=== PATIENT | male | born 1940 | race Caucasian/White ===

== ENCOUNTER 2022-03-12 11:17 | Emergency (ER) | payer MEDICARE, SELFPAY ==
[2022-03-12] VITALS (9 sets, daily range): BP systolic 139–166; BP diastolic 60–86; PULSE 46–60; RESP 15–24; TEMP 36.6; O2SAT 98–100
--- NOTE | 2022-03-12 13:04 | ECG_ITS ---
Measurements Intervals [place] Rate: 45 P: 39 MA: 149 QRS: 23 QRSD: 154 T: 12 QT: 537 QTc: 467 Interpretive Statements SINUS BRADYCARDIA RIGHT BUNDLE BRANCH BLOCK [120+ ms QRS DURATION, UPRIGHT V1, 40+ ms S IN I/aVL/V4/V5/V6] ABNORMAL ECG COMPARED TO ECG 10/03/2018 18:51:27 NO SIGNIFICANT CHANGE Electronically Signed On 03-12-2022 15:04:39 RN ACCESS by Pete Galvez M.D.
--- NOTE | 2022-03-12 13:10 | PC.NURSE ---
Pt presents with dizziness that started throughout the night. Pt reports difficulty ambulating due to dizziness and feeling off balance. Pt reports dizziness has improved some but is still present. Symptoms are worse with position changes. Pt denies unilateral numbness, weakness, or tingling. He denies headache or vision changes. Family noted patient's urine to be dark in color. He denies urinary symptoms, abdominal or flank pain, or vomiting. Pt is A&O x4.
[2022-03-12 13:27] LABS: Basophils Absolute Auto 0.1 K/mm3 (0.0-0.1); Basophils Percent Auto 0.4 % (0.2-1.2); Eosinophils Absolute Auto 0.1 K/mm3 (0-0.3); Eosinophils Percent Auto 0.8 % (0-4.4); Hemoglobin 14.7 g/dL (14.0-18.0); Immature Granulocyte Absolute 0.09 K/mm3 (0.00-0.031); Immature Granulocyte Percent A 0.8 % (0-0.5); Lymphocytes Absolute Auto 1.48 K/mm3 (0.9-3.2); Lymphocytes Percent Auto 12.6 % (18.3-44.2); Mean Corpuscular HGB Conc 33.4 g/dl (32-36); Mean Corpuscular Hemoglobin 32.5 pg (26-34); Mean Corpuscular Volume 97.1 fl (80-100); Mean Platelet Volume 10.7 fl (7.4-10.4); Monocytes Absolute Auto 0.6 K/mm3 (0.1-0.6); Monocytes Percent Auto 5.2 % (2.6-8.5); Neutrophils Absolute Auto 9.4 K/mm3 (1.3-6.7); Neutrophils Percent Auto 80.2 % (45.5-73.1); Platelet Count Result 221 k/mm3 (150-375); Red Blood Count 4.53 M/mm3 (4.6-6.20); Red Cell Distribution Width 12.6 % (11.5-14.5); White Blood Count 11.7 K/mm3 (4.5-10.0)
[2022-03-12 13:39] LABS: Alanine Aminotransferase 32 U/L (6-50); Albumin Level 4.7 g/dL (3.5-5.1); Alkaline Phosphatase 115 U/L (38-126); Anion Gap 8 mmol/L (8-16); Aspartate Amino Transferase 32 U/L (17-59); Bilirubin,Total 0.9 mg/dL (0.2-1.3); Blood Urea Nitrogen 24 mg/dL (9-20); Carbon Dioxide 30 mmol/L (22-30); Chloride 102 mmol/L (98-107); Estimated CRCL calculation 57 ml/min; Estimated Glomerular Filt Rate > 60; Glucose 128 mg/dL (65-110); Potassium 4.3 mmol/L (3.4-5.0); Sodium 140 mmol/L (137-145)
[2022-03-12] MEDS: MECLIZINE HCL 25 MG TABLET PO (14:20)
--- NOTE | 2022-03-12 15:24 | ED.DIZZY ---
HPI - Dizziness General Chief Complaint: Dizziness Stated Complaint: dizzy, nausea, confusion Time Seen by Provider: 03/12/22 13:07 History of Present Illness HPI Narrative: Patient is a 81-year-old male who presents ER with dizziness. Began early this morning upon waking up. He reports occasional when he gets up to walk around he is feeling unsteady/wobbly. No nausea/vomiting/spinning. No weakness or numbness in arm or leg. No slurred speech. Reports has been having sinus congestion over the last couple days and is developed pressure in his ears with muffled hearing. No alleviating factors for today other than sitting still. Patient bradycardic but family reports this is normal for him. He is on no antihypertensives as they are discontinued by his PCP. Related Data Allergies Allergy/AdvReac Type Severity Reaction Status Date / Time No Known Allergies Allergy Unverified 03/12/22 13:14 Review of Systems Review of Systems: All systems reviewed & are unremarkable except as noted in HPI and below Constitutional: Constitutional: Denies chills, Denies fatigue and Denies fever(s) Eyes: Eyes: Denies change in vision and Denies photophobia ENT: Reports dizziness, Reports nasal congestion and Denies sore throat Comments: Piriformis Cardiovascular: Cardiovascular: Denies chest pain, Denies rapid heart rate and Denies radiating jaw, neck or arm pain Respiratory: Respiratory: Denies cough and Denies dyspnea Gastrointestinal: Gastrointestinal: Denies abdominal pain, Denies nausea and Denies vomiting Neurologic: Denies syncope, Denies headache(s), Denies focal weakness and Denies numbness PMFSH Past Medical History Medical History (Updated 03/12/22 @ 15:32 by Maycol Durant MD) Anxiety Depression Hemorrhoids Hypertension Hypothyroidism Lewy body dementia Parkinsons Surgical History Surgical History (Updated 03/12/22 @ 15:28 by Maycol Durant MD) History of cochlear implant Exam Narrative: GENERAL: Well-appearing, well-nourished, and in no acute distress. HEAD: Normocephalic, atraumatic. EYES: PERRL and EOMI. ENT: Mucous membranes moist. TMs with air/fluid behind them. No erythema. CHEST: Clear to auscultation. No respiratory distress. HEART: Bradycardic, regular. Normal peripheral pulses. ABDOMEN: Soft, nontender, nondistended. EXTREMITIES: Normal range of motion. No edema. SKIN: Warm, dry, no rash. NEURO: No focal deficits. No upper or lower extremity drift. No slurred speech or facial asymmetry. Alert and oriented x3. PSYCH: Normal mood and affect. Course Course Emergency Course: Patient resting comfortably. Feels improved with meclizine. Up and ambulatory without a steady gait. Discharged home with supportive medication. Recommend follow-up with PCP. Family comfortable with plan. Blood pressures intermittently elevated, recommend monitoring at home and no interventions at this time. Vital Signs Vital signs: Vital Signs Temperature 97.9 F 03/12/22 11:32 Pulse Rate 49 L 03/12/22 11:32 Respiratory Rate 18 03/12/22 11:32 Blood Pressure 139/72 03/12/22 11:32 Pulse Oximetry 99 03/12/22 11:32 Oxygen Delivery Room Air 03/12/22 11:32 Temperature 97.9 F 03/12/22 11:32 Pulse Rate 48 L 03/12/22 13:14 Respiratory Rate 15 03/12/22 13:14 Blood Pressure 139/72 03/12/22 11:32 Pulse Oximetry 100 03/12/22 13:14 Oxygen Delivery Room Air 03/12/22 11:32 MDM - Dizziness Lab Data 03/12/22 13:15 03/12/22 13:15 Labs: Lab Results 03/12/22 03/12/22 Range/Units 13:15 13:15 WBC 11.7 H (4.5-10.0) K/mm3 RBC 4.53 L (4.6-6.20) M/mm3 Hgb 14.7 (14.0-18.0) g/dL Hct 44.0 (42.0-52.0) % MCV 97.1 (80-100) fl MCH 32.5 (26-34) pg MCHC 33.4 (32-36) g/dl RDW 12.6 (11.5-14.5) % Plt Count 221 (150-375) k/mm3 MPV 10.7 H (7.4-10.4) fl Immature Gran % (Auto) 0.8 H (0-0.5) % Neut % (Auto) 8
== END 2022-03-12 15:40 | disposition home or self-care (01) ==
PROVIDERS: Emergency Provider Emergency Medicine; PCP Internal Medicine
DX: R42 Dizziness and giddiness (principal); I10 Essential (primary) hypertension; E03.9 Hypothyroidism, unspecified; G31.83 Neurocognitive disorder with Lewy bodies; F02.80 Dementia in other diseases classified elsewhere, unspecified severity, without behavioral disturbance, psychotic disturbance, mood disturbance, and anxiety; G20 Parkinson's disease; R00.1 Bradycardia, unspecified; I45.10 Unspecified right bundle-branch block
CPT/HCPCS: 36415; 80053; 85025; 93005; 99284; A9270

== ENCOUNTER 2022-10-15 17:03 | Inpatient (IN) | payer MEDICARE, SELFPAY ==
[2022-10-15] VITALS (12 sets, daily range): BP systolic 139–166; BP diastolic 57–73; PULSE 42–57; RESP 16–28; TEMP 36.4–36.6; O2SAT 92–100; BMI 29.3
--- NOTE | ~2022-10-15 | XR_ITS ---
EXAMINATION: XR surgery orthopedic DATE: 10/16/2022 09:28 INDICATION: Left hip fracture TECHNIQUE: 4 fluoroscopic images of the left hip and proximal femur were obtained during procedure pe rformed by Dr. Amato. Radiologist was not present for the imaging or procedure. The amount of fluor oscopy time used during this procedure was 2.2 minutes. COMPARISON: Radiographs dated 10/15/2022 FINDINGS: Interval reduction of the intertrochanteric fracture the proximal left femur with antegrade intramedu llary yaz and femoral neck dynamic compression screw and distal interlocking screw fixation. Alignmen t appears near-anatomic. No new fractures identified. 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 IMPRESSION: 1. Near-anatomic alignment post reduction and internal fixation of an intratrochanteric fracture of t he proximal left femur. Reviewed, dictated and finalized at location A. IMPRESSION: 1. Near-anatomic alignment post reduction and internal fixation of an intratroc hanteric fracture of the proximal left femur.
--- NOTE | ~2022-10-15 | XR_ITS ---
EXAMINATION: XR chest 1V INDICATION: Pain after fall TECHNIQUE: AP view of the chest is obtained. COMPARISON: 10/03/2018 FINDINGS: The lungs are free of acute opacities. No pleural effusion or pneumothorax. The cardiomedia stinal silhouette is stable. IMPRESSION: 1. No acute cardiopulmonary abnormality. Reviewed, dictated and finalized at location F.
--- NOTE | ~2022-10-15 | XR_ITS ---
EXAMINATION: XR hip LT 2V w AP pelvis INDICATION: Left hip pain after fall, initial encounter TECHNIQUE: AP view the pelvis and two views of the left hip are obtained. COMPARISON: None available FINDINGS: There is an acute, traumatic, closed, intertrochanteric fracture of the left femur. The fem oral head is well-seated in the acetabulum. No additional fracture is identified. There is mild osteo arthritis of the hips. Moderate lower lumbar spondylosis is noted. IMPRESSION: 1. Acute intertrochanteric left hip fracture. Reviewed, dictated and finalized at location F.
--- NOTE | ~2022-10-15 | CT_ITS ---
EXAMINATION: CT brain wo con INDICATION: Head injury COMPARISON: None TECHNIQUE: Standard unenhanced head CT. The dose-length product (DLP) was 681.00 mGy-cm. The mA was a djusted according to patient size. Iterative reconstruction technique was employed. FINDINGS: Streak implant from a left cochlear implant slightly limits the examination. There is no ac [place] intraparenchymal hemorrhage. No evidence of mass lesion. No evidence of acute infarction. There i s moderate periventricular and subcortical hypodensity probably related to small vessel ischemic dise ase. There is moderate prominence of the sulci and ventricles related to cerebral atrophy. Intracrani al calcified cerebral atherosclerosis is noted. There are no extra-axial collections. There is no mas s effect or midline shift. Changes in the globes are likely from ocular lens surgery. The visualized sinuses and mastoid air cells are well aerated. IMPRESSION: 1. No acute intracranial abnormality. 2. Age related findings. Reviewed, dictated and finalized at location F.
--- NOTE | 2022-10-15 18:00 | ED.FALL ---
HPI - Fall General Chief Complaint: Fall <Dipti Peck APRN - Last Filed: 10/15/22 19:25> Stated Complaint: Lt hip injury <Dipti Peck APRN - Last Filed: 10/15/22 19:25> Time Seen by Provider: 10/15/22 17:28 <Dipti Peck APRN - Last Filed: 10/15/22 19:25> Source: patient, family (son/spouse), EMS and RN notes reviewed <Dipti Peck APRN - Last Filed: 10/15/22 19:25> Mode of arrival: EMS <Dipti Peck APRN - Last Filed: 10/15/22 19:25> History of Present Illness HPI Narrative: Patient is a pleasant 81-year-old male with a past medical history of Anxiety, depression, hypertension, hypothyroidism, Lewy body dementia, Parkinson's disease who presents to the emergency department today via EMS with son and spouse present 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 Per the spouse and patient he was on the lawnmower and typically the spouse helps him by sitting on the seat when he has to move. She states that usually only gets down his time he fell forward. per the spouse patient could not get up. Was complaining of left hip pain. Was not able to ambulate due to the pain. Spouse witnessed the entire fall. She states that he may have hit the left front /side of his head. The patient states his pain is all to the left hip/ upper leg. He denies any back pain. when asked if he hit his head he stated he may have on the left upper side. he denies taking any blood thinners. He denies having any symptoms prior to the fall he just slipped and went down. He denies any current headache, dizziness, nausea, vomiting, numbness or tingling of the lower extremities, low back pain, neck pain, loss of control of bowels or bladder, numbness in his groin, abdominal pain, chest pain, shortness a breath, any other symptoms. 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 EYES: Denies visual changes, redness, or discharge. ENT: Denies rhinorrhea, congestion, sore throat, or otalgia. CARDIOVASCULAR: Denies chest pain, palpitations, or edema. RESPIRATORY: Denies cough or dyspnea. GASTROINTESTINAL: Denies abdominal pain, nausea, vomiting, or diarrhea. GENITOURINARY: Denies dysuria or hematuria. SKIN: Denies rash or itching. abrasion left elbow. MUSCULOSKELETAL: Denies back pain. reports Left hip pain/left upper leg pain. denies elbow pain to the left NEUROLOGIC: Denies headache, numbness, or weakness. PSYCHIATRIC: Denies anxiety or depression. <Dipti Peck PRESSURE WELDER - Last Filed: 10/15/22 19:25> All systems reviewed & are unremarkable except as noted in HPI and below <Dipti Peck PRESSURE WELDER - Last Filed: 10/15/22 19:25> [facility] Past Medical History Medical History: Medical History Anxiety Depression Hemorrhoids Hypertension Hypothyroidism Lewy body dementia Parkinsons <Dipti Peck PRESSURE WELDER - Last Filed: 10/15/22 19:25> Surgical History Surgical History: Surgical History (Updated 10/15/22 @ 19:58 by Maritza Ny NP) History of cochlear implant S/P hernia repair <Dipti Peck APRN - Last Filed: 10/15/22 19:25> Family History Family History: Family History (Updated 10/15/22 @ 20:00 by Maritza Ny NP) Sibling Rheumatic arteritis Neuropathy Abdominal aneurysm Hypertension Mother Parkinson disease Alzheimer disease Father Lung cancer <Dipti Peck, KATY - Last Filed: 10/15/22 19:25> Social History Social Hist
--- NOTE | 2022-10-15 18:26 | ECG_ITS ---
Measurements Intervals [place] Rate: 51 P: 55 AL: 158 QRS: 32 QRSD: 155 T: 3 QT: 514 QTc: 478 Interpretive Statements SINUS BRADYCARDIA RIGHT BUNDLE-BRANCH BLOCK COMPARED TO ECG 03/12/2022 13:10:11 NO SIGNIFICANT CHANGES Electronically Signed On 10-16-2022 8:51:43 CDT by Dori Ceja M.D.
[2022-10-15] MEDS: MORPHINE SULFATE (*CRX) 2 MG/ML INJ IV PUSH ×2 (18:27→23:11)
[2022-10-15] MEDS: ONDANSETRON INJ 4 MG/2 ML VIAL IV PUSH ×2 (18:28→23:11)
[2022-10-15 18:59] LABS: Basophils Absolute Auto 0.1 K/mm3 (0.0-0.1); Basophils Percent Auto 0.5 % (0.2-1.2); Eosinophils Absolute Auto 0.2 K/mm3 (0-0.3); Eosinophils Percent Auto 1.6 % (0-4.4); Hematocrit 37.8 % (42.0-52.0); Hemoglobin 12.9 g/dL (14.0-18.0); Immature Granulocyte Absolute 0.06 K/mm3 (0.00-0.031); Immature Granulocyte Percent A 0.5 % (0-0.5); Lymphocytes Absolute Auto 1.18 K/mm3 (0.9-3.2); Lymphocytes Percent Auto 10.8 % (18.3-44.2); Mean Corpuscular HGB Conc 34.1 g/dl (32-36); Mean Corpuscular Hemoglobin 32.7 pg (26-34); Mean Corpuscular Volume 95.9 fl (80-100); Monocytes Absolute Auto 0.7 K/mm3 (0.1-0.6); Monocytes Percent Auto 6.7 % (2.6-8.5); Neutrophils Absolute Auto 8.7 K/mm3 (1.3-6.7); Neutrophils Percent Auto 79.9 % (45.5-73.1); Platelet Count Result 160 k/mm3 (150-375); Red Blood Count 3.94 M/mm3 (4.6-6.20); Red Cell Distribution Width 12.4 % (11.5-14.5); White Blood Count 10.9 K/mm3 (4.5-10.0)
[2022-10-15 19:09] LABS: Alanine Aminotransferase 21 U/L (6-50); Albumin Level 4.3 g/dL (3.5-5.1); Alkaline Phosphatase 93 U/L (38-126); Anion Gap 5 mmol/L (8-16); Aspartate Amino Transferase 32 U/L (17-59); Bilirubin,Total 0.8 mg/dL (0.2-1.3); Blood Urea Nitrogen 18 mg/dL (9-20); Calcium 9.7 mg/dL (8.4-10.2); Carbon Dioxide 28 mmol/L (22-30); Chloride 101 mmol/L (98-107); Estimated CRCL calculation 45 ml/min; Estimated Glomerular Filt Rate 58; Glucose 109 mg/dL (65-110); Potassium 4.8 mmol/L (3.4-5.0); Sodium 134 mmol/L (137-145)
[2022-10-15 19:15] LABS: Prothrombin Time 13.9 Seconds (11.1-14.7)
--- NOTE | 2022-10-15 19:54 | PM.IMHP ---
H&P: HPI History of Present Illness Date/Time: 10/15/22 19:54 Chief Complaint: Fall Narrative: This is a 81-year-old male patient who has a history of mild dementia, Parkinson's, hypothyroidism, hypertension, anxiety, and anxiety.. The patient was out cutting the grass on his riding mower. The patient was trying to get off of his lumbar to lower his past again on to finish cutting the grass. The patient was sitting on the seat and was trying to get off the more when he fell forward the patient landed on his left side and could not get up and move. The patient was not able to ambulated all. The patient was complaining of left hip pain. The patient stated he was not sure if he hit his head but he did not lose any consciousness. He denies any fever chills or any nausea vomiting or diarrhea. The patient was given Zofran and morphine in the emergency room. White count 10.9. H&H is 12.9 and 37.8. Sodium is 134. Head CT was read as no acute intracranial abnormality. Age-related findings. Chest x-ray was read as no acute cardiopulmonary abnormality. Hip and pelvis x-ray was read as acute intertrochanteric left hip fracture. No deformity is noted at this time. Patient has a cochlear implant and still very hard of hearing. The is answering basic questions for me. His sister is also at the bedside answering questions for him. Ortho has been consulted. The patient is being admitted to inpatient status on the date of service of 10/15/2022. Review of Systems Review of Systems: All systems reviewed & are unremarkable except as noted in HPI and below Constitutional: Constitutional: Reports as per HPI and Reports no additional constitutional complaints Eyes: Eyes: Reports as per HPI and Reports no additional eye complaints ENT: Reports system reviewed and no additional complaints, except as documented and Reports Normal hearing present Cardiovascular: Cardiovascular: Reports no additional cardiovascular complaints Respiratory: Respiratory: Reports no additional respiratory complaints and Reports no additional respiratory complaints Gastrointestinal: Gastrointestinal: Reports as per HPI and Reports no additional gastrointestinal complaints Musculoskeletal: Musculoskeletal: Reports no additional musculoskeletal complaints Integumentary/Breasts: Skin/Breast: Reports system reviewed and no additional complaints, except as docu and Reports as per HPI Neurologic: Reports system reviewed and no additional complaints, except as documented, Reports as per HPI and Reports Normal hearing present Psychiatric: Psychiatric: Reports no additional psychiatric complaints and Reports as per HPI Endocrine: Endocrine: Reports no additional endocrine complaints Hematologic/Lymphatic: Hematologic/Lymphatic: Reports no additional hematologic/lymphatic complaints Allergic/Immunologic: Allergic/Immunologic: Reports no additional allergic/immunologic complaints [facility] Past Medical History Medical History (Updated 10/15/22 @ 22:43 by Maritza Ny NP) Anxiety Depression Glaucoma H/O valvular heart disease Hemorrhoids Hyperlipidemia Hypertension Hypothyroidism Lewy body dementia Pacemaker Parkinsons Surgical History Surgical History History of cochlear implant S/P hernia repair Family History Family History Sibling Rheumatic arteritis Neuropathy Abdominal aneurysm Hypertension Mother Parkinson disease Alzheimer disease Father Lung cancer Social History Social History (Updated 10/15/22 @ 22:45 by Maritza Ny NP) Social History: He lives with his and he has 2 children. 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 He is a lifelong nonsmoker. His is the durable power finance attorney for healthcare. Code status full code Smoking status: Never smoker Alcohol intake: never Substance use: never Lack o
--- NOTE | 2022-10-15 21:42 | ADMGEN ---
This patient, Abdi Abrams , was admitted to Medical Room 252-01. Patient/family oriented to hospital policies and general routines including ID bracelet, bed and alarms, visiting hours, pain management, procedures, bathroom and other care routines, personal items, smoking policy, room service/diet, and visiting hours. Information on how to activate the Rapid Response Team has been discussed. Patient/Family are encouraged to report perceived risks to care and to ask questions if they do not understand what they are told or what they should do.
[2022-10-15] MEDS: QUEtiapine FUMARATE 25 MG TABLET 50 MG PO (23:11)
[2022-10-15] MEDS: MELATONIN 5 MG TABLET PO (23:11)
[2022-10-15] MEDS: DONEPEZIL HCL 10 MG TABLET PO (23:11)
[2022-10-15] MEDS: ROSUVASTATIN 10 MG TABLET 20 MG PO (23:11)
[2022-10-15] MEDS: SODIUM CHLORIDE 0.9% IV 1,000 ML 100 ML IV CONT (23:12)
[2022-10-16] VITALS (17 sets, daily range): BP systolic 116–159; BP diastolic 58–82; PULSE 45–100; RESP 16–19; TEMP 36–37.5; O2SAT 93–100
--- NOTE | 2022-10-16 | ECHO_ITS ---
Patient Info Name: Abdi Abrams Age: 81 years : 1940 Gender: Male Ht: 69 in Wt: 198 lbs BSA: 2.11 m2 HR: 100 bpm BP: 116 / 58 mmHg Heart Rhythm: Sinus Rhythm Technical Quality: Good Exam Date: 10/16/2022 2:29 PM Exam Location: [facility] Patient Status: Inpatient Admit Date: 10/15/2022 Staff Ordering Physician: Maritza Ny NP Longwall Foreman: Rocio Bethea RDCS Attending Provider: Lizeth Ryan MD Referring Physician: Anant URIAS; Exam Type: CA echo doppler color flow Study Info Indications - murmur Complete two-dimensional, color flow and Doppler transthoracic echocardiogram is performed. Summary 1. Complete two-dimensional, color flow and Doppler transthoracic echocardiogram is performed. 2. Normal left ventricular size and thickness with good contractility of all segments. Ejection fraction 60-65%. Normal diastolic function. 3. Mild right ventricular enlargement and hypokinesis. 4. Left atrial chamber dimension is moderately enlarged. 5. There is mild to moderate aortic valve regurgitation. 6. There is mild tricuspid valve regurgitation. 7. Moderate pulmonary hypertension, estimated pulmonary arterial systolic pressure is 61 mmHg. 8. Normal sinus rhythm. Left Ventricle Left ventricular chamber dimension is normal. Left ventricular systolic function is normal, estimated at 60-65%. There is no increased left ventricular wall thickness. Left ventricular septal wall motion is normal. The left ventricular diastolic function is normal. Right Ventricle Right ventricular chamber dimension is mildly enlarged. Right ventricular systolic function is reduced. Left Atria Left atrial chamber dimension is moderately enlarged. Right Atria Right atrial chamber dimension is normal. Aortic Valve The aortic valve is trileaflet. There is mild aortic valve sclerosis. There is no aortic valve stenosis. There is mild to moderate aortic valve regurgitation. Pulmonic Valve The pulmonic valve is normal. There is no pulmonic valve stenosis. There is mild pulmonic regurgitation. Mitral Valve The mitral valve has normal leaflets. There is no mitral valve stenosis. There is no mitral valve regurgitation. Tricuspid Valve The tricuspid valve leaflets are normal. There is no significant tricuspid valve stenosis. There is mild tricuspid valve regurgitation. Moderate pulmonary hypertension, estimated pulmonary arterial systolic pressure is 61 mmHg. Pericardium/Pleural The pericardium appears normal. There is no pericardial effusion. Inferior Vena Cava Not well visualized inferior vena cava with >50% collapse upon inspiration consistent with Empty right atrial pressure, 10 mmHg. Aorta The aortic root size at the sinus of Valsalva is normal. The prox ascending aorta size is normal. Left Ventricular Outflow Tract Name Value Normal LVOT 2D LVOT Diameter 2.1 cm LVOT Doppler LVOT Peak Gradient 4 mmHg LVOT Mean Gradient 2 mmHg LVOT VTI 32 cm LVOT VTI/AV VTI Ratio 0.7 LVOT Stroke Volume 108 ml LVOT CO
[2022-10-16] MEDS: MORPHINE SULFATE (*CRX) 2 MG/ML INJ IV PUSH (03:22)
[2022-10-16] MEDS: LEVOTHYROXINE SODIUM 100 MCG TABLET PO (05:16)
[2022-10-16 06:34] LABS: Basophils Absolute Auto 0.1 K/mm3 (0.0-0.1); Basophils Percent Auto 0.5 % (0.2-1.2); Eosinophils Absolute Auto 0.1 K/mm3 (0-0.3); Hemoglobin 12.3 g/dL (14.0-18.0); Immature Granulocyte Absolute 0.05 K/mm3 (0.00-0.031); Immature Granulocyte Percent A 0.4 % (0-0.5); Lymphocytes Absolute Auto 1.68 K/mm3 (0.9-3.2); Lymphocytes Percent Auto 14.3 % (18.3-44.2); Mean Corpuscular HGB Conc 32.4 g/dl (32-36); Mean Corpuscular Hemoglobin 32.8 pg (26-34); Mean Corpuscular Volume 101.3 fl (80-100); Mean Platelet Volume 11.2 fl (7.4-10.4); Monocytes Absolute Auto 1.2 K/mm3 (0.1-0.6); Monocytes Percent Auto 10.6 % (2.6-8.5); Neutrophils Absolute Auto 8.6 K/mm3 (1.3-6.7); Neutrophils Percent Auto 73.2 % (45.5-73.1); Platelet Count Result 146 k/mm3 (150-375); Red Blood Count 3.75 M/mm3 (4.6-6.20); Red Cell Distribution Width 12.5 % (11.5-14.5); White Blood Count 11.7 K/mm3 (4.5-10.0)
[2022-10-16 06:46] LABS: Lactic Acid Reflex 1.7 mmol/L (0.7-2.0)
[2022-10-16 06:51] LABS: Alanine Aminotransferase 19 U/L (6-50); Albumin Level 3.8 g/dL (3.5-5.1); Alkaline Phosphatase 78 U/L (38-126); Anion Gap 6 mmol/L (8-16); Aspartate Amino Transferase 26 U/L (17-59); Blood Urea Nitrogen 20 mg/dL (9-20); Calcium 8.6 mg/dL (8.4-10.2); Carbon Dioxide 23 mmol/L (22-30); Chloride 103 mmol/L (98-107); Estimated CRCL calculation 48 ml/min; Estimated Glomerular Filt Rate > 60; Glucose 101 mg/dL (65-110); Magnesium 2.1 mg/dL (1.6-2.3); Potassium 4.3 mmol/L (3.4-5.0); Sodium 132 mmol/L (137-145)
--- NOTE | 2022-10-16 07:58 | PM.CNOR ---
Assessment and Plan Assessment and plan (1) Intertrochanteric fracture of left hip: Qualifiers: Encounter type: initial encounter Fracture alignment: nondisplaced Fracture type: closed Qualified Code(s): S72.145A - Nondisplaced intertrochanteric fracture of left femur, initial encounter for closed fracture Code(s): S72.142A - Displaced intertrochanteric fracture of left femur, initial encounter for closed fracture Status: Acute Plan S/P LEFT HIP INJURY AND NOW WITH LEFT INTERTROCHATERIC HIP FRACTURE. HE WWILL REQUIRE INSERRTION OF PROXIMAL FEMORAL KENDRA RIGHT HIP. DISCUSSED NONOPERATIVE AND OPERATIVE TREATMENT OPTIONS WITH THE PATIENT. THE PATIENT'S QUESTIONS WERE ANSWERED. THE PATIENT DESIRES OPERATIVE TREATMENT. RISKS OF SURGERY INCLUDING BUT NOT LIMITED TO NEUROVASCULAR DAMAGE, WOUND COMPLICATIONS, BLOOD CLOT, PULMONARY EMBOLUS, STROKE, TX, ANESTHETIC RISKS UP TO AND INCLUDING WERE REVIEWED. CONTINUED PAIN AND POSSIBLE DYSFUNCTION WERE EXPLAINED. NO GUARANTEES WERE OFFERED. THE PATIENT UNDERSTANDS AND WISHES TO PROCEED. 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 HE WAS SEEN IN THE ED AND DIAGNOSED WITH A LEFT INTERTROCHANTERIC FEMUR FRACTURE. HE DENIES ANY OTHER EXTREMITY OR BACK OR NECK PAIN. HISTORY, EXAM AND RADIOGRAPHS REVIEWED WITH THE PATIENT. REFERRING PHYSICIAN RECORDS AND IMAGES REVIEWED. CONDITION, NATURE, ETIOLOGY AND COURSE OF NATURAL HISTORY REVIEWED. CONSERVATIVE AND OPERATIVE TREATMENT OPTIONS REVIEWED WELL THE RISKS AND BENEFITS OF EACH. [facility] Past Medical History Medical History Anxiety Depression Glaucoma H/O valvular heart disease Hemorrhoids Hyperlipidemia Hypertension Hypothyroidism Lewy body dementia Pacemaker Parkinsons Surgical History Surgical History History of cochlear implant S/P hernia repair Family History Family History Sibling Rheumatic arteritis Neuropathy Abdominal aneurysm Hypertension Mother Parkinson disease Alzheimer disease Father Lung cancer Social History Social History Social History: He lives with his and he has 2 children. He is retired g [employer] still. He is a lifelong nonsmoker. His is the durable power trademark attorney for healthcare. Code status full code Smoking status: Never smoker Alcohol intake: never Substance use: never Lack of Transportation: No Lack of Food: Never True Current Housing: I Have Housing Concerned About Future Housing: No Difficulty Paying Gas/Electric Bills: No Difficulty Paying for Meds: No Currently Unemployed: No Education: High School Diploma/GED Difficulty w/ Childcare or Family Care: No Spiritual care concerns: No Meds Home Medications and Allergies Home Medications Medication Instructions Recorded Confirmed Type calcium carb-vit D3-minerals 600 1 tablet PO BID 10/15/22 10/15/22 History mg calcium-400 unit tablet cholecalciferol (vitamin D3) 25 25 mcg PO BID 10/15/22 10/15/22 History mcg (1,000 unit) tablet (Vitamin D3) donepezil 10 mg tablet 10 mg PO QHS 10/15/22 10/15/22 History duloxetine 60 mg capsule,delayed 60 mg PO QAM 10/15/22 10/15/22 History release ergocalciferol (vitamin D2) 1,250 50,000 unit PO WEEKLY 10/15/22 10/15/22 History mcg (50,000 unit) capsule ferrous sulfate 325 mg (65 mg 325 mg PO DAILY 10/15/22 10/15/22 History iron) tablet levothyroxine 100 mcg tablet 100 mcg PO QAM 10/15/22 10/15/22 History (Synthroid) lorazepam 0.5 mg tablet 0.5 mg PO QAM 10/15/22 10/15/22 History melatonin 5 mg tablet 5 mg PO HS 10/15/22 10/15/22 History quetiapine 100 mg tablet
[2022-10-16 08:01] LABS: Thyroid Stimulating Hormone Reflex 0.268 uIU/mL (0.465-4.68)
--- NOTE | 2022-10-16 08:12 | PC.NURSE ---
Patient to surgery @ 0800. Report called to Pre-op RN.
[2022-10-16] MEDS: ceFAZolin 2 GM/D5W 50 ML 2 GM/50 ML BAG IVPB ×3 (08:40→23:16)
[2022-10-16] MEDS: TRANEXAMIC ACID 1,000 MG/10 ML AMPUL 1000 MG IV PUSH (09:09)
--- NOTE | 2022-10-16 09:36 | W.PM.PROC2 ---
Procedure Note - Detailed Date of Procedure 10/16/22 Pre-op Diagnosis Left Hip Fracture Post-op Diagnosis Same Procedure Performed INSERTION GAMMA KENDRA LEFT HIP Surgeon Byron Amato MD Anesthesia General Description of Procedure THE PATIENT WAS TAKEN TO THE OPERATING ROOM AND PLACED ON A FRACTURE TABLE AFTER GIVEN GENERAL ANESTHESIA. THE LEFT LOWER EXTREMITY WAS PLACED IN A TRACTION BOOT AND USING SOME TRACTION AND INTERNAL ROTATION THE INNER TROCHANTERIC FRACTURE WAS REDUCED TO ANATOMIC POSITION. NEXT THE LEFT LOWER EXTREMITY WAS PREPPED AND DRAPED IN THE STERILE FASHION. AN INCISION WAS MADE PROXIMAL TO THE TIP OF THE GREATER TROCHANTER AND DISSECTION CONTINUED TILL THE TIP OF THE GREATER TROCHANTER WAS PALPATED. A GUIDE PIN WAS PLACED DOWN THE FEMORAL CANAL AND PAST THE FRACTURE SITE. THIS WAS CHECKED ON FLUOROSCOPY AND FOUND TO BE IN GOOD POSITION. AN INITIAL REAMER WAS USED TO REAM THE FEMORAL CANAL. A 11 BY 200 MM ARTHREX KENDRA WAS INSERTED TILL THE CORRECT POSITION WAS IDENTIFIED ON XRAY. A GUIDE PIN WAS INSERTED THROUGH THE FEMORAL NECK AT 125 [address] TILL IT REACHED THE TIP OF THE SUB CHONDRAL BONE SEEN ON XRAY. AFTER REAMING, LAG SCREW WAS INSERTED MEASURING 105 MM. XRAYS SHOWED IT TO BE IN GOOD POSITION. THE LAG SCREW WAS LOCKED PROXIMALLY WITH A LOCKING SCREW. NEXT A DISTAL LOCKING SCREW WAS PLACED ACROSS THE KENDRA AND WAS IN GOOD POSITION ON XRAY. THE TRACTION WAS RELEASED. THE WOUNDS WERE WASHED. THE DEEP FASCIA WAS REPAIRED WITH 0 VICRYL SUTURE, THE SUB CUTANEOUS LAYER WITH 2-0 VICRYL, AND THE SKIN WITH VIJAY. THE WOUNDS WERE WASHED AND THEN STERILE DRESSING WAS APPLIED. PATIENT WAS EXTUBATED AND SENT TO RECOVERY ROOM. Estimated Blood Loss 100 Urine Output 150 Complications No immediate complications Condition Stable Disposition PACU
[2022-10-16] MEDS: LACTATED RINGERS 1,000 ML 30 ML IV CONT (09:44)
[2022-10-16] MEDS: fentaNYL CITRATE INJ (*CRX) 100 MCG/2 ML VIAL 25 MCG IV PUSH ×4 (10:06→10:25)
[2022-10-16 10:36] LABS: Free T4 Free Thyroxine Reflex 1.45 ng/dL (0.78-2.19)
--- NOTE | 2022-10-16 11:03 | SUR.PHASEI ---
report given to floor RN @[id number] waiting for transportation from floor to transfer patient to inpt room
--- NOTE | 2022-10-16 11:22 | PC.NURSE ---
Returned from surgery @ 1397
[2022-10-16] MEDS: SODIUM CHLORIDE 0.9% IV 1,000 ML 125 ML IV CONT (11:39)
[2022-10-16] MEDS: ERGOCALCIFEROL 50,000 UNITS CAPSULE 50000 UNITS PO (12:32)
[2022-10-16] MEDS: DULoxetine HCL 60 MG CAPSULE.DR PO (12:32)
[2022-10-16] MEDS: FERROUS SULFATE 325 MG TABLET DR PO (12:33)
[2022-10-16] MEDS: VITAMIN B COMPLEX CAPSULE 1 CAP PO (12:33)
[2022-10-16] MEDS: TIMOLOL MALEATE XE 0.5% OPHTH GEL SOLN 5 ML BTL 1 DROP EACH EYE (12:34)
[2022-10-16 12:46] LABS: Total Triiodothyronine (T3) 0.86 NG/ML (0.97-1.69)
[2022-10-16] MEDS: HYDROcodone/acetaminophen (*CRX) 7.5-325 MG TABLET 1 TAB PO (14:17)
--- NOTE | 2022-10-16 14:38 | PM.IMPN ---
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 x-ray of the hip and pelvis revealed as acute intertrochanteric left hip fracture. Ortho has been consulted. Analgesics, DVT prophylaxis and PT and OT per Orthopedics. Patient will likely need placement at discharge. (2) Hypertension: Code(s): I10 - Essential (primary) hypertension Status: Acute Assessment and Plan: P.r.n. hydralazine (3) Parkinsons: Code(s): G20 - Parkinson's disease Status: Acute Assessment and Plan: Continue with home medications. (4) H/O valvular heart disease: Code(s): Z86.79 - Personal history of other diseases of the circulatory system Status: Acute Assessment and Plan: An echo has been ordered. (5) Hypothyroidism: Code(s): E03.9 - Hypothyroidism, unspecified Status: Acute Assessment and Plan: Continue with levothyroxine TSH and T3 are low. Consistent with subclinical hypothyroidism. Plan Continue all other home medications after surgery is completed and patient can start diet. Subjective Date/time seen: 10/16/22 14:38 Interval history: Patient doing well today and I examine him postoperatively. He is having some mild discomfort in the left hip but otherwise feeling pretty good. He states that he had a fall due to losing his balance. He denies any dizziness or lightheadedness associated with this. He is not having any current chest pain, shortness a breath, nausea or vomiting. He is on 1 L of oxygen but does not wear oxygen chronically at home. Exam Narrative: GENERAL: Comfortable, no acute distress HENMT: moist mucous membranes EYES: EOM intact b/l NECK: no lymphadenopathy RESPIRATORY: clear to auscultation CARDIO: RRR , murmur present GI: soft, nontender, bowel sounds present SKIN: no rashes EXTREMITIES: Left hip Tegaderm dry and intact minimal bruising and swelling at the site of incision. Objective Data Vital Signs Vital Signs: Vital Signs - 24 hr 10/15/22 17:07 10/15/22 17:43 10/15/22 17:44 Temperature 97.9 F Pulse Rate 44 L 44 L 46 L Respiratory Rate 18 18 21 H Blood Pressure 139/57 L 166/72 H Pulse Oximetry 100 99 99 Oxygen Delivery Room Air Oxygen Flow Rate 10/15/22 17:45 10/15/22 17:47 10/15/22 18:00 Temperature Pulse Rate 42 L 53 L 44 L Respiratory Rate 24 H 19 25 H Blood Pressure 157/65 H Pulse Oximetry 98 98 99 Oxygen Delivery Oxygen Flow Rate 10/15/22 18:01 10/15/22 18:24 10/15/22 18:30 Temperature Pulse Rate 43 L 53 L 52 L Respiratory Rate 24 H 16 28 H Blood Pressure 152/70 H Pulse Oximetry 98 95 99 Oxygen Delivery Oxygen Flow Rate 10/15/22 18:45 10/15/22 20:57 10/15/22 21:38 Temperature 97.6 F Pulse Rate 52 L 56 L 57 L Respiratory Rate 26 H 16 16 Blood Pressure 158/68 H 144/73 H Pulse Oximetry 92 98 95 Oxygen Delivery Oxygen Flow Rate 10/16/22 06:56 10/16/22 09:44 10/16/22 09:55 Temperature 98.0 F 99.5 F Pulse Rate 100 63 64 Respiratory Rate 16 18 18 Blood Pressure 116/58 L 148/78 H 159/72 H Pulse Oximetry 97 100 100 Oxygen Delivery Simple Face Mask Simple Face Mask Oxygen Flow Rate 8 8 10/16/22 10:10 10/16/22 10:25 10/16/22 10:40 Temperature Pulse Rate 60 57 L 58 L Respiratory Rate 18 18 18 Blood Pressure 152/82 H 146/67 H 149/67 H Pulse Oximetry 100 95 95 Oxygen Delivery Simple Face Mask Nasal Cannula Nasal Cannula Oxygen Flow Rate 8 4 1 10/16/22
[2022-10-16] MEDS: SENNA/DOCUSATE SODIUM TABLET 2 TAB PO (17:21)
[2022-10-16] MEDS: CHOLECALCIFEROL 1,000 UNITS TABLET 1000 UNITS PO (17:21)
[2022-10-16] MEDS: MELATONIN 5 MG TABLET PO (21:12)
[2022-10-16] MEDS: QUEtiapine FUMARATE 25 MG TABLET 50 MG PO (21:12)
[2022-10-16] MEDS: FAMOTIDINE 20 MG TABLET PO (21:12)
[2022-10-16] MEDS: DONEPEZIL HCL 10 MG TABLET PO (21:12)
[2022-10-16] MEDS: ROSUVASTATIN 10 MG TABLET 20 MG PO (21:12)
[2022-10-16] MEDS: ASPIRIN 325 MG ENTERIC TABLET PO (21:12)
[2022-10-17 04:03] VITALS: BP 136/59; PULSE 58; RESP 18; TEMP 36.9; O2SAT 93
[2022-10-17] MEDS: LEVOTHYROXINE SODIUM 100 MCG TABLET PO (05:35)
[2022-10-17 05:53] LABS: Basophils Percent Auto 0.2 % (0.2-1.2); Eosinophils Percent Auto 0.1 % (0-4.4); Hematocrit 32.1 % (42.0-52.0); Hemoglobin 10.7 g/dL (14.0-18.0); Immature Granulocyte Absolute 0.06 K/mm3 (0.00-0.031); Immature Granulocyte Percent A 0.5 % (0-0.5); Immature Platelet Fraction Pct 11.6 % (0.9-11.2); Lymphocytes Absolute Auto 1.38 K/mm3 (0.9-3.2); Lymphocytes Percent Auto 10.4 % (18.3-44.2); Mean Corpuscular HGB Conc 33.3 g/dl (32-36); Mean Corpuscular Hemoglobin 32.4 pg (26-34); Mean Corpuscular Volume 97.3 fl (80-100); Mean Platelet Volume 11.4 fl (7.4-10.4); Monocytes Absolute Auto 1.4 K/mm3 (0.1-0.6); Monocytes Percent Auto 10.4 % (2.6-8.5); Neutrophils Absolute Auto 10.4 K/mm3 (1.3-6.7); Neutrophils Percent Auto 78.4 % (45.5-73.1); Platelet Count Result 128 k/mm3 (150-375); Red Cell Distribution Width 12.4 % (11.5-14.5); White Blood Count 13.3 K/mm3 (4.5-10.0)
[2022-10-17 06:05] LABS: Anion Gap 3 mmol/L (8-16); Blood Urea Nitrogen 23 mg/dL (9-20); Calcium 8.2 mg/dL (8.4-10.2); Carbon Dioxide 28 mmol/L (22-30); Chloride 101 mmol/L (98-107); Estimated CRCL calculation 45 ml/min; Estimated Glomerular Filt Rate 58; Glucose 122 mg/dL (65-110); Sodium 132 mmol/L (137-145)
--- NOTE | 2022-10-17 08:43 | WPDANESPN ---
Anes - Prog Note Post-Op Date/Time: 10/17/22 08:43 Cardiovascular status: normal Respiratory status: normal Airway patency: baseline Mental status: baseline Post-Op hydration status: normal Vital Signs: Last Vital Signs Temp 36.9 C 10/17/22 04:03 Pulse 58 L 10/17/22 04:03 Resp 18 10/17/22 04:03 BP 136/59 L 10/17/22 04:03 Pulse Ox 93 10/17/22 04:03 O2 Del Method Nasal Cannula 10/16/22 20:00 O2 Flow Rate 0.5 10/16/22 20:00 Pain Score (VAS): Patient asleep, no nonverbal signs of pain present at this time. I/O: Intake & Output 10/16/22 10/17/22 10/17/22 23:59 07:59 15:59 Intake Total 1340 300 Output Total 400 500 Balance 940 -200 Laboratory Tests 10/17/22 05:31 10/17/22 05:31 10/16/22 10/17/22 06:13 05:31 WBC 13.3 H RBC 3.30 L Hgb 10.7 L Hct 32.1 L MCV 97.3 MCH 32.4 MCHC 33.3 RDW 12.4 Plt Count 128 L MPV 11.4 H Immature Gran % (Auto) 0.5 Neut % (Auto) 78.4 H Lymph % (Auto) 10.4 L Carver % (Auto) 10.4 H Eos % (Auto) 0.1 Baso % (Auto) 0.2 Lymph # (Auto) 1.38 Carver # (Auto) 1.4 H Eos # (Auto) 0.0 Baso # (Auto) 0.0 Abs Immat Gran (auto) 0.06 H Absolute Neuts (auto) 10.4 H Absolute Nucleated RBC 0.0 Nucleated RBC % 0.0 % Immature Plt Fraction 11.6 H Sodium 132 L Potassium 4.0 Chloride 101 Carbon Dioxide 28 Anion Gap 3 L BUN 23 H Creatinine 1.20 Estim Creat Clear Calc 45 Estimated GFR 58 L Glucose 122 H Calcium 8.2 L Free T4 1.45 Total T3 0.86 L Post-procedural complaints: none Patient Feedback: Patient satisfied with anesthetic care.
--- NOTE | 2022-10-17 09:31 | PCOTNOTE ---
The patient's OT eval is not able to completed on 10/16/2022.
--- NOTE | 2022-10-17 09:31 | PCOTNOTE ---
The patient's OT eval is not able to completed on 10/17/2022.
[2022-10-17] MEDS: SENNA/DOCUSATE SODIUM TABLET 2 TAB PO ×2 (09:56→17:03)
[2022-10-17] MEDS: CELECOXIB 200 MG CAPSULE PO (09:56)
[2022-10-17] MEDS: CHOLECALCIFEROL 1,000 UNITS TABLET 1000 UNITS PO ×2 (09:56→17:03)
[2022-10-17] MEDS: ASPIRIN 325 MG ENTERIC TABLET PO ×2 (09:56→20:21)
[2022-10-17] MEDS: QUEtiapine FUMARATE 25 MG TABLET 50 MG PO ×2 (09:57→20:21)
[2022-10-17] MEDS: FAMOTIDINE 20 MG TABLET PO ×2 (09:57→20:22)
[2022-10-17] MEDS: DULoxetine HCL 60 MG CAPSULE.DR PO (09:57)
[2022-10-17] MEDS: VITAMIN B COMPLEX CAPSULE 1 CAP PO (09:58)
[2022-10-17] MEDS: TIMOLOL MALEATE XE 0.5% OPHTH GEL SOLN 5 ML BTL 1 DROP EACH EYE (09:58)
[2022-10-17] MEDS: ceFAZolin 2 GM/D5W 50 ML 2 GM/50 ML BAG IVPB (09:59)
--- NOTE | 2022-10-17 11:51 | PM.IMPN ---
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 x-ray of the hip and pelvis revealed as acute intertrochanteric left hip fracture. Ortho has been consulted. Analgesics, DVT prophylaxis and PT and OT per Orthopedics. Patient will likely need placement at discharge. Postop day 1 (2) Hypertension: Code(s): I10 - Essential (primary) hypertension Status: Acute Assessment and Plan: P.r.n. hydralazine (3) Parkinsons: Code(s): G20 - Parkinson's disease Status: Acute Assessment and Plan: Continue with home medications. (4) H/O valvular heart disease: Code(s): Z86.79 - Personal history of other diseases of the circulatory system Status: Acute Assessment and Plan: An echo has been ordered. (5) Hypothyroidism: Code(s): E03.9 - Hypothyroidism, unspecified Status: Acute Assessment and Plan: Continue with levothyroxine TSH and T3 are low. Consistent with subclinical hypothyroidism. Plan Continue all other home medications after surgery is completed and patient can start diet. Subjective Date/time seen: 10/17/22 11:51 Interval history: Patient doing well today and does not have any complaints other than some left hip soreness. I anticipate the patient will likely need therapy at discharge. Plan to continue working with therapy, pain management and possible placement for the patient. Exam Narrative: GENERAL: Comfortable, no acute distress HENMT: moist mucous membranes EYES: EOM intact b/l NECK: no lymphadenopathy RESPIRATORY: clear to auscultation CARDIO: RRR , murmur present GI: soft, nontender, bowel sounds present SKIN: no rashes EXTREMITIES: Left hip Tegaderm dry and intact minimal bruising and swelling at the site of incision. Objective Data Vital Signs Vital Signs: Vital Signs - 24 hr 10/16/22 12:50 10/16/22 14:05 10/16/22 15:07 Temperature 98.6 F 98.2 F Pulse Rate 45 L 77 Respiratory Rate 16 16 Blood Pressure 152/65 H 148/75 H Pulse Oximetry 94 96 Oxygen Delivery Nasal Cannula Oxygen Flow Rate 1 10/16/22 17:30 10/16/22 19:46 10/16/22 20:00 Temperature 97.6 F 97.1 F L Pulse Rate 77 55 L 55 L Respiratory Rate 16 18 18 Blood Pressure 145/68 H 137/68 Pulse Oximetry 94 93 93 Oxygen Delivery Nasal Cannula Oxygen Flow Rate 0.5 10/16/22 23:00 10/17/22 04:03 10/17/22 09:52 Temperature 99.1 F 98.5 F Pulse Rate 57 L 58 L Respiratory Rate 19 18 Blood Pressure 133/71 136/59 L Pulse Oximetry 99 93 Oxygen Delivery Room Air Oxygen Flow Rate Intake/Output Intake/Output: Intake & Output 10/14/22 10/15/22 10/16/22 10/17/22 23:59 23:59 23:59 23:59 Intake Total 1840 300 Output Total 1000 925 Balance 840 -625 Meds/Results Medications: Active Medications Generic Name Dose Route Start Last Admin Trade Name Freq PRN Reason Stop Dose Admin Acetaminophen 650 mg 10/16/22 11:12 Acetaminophen 325 Mg Tablet PO Q6H PRN Mild Pain (1-3) or Fever Hydrocodone Bitart/Acetaminophen 1 tab 10/16/22 11:12 10/16/22 14:17 Hydrocodone/Acetaminophen (*Crx) 7.5-325 Mg Tablet PO 1 tab Q3H PRN Administration Pain Rated 4-6 Hydrocodone Bitart/Acetaminophen 2 tab 10/16/22 11:12 Hydrocodone/Acetaminophen (*Crx) 7.5-325 Mg Tablet PO Q6H PRN Pain Rated 7-10 Aspirin 325 mg 10/16/22 21:00 10/17/22 09:56 Aspirin 325 Mg Enteric Tablet PO 325 mg Q12HR [facility]
[2022-10-17] MEDS: FERROUS SULFATE 325 MG TABLET DR PO (12:26)
--- NOTE | 2022-10-17 13:48 | PM.PNORT ---
Progress Note: A&P Assessment and Plan (1) Intertrochanteric fracture of left hip: Qualifiers: Encounter type: initial encounter Fracture alignment: nondisplaced Fracture type: closed Qualified Code(s): S72.145A - Nondisplaced intertrochanteric fracture of left femur, initial encounter for closed fracture Code(s): S72.142A - Displaced intertrochanteric fracture of left femur, initial encounter for closed fracture Status: Acute Assessment and Plan: POD 1 DOING WELL. CONTINUE PT , SNF WHEN STABLE Subjective Subjective Date/Time Seen: 10/17/22 13:48 Interval history: POD 1 DOING WELL. NO CALF PAIN Exam Extrem: Other: VSS AFEBRILE DRESSING DRY NV INTACT NEG HOMANS SIGN, CALF SOFT THIGH SOFT Objective Data Vital Signs Vital Signs: Vital Signs - 24 hr 10/16/22 14:05 10/16/22 15:07 10/16/22 17:30 Temperature 36.8 C 36.4 C Pulse Rate 77 77 Respiratory Rate 16 16 Blood Pressure 148/75 H 145/68 H Pulse Oximetry 96 94 Oxygen Delivery Nasal Cannula Oxygen Flow Rate 1 10/16/22 19:46 10/16/22 20:00 10/16/22 23:00 Temperature 36.2 C L 37.3 C Pulse Rate 55 L 55 L 57 L Respiratory Rate 18 18 19 Blood Pressure 137/68 133/71 Pulse Oximetry 93 93 99 Oxygen Delivery Nasal Cannula Oxygen Flow Rate 0.5 10/17/22 04:03 10/17/22 09:52 Temperature 36.9 C Pulse Rate 58 L Respiratory Rate 18 Blood Pressure 136/59 L Pulse Oximetry 93 Oxygen Delivery Room Air Oxygen Flow Rate Intake/Output Intake/Output: Intake & Output 10/14/22 10/15/22 10/16/22 10/17/22 23:59 23:59 23:59 23:59 Intake Total 1840 710 Output Total 1000 925 Balance 840 -215 Meds/Results Medications: Active Medications Generic Name Dose Route Start Last Admin Trade Name Freq PRN Reason Stop Dose Admin Acetaminophen 650 mg 10/16/22 11:12 Acetaminophen 325 Mg Tablet PO Q6H PRN Mild Pain (1-3) or Fever Hydrocodone Bitart/Acetaminophen 1 tab 10/16/22 11:12 10/16/22 14:17 Hydrocodone/Acetaminophen (*Crx) 7.5-325 Mg Tablet PO 1 tab Q3H PRN Administration Pain Rated 4-6 Hydrocodone Bitart/Acetaminophen 2 tab 10/16/22 11:12 Hydrocodone/Acetaminophen (*Crx) 7.5-325 Mg Tablet PO Q6H PRN Pain Rated 7-10 Aspirin 325 mg 10/16/22 21:00 10/17/22 09:56 Aspirin 325 Mg Enteric Tablet PO 325 mg Q12HR REDD Administration Calcium Carbonate 500 mg 10/16/22 17:00 10/17/22 09:55 Calcium/Vitamin D 500 Mg Tablet PO 500 mg BIDWM REDD Administration Celecoxib 200 mg 10/17/22 08:00 10/17/22 09:56 Celecoxib 200 Mg Capsule PO 200 mg DAILY@0800 REDD Administration Diazepam 5 mg 10/16/22 11:12 Diazepam (*Crx) 5 Mg Tablet PO Q8H PRN Muscle Spasm Donepezil HCl 10 mg 10/15/22 22:45 10/16/22 21:12 Donepezil Hcl 10 Mg Tablet PO 10 mg QHS REDD Administration Duloxetine HCl 60 mg 10/16/22 09:00 10/17/22 09:57 Duloxetine Hcl 60 Mg Capsule. PO 60 mg QAM REDD Administration Ergocalciferol 50,000 units 10/16/22 09:00 10/16/22 12:32 Ergocalciferol 50,000 Units Capsule PO 50,000 units WEEKLY REDD Administration Famotidine 20 mg 10/16/22 21:00 10/17/22 09:57 Famotidine 20 Mg Tablet PO 20 mg Q12HR REDD Administration Ferrous Sulfate 325 mg 10/16/22 12:00 10/17/22 12:26 Ferrous Sulfate [address] PO 325 mg DAILY@1200 REDD Administration Hydralazine HCl 10 mg 10/15/22 23:03 Hydralazine Hcl 20 Mg/Ml Vial IV PUSH Q8H PRN Blood Pressure - High Hydroxyzine Pamoate 50 mg 10/16/22 11:12 Hydroxyzine Pamoate 25 Mg Capsule PO Q4H PRN Itching Levothyroxine Sodium 100 mcg 10/16/22 06:30 10/17/22 05:35 Levothyroxine Sodium 100 Mcg Tablet PO 100 mcg DAILY@0630 [facility] Administration Lorazepam 1 mg 10/15/22 22:04 Lorazepam Inj (*Crx) 2 Mg/Ml Vial IV PUSH Q6H PRN Anxiety Lorazepam 0.5 mg 10/16/22 11:20 08
[2022-10-17 14:17] VITALS: BP 114/67; PULSE 56; RESP 18; TEMP 36.4; O2SAT 93
[2022-10-17 20:00] VITALS: PULSE 64; RESP 18; O2SAT 95
[2022-10-17 20:08] LABS: Glucose Point of Care 166 mg/dl (65-105)
[2022-10-17] MEDS: ROSUVASTATIN 10 MG TABLET 20 MG PO (20:21)
[2022-10-17] MEDS: MELATONIN 5 MG TABLET PO (20:22)
[2022-10-17] MEDS: polyethylene glycoL 3350 17 GM POWD.PACK PO (20:22)
[2022-10-17] MEDS: DONEPEZIL HCL 10 MG TABLET PO (20:22)
[2022-10-17 20:48] VITALS: BP 117/65; PULSE 64; RESP 18; TEMP 36.9; O2SAT 95
[2022-10-18] MEDS: LEVOTHYROXINE SODIUM 100 MCG TABLET PO (05:33)
[2022-10-18 05:42] VITALS: BP 134/71; PULSE 61; RESP 18; TEMP 36.8; O2SAT 93
[2022-10-18 05:45] LABS: Hematocrit 31.5 % (42.0-52.0); Hemoglobin 10.6 g/dL (14.0-18.0); Immature Platelet Fraction Pct 10.7 % (0.9-11.2); Mean Corpuscular HGB Conc 33.7 g/dl (32-36); Mean Corpuscular Hemoglobin 32.6 pg (26-34); Mean Corpuscular Volume 96.9 fl (80-100); Mean Platelet Volume 11.5 fl (7.4-10.4); Platelet Count Result 122 k/mm3 (150-375); Red Blood Count 3.25 M/mm3 (4.6-6.20); Red Cell Distribution Width 12.6 % (11.5-14.5); White Blood Count 10.6 K/mm3 (4.5-10.0)
[2022-10-18 05:53] LABS: Anion Gap 5 mmol/L (8-16); Blood Urea Nitrogen 22 mg/dL (9-20); Calcium 8.1 mg/dL (8.4-10.2); Carbon Dioxide 29 mmol/L (22-30); Chloride 101 mmol/L (98-107); Estimated CRCL calculation 53 ml/min; Estimated Glomerular Filt Rate > 60; Glucose 96 mg/dL (65-110); Potassium 3.9 mmol/L (3.4-5.0); Sodium 135 mmol/L (137-145)
[2022-10-18] MEDS: HYDROcodone/acetaminophen (*CRX) 7.5-325 MG TABLET 2 TAB PO (10:30)
[2022-10-18] MEDS: DULoxetine HCL 60 MG CAPSULE.DR PO (10:31)
[2022-10-18] MEDS: QUEtiapine FUMARATE 25 MG TABLET 50 MG PO ×2 (10:31→20:21)
[2022-10-18] MEDS: ASPIRIN 325 MG ENTERIC TABLET PO ×2 (10:32→20:21)
[2022-10-18] MEDS: FAMOTIDINE 20 MG TABLET PO ×2 (10:32→20:21)
[2022-10-18] MEDS: LORazepam (*CRX) 0.5 MG TABLET PO (10:33)
[2022-10-18] MEDS: CELECOXIB 200 MG CAPSULE PO (10:33)
[2022-10-18] MEDS: VITAMIN B COMPLEX CAPSULE 1 CAP PO (10:33)
[2022-10-18] MEDS: SENNA/DOCUSATE SODIUM TABLET 2 TAB PO ×2 (10:34→16:38)
[2022-10-18] MEDS: CHOLECALCIFEROL 1,000 UNITS TABLET 1000 UNITS PO ×2 (10:34→16:38)
[2022-10-18] MEDS: polyethylene glycoL 3350 17 GM POWD.PACK PO (10:34)
[2022-10-18] MEDS: TIMOLOL MALEATE XE 0.5% OPHTH GEL SOLN 5 ML BTL 1 DROP EACH EYE (10:35)
--- NOTE | 2022-10-18 12:44 | PM.IMPN ---
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 x-ray of the hip and pelvis revealed as acute intertrochanteric left hip fracture. Ortho has been consulted. Analgesics, DVT prophylaxis and PT and OT per Orthopedics. Patient will likely need placement at discharge. Postop day 1 (2) Hypertension: Code(s): I10 - Essential (primary) hypertension Status: Acute Assessment and Plan: P.r.n. hydralazine (3) Parkinsons: Code(s): G20 - Parkinson's disease Status: Acute Assessment and Plan: Continue with home medications. (4) H/O valvular heart disease: Code(s): Z86.79 - Personal history of other diseases of the circulatory system Status: Acute Assessment and Plan: An echo has been ordered. (5) Hypothyroidism: Code(s): E03.9 - Hypothyroidism, unspecified Status: Acute Assessment and Plan: Continue with levothyroxine TSH and T3 are low. Consistent with subclinical hypothyroidism. Plan Continue all other home medications after surgery is completed and patient can start diet. Subjective Date/time seen: 10/18/22 12:44 Interval history: Patient doing well with no new complaints. He continues to work with PT and OT. Waiting on placement. Exam Narrative: GENERAL: Comfortable, no acute distress HENMT: moist mucous membranes EYES: EOM intact b/l NECK: no lymphadenopathy RESPIRATORY: clear to auscultation CARDIO: RRR , murmur present GI: soft, nontender, bowel sounds present SKIN: no rashes EXTREMITIES: Left hip Tegaderm dry and intact minimal bruising and swelling at the site of incision. Objective Data Vital Signs Vital Signs: Vital Signs - 24 hr 10/17/22 14:17 10/17/22 20:48 10/17/22 20:00 Temperature 97.6 F 98.4 F Pulse Rate 56 L 64 64 Respiratory Rate 18 18 18 Blood Pressure 114/67 117/65 Pulse Oximetry 93 95 95 Oxygen Delivery Room Air 10/18/22 05:42 10/18/22 10:00 Temperature 98.2 F Pulse Rate 61 Respiratory Rate 18 Blood Pressure 134/71 Pulse Oximetry 93 Oxygen Delivery Room Air Intake/Output Intake/Output: Intake & Output 10/15/22 10/16/22 10/17/22 10/18/22 23:59 23:59 23:59 23:59 Intake Total 1840 1060 490 Output Total 1000 1300 400 Balance 840 -240 90 Meds/Results Medications: Active Medications Generic Name Dose Route Start Last Admin Trade Name Freq PRN Reason Stop Dose Admin Acetaminophen 650 mg 10/16/22 11:12 Acetaminophen 325 Mg Tablet PO Q6H PRN Mild Pain (1-3) or Fever Hydrocodone Bitart/Acetaminophen 1 tab 10/16/22 11:12 10/16/22 14:17 Hydrocodone/Acetaminophen (*Crx) 7.5-325 Mg Tablet PO 1 tab Q3H PRN Administration Pain Rated 4-6 Hydrocodone Bitart/Acetaminophen 2 tab 10/16/22 11:12 10/18/22 10:30 Hydrocodone/Acetaminophen (*Crx) 7.5-325 Mg Tablet PO 2 tab Q6H PRN Administration Pain Rated 7-10 Aspirin 325 mg 10/16/22 21:00 10/18/22 10:32 Aspirin 325 Mg Enteric Tablet PO 325 mg Q12HR REDD Administration Calcium Carbonate 500 mg 10/16/22 17:00 10/18/22 10:32 Calcium/Vitamin D 500 Mg Tablet PO 500 mg BIDWM REDD Administration Celecoxib 200 mg 10/17/22 08:00 10/18/22 10:33 Celecoxib 200 Mg Capsule PO 200 mg DAILY@0800 REDD Administration Diazepam 5 mg 10/16/22 11:12 Diazepam (*Crx) 5 Mg Tablet PO Q8H PRN Muscle Spasm Donepezil HCl 10 mg 10/15/22 22:45 10/17/22 20:22 Donepezil Hcl
[2022-10-18] MEDS: FERROUS SULFATE 325 MG TABLET DR PO (12:45)
[2022-10-18 14:00] VITALS: BP 109/59; PULSE 53; RESP 13; TEMP 36.5; O2SAT 92
[2022-10-18] MEDS: HYDROcodone/acetaminophen (*CRX) 7.5-325 MG TABLET 1 TAB PO (18:45)
[2022-10-18 20:00] VITALS: PULSE 53; RESP 13; O2SAT 92
[2022-10-18] MEDS: DONEPEZIL HCL 10 MG TABLET PO (20:21)
[2022-10-18] MEDS: MELATONIN 5 MG TABLET PO (20:21)
[2022-10-18] MEDS: ROSUVASTATIN 10 MG TABLET 20 MG PO (20:22)
[2022-10-18 21:18] VITALS: BP 122/67; PULSE 55; RESP 18; TEMP 36.5; O2SAT 95
[2022-10-19] MEDS: LEVOTHYROXINE SODIUM 100 MCG TABLET PO (05:29)
[2022-10-19 05:47] LABS: Basophils Percent Auto 0.5 % (0.2-1.2); Eosinophils Absolute Auto 0.5 K/mm3 (0-0.3); Hematocrit 30.3 % (42.0-52.0); Hemoglobin 10.1 g/dL (14.0-18.0); Immature Granulocyte Absolute 0.04 K/mm3 (0.00-0.031); Immature Granulocyte Percent A 0.5 % (0-0.5); Immature Platelet Fraction Pct 10.2 % (0.9-11.2); Lymphocytes Absolute Auto 1.21 K/mm3 (0.9-3.2); Lymphocytes Percent Auto 16.2 % (18.3-44.2); Mean Corpuscular HGB Conc 33.3 g/dl (32-36); Mean Corpuscular Hemoglobin 32.5 pg (26-34); Mean Corpuscular Volume 97.4 fl (80-100); Mean Platelet Volume 11.3 fl (7.4-10.4); Monocytes Absolute Auto 0.7 K/mm3 (0.1-0.6); Monocytes Percent Auto 9.5 % (2.6-8.5); Neutrophils Absolute Auto 4.9 K/mm3 (1.3-6.7); Neutrophils Percent Auto 66.3 % (45.5-73.1); Platelet Count Result 134 k/mm3 (150-375); Red Blood Count 3.11 M/mm3 (4.6-6.20); Red Cell Distribution Width 12.5 % (11.5-14.5); White Blood Count 7.5 K/mm3 (4.5-10.0)
[2022-10-19 05:56] LABS: Alanine Aminotransferase 31 U/L (6-50); Albumin Level 3.2 g/dL (3.5-5.1); Alkaline Phosphatase 70 U/L (38-126); Anion Gap 5 mmol/L (8-16); Aspartate Amino Transferase 84 U/L (17-59); Bilirubin,Total 0.8 mg/dL (0.2-1.3); Blood Urea Nitrogen 28 mg/dL (9-20); Calcium 8.1 mg/dL (8.4-10.2); Carbon Dioxide 29 mmol/L (22-30); Chloride 101 mmol/L (98-107); Estimated CRCL calculation 53 ml/min; Estimated Glomerular Filt Rate > 60; Glucose 92 mg/dL (65-110); Potassium 3.9 mmol/L (3.4-5.0); Sodium 135 mmol/L (137-145)
[2022-10-19 06:00] VITALS: BP 137/65; PULSE 54; RESP 16; TEMP 36.7; O2SAT 93
[2022-10-19] MEDS: FAMOTIDINE 20 MG TABLET PO ×2 (08:31→20:05)
[2022-10-19] MEDS: ASPIRIN 325 MG ENTERIC TABLET PO ×2 (08:31→20:05)
[2022-10-19] MEDS: QUEtiapine FUMARATE 25 MG TABLET 50 MG PO ×2 (08:31→20:05)
[2022-10-19] MEDS: LORazepam (*CRX) 0.5 MG TABLET PO (08:32)
[2022-10-19] MEDS: VITAMIN B COMPLEX CAPSULE 1 CAP PO (08:32)
[2022-10-19] MEDS: DULoxetine HCL 60 MG CAPSULE.DR PO (08:32)
[2022-10-19] MEDS: SENNA/DOCUSATE SODIUM TABLET 2 TAB PO ×2 (08:32→17:10)
[2022-10-19] MEDS: polyethylene glycoL 3350 17 GM POWD.PACK PO (08:33)
[2022-10-19] MEDS: CHOLECALCIFEROL 1,000 UNITS TABLET 1000 UNITS PO ×2 (08:33→17:10)
[2022-10-19] MEDS: CELECOXIB 200 MG CAPSULE PO (08:33)
[2022-10-19] MEDS: TIMOLOL MALEATE XE 0.5% OPHTH GEL SOLN 5 ML BTL 1 DROP EACH EYE (08:34)
[2022-10-19] MEDS: FERROUS SULFATE 325 MG TABLET DR PO (12:52)
[2022-10-19 14:00] VITALS: BP 114/60; PULSE 56; RESP 16; TEMP 36.9; O2SAT 98
--- NOTE | 2022-10-19 15:08 | PM.IMPN ---
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 x-ray of the hip and pelvis revealed as acute intertrochanteric left hip fracture. Ortho has been consulted. Analgesics, DVT prophylaxis and PT and OT per Orthopedics. Plan for SNF at discharge. Postop day 3. (2) Hypertension: Code(s): I10 - Essential (primary) hypertension Status: Acute Assessment and Plan: P.r.n. hydralazine (3) Parkinsons: Code(s): G20 - Parkinson's disease Status: Acute Assessment and Plan: Continue with home medications. (4) H/O valvular heart disease: Code(s): Z86.79 - Personal history of other diseases of the circulatory system Status: Acute Assessment and Plan: An echo has been ordered. (5) Hypothyroidism: Code(s): E03.9 - Hypothyroidism, unspecified Status: Acute Assessment and Plan: Continue with levothyroxine TSH and T3 are low. Consistent with subclinical hypothyroidism. Plan Continue all other home medications after surgery is completed and patient can start diet. Subjective Date/time seen: 10/19/22 15:08 Interval history: Patient doing well today with no new complaints. Did a peer to peer with patient's insurance company regarding [facility] and this was denied but he was approved for SNF. According to care were in a salgado they are hopeful that patient will be able to discharge to SNF tomorrow. Exam Narrative: GENERAL: Comfortable, no acute distress HENMT: moist mucous membranes EYES: EOM intact b/l NECK: no lymphadenopathy RESPIRATORY: clear to auscultation CARDIO: RRR , murmur present GI: soft, nontender, bowel sounds present SKIN: no rashes EXTREMITIES: Left hip Tegaderm dry and intact minimal bruising and swelling at the site of incision. Objective Data Vital Signs Vital Signs: Vital Signs - 24 hr 10/18/22 20:00 10/18/22 21:18 10/19/22 06:00 Temperature 97.7 F 98.0 F Pulse Rate 53 L 55 L 54 L Respiratory Rate 13 18 16 Blood Pressure 122/67 137/65 Pulse Oximetry 92 95 93 Oxygen Delivery Room Air 10/19/22 08:30 Temperature Pulse Rate Respiratory Rate Blood Pressure Pulse Oximetry Oxygen Delivery Room Air Intake/Output Intake/Output: Intake & Output 10/16/22 10/17/22 10/18/22 10/19/22 23:59 23:59 23:59 23:59 Intake Total 1840 1060 1320 570 Output Total 1000 1300 400 800 Balance 840 -240 920 -230 Meds/Results Medications: Active Medications Generic Name Dose Route Start Last Admin Trade Name Freq PRN Reason Stop Dose Admin Acetaminophen 650 mg 10/16/22 11:12 Acetaminophen 325 Mg Tablet PO Q6H PRN Mild Pain (1-3) or Fever Hydrocodone Bitart/Acetaminophen 1 tab 10/16/22 11:12 10/18/22 18:45 Hydrocodone/Acetaminophen (*Crx) 7.5-325 Mg Tablet PO 1 tab Q3H PRN Administration Pain Rated 4-6 Hydrocodone Bitart/Acetaminophen 2 tab 10/16/22 11:12 10/18/22 10:30 Hydrocodone/Acetaminophen (*Crx) 7.5-325 Mg Tablet PO 2 tab Q6H PRN Administration Pain Rated 7-10 Aspirin 325 mg 10/16/22 21:00 10/19/22 08:31 Aspirin 325 Mg Enteric Tablet PO 325 mg Q12HR REDD Administration Calcium Carbonate 500 mg 10/16/22 17:00 10/19/22 08:32 Calcium/Vitamin D 500 Mg Tablet PO 500 mg BIDWM REDD Administration Celecoxib 200 mg 10/17/22 08:00 10/19/22 08:33 Celecoxib 200 Mg Capsule PO 200 mg DAILY@0800 REDD Administration Diazepam 5 mg 10/16/22 11:
[2022-10-19 20:02] VITALS: BP 131/72; PULSE 55; RESP 18; TEMP 36.7; O2SAT 96
[2022-10-19] MEDS: ROSUVASTATIN 10 MG TABLET 20 MG PO (20:05)
[2022-10-19] MEDS: DONEPEZIL HCL 10 MG TABLET PO (20:05)
[2022-10-19] MEDS: MELATONIN 5 MG TABLET PO (20:05)
[2022-10-20] MEDS: LEVOTHYROXINE SODIUM 100 MCG TABLET PO (05:34)
[2022-10-20 05:46] LABS: Hematocrit 31.5 % (42.0-52.0); Hemoglobin 10.6 g/dL (14.0-18.0); Mean Corpuscular HGB Conc 33.7 g/dl (32-36); Mean Corpuscular Hemoglobin 32.4 pg (26-34); Mean Corpuscular Volume 96.3 fl (80-100); Platelet Count Result 166 k/mm3 (150-375); Red Blood Count 3.27 M/mm3 (4.6-6.20); Red Cell Distribution Width 12.6 % (11.5-14.5); White Blood Count 8.1 K/mm3 (4.5-10.0)
[2022-10-20 06:00] VITALS: BP 160/75; PULSE 65; RESP 18; TEMP 36.3; O2SAT 96
[2022-10-20 06:03] LABS: Anion Gap 2 mmol/L (8-16); Blood Urea Nitrogen 20 mg/dL (9-20); Calcium 8.3 mg/dL (8.4-10.2); Carbon Dioxide 31 mmol/L (22-30); Chloride 100 mmol/L (98-107); Estimated CRCL calculation 58 ml/min; Estimated Glomerular Filt Rate > 60; Glucose 93 mg/dL (65-110); Sodium 133 mmol/L (137-145)
--- NOTE | 2022-10-20 07:31 | PM.IMPN ---
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 x-ray of the hip and pelvis revealed as acute intertrochanteric left hip fracture. POD 4 gamma yaz left hip with orthopedics Analgesics, DVT prophylaxis and PT and OT per Orthopedics. Plan for SNF at discharge. (2) Hypertension: Code(s): I10 - Essential (primary) hypertension Status: Acute Assessment and Plan: Does not appear to be on anti-hypertensives at home. Suspect initial HTN was pain related. Blood pressures reviewed 114-130/60-70 PRN hydralazine (3) Parkinsons: Code(s): G20 - Parkinson's disease Status: Acute Assessment and Plan: Continue with home medications donepezil (4) H/O valvular heart disease: Code(s): Z86.79 - Personal history of other diseases of the circulatory system Status: Acute Assessment and Plan: Summary 10/16 ? 1. Complete two-dimensional, color flow and Doppler transthoracic echocardiogram is performed. ? 2. Normal left ventricular size and thickness with good contractility of all segments.? Ejection fraction 60-65%.? Normal diastolic function. ? 3. Mild right ventricular enlargement and hypokinesis. ? 4. Left atrial chamber dimension is moderately enlarged. ? 5. There is mild to moderate aortic valve regurgitation. ? 6. There is mild tricuspid valve regurgitation. ? 7. Moderate pulmonary hypertension, estimated pulmonary arterial systolic pressure is 61 mmHg. ? 8. Normal sinus rhythm. (5) Hypothyroidism: Code(s): E03.9 - Hypothyroidism, unspecified Status: Acute Assessment and Plan: Continue with levothyroxine TSH and T3 are low. Consistent with subclinical hypothyroidism. Plan Medically ready for d/c. Await insurance authorization Subjective Date/time seen: 10/20/22 07:31 Interval history: Narrative: This is a 81-year-old male patient who has a history of mild dementia, Parkinson's, hypothyroidism, hypertension, anxiety, and anxiety..? The patient was out cutting the grass on his riding mower.? The patient was trying to get off of his lumbar to lower his past again on to finish cutting the grass.? The patient was sitting on the seat and was trying to get off the more when he fell forward the patient landed on his left side and could not get up and move.? The patient was not able to ambulated all.? The patient was complaining of left hip pain.? The patient stated he was not sure if he hit his head but he did not lose any consciousness.? He denies any fever chills or any nausea vomiting or diarrhea.? The patient was given Zofran and morphine in the emergency room.? White count 10.9.? H&H is 12.9 and 37.8.? Sodium is 134.? Head CT was read as no acute intracranial abnormality.? Age-related findings.? Chest x-ray was read as no acute cardiopulmonary abnormality.? Hip and pelvis x-ray was read as acute intertrochanteric left hip fracture.? No deformity is noted at this time.? 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 The is answering basic questions for me.? His sister is also at the bedside answering questions for him.? Ortho has been consulted.? The patient is being admitted to inpatient status on the date of service of 10/15/2022. 10/16: Patient doing well today and I examine him postoperatively.? He is having some mild discomfort in the left hip but otherwise feeling pretty good.? He states that he had a fall due to losing his balance.? He denies any dizziness or lighth
[2022-10-20] MEDS: VITAMIN B COMPLEX CAPSULE 1 CAP PO (08:50)
[2022-10-20] MEDS: FAMOTIDINE 20 MG TABLET PO ×2 (08:50→20:33)
[2022-10-20] MEDS: ASPIRIN 325 MG ENTERIC TABLET PO ×2 (08:50→20:33)
[2022-10-20] MEDS: CHOLECALCIFEROL 1,000 UNITS TABLET 1000 UNITS PO ×2 (08:50→17:17)
[2022-10-20] MEDS: LORazepam (*CRX) 0.5 MG TABLET PO (08:50)
[2022-10-20] MEDS: DULoxetine HCL 60 MG CAPSULE.DR PO (08:50)
[2022-10-20] MEDS: SENNA/DOCUSATE SODIUM TABLET 2 TAB PO ×2 (08:50→17:17)
[2022-10-20] MEDS: CELECOXIB 200 MG CAPSULE PO (08:50)
[2022-10-20] MEDS: QUEtiapine FUMARATE 25 MG TABLET 50 MG PO ×2 (08:51→20:33)
[2022-10-20] MEDS: TIMOLOL MALEATE XE 0.5% OPHTH GEL SOLN 5 ML BTL 1 DROP EACH EYE (08:51)
[2022-10-20] MEDS: polyethylene glycoL 3350 17 GM POWD.PACK PO (08:51)
[2022-10-20] MEDS: FERROUS SULFATE 325 MG TABLET DR PO (11:55)
[2022-10-20 14:06] VITALS: BP 112/63; PULSE 54; RESP 16; TEMP 36.4; O2SAT 98
[2022-10-20 20:00] VITALS: PULSE 54; RESP 16; O2SAT 98
[2022-10-20] MEDS: MELATONIN 5 MG TABLET PO (20:33)
[2022-10-20] MEDS: DONEPEZIL HCL 10 MG TABLET PO (20:33)
[2022-10-20] MEDS: ROSUVASTATIN 10 MG TABLET 20 MG PO (20:33)
[2022-10-20 21:28] VITALS: BP 130/67; PULSE 55; RESP 18; TEMP 36.8; O2SAT 97
[2022-10-21] MEDS: LEVOTHYROXINE SODIUM 100 MCG TABLET PO (05:15)
[2022-10-21 05:29] LABS: Basophils Percent Auto 0.5 % (0.2-1.2); Eosinophils Absolute Auto 0.6 K/mm3 (0-0.3); Eosinophils Percent Auto 7.7 % (0-4.4); Hematocrit 31.8 % (42.0-52.0); Hemoglobin 10.7 g/dL (14.0-18.0); Immature Granulocyte Absolute 0.06 K/mm3 (0.00-0.031); Immature Granulocyte Percent A 0.8 % (0-0.5); Lymphocytes Absolute Auto 1.55 K/mm3 (0.9-3.2); Lymphocytes Percent Auto 20.3 % (18.3-44.2); Mean Corpuscular HGB Conc 33.6 g/dl (32-36); Mean Corpuscular Hemoglobin 32.5 pg (26-34); Mean Corpuscular Volume 96.7 fl (80-100); Mean Platelet Volume 10.3 fl (7.4-10.4); Monocytes Absolute Auto 0.9 K/mm3 (0.1-0.6); Monocytes Percent Auto 12.2 % (2.6-8.5); Neutrophils Absolute Auto 4.5 K/mm3 (1.3-6.7); Neutrophils Percent Auto 58.5 % (45.5-73.1); Platelet Count Result 180 k/mm3 (150-375); Red Blood Count 3.29 M/mm3 (4.6-6.20); Red Cell Distribution Width 12.7 % (11.5-14.5); White Blood Count 7.6 K/mm3 (4.5-10.0)
[2022-10-21 05:31] VITALS: BP 136/75; PULSE 54; RESP 17; TEMP 36.7; O2SAT 94
[2022-10-21 05:37] LABS: Alanine Aminotransferase 37 U/L (6-50); Albumin Level 3.2 g/dL (3.5-5.1); Alkaline Phosphatase 73 U/L (38-126); Anion Gap 3 mmol/L (8-16); Aspartate Amino Transferase 61 U/L (17-59); Bilirubin,Total 0.9 mg/dL (0.2-1.3); Blood Urea Nitrogen 21 mg/dL (9-20); Calcium 8.7 mg/dL (8.4-10.2); Carbon Dioxide 30 mmol/L (22-30); Chloride 102 mmol/L (98-107); Estimated CRCL calculation 48 ml/min; Estimated Glomerular Filt Rate > 60; Glucose 98 mg/dL (65-110); Potassium 4.4 mmol/L (3.4-5.0); Sodium 135 mmol/L (137-145)
--- NOTE | 2022-10-21 07:03 | PM.IMPN ---
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 x-ray of the hip and pelvis revealed as acute intertrochanteric left hip fracture. POD 5 gamma yaz left hip with orthopedics Analgesics, DVT prophylaxis and PT and OT per Orthopedics. Plan for SNF at discharge. Accepted to [facility], pending insurance authorization. (2) Hypertension: Code(s): I10 - Essential (primary) hypertension Status: Acute Assessment and Plan: Does not appear to be on anti-hypertensives at home. Suspect initial HTN was pain related. Blood pressures reviewed 114-130/60-70 PRN hydralazine (3) Parkinsons: Code(s): G20 - Parkinson's disease Status: Acute Assessment and Plan: Continue with home medications donepezil (4) H/O valvular heart disease: Code(s): Z86.79 - Personal history of other diseases of the circulatory system Status: Acute Assessment and Plan: Summary 10/16 ? 1. Complete two-dimensional, color flow and Doppler transthoracic echocardiogram is performed. ? 2. Normal left ventricular size and thickness with good contractility of all segments.? Ejection fraction 60-65%.? Normal diastolic function. ? 3. Mild right ventricular enlargement and hypokinesis. ? 4. Left atrial chamber dimension is moderately enlarged. ? 5. There is mild to moderate aortic valve regurgitation. ? 6. There is mild tricuspid valve regurgitation. ? 7. Moderate pulmonary hypertension, estimated pulmonary arterial systolic pressure is 61 mmHg. ? 8. Normal sinus rhythm. (5) Hypothyroidism: Code(s): E03.9 - Hypothyroidism, unspecified Status: Acute Assessment and Plan: Continue with levothyroxine TSH and T3 are low. Consistent with subclinical hypothyroidism. Plan Medically ready for d/c. Await insurance authorization for [facility] Subjective Date/time seen: 10/21/22 07:03 Interval history: Narrative: This is a 81-year-old male patient who has a history of mild dementia, Parkinson's, hypothyroidism, hypertension, anxiety, and anxiety..? The patient was out cutting the grass on his riding mower.? The patient was trying to get off of his lumbar to lower his past again on to finish cutting the grass.? The patient was sitting on the seat and was trying to get off the more when he fell forward the patient landed on his left side and could not get up and move.? The patient was not able to ambulated all.? The patient was complaining of left hip pain.? The patient stated he was not sure if he hit his head but he did not lose any consciousness.? He denies any fever chills or any nausea vomiting or diarrhea.? The patient was given Zofran and morphine in the emergency room.? White count 10.9.? H&H is 12.9 and 37.8.? Sodium is 134.? Head CT was read as no acute intracranial abnormality.? Age-related findings.? Chest x-ray was read as no acute cardiopulmonary abnormality.? Hip and pelvis x-ray was read as acute intertrochanteric left hip fracture.? No deformity is noted at this time.? 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 The is answering basic questions for me.? His sister is also at the bedside answering questions for him.? Ortho has been consulted.? The patient is being admitted to inpatient status on the date of service of 10/15/2022. 10/16: Patient doing well today and I examine him postoperatively.? He is having some mild discomfort in the left hip but otherwise feeling pretty good.? He states
--- NOTE | 2022-10-21 08:53 | PCPTNOTE ---
Attempted to see patient for PT, however patient was eating breakfast.
[2022-10-21] MEDS: FAMOTIDINE 20 MG TABLET PO (08:59)
[2022-10-21] MEDS: LORazepam (*CRX) 0.5 MG TABLET PO (08:59)
[2022-10-21] MEDS: DULoxetine HCL 60 MG CAPSULE.DR PO (08:59)
[2022-10-21] MEDS: CHOLECALCIFEROL 1,000 UNITS TABLET 1000 UNITS PO (08:59)
[2022-10-21] MEDS: QUEtiapine FUMARATE 25 MG TABLET 50 MG PO (08:59)
[2022-10-21] MEDS: ASPIRIN 325 MG ENTERIC TABLET PO (08:59)
[2022-10-21] MEDS: CELECOXIB 200 MG CAPSULE PO (08:59)
[2022-10-21] MEDS: VITAMIN B COMPLEX CAPSULE 1 CAP PO (08:59)
[2022-10-21] MEDS: TIMOLOL MALEATE XE 0.5% OPHTH GEL SOLN 5 ML BTL 1 DROP EACH EYE (09:00)
[2022-10-21] MEDS: FERROUS SULFATE 325 MG TABLET DR PO (12:10)
--- NOTE | 2022-10-21 12:13 | PM.DS ---
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 x-ray of the hip and pelvis revealed as acute intertrochanteric left hip fracture. POD 5 gamma yaz left hip with orthopedics Analgesics, DVT prophylaxis and PT and OT per Orthopedics. Plan for SNF at discharge. Accepted to [facility], pending insurance authorization. (2) Hypertension: Code(s): I10 - Essential (primary) hypertension Status: Acute Assessment and Plan: Does not appear to be on anti-hypertensives at home. Suspect initial HTN was pain related. Blood pressures reviewed 114-130/60-70 PRN hydralazine (3) Parkinsons: Code(s): G20 - Parkinson's disease Status: Acute Assessment and Plan: Continue with home medications donepezil (4) H/O valvular heart disease: Code(s): Z86.79 - Personal history of other diseases of the circulatory system Status: Acute Assessment and Plan: Summary 10/16 ? 1. Complete two-dimensional, color flow and Doppler transthoracic echocardiogram is performed. ? 2. Normal left ventricular size and thickness with good contractility of all segments.? Ejection fraction 60-65%.? Normal diastolic function. ? 3. Mild right ventricular enlargement and hypokinesis. ? 4. Left atrial chamber dimension is moderately enlarged. ? 5. There is mild to moderate aortic valve regurgitation. ? 6. There is mild tricuspid valve regurgitation. ? 7. Moderate pulmonary hypertension, estimated pulmonary arterial systolic pressure is 61 mmHg. ? 8. Normal sinus rhythm. (5) Hypothyroidism: Code(s): E03.9 - Hypothyroidism, unspecified Status: Acute Assessment and Plan: Continue with levothyroxine TSH and T3 are low. Consistent with subclinical hypothyroidism. Plan Medically ready for d/c. Await insurance authorization for [facility] DS: Summary Hospital Course Hospital Course: Interval history: Narrative: This is a 81-year-old male patient who has a history of mild dementia, Parkinson's, hypothyroidism, hypertension, anxiety, and anxiety..? The patient was out cutting the grass on his riding mower.? The patient was trying to get off of his lumbar to lower his past again on to finish cutting the grass.? The patient was sitting on the seat and was trying to get off the more when he fell forward the patient landed on his left side and could not get up and move.? The patient was not able to ambulated all.? The patient was complaining of left hip pain.? The patient stated he was not sure if he hit his head but he did not lose any consciousness.? He denies any fever chills or any nausea vomiting or diarrhea.? The patient was given Zofran and morphine in the emergency room.? White count 10.9.? H&H is 12.9 and 37.8.? Sodium is 134.? Head CT was read as no acute intracranial abnormality.? Age-related findings.? Chest x-ray was read as no acute cardiopulmonary abnormality.? Hip and pelvis x-ray was read as acute intertrochanteric left hip fracture.? No deformity is noted at this time.? 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 The is answering basic questions for me.? His sister is also at the bedside answering questions for him.? Ortho has been consulted.? The patient is being admitted to inpatient status on the date of service of 10/15/2022. 10/16: Patient doing well today and I examine him post
== END 2022-10-21 14:15 | DRG 482 ==
LOC: ANHED 19:22 → ANH2MED 20:48
PROVIDERS: Internal Medicine Critical Care Medicine; Nurse Practitioner; Orthopaedic Surgery; Admitting Provider Student in an Organized Health Care Education/Training Program; Emergency Provider Nurse Practitioner; PCP Internal Medicine; Visit Provider Nurse Practitioner Acute Care
PROC: 0QS734Z Reposition Left Upper Femur with Internal Fixation Device, Percutaneous Approach (ICD-10-PCS; CPT 27245; principal; 2022-10-16 08:30)
DX: S72.142A Displaced intertrochanteric fracture of left femur, initial encounter for closed fracture (principal); W28.XXXA Contact with powered lawn mower, initial encounter; E03.9 Hypothyroidism, unspecified; E78.5 Hyperlipidemia, unspecified; F41.9 Anxiety disorder, unspecified; F01.50 Vascular dementia, unspecified severity, without behavioral disturbance, psychotic disturbance, mood disturbance, and anxiety; F32.A Depression, unspecified; G20 Parkinson's disease; H91.90 Unspecified hearing loss, unspecified ear; H40.9 Unspecified glaucoma; I10 Essential (primary) hypertension; Z95.0 Presence of cardiac pacemaker
CPT/HCPCS: 36415; 70450; 71045; 73502; 80048; 80053; 82948; 83605; 83735; 84439; 84443; 84480; 85025; 85027; 85055; 85610; 86850; 86900; 86901; 93005; 93306; 96374; 96375; 97110; 97161; 97165; 97530; 97535; 99199; 99285; A9270; C1713; J0461; J0690; J1100; J1170; J2270; J2405; J2704; J3010; J7030; J7120

== ENCOUNTER 2023-02-22 12:30 | Outpatient (RCR) | payer MEDICARE, SELFPAY ==
--- NOTE | 2022-11-29 14:51 | OPREHPOC ---
Outpatient Therapy Plan of Care This is a Multidisciplinary Plan of Care that may contain components documented by all disciplines (PT, OT, and ST.) PT Problem 1 PT Problem #1 Knowledge Deficit PT Goal 1 Goal Pt to be IND with issued HEP. Target Visit 16 PT Problem 2 PT Problem #2 Pain PT Goal 1 Goal Pt to report hip pain no greater than 3/10 in the last week Target Visit 16 PT Goal 2 Goal Pt to report 75% improvement in overall symptoms. Target Visit 16 PT Problem 3 PT Problem #3 Impaired Gait PT Goal 1 Goal Pt to improve 2 min walk distance from 40ft to 200ft Target Visit 16 PT Goal 2 Goal Pt to ambulate 150ft without AD. Target Visit 16 PT Problem 4 PT Problem #4 Impaired Strength PT Goal 1 Goal Pt to demonstrate L hip strength grossly 4/5. Target Visit 16 PT Goal 2 Goal Pt to demonstrate 5xSTS in less than 30s without UE support Target Visit 16 PT Problem 5 PT Problem #5 Impaired Functional Mobil PT Goal 1 Goal Pt to improve TUG time from 51s to 15s without AD. Target Visit 16 PT Goal 2 Goal Pt to be able to lift and carry 20lb from ground level. Target Visit 16
--- NOTE | 2022-11-29 14:51 | PTOPEVAL1 ---
Assessment and note entered by Andriy Sutton, PT, DPT Evaluation Information Assessment Status Evaluation Diagnosis L femur fracture with IM nailing Onset 10/16/22 Subjective Information Pt states he fell and broke his hip on 10/15/22. He had surgery on 10/16/22, he was in the hospital for a week, did inpatient rehab for 4 weeks, and 1-2 visits of home health prior to now. He did not use a device prior to his fall. He has 4 steps to get into his home. Pt states he does not do to much activity at his baseline other than errands and socializing. Reported Pain Level Pain Score 3: Self Report Assessment PT Clinical Summary Abdi presents to therapy today for his initial evaluation following a L hip fracture with IM nailing. Today he demonstrates significant decreased mobility compared to his baseline. He demonstrates decreased L hip strength and ROM compared to his uninvolved side. His time during the 2min walk test, TUG, and 5xSTS all place him at an increased risk for falls. Skilled therapy services are indicated to address the deficits noted above, to manage pain, to improve mobility, and to return to PLOF. Plan of Care Interventions Electrical Stimulation,Gait Training,Hot Pack/Cold Pack,Manual Therapy,Neuro Re-education,Patient/ Caregiver Educati,Therapeutic Activities, Therapeutic Exercise PT Services Indicated Yes Treatment Frequency and 2x/wk for 16 visits Duration These treatments will address the objective and functional deficits as defined above. The patient will be advanced safely and appropriately in order for the patient to progress towards his/her prior level of function. Additional exercises will be introduced and as well as a comprehensive home exercise program upon discharge, if needed, ?to ensure carryover of functional gains achieved in the clinic. This treatment plan has been reviewed and agreement upon by the patient.
--- NOTE | 2022-12-28 16:51 | PTOPPROGNS ---
Assessment and note entered by Andriy Sutton, PT, DPT Evaluation Information Assessment Status Progress Diagnosis L femur fracture with IM nailing Onset 10/16/22 Subjective Information Pt states overall he thinks he is doing pretty well. He states he still gets some hip and leg pain when he is up walking. He states he is still using the walker 100% of the time. Assessment PT Clinical Summary Abdi presents to therapy today for his progress report following 8 visits of therapy to treat her L hip fracture with IM nailing. Today he demonstrates improved scores on the TUG, 2min walk test, and 5xSTS but still is at an increased risk of falls per these test. His hip ROM and strength is progress but still decreased from expected. He is still unable to ambulate with an AD. Continuation of skilled therapy services are indicated to address the deficits noted above, to manage pain, to improve mobility, and to return to PLOF. Plan of Care Interventions Electrical Stimulation,Gait Training,Hot Pack/Cold Pack,Manual Therapy,Neuro Re-education,Patient/ Caregiver Educati,Therapeutic Activities, Therapeutic Exercise PT Services Indicated Yes Treatment Frequency and 2x/wk for 8visits Duration These treatments will address the objective and functional deficits as defined above. The patient will be advanced safely and appropriately in order for the patient to progress towards his/her prior level of function. Additional exercises will be introduced and as well as a comprehensive home exercise program upon discharge, if needed, ?to ensure carryover of functional gains achieved in the clinic. This treatment plan has been reviewed and agreement upon by the patient.
--- NOTE | 2023-01-26 10:31 | PTOPPROG ---
Assessment and note entered by Andriy Sutton, PT, DPT Evaluation Information Assessment Status Progress Diagnosis L femur fracture with IM nailing Onset 10/16/22 Subjective Information Pt states he still wants to be able to walk without his walker, he states it is too painful to put too much weight through it. He states he is up to walking 10 mins at a time at home. Pts states he is doing more walking but still sitting a majority of his day. Assessment PT Clinical Summary Abdi presents to therapy today for his progress report following 16 visits of therapy to treat her L hip fracture with IM nailing. Today he demonstrates improved scores on the TUG, 2min walk test, and 5xSTS but still is at an increased risk of falls per these test. His hip strength continues to improve but is still decreased compared to his R side. He will be able to progress to walking with a cne soon but is still unable to ambulate without an AD. Continuation of skilled therapy services are indicated to address the deficits noted above, to manage pain, to improve mobility, and to return to PLOF. Plan of Care Interventions Electrical Stimulation,Gait Training,Hot Pack/Cold Pack,Manual Therapy,Neuro Re-education,Patient/ Caregiver Educati,Therapeutic Activities, Therapeutic Exercise PT Services Indicated Yes Treatment Frequency and 2x/wk for 8 visits Duration These treatments will address the objective and functional deficits as defined above. The patient will be advanced safely and appropriately in order for the patient to progress towards his/her prior level of function. Additional exercises will be introduced and as well as a comprehensive home exercise program upon discharge, if needed, ?to ensure carryover of functional gains achieved in the clinic. This treatment plan has been reviewed and agreement upon by the patient.
--- NOTE | 2023-02-10 12:56 | PCPTNOTE ---
Patient called & cancelled scheduled appointment this date due to being ill.
--- NOTE | 2023-02-22 14:34 | PTOPPROG ---
Assessment and note entered by Andriy Sutton, PT, DPT Evaluation Information Assessment Status Progress Diagnosis L femur fracture with IM nailing Onset 10/16/22 Subjective Information Pt enters the clinic today ambulating with a straight cane. He states he has been using the cane throughout the day for the last couple of days. Assessment PT Clinical Summary Abdi presents to therapy today for his progress report following 22 visits of therapy to treat her L hip fracture with IM nailing. Today he demonstrates improved scores on the TUG, 2min walk test, and 5xSTS but still is at an increased risk of falls per the TUG and 2 min walk. He has recently progressed to walking with a cane but reports some unsteadiness at times with this. Continuation of skilled therapy services are indicated to address the deficits noted above, to improve gait with cane, and to return to PLOF. Plan of Care Interventions Electrical Stimulation,Gait Training,Hot Pack/Cold Pack,Manual Therapy,Neuro Re-education,Patient/ Caregiver Educati,Therapeutic Activities, Therapeutic Exercise PT Services Indicated Yes Treatment Frequency and 1x/wk for 4 visits Duration These treatments will address the objective and functional deficits as defined above. The patient will be advanced safely and appropriately in order for the patient to progress towards his/her prior level of function. Additional exercises will be introduced and as well as a comprehensive home exercise program upon discharge, if needed, ?to ensure carryover of functional gains achieved in the clinic. This treatment plan has been reviewed and agreement upon by the patient.
== END 2023-02-25 11:31 | disposition still patient (30) ==
LOC: ANHGOSHPT 12:30
PROVIDERS: PCP Internal Medicine; Visit Provider Orthopaedic Surgery
DX: S72.142A Displaced intertrochanteric fracture of left femur, initial encounter for closed fracture (principal)
CPT/HCPCS: 97110; 97116; 97140; 97161; 97530; 97750; 99199

== ENCOUNTER 2023-04-06 13:30 | Outpatient (RCR) | payer MEDICARE, SELFPAY ==
--- NOTE | 2023-03-09 13:36 | PCPTNOTE ---
Patient canceld secondary to bed weather.
--- NOTE | 2023-03-22 10:00 | PCPTNOTE ---
Patient called & cancelled scheduled appointment this date due to potential poor weather. He states he will call back when he wants to reschedule.
--- NOTE | 2023-03-29 15:36 | PCPTNOTE ---
Patient called & cancelled scheduled appointment this date due to inclement weather.
--- NOTE | 2023-04-06 14:43 | PTOPDC ---
Assessment and note entered by Andriy Sutton, PT, DPT Evaluation Information Assessment Status Discharge Diagnosis L hip fracture with pinning Onset 10/16/22 Subjective Information Pt states he is doing well. He states he has progressed from using the cane around his house, he does use it when walking in the community. He states he was able to go up and down stairs yesterday without too much difficultly. He demonstrates full knee extension but continues to load weight with slight flexion in his L knee. Reported Pain Level Pain Score 2: Self Report Assessment PT Clinical Summary Abdi presents to therapy today for his progress report following 26 visits of skilled therapy to treat the deficits related to a hip fx. Today he demonstrates good LE strength that is functional and equal arnaldo, good LE ROM, and progressing functional balance. He continues to ambulate with slight knee flexion but this progresses with cueing. Pt has met or progressed well towards all his therapy goals and will be discharged at this time with instructions to continue his HEP and to start a community fitness program. Plan of Care PT Services Indicated No
== END 2023-04-06 15:51 | disposition home or self-care (01) ==
LOC: ANHGOSHPT 13:30
PROVIDERS: PCP Internal Medicine; Visit Provider Orthopaedic Surgery
DX: S72.142D Displaced intertrochanteric fracture of left femur, subsequent encounter for closed fracture with routine healing (principal)
CPT/HCPCS: 97110; 97112; 97530; 97750; 99199

== ENCOUNTER 2024-03-08 18:28 | Inpatient (IN) | payer MEDICARE, SELFPAY ==
--- NOTE | ~2024-03-08 | XR_ITS ---
EXAMINATION: XR chest 2V Exam Date/Time: 03/08/2024 19:55 [employer] [employer]IST HISTORY: weakness WITH COUGH Comparison: 10/15/2022, 10/03/2018. RESULT: Lines, tubes, and devices: Surgical clips in the lower neck. Lungs and pleura: Senescent changes, otherwise clear. Cardiomediastinal silhouette: Stable. Other: No acute osseous or upper abdominal finding. IMPRESSION: No acute cardiopulmonary process. Reviewed, dictated and finalized at location K. GENERATION SPECIALIST
[2024-03-08 18:47] VITALS: BP 128/65; PULSE 76; RESP 18; TEMP 36.9; O2SAT 100
--- NOTE | 2024-03-08 18:47 | ECG_ITS ---
Test Date: 2024-03-08 21:14:41 Measurements Intervals [place] Rate: 68 P: 50 HI: 168 QRS: 14 QRSD: 141 T: 11 QT: 413 QTc: 440 Interpretive Statements SINUS RHYTHM RIGHT BUNDLE BRANCH BLOCK [120+ ms QRS DURATION, UPRIGHT V1, 40+ ms S IN I/aVL/V4/V5/V6] ABNORMAL ECG No previous ECG available for comparison Electronically Signed On 03-09-2024 17:11:57 MID LEVEL PROVIDER by Michele Blancas M.D.
--- NOTE | 2024-03-08 18:48 | ED_ITS ---
HPI - Weakness General Chief complaint: Weakness <Jess Moreau PA-C - Last Filed: 03/12/24 18:23> Stated complaint: weakness <Jess Moreau PA-C - Last Filed: 03/12/24 18:23> Time Seen by Provider: 03/09/24 02:08 <Jess Moreau PA-C - Last Filed: 03/12/24 18:23> Focused HPI: This is a 83 year old male that presents to the ER for generalized weakness. He is normally able to ambulate. Today he has been so weak he has not been able to. No focal complaints GENERAL: Elderly, well-nourished, and in no acute distress. HEAD: Normocephalic, atraumatic. CHEST: Clear to auscultation. ?No respiratory distress. HEART: Regular rate and rhythm.? NEURO: ?Alert and oriented x3. Patient screened in triage and initial orders placed.? ?Additional care and disposition to be based upon?diagnostic testing and treatment. <Jess Moreau PA-C - Last Filed: 03/12/24 18:23> History of Present Illness HPI Narrative: Patient 83-year-old gentleman presents emergency department chief complaint of generalized weakness. The patient was brought in after he had been feeling weak and run down and was unable to get up off the couch even go to the bathroom. A the patient had family members that have had upper respiratory infection and wants tested positive for influenza A <Nakul Vidales MD - Last Filed: 03/09/24 05:10> Related Data Home medications: Home Medications ?Medication ?Instructions ?Recorded ?Confirmed ?Last Taken ?Type calcium 600 mg (as carbonate)-vit 1 tablet PO BID 10/15/22 03/09/24 1 Day Ago History D3 10 mcg (400 unit)-minerals ~10/14/22 tablet cholecalciferol (vitamin D3) 25 25 mcg PO BID 10/15/22 03/09/24 1 Day Ago History mcg (1,000 unit) tablet (Vitamin ~10/14/22 D3) donepezil 10 mg tablet 10 mg PO QHS 10/15/22 03/09/24 1 Day Ago History ~10/14/22 duloxetine 60 mg capsule,delayed 60 mg PO QAM 10/15/22 03/09/24 1 Day Ago History release ~10/14/22 levothyroxine 100 mcg tablet 100 mcg PO QAM 10/15/22 03/09/24 1 Day Ago History (Synthroid) ~10/14/22 lorazepam 0.5 mg tablet 0.5 mg PO QAM 10/15/22 03/09/24 1 Day Ago History ~10/14/22 melatonin 5 mg tablet 5 mg PO HS 10/15/22 03/09/24 1 Day Ago History ~10/14/22 quetiapine 100 mg tablet 50 mg PO BID 10/15/22 03/09/24 1 Day Ago History ~10/14/22 timolol maleate 0.5 % eye gel 1 drp EACH EYE DAILY 10/15/22 03/09/24 1 Day Ago History forming solution ~10/14/22 <Jess Moreau PA-C - Last Filed: 03/12/24 18:23> Allergies/Adverse reactions: Allergies Allergy/AdvReac Type Severity Reaction Status Date / Time No Known Allergies Allergy Verified 01/03/23 10:20 <Jess Moreau PA-C - Last Filed: 03/12/24 18:23> Review of Systems 2 Review of Systems: A 10 system review of systems was completed on the patient and is negative except for what is stated in the HPI. Nursing and ancillary documentation was reviewed. <Nakul Vidales MD - Last Filed: 03/09/24 05:10> [facility] Past Medical History Medical History: Medical History H/O valvular heart disease Glaucoma Hyperlipidemia Hypothyroidism Depression Anxiety Hemorrhoids Hypertension Lewy body dementia Parkinsons <Jess Moreau PA-C - Last Filed: 03/12/24 18:23> Surgical History Surgical History: Surgical History S/P hernia repair History of cochlear implant <Jess Moreau PA-C - Last Filed: 03/12/24 18:23> Family History Family History: Family History Sibling Rheumatic arteritis Neuropathy Abdominal aneurysm Hypertension Mother Parkinson disease Alzheimer disease Father Lung cancer <Jess Moreau PA-C - Last Filed: 03/12/24 18:23> Social History Social History: Social History Social History: He lives with his and he has 2 children. He is retired. He is a lifelong nonsmoker. 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 Code status full code Smoking status: Never smoker Alcohol intake: never Substance use: never Substance use type: does not use Do You Feel Safe in your Home?: Yes Lack of Transportation: No Lack of Food: Never True Current Housing: I Have Housing Concerned About Future Housing: No Difficulty Paying Gas/Electric Bills: No Difficulty Paying for Meds: No Currently Unemployed: No Education: High School Diploma/GED Difficulty w/ Childcare or Family Care: YES Spiritual care concerns: No <Jess Moreau PA-C - Last Filed: 03/12/24 18:23> Exam 2 Narrative: GENERAL: Well-appearing, well-nourished, and in no acute distress. HEAD: Normocephalic, atraumatic. EYES: PERRLA and EOMI. ENT: Nares clear, no rhinorrhea or epistaxis. Mucous membranes moist. NECK: Supple. CHEST: Clear to auscultation. No respiratory distress. HEART: Regular rate and rhythm. No murmur heard. Normal peripheral pulses. ABDOMEN: Soft, nontender, nondistended, normal active bowel sounds. EXTREMITIES: Normal range of motion. No edema. SKIN: Warm, dry, no rash. NEURO: No focal deficits. Alert and oriented x3. PSYCH: Normal mood and affect. <Nakul Vidales MD - Last Filed: 03/09/24 05:10> Course Vital Signs Vital signs: Vital Signs Temperature 98.5 F 03/08/24 18:47 Pulse Rate 76 03/08/24 18:47 Respiratory Rate 18 03/08/24 18:47 Blood Pressure 128/65 03/08/24 18:47 Pulse Oximetry 100 03/08/24 18:47 Temperature 97.8 F 03/11/24 06:00 Pulse Rate 52 L 03/11/24 11:20 Respiratory Rate 18 03/11/24 06:00 Blood Pressure 117/67 03/11/24 06:00 Pulse Oximetry 96 03/11/24 11:20 Oxygen Delivery Room Air 03/11/24 11:20 Oxygen Flow Rate 1 03/10/24 07:32 <Jess Moreau PA-C - Last Filed: 03/12/24 18:23> Vital Signs Temperature 98.5 F 03/08/24 18:47 Pulse Rate 76 03/08/24 18:47 Respiratory Rate 18 03/08/24 18:47 Blood Pressure 128/65 03/08/24 18:47 Pulse Oximetry 100 03/08/24 18:47 Temperature 97.8 F 03/11/24 06:00 Pulse Rate 52 L 03/11/24 11:20 Respiratory Rate 18 03/11/24 06:00 Blood Pressure 117/67 03/11/24 06:00 Pulse Oximetry 96 03/11/24 11:20 Oxygen Delivery Room Air 03/11/24 11:20 Oxygen Flow Rate 1 03/10/24 07:32 <Nakul Vidales MD - Last Filed: 03/09/24 05:10> MDM - Weakness MDM Narrative Medical decision making narrative: Differential diagnosis includes pneumonia, COVID-19, RSV, influenza, hypoxic respiratory failure When at rest the patient was saturating in the 90s without supplemental oxygen when ambulating the patient's oxygen levels dropped to 84% <Nakul Vidales MD - Last Filed: 03/09/24 05:10> Lab Data Result diagrams: 03/11/24 05:08 03/11/24 05:08 <Jess Moreau PA-C - Last Filed: 03/12/24 18:23> Labs: Lab Results 03/08/24 Range/Units 21:22 WBC 7.9 (4.5-10.0) K/mm3 RBC 3.89 L (4.6-6.20) M/mm3 Hgb 12.9 L (14.0-18.0) g/dL Hct 37.7 L (42.0-52.0) % MCV 96.9 (80-100) fl MCH 33.2 (26-34) pg MCHC 34.2 (32-36) g/dl RDW 13.0 (11.5-14.5) % Plt Count 160 (150-375) k/mm3 MPV 11.1 H (7.4-10.4) fl Immature Gran % (Auto) 0.4 (0-0.5) % Neut % (Auto) 79.1 H (45.5-73.1) % Lymph % (Auto) 8.3 L (18.3-44.2) % [place] % (Auto) 11.7 H (2.6-8.5) % Eos % (Auto) 0.0 (0-4.4) % Baso % (Auto) 0.5 (0.2-1.2) % Lymph # (Auto) 0.65 L (0.9-3.2) K/mm3 [place] # (Auto) 0.9 H (0.1-0.6) K/mm3 Eos # (Auto) 0.0 (0-0.3) K/mm3 Baso # (Auto) 0.0 (0.0-0.1) K/mm3 Abs Immat Gran (auto) 0.03 (0.00-0.031) K/mm3 Absolute Neuts (auto) 6.2 (1.3-6.7) K/mm3 Absolute Nucleated RBC 0.000 (0.0-0.012) K/mm3 Nucleated RBC % 0.0 (0.0-0.2) % Sodium 135 L (137-145) mmol/L Potassium 4.3 (3.4-5.0) mmol/L Chloride 102 (98-107) mmol/L Carbon Dioxide 28 (22-30) mmol/L Anion Gap 5 (4-12) mmol/L BUN 24 H (9-20) mg/dL Creatinine 1.10 (0.7-1.3) mg/dL Estim Creat Clear Calc 48 ml/min Estimated GFR > 60 (59 - ) Glucose 124 H (65-110) mg/dL Calcium 9.6 (8.4-10.2) mg/dL Total Bilirubin 0.9 (0.2-1.3) mg/dL AST 40 (17-59) U/L ALT 21 (6-50) U/L Alkaline Phosphatase 99 (38-126) U/L Total Protein 8.0 (6.3-8.2) g/dL Albumin 4.5 (3.5-5.1) g/dL Influenza A (RT-PCR) Negative (Negative) Influenza B (RT-PCR) Negative (Negative) RSV (RT-PCR) Negative (Negative) SARS-CoV-2 RNA (RT-PCR) Positive A (Negative) <Jess Moreau PA-C - Last Filed: 03/12/24 18:23> Lab Results 03/08/24 Range/Units 21:22 WBC 7.9 (4.5-10.0) K/mm3 RBC 3.89 L (4.6-6.20) M/mm3 Hgb 12.9 L (14.0-18.0) g/dL Hct 37.7 L (42.0-52.0) % MCV 96.9 (80-100) fl MCH 33.2 (26-34) pg MCHC 34.2 (32-36) g/dl RDW 13.0 (11.5-14.5) % Plt Count 160 (150-375) k/mm3 MPV 11.1 H (7.4-10.4) fl Immature Gran % (Auto) 0.4 (0-0.5) % Neut % (Auto) 79.1 H (45.5-73.1) % Lymph % (Auto) 8.3 L (18.3-44.2) % [place] % (Auto) 11.7 H (2.6-8.5) % Eos % (Auto) 0.0 (0-4.4) % Baso % (Auto) 0.5 (0.2-1.2) % Lymph # (Auto) 0.65 L (0.9-3.2) K/mm3 [place] # (Auto) 0.9 H (0.1-0.6) K/mm3 Eos # (Auto) 0.0 (0-0.3) K/mm3 Baso # (Auto) 0.0 (0.0-0.1) K/mm3 Abs Immat Gran (auto) 0.03 (0.00-0.031) K/mm3 Absolute Neuts (auto) 6.2 (1.3-6.7) K/mm3 Absolute Nucleated RBC 0.000 (0.0-0.012) K/mm3 Nucleated RBC % 0.0 (0.0-0.2) % Sodium 135 L (137-145) mmol/L Potassium 4.3 (3.4-5.0) mmol/L Chloride 102 (98-107) mmol/L Carbon Dioxide 28 (22-30) mmol/L Anion Gap 5 (4-12) mmol/L BUN 24 H (9-20) mg/dL Creatinine 1.10 (0.7-1.3) mg/dL Estim Creat Clear Calc 48 ml/min Estimated GFR > 60 (59 - ) Glucose 124 H (65-110) mg/dL Calcium 9.6 (8.4-10.2) mg/dL Total Bilirubin 0.9 (0.2-1.3) mg/dL AST 40 (17-59) U/L ALT 21 (6-50) U/L Alkaline Phosphatase 99 (38-126) U/L Total Protein 8.0 (6.3-8.2) g/dL Albumin 4.5 (3.5-5.1) g/dL Influenza A (RT-PCR) Negative (Negative) Influenza B (RT-PCR) Negative (Negative) RSV (RT-PCR) Negative (Negative) SARS-CoV-2 RNA (RT-PCR) Positive A (Negative) <Nakul Vidales MD - Last Filed: 03/09/24 05:10> Imaging Data Radiologist's impression: ITS Impressions Chest X-Ray 03/08/24 20:10 IMPRESSION: No acute cardiopulmonary process. <Jess Moreau PA-C - Last Filed: 03/12/24 18:23> Critical Care Time Critical Care Time Critical Care Time: Yes <Jess Moreau PA-C - Last Filed: 03/12/24 18:23> Total Critical Care Time: 35 <PARAM Guevara Last Filed: 03/12/24 18:23> Discharge Plan Discharge Clinical Impression: Acute hypoxemic respiratory failure, COVID-19 <Jess Moreau PA-C - Last Filed: 03/12/24 18:23> Patient Disposition: Still a Patient <PARAM Guevara Last Filed: 03/12/24 18:23> Condition: Improved <Jess Moreau PA-C - Last Filed: 03/12/24 18:23> Time of Disposition: 03:11 <Jess Moreau PA-C - Last Filed: 03/12/24 18:23> 03:11 <Nakul Vidales MD - Last Filed: 03/09/24 05:10>
[2024-03-08 21:16] VITALS: BP 144/62; PULSE 65; RESP 18; TEMP 36.9; O2SAT 97
[2024-03-08 21:29] LABS: Basophils Percent Auto 0.5 % (0.2-1.2); Hematocrit 37.7 % (42.0-52.0); Hemoglobin 12.9 g/dL (14.0-18.0); Immature Granulocyte Absolute 0.03 K/mm3 (0.00-0.031); Immature Granulocyte Percent A 0.4 % (0-0.5); Lymphocytes Absolute Auto 0.65 K/mm3 (0.9-3.2); Lymphocytes Percent Auto 8.3 % (18.3-44.2); Mean Corpuscular HGB Conc 34.2 g/dl (32-36); Mean Corpuscular Hemoglobin 33.2 pg (26-34); Mean Corpuscular Volume 96.9 fl (80-100); Mean Platelet Volume 11.1 fl (7.4-10.4); Monocytes Absolute Auto 0.9 K/mm3 (0.1-0.6); Monocytes Percent Auto 11.7 % (2.6-8.5); Neutrophils Absolute Auto 6.2 K/mm3 (1.3-6.7); Neutrophils Percent Auto 79.1 % (45.5-73.1); Platelet Count Result 160 k/mm3 (150-375); Red Blood Count 3.89 M/mm3 (4.6-6.20); White Blood Count 7.9 K/mm3 (4.5-10.0)
[2024-03-08 21:40] LABS: Potassium 4.3 mmol/L (3.4-5.0)
[2024-03-08 21:41] LABS: Alanine Aminotransferase 21 U/L (6-50); Albumin Level 4.5 g/dL (3.5-5.1); Alkaline Phosphatase 99 U/L (38-126); Anion Gap 5 mmol/L (4-12); Aspartate Amino Transferase 40 U/L (17-59); Bilirubin,Total 0.9 mg/dL (0.2-1.3); Blood Urea Nitrogen 24 mg/dL (9-20); Calcium 9.6 mg/dL (8.4-10.2); Carbon Dioxide 28 mmol/L (22-30); Chloride 102 mmol/L (98-107); Estimated CRCL calculation 48 ml/min; Estimated Glomerular Filt Rate > 60; Glucose 124 mg/dL (65-110); Sodium 135 mmol/L (137-145)
[2024-03-08 22:04] LABS: Influenza A QL RT-PCR Negative (Negative); Influenza B QL RT-PCR Negative (Negative); RSV RNA, RT-PCR Negative (Negative); SARS-CoV-2 RNA PCR Positive (Negative)
[2024-03-09] VITALS (11 sets, daily range): BP systolic 125–138; BP diastolic 61–73; PULSE 64–77; RESP 16–25; TEMP 36.6–36.9; O2SAT 95–100; BMI 27.8
--- NOTE | 2024-03-09 03:10 | PC.NURSE ---
Patient ambulatory in department without assistance. Walking oxyen saturation dropped to 85% on room air.
--- NOTE | 2024-03-09 04:42 | ADMGEN ---
This patient, Abdi Abrams , was admitted to Medical Room 250-01. Patient/family oriented to hospital policies and general routines including ID bracelet, bed and alarms, visiting hours, pain management, procedures, bathroom and other care routines, personal items, smoking policy, room service/diet, and visiting hours. Information on how to activate the Rapid Response Team has been discussed. Patient/Family are encouraged to report perceived risks to care and to ask questions if they do not understand what they are told or what they should do.
[2024-03-09] MEDS: dexAMETHasone SOD PHOS INJ 10 MG/ML 1 ML VIAL 6 MG IV PUSH (08:25)
--- NOTE | 2024-03-09 09:09 | P.HP_ITS ---
H&P: HPI History of Present Illness Date/Time: 03/09/24 09:09 Chief Complaint: weakness Narrative: This is an 83-year-old male with a significant past medical history of hyperlipidemia, hypertension, glaucoma, depression, anxiety, hypothyroidism, Parkinson's, Lewy body dementia who presented to the hospital with complaints of generalized weakness. Patient states that he started feeling bad yesterday and reported shortness of breath with productive cough. He denies any fever, chills, nausea, vomiting, diarrhea, abdominal pain, chest pain. He does report weakness. He states that he was on the couch and was unable to get up which actually prompted him to come in for further evaluation. Patient was placed on 2 L in the ER because whenever he was moving around he dropped into the low 80s, his O2 saturation is actually okay at rest and is anywhere between 92-99% on the 2 L. Workup in the hospital included a chest x-ray which was negative. Initial labs showed a normal white blood cell count of 7.9, RBC 3.89, hemoglobin 12.9, sodium 135. Respiratory panel was positive for COVID. EKG showed sinus rhythm with right bundle branch block with a rate of 68, QTC 440. Patient was given a dose of Decadron and Tylenol while in the ED. Review of Systems Review of Systems: All systems reviewed & are unremarkable except as noted in HPI and below Constitutional: Constitutional: Reports as per HPI and Reports no additional constitutional complaints Eyes: Eyes: Reports as per HPI and Reports no additional eye complaints ENT: Reports system reviewed and no additional complaints, except as documented and Reports as per HPI Cardiovascular: Cardiovascular: Reports as per HPI and Reports no additional cardiovascular complaints Respiratory: Respiratory: Reports as per HPI and Reports no additional respiratory complaints Gastrointestinal: Gastrointestinal: Reports as per HPI and Reports no additional gastrointestinal complaints Genitourinary: Genitourinary: Reports no additional male genitourinary complaints and Reports as per HPI Musculoskeletal: Musculoskeletal: Reports no additional musculoskeletal complaints and Reports as per HPI Integumentary/Breasts: Skin/Breast: Reports system reviewed and no additional complaints, except as docu and Reports as per HPI Neurologic: Reports system reviewed and no additional complaints, except as documented and Reports as per HPI Psychiatric: Psychiatric: Reports no additional psychiatric complaints and Reports as per HPI [facility] Past Medical History Medical History H/O valvular heart disease Glaucoma Hyperlipidemia Hypothyroidism Depression Anxiety Hemorrhoids Hypertension Lewy body dementia Parkinsons Surgical History Surgical History S/P hernia repair History of cochlear implant Family History Family History Sibling Rheumatic arteritis Neuropathy Abdominal aneurysm Hypertension Mother Parkinson disease Alzheimer disease Father Lung cancer Social History Social History Social History: He lives with his and he has 2 children. He is retired. He is a lifelong nonsmoker. 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 Code status full code Smoking status: Never smoker Alcohol intake: never Substance use: never Substance use type: does not use Do You Feel Safe in your Home?: Yes Lack of Transportation: No Lack of Food: Never True Current Housing: I Have Housing Concerned About Future Housing: No Difficulty Paying Gas/Electric Bills: No Difficulty Paying for Meds: No Currently Unemployed: No Education: High School Diploma/GED Difficulty w/ Childcare or Family Care: YES Spiritual care concerns: No Meds Home Medications and Allergies Home Medications ?Medication ?Instructions ?Recorded ?Confirmed ?Type calcium 600 mg (as carbonate)-vit 1 tablet PO BID 10/15/22 03/09/24 History D3 10 mcg (400 unit)-minerals tablet cholecalciferol (vitamin D3) 25 25 mcg PO BID 10/15/22 03/09/24 History mcg (1,000 unit) tablet (Vitamin D3) donepezil 10 mg tablet 10 mg PO QHS 10/15/22 03/09/24 History duloxetine 60 mg capsule,delayed 60 mg PO QAM 10/15/22 03/09/24 History release levothyroxine 100 mcg tablet 100 mcg PO QAM 10/15/22 03/09/24 History (Synthroid) lorazepam 0.5 mg tablet 0.5 mg PO QAM 10/15/22 03/09/24 History melatonin 5 mg tablet 5 mg PO HS 10/15/22 03/09/24 History quetiapine 100 mg tablet 50 mg PO BID 10/15/22 03/09/24 History timolol maleate 0.5 % eye gel 1 drp EACH EYE DAILY 10/15/22 03/09/24 History forming solution polyethylene glycol 3350 17 gram 17 g PO DAILY #30 ea 10/21/22 03/09/24 Rx oral powder packet (Miralax) Allergies Allergy/AdvReac Type Severity Reaction Status Date / Time No Known Allergies Allergy Verified 01/03/23 10:20 Vital Signs Vital Signs - 24 hr 03/08/24 18:47 03/08/24 21:16 03/09/24 01:17 Temperature 98.5 F 98.5 F Pulse Rate 76 65 72 Respiratory Rate 18 18 20 Blood Pressure 128/65 144/62 H 138/73 Pulse Oximetry 100 97 99 Oxygen Delivery Oxygen Flow Rate 03/09/24 02:01 03/09/24 03:10 03/09/24 04:01 Temperature Pulse Rate 77 64 Respiratory Rate 25 H 24 H Blood Pressure 131/69 128/61 Pulse Oximetry 96 100 100 Oxygen Delivery Nasal Cannula Oxygen Flow Rate 2 03/09/24 05:01 03/09/24 08:00 Temperature 98.5 F Pulse Rate 64 64 Respiratory Rate 16 16 Blood Pressure 134/67 Pulse Oximetry 100 100 Oxygen Delivery Nasal Cannula Oxygen Flow Rate 2 Exam Narrative: General: In no acute distress, well nourished Head: atraumatic, no encephalopathy Eyes: PERRLA, sclera clear ENT: moist mucous membranes, nasal passages clear Neck: supple, no JVD, no adenopathy, trachea midline Cardiac: Normal S1 and S2. No murmur, gallops or friction rubs, peripheral pulses intact. Respiratory: Lungs clear to auscultation, no adventitious lung sounds, productive cough, currently on 2 L nasal cannula Gastrointestinal: soft, non-distended, non-tender, normoactive bowel sounds. : voiding without difficulty. Extremities: moves all extremities well, no edema Skin: clean, dry, intact. No wounds or lesions. Neuro: Alert and oriented x4, cranial nerves intact, no neuro deficits. Psych: normal mood, normal affect, interactive H&P: Results Labs Labs: Short CBC 03/08/24 Range/Units 21:22 WBC 7.9 (4.5-10.0) K/mm3 Hgb 12.9 L (14.0-18.0) g/dL Hct 37.7 L (42.0-52.0) % Plt Count 160 (150-375) k/mm3 BMP 03/08/24 21:22 Sodium 135 L Potassium 4.3 Chloride 102 Carbon Dioxide 28 BUN 24 H Creatinine 1.10 Glucose 124 H Calcium 9.6 Liver Function 03/08/24 Range/Units 21:22 Total Bilirubin 0.9 (0.2-1.3) mg/dL AST 40 (17-59) U/L ALT 21 (6-50) U/L Alkaline Phosphatase 99 (38-126) U/L Albumin 4.5 (3.5-5.1) g/dL Imaging Chest x-ray: Radiologist's impression: EXAMINATION: XR chest 2V Exam Date/Time: 03/08/2024 19:55 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 RESULT: Lines, tubes, and devices: Surgical clips in the lower neck. Lungs and pleura: Senescent changes, otherwise clear. Cardiomediastinal silhouette: Stable. Other: No acute osseous or upper abdominal finding. IMPRESSION: No acute cardiopulmonary process. Reviewed, dictated and finalized at location [facility]. ING JO[facility] Assessment and Plan Assessment and plan (1) Acute hypoxemic respiratory failure: Code(s): J96.01 - Acute respiratory failure with hypoxia Status: Acute Assessment and Plan: * Chest x-ray was negative * Respiratory panel positive for COVID * Started on remdesivir and Decadron * Will start Mucinex * Currently on 2 L nasal cannula * Continue to wean O2 for sat greater than 92% * Albuterol inhaler ordered (2) COVID-19: Code(s): U07.1 - COVID-19 Status: Acute Assessment and Plan: * See above (3) Weakness: Code(s): R53.1 - Weakness Status: Acute Assessment and Plan: * PT and OT ordered (4) Hypothyroidism: Code(s): E03.9 - Hypothyroidism, unspecified Status: Acute Assessment and Plan: * Continue Synthroid * Will check TSH (5) Depression: Code(s): F32.A - Depression, unspecified Status: Acute Assessment and Plan: * Continue Cymbalta (6) Lewy body dementia: Code(s): G31.83 - Neurocognitive disorder with Lewy bodies; F02.80 - Dementia in other diseases classified elsewhere, unspecified severity, without behavioral disturbance, psychotic disturbance, mood disturbance, and anxiety Status: Acute Assessment and Plan: * Continue Aricept and Seroquel (7) Anxiety: Code(s): F41.9 - Anxiety disorder, unspecified Status: Acute Assessment and Plan: * Continue lorazepam Quality VTE Prophylaxis VTE prophylaxis: pharmacologic ordered Hospitalist MIPS Advance Care Plan I have confirmed that the patient's Advanced Care Plan is present, code status is documented, or surrogate decision maker is listed in patient medical record.: Yes Medication Reconciliation I have utilized all available resources to obtain, update and review the patients current medications (includes all prescriptions, OTC, herbals, cannabis, and nutritional supplements).: Yes
[2024-03-09 09:55] LABS: Basophils Percent Auto 0.7 % (0.2-1.2); Hematocrit 34.8 % (42.0-52.0); Hemoglobin 11.8 g/dL (14.0-18.0); Immature Granulocyte Absolute 0.02 K/mm3 (0.00-0.031); Immature Granulocyte Percent A 0.3 % (0-0.5); Lymphocytes Absolute Auto 0.57 K/mm3 (0.9-3.2); Lymphocytes Percent Auto 9.6 % (18.3-44.2); Mean Corpuscular HGB Conc 33.9 g/dl (32-36); Mean Corpuscular Hemoglobin 33.1 pg (26-34); Mean Corpuscular Volume 97.5 fl (80-100); Monocytes Absolute Auto 0.6 K/mm3 (0.1-0.6); Monocytes Percent Auto 10.4 % (2.6-8.5); Neutrophils Absolute Auto 4.7 K/mm3 (1.3-6.7); Platelet Count Result 145 k/mm3 (150-375); Red Blood Count 3.57 M/mm3 (4.6-6.20); Red Cell Distribution Width 12.8 % (11.5-14.5)
[2024-03-09 10:03] LABS: Alanine Aminotransferase 20 U/L (6-50); Albumin Level 3.9 g/dL (3.5-5.1); Alkaline Phosphatase 84 U/L (38-126); Anion Gap 1 mmol/L (4-12); Aspartate Amino Transferase 46 U/L (17-59); Bilirubin,Total 0.8 mg/dL (0.2-1.3); Blood Urea Nitrogen 25 mg/dL (9-20); Calcium 8.8 mg/dL (8.4-10.2); Carbon Dioxide 28 mmol/L (22-30); Chloride 104 mmol/L (98-107); Estimated CRCL calculation 58 ml/min; Estimated Glomerular Filt Rate > 60; Glucose 156 mg/dL (65-110); Potassium 4.2 mmol/L (3.4-5.0); Sodium 133 mmol/L (137-145)
[2024-03-09 10:04] LABS: INR 1.1; Prothrombin Time 14.8 Seconds (11.1-14.7)
[2024-03-09] MEDS: DULoxetine HCL 60 MG CAPSULE.DR PO (10:04)
[2024-03-09] MEDS: REMDESIVIR 200 MG/NS 250 ML 200 MG/250 ML BAG 250 MG IVPB (10:04)
[2024-03-09] MEDS: TIMOLOL MALEATE XE 0.5% OPHTH GEL SOLN 5 ML BTL 1 DROP EACH EYE (10:04)
[2024-03-09] MEDS: LORazepam (*CRX) 0.5 MG TABLET PO (10:04)
[2024-03-09 10:33] LABS: Thyroid Stimulating Hormone 0.917 uIU/mL (0.465-4.680)
--- NOTE | 2024-03-09 13:27 | PCRTNOTE ---
Window of time for administration has passed. See next scheduled administration.
[2024-03-09] MEDS: ALBUTEROL SULFATE (*SP) AEROSOL 1 PUFF 2 PUFF INHALATION ×2 (13:28→20:49)
[2024-03-09] MEDS: QUEtiapine FUMARATE 25 MG TABLET 50 MG PO (17:03)
[2024-03-09] MEDS: CHOLECALCIFEROL 1,000 UNITS TABLET 1000 UNITS PO (17:03)
[2024-03-09] MEDS: DONEPEZIL HCL 10 MG TABLET PO (21:35)
[2024-03-09] MEDS: MELATONIN 5 MG TABLET PO (21:36)
[2024-03-09] MEDS: guaiFENesin 12 HR 600 MG TABCR PO (21:36)
[2024-03-10] MEDS: ALBUTEROL SULFATE (*SP) AEROSOL 1 PUFF 2 PUFF INHALATION ×4 (02:05→20:13)
[2024-03-10] MEDS: LEVOTHYROXINE SODIUM 100 MCG TABLET PO (05:09)
[2024-03-10 05:18] LABS: Basophils Percent Auto 0.1 % (0.2-1.2); Hematocrit 32.6 % (42.0-52.0); Immature Granulocyte Absolute 0.04 K/mm3 (0.00-0.031); Immature Granulocyte Percent A 0.5 % (0-0.5); Immature Platelet Fraction Pct 9.8 % (0.9-11.2); Lymphocytes Absolute Auto 1.19 K/mm3 (0.9-3.2); Lymphocytes Percent Auto 14.6 % (18.3-44.2); Mean Corpuscular HGB Conc 33.7 g/dl (32-36); Mean Corpuscular Hemoglobin 33.1 pg (26-34); Mean Corpuscular Volume 98.2 fl (80-100); Mean Platelet Volume 11.3 fl (7.4-10.4); Monocytes Absolute Auto 1.2 K/mm3 (0.1-0.6); Monocytes Percent Auto 14.6 % (2.6-8.5); Neutrophils Absolute Auto 5.7 K/mm3 (1.3-6.7); Neutrophils Percent Auto 70.2 % (45.5-73.1); Platelet Count Result 135 k/mm3 (150-375); Red Blood Count 3.32 M/mm3 (4.6-6.20); Red Cell Distribution Width 12.8 % (11.5-14.5); White Blood Count 8.2 K/mm3 (4.5-10.0)
[2024-03-10 05:32] LABS: Alanine Aminotransferase 23 U/L (6-50); Albumin Level 3.5 g/dL (3.5-5.1); Alkaline Phosphatase 79 U/L (38-126); Anion Gap 2 mmol/L (4-12); Aspartate Amino Transferase 64 U/L (17-59); Bilirubin,Total 0.4 mg/dL (0.2-1.3); Blood Urea Nitrogen 26 mg/dL (9-20); Calcium 8.2 mg/dL (8.4-10.2); Carbon Dioxide 29 mmol/L (22-30); Chloride 105 mmol/L (98-107); Estimated CRCL calculation 53 ml/min; Estimated Glomerular Filt Rate > 60; Glucose 106 mg/dL (65-110); Potassium 4.2 mmol/L (3.4-5.0); Sodium 136 mmol/L (137-145)
[2024-03-10 06:21] VITALS: BP 129/67; PULSE 55; RESP 18; TEMP 36.4; O2SAT 100
[2024-03-10 07:32] VITALS: O2SAT 96
--- NOTE | 2024-03-10 08:00 | P.PNIM_ITS ---
Progress Note: A&P Assessment and Plan (1) Acute hypoxemic respiratory failure: Code(s): J96.01 - Acute respiratory failure with hypoxia Status: Acute Assessment and Plan: * Chest x-ray was negative * Respiratory panel positive for COVID * Started on remdesivir and Decadron * Will start Mucinex * Currently on 2 L nasal cannula * Continue to wean O2 for sat greater than 92% * Albuterol inhaler ordered 03/10 * Currently on room air * Continue Mucinex * Continue remdesivir Decadron * If he remains off oxygen, he can likely go home tomorrow after his 3rd dose of remdesivir (2) COVID-19: Code(s): U07.1 - COVID-19 Status: Acute Assessment and Plan: * See above (3) Weakness: Code(s): R53.1 - Weakness Status: Acute Assessment and Plan: * Continue PT and OT (4) Hypothyroidism: Code(s): E03.9 - Hypothyroidism, unspecified Status: Acute Assessment and Plan: * Continue Synthroid * Will check TSH (5) Depression: Code(s): F32.A - Depression, unspecified Status: Acute Assessment and Plan: * Continue Cymbalta (6) Lewy body dementia: Code(s): G31.83 - Neurocognitive disorder with Lewy bodies; F02.80 - Dementia in other diseases classified elsewhere, unspecified severity, without behavioral disturbance, psychotic disturbance, mood disturbance, and anxiety Status: Acute Assessment and Plan: * Continue Aricept and Seroquel (7) Anxiety: Code(s): F41.9 - Anxiety disorder, unspecified Status: Acute Assessment and Plan: * Continue lorazepam Time Spent With Patient Time with patient: 15 - 25 minutes Subjective Date/time seen: 03/10/24 08:00 Interval history: Interval history: This is an 83-year-old male with a significant past medical history of hyperlipidemia, hypertension, glaucoma, depression, anxiety, hypothyroidism, Pa rkinson's, Lewy body dementia who presented to the hospital with complaints of generalized weakness. Patient states that he started feeling bad yesterday and reported shortness of breath with productive cough. He denies any fever, chills, nausea, vomiting, diarrhea, abdominal pain, chest pain. He does report weakness. He states that he was on the couch and was unable to get up which actually prompted him to come in for further evaluation. Patient was placed on 2 L in the ER because whenever he was moving around he dropped into the low 80s, his O2 saturation is actually okay at rest and is anywhere between 92-99% on the 2 L. Workup in the hospital included a chest x-ray which was negative. Initial labs showed a normal white blood cell count of 7.9, RBC 3.89, hemoglobin 12.9, sodium 135. Respiratory panel was positive for COVID. EKG showed sinus rhythm with right bundle branch block with a rate of 68, QTC 440. Patient was given a dose of Decadron and Tylenol while in the ED. Subjective: Patient denies any new complaints today. He is currently on room air. Labs reviewed. Review of Systems Review of Systems: All systems reviewed & are unremarkable except as noted in HPI and below Constitutional: Constitutional: Reports as per HPI and Reports no additional constitutional complaints Eyes: Eyes: Reports as per HPI and Reports no additional eye complaints ENT: Reports system reviewed and no additional complaints, except as documented and Reports as per HPI Cardiovascular: Cardiovascular: Reports as per HPI and Reports no additional cardiovascular complaints Respiratory: Respiratory: Reports as per HPI and Reports no additional respiratory complaints Gastrointestinal: Gastrointestinal: Reports as per HPI and Reports no additional gastrointestinal complaints Genitourinary: Genitourinary: Reports no additional male genitourinary complaints and Reports as per HPI Musculoskeletal: Musculoskeletal: Reports no additional musculoskeletal complaints and Reports as per HPI Integumentary/Breasts: Skin/Breast: Reports system reviewed and no additional complaints, except as docu and Reports as per HPI Neurologic: Reports system reviewed and no additional complaints, except as documented and Reports as per HPI Psychiatric: Psychiatric: Reports no additional psychiatric complaints and Reports as per HPI Exam Narrative: General: In no acute distress, well nourished Cardiac: Normal S1 and S2. No murmur, gallops or friction rubs, peripheral pulses intact. Respiratory: Lungs clear to auscultation, no adventitious lung sounds, productive cough, currently on room air Gastrointestinal: soft, non-distended, non-tender, normoactive bowel sounds. : voiding without difficulty. Neuro: Alert and oriented x4 Objective Data Vital Signs Vital Signs: Vital Signs - 24 hr 03/09/24 10:15 03/09/24 13:28 12/27/24 14:22 Temperature 97.9 F Pulse Rate 69 Respiratory Rate 19 Blood Pressure 126/71 Pulse Oximetry 95 95 Oxygen Delivery Room Air Nasal Cannula Oxygen Flow Rate 2 03/09/24 20:56 03/09/24 21:16 03/09/24 21:30 Temperature 98.4 F Pulse Rate 67 Respiratory Rate 18 Blood Pressure 125/62 Pulse Oximetry 97 96 96 Oxygen Delivery Nasal Cannula Nasal Cannula Oxygen Flow Rate 2 1 03/10/24 06:21 03/10/24 07:32 Temperature 97.6 F Pulse Rate 55 L Respiratory Rate 18 Blood Pressure 129/67 Pulse Oximetry 100 96 Oxygen Delivery Nasal Cannula Oxygen Flow Rate 1 Intake/Output Intake/Output: Intake & Output 03/07/24 03/08/24 03/09/24 03/10/24 23:59 23:59 23:59 23:59 Intake Total 1514 450 Output Total 100 Balance 1414 450 Meds/Results Medications: Active Medications Generic Name Dose Route Start Last Admin Trade Name Freq PRN Reason Stop Dose Admin Acetaminophen 650 mg 03/09/24 03:17 Acetaminophen 325 Mg Tablet PO Q4H PRN Mild Pain (1-3) or Fever Albuterol 2 puff 03/09/24 08:00 03/10/24 07:29 Albuterol Sulfate (*Sp) Aerosol 1 Puff INHALATION 2 puff Q6HRT REDD Administration Dexamethasone Sodium Phosphate 6 mg 03/09/24 09:00 03/09/24 08:25 Dexamethasone Sod Phos Inj 10 Mg/Ml 1 Ml Vial IV PUSH 03/18/24 09:01 6 mg DAILY REDD Administration Donepezil HCl 10 mg 03/09/24 21:00 03/09/24 21:35 Donepezil Hcl 10 Mg Tablet PO 10 mg QHS REDD Administration Duloxetine HCl 60 mg 03/09/24 10:00 03/09/24 10:04 Duloxetine Hcl 60 Mg Capsule.Dr PO 60 mg QAM REDD Administration Enoxaparin Sodium 40 mg 03/10/24 09:00 Enoxaparin 40 Mg/0.4 Ml Syringe SUB-Q DAILY REDD Guaifenesin 600 mg 03/09/24 21:00 03/09/24 21:36 Guaifenesin 12 Hr 600 Mg Tabcr PO 600 mg Q12HR REDD Administration Remdesivir 100 mg in 250 mls @ 250 mls/hr 03/10/24 10:00 IVPB 03/13/24 10:59 Q24H REDD Levothyroxine Sodium 100 mcg 03/10/24 06:30 03/10/24 05:09 Levothyroxine Sodium 100 Mcg Tablet PO 100 mcg DAILY@0630 REDD Administration Lorazepam 0.5 mg 03/09/24 10:00 03/09/24 10:04 Lorazepam (*Crx) 0.5 Mg Tablet PO 0.5 mg QAM REDD Administration Melatonin 5 mg 03/09/24 21:00 03/09/24 21:36 Melatonin 5 Mg Tablet PO 5 mg HS REDD Administration Polyethylene Glycol 17 gm 03/10/24 09:00 Polyethylene Glycol 3350 17 Gm Powd.Pack PO DAILY REDD Quetiapine Fumarate 50 mg 03/09/24 17:00 03/09/24 17:03 Quetiapine Fumarate 25 Mg Tablet PO 50 mg BID REDD Administration Timolol Maleate 1 drop 03/09/24 11:00 03/09/24 10:04 Timolol Maleate Xe 0.5% Ophth Gel Soln 5 Ml Btl EACH EYE 1 drop DAILY REDD Administration Vitamin D 1,000 units 03/09/24 17:00 03/09/24 17:03 Cholecalciferol 1,000 Units Tablet PO 1,000 units BID REDD Administration Radiology Results: ITS Impressions Chest X-Ray 03/08/24 20:10 IMPRESSION: No acute cardiopulmonary process. Labs Labs: Laboratory Results - last 24 hr 03/09/24 03/10/24 09:33 04:55 WBC 6.0 8.2 RBC 3.57 L 3.32 L Hgb 11.8 L 11.0 L Hct 34.8 L 32.6 L MCV 97.5 98.2 MCH 33.1 33.1 MCHC 33.9 33.7 RDW 12.8 12.8 Plt Count 145 L 135 L MPV 11.0 H 11.3 H Immature Gran % (Auto) 0.3 0.5 Neut % (Auto) 79.0 H 70.2 Lymph % (Auto) 9.6 L 14.6 L [place] % (Auto) 10.4 H 14.6 H Eos % (Auto) 0.0 0.0 Baso % (Auto) 0.7 0.1 L Lymph # (Auto) 0.57 L 1.19 [place] # (Auto) 0.6 1.2 H Eos # (Auto) 0.0 0.0 Baso # (Auto) 0.0 0.0 Abs Immat Gran (auto) 0.02 0.04 H Absolute Neuts (auto) 4.7 5.7 Absolute Nucleated RBC 0.000 0.000 Nucleated RBC % 0.0 0.0 % Immature Plt Fraction 9.0 9.8 PT 14.8 H INR 1.1 Sodium 133 L 136 L Potassium 4.2 4.2 Chloride 104 105 Carbon Dioxide 28 29 Anion Gap 1 L 2 L BUN 25 H 26 H Creatinine 0.90 1.00 Estim Creat Clear Calc 58 53 Estimated GFR > 60 > 60 Glucose 156 H 106 Calcium 8.8 8.2 L Magnesium 2.0 Total Bilirubin 0.8 0.4 Direct Bilirubin 0.0 AST 46 64 H ALT 20 23 Alkaline Phosphatase 84 79 Total Protein 7.0 7.0 Albumin 3.9 3.5 TSH 0.917 Quality VTE Prophylaxis VTE prophylaxis: pharmacologic ordered
[2024-03-10 08:16] VITALS: O2SAT 94
[2024-03-10] MEDS: dexAMETHasone SOD PHOS INJ 10 MG/ML 1 ML VIAL 6 MG IV PUSH (09:07)
[2024-03-10] MEDS: DULoxetine HCL 60 MG CAPSULE.DR PO (09:07)
[2024-03-10] MEDS: QUEtiapine FUMARATE 25 MG TABLET 50 MG PO ×2 (09:07→16:56)
[2024-03-10] MEDS: LORazepam (*CRX) 0.5 MG TABLET PO (09:07)
[2024-03-10] MEDS: ENOXAPARIN 40 MG/0.4 ML SYRINGE SUB-Q (09:07)
[2024-03-10] MEDS: guaiFENesin 12 HR 600 MG TABCR PO ×2 (09:08→20:54)
[2024-03-10] MEDS: polyethylene glycoL 3350 17 GM POWD.PACK PO (09:08)
[2024-03-10] MEDS: CHOLECALCIFEROL 1,000 UNITS TABLET 1000 UNITS PO ×2 (09:08→16:56)
[2024-03-10] MEDS: REMDESIVIR 100 MG/NS 250 ML 100 MG/250 ML BAG 250 MG IVPB (09:09)
[2024-03-10] MEDS: TIMOLOL MALEATE XE 0.5% OPHTH GEL SOLN 5 ML BTL 1 DROP EACH EYE (09:10)
--- NOTE | 2024-03-10 13:01 | PCPTNOTE ---
Go into room and patient and report he is independent getting around his room and does not need skilled physical therapy at this time. Patient and aware to ask for a new PT order if he does start feeling weak. Independent in OT and nursing notes. Discharged from skilled physical therapy at this time.
[2024-03-10 14:00] VITALS: BP 98/50; PULSE 48; RESP 16; TEMP 36.4; O2SAT 97
[2024-03-10] MEDS: DONEPEZIL HCL 10 MG TABLET PO (20:54)
[2024-03-10] MEDS: MELATONIN 5 MG TABLET PO (20:54)
[2024-03-10 22:00] VITALS: BP 135/69; PULSE 60; RESP 18; TEMP 36.3; O2SAT 98
[2024-03-11] MEDS: ALBUTEROL SULFATE (*SP) AEROSOL 1 PUFF 2 PUFF INHALATION ×2 (01:59→08:01)
[2024-03-11 05:23] LABS: Basophils Percent Auto 0.1 % (0.2-1.2); Hematocrit 33.4 % (42.0-52.0); Hemoglobin 11.3 g/dL (14.0-18.0); Immature Granulocyte Absolute 0.04 K/mm3 (0.00-0.031); Immature Granulocyte Percent A 0.4 % (0-0.5); Lymphocytes Absolute Auto 1.36 K/mm3 (0.9-3.2); Lymphocytes Percent Auto 14.4 % (18.3-44.2); Mean Corpuscular HGB Conc 33.8 g/dl (32-36); Mean Corpuscular Volume 97.7 fl (80-100); Mean Platelet Volume 11.3 fl (7.4-10.4); Monocytes Absolute Auto 0.9 K/mm3 (0.1-0.6); Monocytes Percent Auto 9.5 % (2.6-8.5); Neutrophils Absolute Auto 7.1 K/mm3 (1.3-6.7); Neutrophils Percent Auto 75.6 % (45.5-73.1); Platelet Count Result 153 k/mm3 (150-375); Red Blood Count 3.42 M/mm3 (4.6-6.20); Red Cell Distribution Width 12.9 % (11.5-14.5); White Blood Count 9.4 K/mm3 (4.5-10.0)
[2024-03-11 05:34] LABS: Alanine Aminotransferase 26 U/L (6-50); Albumin Level 3.5 g/dL (3.5-5.1); Alkaline Phosphatase 76 U/L (38-126); Anion Gap 0 mmol/L (4-12); Aspartate Amino Transferase 63 U/L (17-59); Bilirubin Indirect 0.3 mg/dL (0-1.1); Bilirubin,Total 0.5 mg/dL (0.2-1.3); Blood Urea Nitrogen 31 mg/dL (9-20); Calcium 8.4 mg/dL (8.4-10.2); Carbon Dioxide 30 mmol/L (22-30); Chloride 106 mmol/L (98-107); Estimated CRCL calculation 48 ml/min; Estimated Glomerular Filt Rate > 60; Glucose 102 mg/dL (65-110); INR 1.1; Potassium 4.9 mmol/L (3.4-5.0); Prothrombin Time 14.5 Seconds (11.1-14.7); Sodium 136 mmol/L (137-145)
[2024-03-11 06:00] VITALS: BP 117/67; PULSE 60; RESP 18; TEMP 36.6; O2SAT 98
[2024-03-11] MEDS: LEVOTHYROXINE SODIUM 100 MCG TABLET PO (06:35)
[2024-03-11] MEDS: guaiFENesin 12 HR 600 MG TABCR PO (08:14)
[2024-03-11] MEDS: DULoxetine HCL 60 MG CAPSULE.DR PO (08:14)
[2024-03-11] MEDS: QUEtiapine FUMARATE 25 MG TABLET 50 MG PO (08:14)
[2024-03-11] MEDS: LORazepam (*CRX) 0.5 MG TABLET PO (08:14)
[2024-03-11] MEDS: polyethylene glycoL 3350 17 GM POWD.PACK PO (08:14)
[2024-03-11] MEDS: CHOLECALCIFEROL 1,000 UNITS TABLET 1000 UNITS PO (08:15)
[2024-03-11] MEDS: dexAMETHasone SOD PHOS INJ 10 MG/ML 1 ML VIAL 6 MG IV PUSH (08:15)
[2024-03-11] MEDS: ENOXAPARIN 40 MG/0.4 ML SYRINGE SUB-Q (08:15)
[2024-03-11] MEDS: TIMOLOL MALEATE XE 0.5% OPHTH GEL SOLN 5 ML BTL 1 DROP EACH EYE (08:19)
--- NOTE | 2024-03-11 09:54 | PM.DS ---
DS: Admitting Diagnosis Discharge Date 03/11/24 Admitting Diagnosis Acute hypoxemic respiratory failure COVID Weakness Hypothyroidism Depression Lewy body dementia Anxiety DS: Discharge Diagnosis Discharge Diagnosis (1) Acute hypoxemic respiratory failure: Code(s): J96.01 - Acute respiratory failure with hypoxia Status: Acute (2) COVID-19: Code(s): U07.1 - COVID-19 Status: Acute (3) Weakness: Code(s): R53.1 - Weakness Status: Acute (4) Hypothyroidism: Code(s): E03.9 - Hypothyroidism, unspecified Status: Acute (5) Depression: Code(s): F32.A - Depression, unspecified Status: Acute (6) Lewy body dementia: Code(s): G31.83 - Neurocognitive disorder with Lewy bodies; F02.80 - Dementia in other diseases classified elsewhere, unspecified severity, without behavioral disturbance, psychotic disturbance, mood disturbance, and anxiety Status: Acute (7) Anxiety: Code(s): F41.9 - Anxiety disorder, unspecified Status: Acute DS: Summary Hospital Course Reason for hospitalization: Acute hypoxemic respiratory failure COVID Weakness Hypothyroidism Depression Lewy body dementia Anxiety Hospital Course: This is an 83-year-old male with a significant past medical history of hyperlipidemia, hypertension, glaucoma, depression, anxiety, hypothyroidism, Parkinson's, Lewy body dementia who presented to the hospital with complaints of generalized weakness. Patient states that he started feeling bad yesterday and reported shortness of breath with productive cough. He denies any fever, chills, nausea, vomiting, diarrhea, abdominal pain, chest pain. He does report weakness. He states that he was on the couch and was unable to get up which actually prompted him to come in for further evaluation. Patient was placed on 2 L in the ER because whenever he was moving around he dropped into the low 80s, his O2 saturation is actually okay at rest and is anywhere between 92-99% on the 2 L. Workup in the hospital included a chest x-ray which was negative. Initial labs showed a normal white blood cell count of 7.9, RBC 3.89, hemoglobin 12.9, sodium 135. Respiratory panel was positive for COVID. EKG showed sinus rhythm with right bundle branch block with a rate of 68, QTC 440. Patient was given a dose of Decadron and Tylenol while in the ED. Over the course of his stay his oxygen was weaned to off while at rest. He is currently on room air and home O2 evaluation did not show any need for oxygen at home. He completed 3 rounds of remdesivir and Decadron. He is stable for discharge at this time. He will need to follow up with his primary care doctor in 1 week. Final diagnosis: Acute hypoxemic respiratory failure due to COVID-19 Status at Discharge Cognitive/behavioral status at discharge: Alert oriented x4 Functional status at discharge: uses cane/walker Overall status at discharge: patient is progressing back to baseline Time Spent with Patient Time attestation: Total time spent providing and/or coordinating discharge services: Time spent: Greater than 30 minutes Exam Narrative: General: In no acute distress, well nourished Cardiac: Normal S1 and S2. No murmur, gallops or friction rubs, peripheral pulses intact. Respiratory: Lungs clear to auscultation, no adventitious lung sounds, productive cough, currently on room air Gastrointestinal: soft, non-distended, non-tender, normoactive bowel sounds. : voiding without difficulty. Neuro: Alert and oriented x4 DS: Data Data Completed and Pending Completed studies during hospitalization: Chest x-ray Pending studies at discharge: None Labs on day of discharge: Labs from last 24 hours 03/11/24 05:08 WBC 9.4 RBC 3.42 L Hgb 11.3 L Hct 33.4 L MCV 97.7 MCH 33.0 MCHC 33.8 RDW 12.9 Plt Count 153 MPV 11.3 H Immature Gran % (Auto) 0.4 Neut % (Auto) 75.6 H Lymph % (Auto) 14.4 L [place] % (Auto) 9.5 H Eos % (Auto) 0.0 Baso % (Auto) 0.1 L Lymph # (Auto) 1.36 [place] # (Auto) 0.9 H Eos # (Auto) 0.0 Baso # (Auto) 0.0 Abs Immat Gran (auto) 0.04 H Absolute Neuts (auto) 7.1 H Absolute Nucleated RBC 0.000 Nucleated RBC % 0.0 PT 14.5 INR 1.1 Sodium 136 L Potassium 4.9 Chloride 106 Carbon Dioxide 30 Anion Gap 0 L BUN 31 H Creatinine 1.10 Estim Creat Clear Calc 48 Estimated GFR > 60 Glucose 102 Calcium 8.4 Total Bilirubin 0.5 Direct Bilirubin 0.0 Indirect Bilirubin 0.3 AST 63 H ALT 26 Alkaline Phosphatase 76 Total Protein 7.0 Albumin 3.5 Procedures/Treatments: None Discharge Plan Discharge Attending physician on discharge: Farhan Eastman Discharging Clinician: Ladan Vila Anticipated Discharge Date/Time: 03/11/24 07:29 Patient Disposition: Home, Self-Care Activity: as tolerated Diet: as tolerated and heart healthy Discharge Instructions: Continue taking Mucinex for the next 7-10 days until your symptoms resolve You received 3 doses of remdesivir and Decadron while inpatient Follow-up with your primary care physician in 1 week Patient Instructions: COVID-19 (Coronavirus Disease 2019) (DC) Patient Language: Wallisian Stand Alone Forms: General Discharge Information Follow-up/Referrals: Arturo,MD Carlos [Primary Care Provider] - 1 Week Discharge Medications: New guaifenesin [Mucus Relief ER] 600 mg Tablet Extended Release 12hr 600 mg PO Q12HR Qty: 20 0RF Continued donepezil 10 mg tablet 10 mg PO QHS quetiapine 100 mg tablet 50 mg PO BID levothyroxine [Synthroid] 100 mcg tablet 100 mcg PO QAM lorazepam 0.5 mg tablet 0.5 mg PO QAM timolol maleate 0.5 % gel forming solution 1 drp EACH EYE DAILY duloxetine 60 mg capsule,delayed release(DR/EC) 60 mg PO QAM cholecalciferol (vitamin D3) [Vitamin D3] 25 mcg (1,000 unit) Tablet 25 mcg PO BID calcium carbonate-vit D3-min 600 mg calcium- 400 unit Tablet 1 tablet PO BID melatonin 5 mg Tablet 5 mg PO HS polyethylene glycol 3350 [Miralax] 17 gram Powder In Packet 17 g PO DAILY Qty: 30 0RF Date of admission: 03/09/24 08:30 Primary Care Provider: ArturoCarlos Admitting Provider: Tish Cool V. Attending physician on admission: Ladan Vila Condition: Improved Quality VTE Prophylaxis VTE prophylaxis: pharmacologic ordered
[2024-03-11] MEDS: REMDESIVIR 100 MG/NS 250 ML 100 MG/250 ML BAG 250 MG IVPB (09:57)
[2024-03-11 11:15] VITALS: PULSE 50; O2SAT 95
[2024-03-11 11:20] VITALS: PULSE 52; O2SAT 96
--- NOTE | 2024-03-11 11:33 | PCRCNOTE ---
Home oxygen evaluation done. Pt does not require home oxygen at this time.
--- NOTE | 2024-03-11 13:03 | PC.NURSE ---
Patient resting in bed for morning assessment. Patient calm and compliant with medications. No complaints of pain and no signs of respiratory distress.
--- OUTSIDE RECORDS SUMMARY | 2024-03-16 05:11 | XMS_ITS | Encounter Summary ---
Author Organization [facility] Address [address] [place] [address] Care Team Providers Care Overedger Name Role Phone Russ Rojas MD Primary Care Provider [phone]- [phone] Encounter Details Date Type Department Care Team (Late st Contact Info) Description 11/03/2023 Lab Requisition [facility] - DermPath Lab [address] [place] [address] Tova Stanton MD [address] [facility] [address] [place] [address] Social History Tobacco Use Types Packs/Day Years Used Date Smoking Tobacco: Former Smokeless Tobacco: Never Alcohol Use Standard Drinks/Week Comments No 0 (1 standard drink = 0.6 oz pur e alcohol) Sex and Gender Information Value Date Recorded Sex Assigned at Not on file Gender Identity Not on file Sexual Orientation Not on file documented as of this encounter Plan of Treatment Not on file documented as of this encounter Procedures Procedure Name Priority Date/Time Associated Diagnosis Comments DERMATOPATHOLOGY Routine 11/03/2023 1:35 PM CDT documented in this encounter Results * DERMATOPATHOLOGY (11/03/2023 1:35 PM CDT) Case Report Dermatopathology Report ? Case: [id number] ? Authorizing Provider: ??Tova Stanton, ?Collected: ? 11/03/2023 01:35 PM ? Ordering Location: ? [facility] - ??Received: ?11/04/2023 01:05 PM ? DermPath Lab ? Pathologist: ? Kristel Lopez MD ? Specimens: ?? A) - Skin, left chest ? B) - Skin, left upper back ? C) - Skin, left back ? 4 2:10 PM CDT DERMATOPATHOLOGY LABORATORY Final Diagnosis Specimen A. 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 SKIN, left back: BASAL CELL CARCINOMA, SUPERFICIAL MULTIFOCAL (C44.519) 2:10 PM [facility] DERMATOPATH[facility] Clinical History A-C: R/O NMSC 2:10 PM [facility] DERMATOPATHOLOGY [facility]ORAT[facility] Gross Description Specimen A: Received is one formalin filled container labeled with the patient's name and designated left chest. The specimen consists of a shave biopsy measuring 10x8x3 mm. Jar 0. Specimen B: Received is one formalin filled container labeled with the patient's name and designated left upper back. The specimen consists of a shave biopsy measuring 10x6x2 mm. Jar 0. Specimen C: Received is one formalin filled container labeled with the patient's name and designated left back. The specimen consists of a shave biopsy measuring 8x7x1 mm. Jar 0. 2:10 PM [facility] DERMATOPATH[facility]Y [facility] Microscopic Description Specimen A. SKIN, left chest: Arising in the epidermis and extending into the dermis there are irregularly shaped aggregates of keratinocytes showing evidence of premature cornification. Specimen B. SKIN, left upper back: Attached to the undersurface of the epidermis, there are small aggregates of basaloid cells with a high nuclear to cytoplasmic ratio and peripheral palisading. Specimen C. SKIN, left back: Attached to the undersurface of the epidermis, there are small aggregates of basaloid cells with a high nuclear to cytoplasmic ratio and peripheral palisading. 2:10 PM [facility] DERMATOPATHOLOGY [facility]ORAT[facility] Disclaimer An external and internal positive and negative controls are appropriate for the histochemical, immunohistochemical and immunofluorescence stain(s) in this case (if any), except where stated explicitly. The performance characteristics of the stain(s) cited in this report were developed and its performance characteristic determined by the Dermatopathology Laboratory at [facility], directed by Dr. Madelin Graves. These tests need not be, and therefore are not, approved by the [place] Food and Drug Administration. The tests are used for clinical purposes. Billing Codes Specimen Charges Stain Charges 05842 [id number] 1 1 1 4 2:10 PM CDT DERMATOPATHOLOGY LABORATORY Embedded Images 4 2:10 PM CDT DERMATOPATHOLOGY LABORATORY Pathology/Cytology TISSUE SPECIMEN FROM SKIN / Unknown 11/03/2023 1:35 PM CDT 11/04/2023 1:05 PM CDT Miscellaneous samples (specimen) TISSUE SPECIMEN FROM SKIN / Unknown 11/03/2023 1:35 PM CDT 11/04/2023 1:05 PM CDT Miscellaneous samples (specimen) TISSUE SPECIMEN FROM SKIN / Unknown 11/03/2023 1:35 PM CDT 11/04/2023 1:05 PM CDT Tova Stanton MD LAB - PATHOLOGY/CYTO LOGY ORDERABLES DERMATOPATHOLOGY LABORATORY [facility] - Department of Dermatology [facility] Medicine [address] [place] [address], [address] [phone] documented in this encounter Visit Diagnoses Not on filedocumented in this encounter Care Teams Overedger Relationship Specialty Start Date End Date Russ Rojas MD [address] [facility] [address] [place] [address] PCP - General 10/16/12 documented as of this encounter
--- OUTSIDE RECORDS SUMMARY | 2024-03-16 05:11 | XMS_ITS | Encounter Summary ---
Author Organization [facility] Address [address] [place] [address] Care Team Providers Care High Density Press Operator Name Role Phone Russ Rojas MD Primary Care Provider [phone]- [phone] Encounter Details Date Type Department Care Team (Late st Contact Info) Description 07/23/2014 Hospital Outpatient Visit Historic [facility] [address] [place] [phone] Marito Corbett MD [address] [facility] [address]L [place] [address] Discharge Disposition: Home or Self Care Social History Tobacco Use Types Packs/Day Years Used Date Smoking Tobacco: Never Assessed Sex and Gender Information Value Date Recorded Sex Assigned at Not on file Gender Identity Not on file Sexual Orientation Not on file documented as of this encounter Plan of Treatment Not on file documented as of this encounter Procedures Procedure Name Priority Date/Time Associated Diagnosis Comments PSA SERIAL Routine 07/23/2014 12:20 PM CDT documented in this encounter Results * PSA SERIAL (07/23/2014 12:20 PM CDT) PSA Total <0.1 0.0 - 4.0 ng/mL [facility] Blood specimen (specimen) BLOOD SPECIMEN / Unknown 07/23/2014 12:20 PM CDT 07/23/2014 1:17 PM CDT Angela [facility] [address] [phone] documented in this encounter Visit Diagnoses Diagnosis Malignant neoplasm of prostate (HCC) Malignant neoplasm of prostate documented in this encounter Care Teams High Density Press Operator Relationship Specialty [place] [address] [place] [address] [address] [place] [address] PCP - General 10/16/12 documented as of this encounter
--- OUTSIDE RECORDS SUMMARY | 2024-03-16 05:11 | XMS_ITS | Encounter Summary ---
Author Organization [facility] Address [address] [facility] [place] [address] Care Team Providers Care Lead Process Engineer Name Role Phone Russ Rojas MD Primary Care Provider [phone]- [phone] Encounter Details Date Type Department Care Team (Late st Contact Info) Description 11/07/2012 Hospital Outpatient Visit Historic [facility] [address] [place] [phone] Marito Corbett MD [address] [facility] 2L DIV [place] [phone] Social History Tobacco Use Types Packs/Day Years Used Date Smoking Tobacco: Never Assessed Sex and Gender Information Value Date Recorded Sex Assigned at Not on file Gender Identity Not on file Sexual Orientation Not on file documented as of this encounter Plan of Treatment Not on file documented as of this encounter Visit Diagnoses Not on filedocumented in this encounter Care Teams Lead Process Engineer Relationship Specialty Start Date End Date Russ Rojas MD [address] [facility] [address] [place] [id number] PCP - General 10/16/12 documented as of this encounter
--- OUTSIDE RECORDS SUMMARY | 2024-03-16 05:11 | XMS_ITS | Encounter Summary ---
Author Organization [facility] Address [address] [place] [address] Care Team Providers Care Spectral Scientist Name Role Phone Russ Rojas MD Primary Care Provider +1- [phone] Encounter Details Date Type Department Care Team (Late st Contact Info) Description 01/21/2016 Hospital Outpatient Visit Historic [facility] [address] [place] [phone] Marito Corbett MD [address] [place] [address] Discharge Disposition: Home or Self [...] Date/Time Associated Diagnosis Comments PSA SERIAL Routine 01/21/2016 10:54 AM BENCH ASSEMBLY INSPECTOR documented in this encounter Results * PSA SERIAL (01/21/2016 10:54 AM BENCH ASSEMBLY INSPECTOR) PSA Total <0.1 0.0 - 4.0 ng/mL [facility] Blood specimen (specimen) BLOOD SPECIMEN / Unknown 01/21/2016 10:54 AM BENCH ASSEMBLY INSPECTOR 01/21/2016 12:13 PM BENCH ASSEMBLY INSPECTOR Marito Corbett MD LAB - CHEMISTRY ORD ERABLES [facility] [address] [phone] documented in this encounter Visit Diagnoses Diagnosis Malignant neoplasm of prostate (HCC) Malignant neoplasm of prostate documented in this encounter Care Teams Spectral Scientist Relationship Specialty Start Date End Date Russ Rojas MD [address] [facility] [address] [place] [address] PCP - General 10/16/12 documented as of this encounter
--- OUTSIDE RECORDS SUMMARY | 2024-03-16 05:11 | XMS_ITS | Encounter Summary ---
Author Organization [facility] Address [address] [facility] [address] Care Team Providers Care Push Bench Operator Helper Name Role Phone Russ Rojas MD Primary Care Provider +1- [phone] Encounter Details Date Type Department Care Team (Late st Contact Info) Description 04/17/2020 Lab Requisition [facility] [address] [facility], [place] [address] Tova Stanton MD [address] [facility] [address] [place] [address] Social History Tobacco Use Types Packs/Day Years [...] Priority Date/Time Associated Diagnosis Comments DERMATOPATHOLOGY Routine 04/16/2020 3:33 AM LICENSED INVESTMENT SALES ASSISTANT documented in this encounter Results * DERMATOPATHOLOGY (04/16/2020 3:33 AM LICENSED INVESTMENT SALES ASSISTANT) Case Report Dermatopathology Report ? Case: [id number] ? Authorizing Provider: ??Tova Stanton MD ?Collected: ? 04/16/2020 03:33 AM ? Ordering Location: ? [facility] ?Received: ?04/17/2020 12:33 PM ? Pathologist: ? Drea Graves MD ? Specimen: ?Skin, chest ? 12:30 PM [facility] DERMATOPATHOLOGY [facility]ORATORY Final Diagnosis Specimen A. SKIN, chest: SEBORRHEIC KERATOSIS, IRRITATED AND INFLAMED (L82.0) 12:30 PM [facility] DERMATOPATHOLOGY LABORATORY Clinical History Verrucous plaque; R/O VV, ISK, SCC. 12:30 PM [facility] DERMATOPATHOLOGY LABORATORY Gross Description Specimen A: Received is one formalin filled container labeled with the patient's name and designated chest. The specimen consists of a shave measuring [id number], bisected. Jar 0. 12:30 PM [facility] DERMATOPATHOLOGY LABORATORY Microscopic Description Specimen A. SKIN, chest: Sections show acanthosis, papillomatosis, hyperkeratosis, and squamous eddies. There is a lymphohistiocytic infiltrate within the papillary dermis. 12:30 PM [facility] DERMATOPATHOLOGY LABORATORY Disclaimer An external and internal positive and negative controls are appropriate for the histochemical, immunohistochemical and immunofluorescence stain(s) in this case (if any), except where stated explicitly. The performance characteristics of the stain(s) cited in this report were developed and its performance characteristic determined by the Dermatopathology Laboratory at [facility], directed by Dr. Madelin Graves. These tests need not be, and therefore are not, approved by the [place] Food and Drug Administration. The tests are used for clinical purposes. Billing Codes Specimen Charges Stain Charges 63112 1 1 12:30 PM LICENSED INVESTMENT SALES ASSISTANT DERMATOPATHOLOGY LABORATORY Embedded Images 1 12:30 PM LICENSED INVESTMENT SALES ASSISTANT DERMATOPATHOLOGY LABORATORY Pathology/Cytolo gy TISSUE SPECIMEN FROM SKIN / Unknown 04/16/2020 3:33 AM LICENSED INVESTMENT SALES ASSISTANT 04/17/2020 12:33 PM LICENSED INVESTMENT SALES ASSISTANT Tova Stanton MD LAB - PATHOLOGY/CYTO LOGY ORDERABLES DERMATOPATHOLOGY LABORATORY [facility] - Department of Dermatology [facility] [address] [place] [address], [address] [phone] documented in this encounter Visit Diagnoses Not on filedocumented in this encounter Care Teams Push Bench Operator Helper Relationship Specialty Start Date End Date Russ Rojas MD [address] [place] [address] [address] [place] [address] PCP - General 10/16/12 documented as of this encounter
--- OUTSIDE RECORDS SUMMARY | 2024-03-16 05:11 | XMS_ITS | Encounter Summary ---
Author Organization [facility] Address [address] [facility] [place] [address] Care Team Providers Care Edgerman Name Role Phone Russ Rojas MD Primary Care Provider +1- [phone] Encounter Details Date Type Department Care Team (Late st Contact Info) Description 01/20/2015 Hospital Outpatient Visit Historic [facility] [address] [place] [phone] Marito Corbett MD [address] [facility] [address] [facility] [place] [address] Discharge Disposition: Home or Self [...] Date/Time Associated Diagnosis Comments PSA SERIAL Routine 01/20/2015 1:06 PM FIRE LIEUTENANT documented in this encounter Results * PSA SERIAL (01/20/2015 1:06 PM FIRE LIEUTENANT) PSA Total <0.1 0.0 - 4.0 ng/mL [facility] Blood specimen (specimen) BLOOD SPECIMEN / Unknown 01/20/2015 1:06 PM FIRE LIEUTENANT 01/20/2015 1:12 PM FIRE LIEUTENANT Marito Corbett MD LAB - CHEMISTRY ORD ERABLES [facility] [address] [phone] documented in this encounter Visit Diagnoses Diagnosis Malignant neoplasm of prostate (HCC) Malignant neoplasm of prostate documented in this encounter Care Teams Edgerman Relationship Specialty Start Date End Date Russ Rojas MD [address] [facility] [address] [place] [address] PCP - General 10/16/12 documented as of this encounter
--- OUTSIDE RECORDS SUMMARY | 2024-03-16 05:11 | XMS_ITS | Encounter Summary ---
Author Organization [facility] Address [address] [facility] [place] [address] Care Team Providers Care Ceramic Design Engineer Name Role Phone Russ Rojas MD Primary Care Provider +1- [phone] Encounter Details Date Type Department Care Team (Late st Contact Info) Description 02/22/2018 Lab Requisition [facility] [address] [facility], [place] [address] Tova Stanton MD [address] [facility] [place] 3 [place] [address] Social History Tobacco Use Types Packs/Day Years [...] Procedure Name Priority Date/Time Associated Diagnosis Comments DERMATOPATH TECHNICAL REPORT Routine 02/20/2018 12:00 AM MERCHANDISE DELIVERER documented in this encounter Results * DERMATOPATH TECHNICAL REPORT (02/20/2018 12:00 AM MERCHANDISE DELIVERER) Case Report Dermatopathology Report ? Case: [id number] ? Authorizing Provider: ??Tova Stanton MD ?Collected: ? 02/20/2018 12:00 AM ? Pathologist: ? Sravani Ramirez MD ?Received: ?02/22/2018 07:35 AM ? Specimens: ?? A) - Skin, left eyebrow ? B) - Skin, left hand ? 11:50 AM [facility] DERMATOPATHOLOGY LABORATORY Clinical History A: R/O HAK/SCC. [place] scaly papule. B: DF/GA/NMSC. [place] firm papule. 11:50 AM [facility] DERMATOPATHOLOGY LABORAT[facility] Gross Description Specimen A: Received is one formalin filled container labeled with the patient's name and designated left eyebrow. The specimen consists of a shave measuring [id number]. Jar 0. Specimen B: Received is one formalin filled container labeled with the patient's name and designated left hand. The specimen consists of a shave measuring [id number]. Jar 0. [facility] Dermatopathology Laboratory performed the technical component only. 11:50 AM [facility] DERMATOPATHOLOGY LABORATORY Embedded Images 11:50 AM [facility] DERMATOPATHOLOGY LABORATORY DISCLAIMER An external and internal positive and negative controls are appropriate for the histochemical, immunohistochemical and immunofluorescence stain(s) in this case (if any), except where stated explicitly. The performance characteristics of the stain(s) cited in this report were developed and its performance characteristic determined by the Dermatopathology Laboratory at [facility]. These tests need not be, and therefore are not, approved by the [place] Food and Drug Administration. The tests are used for clinical purposes. 8 11:50 AM MERCHANDISE DELIVERER DERMATOPATHOLOGY LABORATORY Pathology/Cytology TISSUE SPECIMEN FROM SKIN / Unknown 02/20/2018 02/22/2018 7:35 AM MERCHANDISE DELIVERER Miscellaneous samples (specimen) TISSUE SPECIMEN FROM SKIN / Unknown 02/20/2018 02/22/2018 7:35 AM MERCHANDISE DELIVERER Tova Stanton MD LAB - PATHOLOGY/CYTO LOGY ORDERABLES DERMATOPATHOLOGY LABORATORY [facility] - Department of Dermatology [address] [place] [address], 5th Floor Lab [address] [phone] documented in this encounter Visit Diagnoses Not on filedocumented in this encounter Care Teams Ceramic Design Engineer Relationship Specialty Start Date End Date Russ Rojas MD [address] [facility] [address] [place] [phone] PCP - General 10/16/12 documented as of this encounter
--- OUTSIDE RECORDS SUMMARY | 2024-03-16 05:11 | XMS_ITS | Patient Health Summary ---
Author Organization [facility] Address [address] [place] [address] Care Team Providers Care Blunger Loader Name Role Phone Russ Rojas MD Primary Care Provider [phone] Note from [facility],non-owned Affiliates and Associated Physician Practices is amultiple site organization consisting of ambulatory clinics and hospital sitesin [place], [place], [place] and [place]. This disclosure is being madepursuant to the Care Everywhere program and may not contain all information available regarding this patient. 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 Malignant neoplasm of prostate 12/22/2012 Social History Tobacco Use Types Packs/Day Years Used Date Smoking Tobacco: Former Smokeless Tobacco: Never Alcohol Use Standard Drinks/Week Comments No 0 (1 standard drink = 0.6 oz pur e alcohol) Sex and Gender Information Value Date Recorded Sex Assigned at Not on file Gender Identity Not on file Sexual Orientation Not on file Last Filed Vital Signs Vital Sign Reading Time Taken Comments Blood Pressure 121/72 02/04/2016 12:41 PM IT APPLICATION SUPPORT ANALYST Pulse 53 02/04/2016 12:41 PM IT APPLICATION SUPPORT ANALYST Temperature 36 ??C (96.8 ??F) 01/29/2015 12:28 PM IT APPLICATION SUPPORT ANALYST Respiratory Rate 20 07/09/2014 11:56 AM CDT Oxygen Saturation 95% 01/29/2015 12:28 PM IT APPLICATION SUPPORT ANALYST Inhaled Oxygen Concentration - - Weight 88.5 kg (195 lb) 01/29/2015 12:28 PM IT APPLICATION SUPPORT ANALYST Height 177.8 cm (5' 10) 01/29/2015 12:28 PM IT APPLICATION SUPPORT ANALYST Body Mass Index 27.98 01/29/2015 12:28 PM IT APPLICATION SUPPORT ANALYST Procedures * DERMATOPATHOLOGY(Performed 12/12/2023) * DERMATOPATHOLOGY(Performed 11/03/2023) * DERMATOPATHOLOGY(Performed 04/27/2021) * DERMATOPATHOLOGY(Performed 11/13/2020) * DERMATOPATHOLOGY(Performed 10/20/2020) * DERMATOPATHOLOGY(Performed 04/16/2020) * DERMATOPATHOLOGY(Performed 12/18/2018) * DERMATOPATH TECHNICAL REPORT(Performed 02/20/2018) * DERMATOPATHOLOGY(Performed 07/21/2016) * URINALYSIS AUTO - POINT OF CARE (AMB) [facility](Performed 02/04/2016) * DERMATOPATHOLOGY(Performed 01/29/2016) * PSA SERIAL(Performed 01/21/2016) * DERMATOPATHOLOGY(Performed 09/16/2015) * DERMATOPATHOLOGY(Performed 09/16/2015) * DERMATOPATHOLOGY(Performed 07/31/2015) * URINALYSIS - POINT OF CARE (AMB) [facility](Performed 01/29/2015) * PSA SERIAL(Performed 01/20/2015) * DERMATOPATHOLOGY(Performed 11/13/2014) * DERMATOPATHOLOGY(Performed 09/25/2014) * PSA SERIAL(Performed 07/23/2014) * DERMATOPATHOLOGY(Performed 07/17/2014) * DERMATOPATHOLOGY(Performed 06/17/2014) * DERMATOPATHOLOGY(Performed 02/04/2014) * URINALYSIS AUTO - POINT OF CARE (AMB) [facility](Performed 01/30/2014) * PSA SERIAL(Performed 01/22/2014) * URINALYSIS AUTO - POINT OF CARE (AMB) [facility](Performed 08/08/2013) * PSA SERIAL(Performed 07/30/2013) * URINALYSIS AUTO - POINT OF CARE (AMB) [facility](Performed 05/07/2013) * PSA SERIAL(Performed 05/01/2013) * URINALYSIS AUTO - POINT OF CARE (AMB) [facility](Performed 02/07/2013) * EKG 12-LEAD(Performed 02/05/2013) * PSA SERIAL(Performed 01/31/2013) * CBC W AUTO DIFFERENTIAL(Performed 12/22/2012) * BASIC METABOLIC PANEL (CALCIUM TOTAL)(Performed 12/22/2012) * CBC W AUTO DIFFERENTIAL(Performed 12/21/2012) * BASIC METABOLIC PANEL (CALCIUM TOTAL)(Performed 12/21/2012) * PATHOLOGY TISSUE(Performed 12/20/2012) * ANTIBODY SCREEN(Performed 12/20/2012) * BLOOD TYPE ABO+ RH PANEL(Performed 12/20/2012) * BASIC METABOLIC PANEL (CALCIUM TOTAL)(Performed 12/15/2012) * URINALYSIS W/MICROSCOPIC NO CULTURE(Performed 12/15/2012) * CBC W/O DIFFERENTIAL(Performed 12/15/2012) * CULTURE URINE(Performed 12/15/2012) * URINALYSIS - POINT OF CARE (AMB) [facility](Performed 11/06/2012) * URINALYSIS AUTO - POINT OF CARE (AMB) [facility](Performed 03/14/1998) Results * DERMATOPATHOLOGY (12/12/2023 1:51 PM CDT) Only the most recent of17 resultswithin the time period is included. Case Report Dermatopathology Report ? Case: [id number] ? Authorizing Provider: ??Tova Stanton MD ?Collected: ? 12/12/2023 01:51 PM ? Ordering Location: ? [facility] - ??Received: ?12/13/2023 12:00 PM ? DermPath Lab ? Pathologist: ? Sravani Ramirez MD ? Specimen: ?Skin, left chest ? 2:48 PM CDT DERMATOPATHOLOGY LABORATORY Final Diagnosis Specimen A. SKIN, left chest: DERMAL SCAR RESIDUAL SQUAMOUS CELL CARCINOMA NOT IDENTIFIED (L90.5) INTRADERMAL MELANOCYTIC NEVUS, INCIDENTAL (D22.5) NOT PRESENT AT MARGIN 2:48 PM T DERMATOPATHOLOGY LABORATORY Clinical History R/O SCC, biopsy proven 2:48 PM CDT DERMATOPATHOLOGY LABORATORY Gross Description Specimen A: Received is one formalin filled container labeled with the patient's name and designated left chest.The specimen consists of an ellipse measuring [id number] mm and is oriented with the suture/notch at the 12 o'clock position labeled on the requisition as notch. The 12 to 6 o'clock margin is inked green. The 6 o'clock to 12 o'clock margin is inked red. The 12 o'clock tip is submitted in cassette 1. The 6 o'clock tip is submitted in cassette 2. The remainder of the ellipse is serially sectioned and submitted in cassettes 3-4. Jar 0. 2:48 PM CDT DERMATOPATHOLOGY LABORATORY Microscopic Description Specimen A. SKIN, left chest: There are fibroblasts and collagen bundles oriented parallel to the skin surface. There are elongated blood vessels, some of which are oriented perpendicular to the skin surface. No residual squamous cell carcinoma is identified. In block 3 there are nests of cytologically bland melanocytes within the dermis that mature with depth. This nevus is not present at the margin of the specimen. 2:48 PM CDT DERMATOPATHOLOGY LABORATORY Disclaimer An external and internal positive and negative controls are appropriate for the histochemical, immunohistochemical and immunofluorescence stain(s) in this case (if any), except where stated explicitly. The performance characteristics of the stain(s) cited in this report were developed and its performance characteristic determined by the Dermatopathology Laboratory at [facility], directed by Dr. Madelin Graves. These tests need not be, and therefore are not, approved by the [place] Food and Drug Administration. The tests are used for clinical purposes. Billing Codes Specimen Charges Stain Charges 51614 1 4 2:48 PM CDT DERMATOPATHOLOGY LABORATORY Embedded Images 4 2:48 PM CDT DERMATOPATHOLOGY LABORATORY Pathology/Cytolo gy TISSUE SPECIMEN FROM SKIN / Unknown 12/12/2023 1:51 PM CDT 12/13/2023 12:00 PM CDT Tova Stanton MD LAB - PATHOLOGY/CYTO LOGY ORDERABLES Performing Organization Address City/State/[facility] Co de Phone Number DERMATOPATHOLOGY LABORATORY [facility] - Department of Dermatology [address] [phone] * DERMATOPATH TECHNICAL REPORT (02/20/2018 12:00 AM IT APPLICATION SUPPORT ANALYST) Case Report Dermatopathology Report ? Case: [id number] ? Authorizing Provider: ??Tova Stanton MD ?Collected: ? 02/20/2018 12:00 AM ? Pathologist: ? Sravani Ramirez MD ?Received: ?02/22/2018 07:35 AM ? Specimens: ?? A) - Skin, left eyebrow ? B) - Skin, left hand ? 11:50 AM [facility] DERMATOPATHOLOGY LABORATORY Clinical History A: R/O HAK/SCC. [place] scaly papule. B: DF/GA/NMSC. [place] firm papule. 11:50 AM [facility] DERMATOPATHOLOGY LABORATORY Gross Description Specimen A: Received is one formalin filled container labeled with the patient's name and designated left eyebrow. The specimen consists of a shave measuring [id number]. Jar 0. Specimen B: Received is one formalin filled container labeled with the patient's name and designated left hand. The specimen consists of a shave measuring [id number]. Jar 0. [facility] Dermatopathology Laboratory performed the technical component only. 11:50 AM [facility] DERMATOPATHOLOGY LABORATORY Embedded Images 11:50 AM [facility] DERMATOPATHOLOGY LABORATORY DISCLAIMER An external and internal positive and negative controls are appropriate for the histochemical, immunohistochemical and immunofluorescence stain(s) in this case (if any), except where stated explicitly. The performance characteristics of the stain(s) cited in this report were developed and its performance characteristic determined by the Dermatopathology Laboratory at [facility]. These tests need not be, and therefore are not, approved by the [place] Food and Drug Administration. The tests are used for clinical purposes. 11:50 AM [facility] DERMATOPATHOLOGY LABORATORY Pathology/Cytology TISSUE SPECIMEN FROM SKIN / Unknown 02/20/2018 02/22/2018 7:35 AM IT APPLICATION SUPPORT ANALYST Miscellaneous samples (specimen) TISSUE SPECIMEN FROM SKIN / Unknown 02/20/2018 02/22/2018 7:35 AM IT APPLICATION SUPPORT ANALYST Tova Stanton MD LAB - PATHOLOGY/CYTO LOGY ORDERABLES DERMATOPATHOLOGY LABORATORY [facility] - Department of Dermatology [address] [place] [facility] [place] [address], [facility] [phone] * URINALYSIS AUTO - POINT OF CARE (AMB) [facility] (02/04/2016 12:42 PM IT APPLICATION SUPPORT ANALYST) Only the most recent of6 resultswithin the time period is included. Glucose UA neg [facility] Bilirubin UA POCT neg [facility] Ketones UA POCT neg [facility] Specific [place] UA 1.030 [facility] Blood Urine POCT neg [facility] pH UA 6.0 [facility] Protein UA neg [facility] Urobilinogen UA 3.5 [facility] Nitrite UA neg [facility] WBC UA neg [facility] Urine specimen (specimen) 02/04/2016 12:42 PM IT APPLICATION SUPPORT ANALYST Maritoquyen Corbett MD LAB - POINT OF CARE ORDERABLES [facility] * PSA SERIAL (01/21/2016 10:54 AM IT APPLICATION SUPPORT ANALYST) Only the most recent of7 resultswithin the time period is included. PSA Total <0.1 0.0 - 4.0 ng/mL [facility] Blood specimen (specimen) BLOOD SPECIMEN / Unknown 01/21/2016 10:54 AM IT APPLICATION SUPPORT ANALYST 01/21/2016 12:13 PM IT APPLICATION SUPPORT ANALYST Marito Corbett MD LAB - CHEMISTRY ORD ERABLES [facility] [address] [place] [address], [facility] [phone] * URINALYSIS - POINT OF CARE (AMB) [facility] (01/29/2015) Only the most recent of2 resultswithin the time period is included. Glucose UA neg [facility] Bilirubin UA POCT neg [facility] Ketones UA POCT neg [facility] Specific [place] UA 1.030 [facility] Blood Urine POCT neg [facility] pH UA 6.0 [facility] Protein UA neg [facility] Urobilinogen UA 3.5 [facility] Nitrite UA neg [facility] WBC UA neg [facility] Urine specimen (specimen) 01/29/2015 Marito Corbett MD LAB - POINT OF CARE ORDERABLES [facility] * EKG 12-LEAD (02/05/2013 1:06 PM IT APPLICATION SUPPORT ANALYST) Jesús Gustafson MD ECG ORDERABLES [facility] RADIOLOGY * (ABNORMAL) CBC W AUTO DIFFERENTIAL (12/22/2012 5:40 AM CDT) Only the most recent of2 resultswithin the time period is included. WBC 9.3 3.5 - 10.5 10^3/uL [facility] RBC 3.76(L) 4.30 - 5.70 10^6/uL [facility] Hemoglobin 12.0(L) 13.5 - 17.5 g/dL [facility] Hematocrit 34.4(L) 39.0 - 50.0 % [facility] MCV 91.5 81.0 - 97.0 FL [facility] MCH 31.9 28.0 - 34.0 PG [facility] MCHC 34.9 32.0 - 36.0 G/DL [facility] Platelet 153 150 - 400 10^3/uL [facility] RDW 12.6 11.2 - 14.8 % [facility] RDW-SD 42.3 36 - 50 FL [facility] MPV 11.6 9.3 - 12.8 FL [facility] Neutrophils % 72.1(H) 35.0 - 70.0 % [facility] Lymphocytes % 16.1(L) 19.7 - 55.1 % [facility] Monocytes % 11.3 3 - 15 % [facility] Eosinophils % 0.4 0.0 - 6.0 % [facility] Basophils % 0.1 0.0 - 1.5 % [facility] Neutrophils Absolute 6.7 1.7 - 7.0 10^3/uL [facility] Lymphocyte Absolute 1.5 0.8 - 2.9 10^3/uL [facility] Monocytes Absolute 1.1(H) 0.14 - 0.66 10^3/uL [facility] Eosinophils Absolute 0.04 0.00 - 0.22 10^3/uL [facility] Basophils Absolute 0.01(L) 0.02 - 0.06 10^3/uL [facility] Differential Type AUTO DIFFERENTIAL [facility] Venous blood specimen (specimen) 12/22/2012 5:40 AM CDT 12/22/2012 6:30 AM CDT Marito Kelly Corbett MD LAB - HEMATOLOGY OR DERABLES Performing Organization Address [facility] Co de Phone Number [address] [phone] * BASIC METABOLIC PANEL (CALCIUM TOTAL) (12/22/2012 5:40 AM CDT) Only the most recent of3 resultswithin the time period is included. BUN 18 7 - 26 mg/dL [facility] Creatinine 0.9 0.6 - 1.2 mg/dL [facility] eGFR by MDRD > 60 ML/MIN [facility] Comment: Chronic kidney disease: ??<60 ml/min Kidney failure: ?<15 ml/min Based on BSA of 1.73m2. Sodium 139 136 - 145 mmol/L [facility] Potassium 3.9 3.5 - 4.5 mmol/L [facility] Chloride 107 98 - 107 mmol/L [facility] CO2 25 22 - 29 mmol/L [facility] Glucose 105 70 - 115 mg/dL [facility] Calcium 9.7 8.4 - 10.2 mg/dL [facility] Anion Gap 11 8 - 18 [facility] BUN/Creatinine Ratio 20 7 - 23 [facility] Osmolality Calculation 275 270 - 300 mOsm/kg [facility] Venous blood specimen (specimen) 12/22/2012 5:40 AM CDT 12/22/2012 6:30 AM CDT Marito Corbett MD LAB - CHEMISTRY ORD ERABLES [facility] [address] [phone] * PATHOLOGY TISSUE (12/20/2012 11:00 AM CDT) AP Surg () [facility] Comment: CLINICAL HISTORY: The patient is a 72 year old man with prostate cancer who underwent a radical prostatectomy. 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 SEMINAL VESICLES, BILATERAL, RADICAL PROSTATECTOMY: - NO EVIDENCE OF MALIGNANCY CAP SURGICAL PATHOLOGY CANCER CASE SUMMARY PROSTATE GLAND: ??Radical Prostatectomy Procedure ??Radical Prostatectomy Prostate Size: ??54 grams, 5.7 x 4.2 x 3.5 cm Lymph Node Sampling ??No lymph nodes present Histologic Type ??Adenocarcinoma (acinar, not otherwise specified) HISTOLOGIC GRADE [place] Pattern Primary Pattern ??Grade 3 Secondary Pattern ??Grade 4 Tertiary Pattern ??Grade 5 Total Margarito Score: ??7 Tumor Quantitation ??Proportion (percentage) of prostate involved by tumor: 10% Extraprostatic Extension ??Not identified Seminal Vesicle Invasion (invasion of muscular wall required) ??Not identified Margins ??Margins uninvolved by invasive carcinoma Treatment Effect on Carcinoma ??Not identified Lymph-Vascular Invasion ??Not identified Perineural Invasion ??Present PATHOLOGIC STAGING (pTNM) Primary Tumor (pT) ??pT2c: ??Bilateral disease Regional Lymph Nodes (pN) ??pNX: ??Cannot be assessed Distant Metastasis (pM) ??Not applicable Additional Pathologic Findings ??Inflammation, chronic (lymphoplasmacytic) ??Nodular prostatic hyperplasia GROSS DESCRIPTION: Submitted fixed in formalin in one container for gross and microscopic examination labeled with the patient name, Abdi Abrams and prostate is one prostate with attached seminal vesicles and vas deferens measuring 5.7 x 4.2 x 3.5 cm and weighing 54 grams. ??The surface is firm, nodular, glistening, pink-foster. ??The prostatic urethra is patent. ??The seminal vesicles are attached on the posterior aspect and measure 3.1 x 1.2 x 0.3 cm and 3.7 x 1.5 x 0.3 cm. ??The prostate is inked in the following manner: ??blue ? right anterior, green ? left anterior, black ? right posterior, yellow ? left posterior. ??The seminal vesicles are displaced to the right of the specimen. ??Cut surface reveals lobular, pink-foster parenchyma in the inferior prostate with concentric white-foster muscle around the prostatic urethra and the superior prostate. ??Several foci of dark, maroon colored granular concretion are present bilaterally and posteriorly. The right posterior margin contains an infiltrating, firm, white-foster nodule measuring 1.6 x 1.2 x 0.6 cm. ??The specimen is submitted from apex to base as follows: A1: ??[place] on edge A2: ??Base on edge A3: ??Right anterior and posterior A4: ??Left anterior and posterior A5: ??Right posterior and some anterior A6: ??Left posterior and some anterior A7: ??Right posterior and some anterior A8: ??Left posterior and some anterior A9: ??Right posterior and some anterior A10: Left posterior and some anterior A11: Right anterior A12: Right posterior with seminal vesicles A13: Left anterior A14: Left posterior with seminal vesicles A15: ??Right anterior and posterior A16: ??Left anterior and posterior SG/ls MICROSCOPIC DESCRIPTION: Microscopic examination supports the diagnosis. XD/BC/SOLUTIONS ARCHITECT CONSULTANT The performance characteristics of all immunohistochemical and indirect immunofluorescence stains (if any) cited in this report were determined by the Histopathology Laboratory of [facility] in compliance with CLIA '88 regulations. ??Some of these tests rely on the use of analyte-specific reagents and are subject to specific labeling requirements by the FDA. ??Such tests were developed by the [facility]opathology Laboratory of [facility] and have not been cleared or approved by the FDA. ??The FDA has determined that such clearance or approval is not necessary. These tests are used for clinical purposes and should not be regarded as investigational or for research. This case has been personally reviewed and interpreted by the attending (teaching) pathologist. Final Diagnosis performed by Miguel Rodgers. ??Electronically signed 12/26/2012 12/20/2012 11:0 0 AM CDT 12/20/2012 12:58 PM CDT Marito A Chelle [facility] - PATHOLOGY/CYT OLOGY ORDERABLES Performing Organization Address City/[facility]/ZIP Co de Phone Number [address] [phone] * BLOOD TYPE ABO+ RH PANEL (12/20/2012 7:30 AM CDT) Interpretation ABO/Rh Patient A POS [facility] 12/20/2012 7:30 AM CDT 12/20/2012 7:35 AM CDT Marito A Chelle [facility] - BLOOD BANK OR DERABLES Performing Organization Address City/[facility] Co de Phone Number [address] [phone] * ANTIBODY SCREEN (12/20/2012 7:30 AM CDT) Antibody Screen NEGATIVE [facility] 12/20/2012 7:30 AM CDT 12/20/2012 7:35 AM CDT Marito A Chelle [facility] - BLOOD BANK OR DERABLES Performing Organization Address [facility] Co de Phone Number [address] [phone] * URINALYSIS W/MICROSCOPIC NO CULTURE (12/15/2012 12:07 PM CDT) Color UA YELLOW STRW,YELLOW [facility] Clarity UA CLEAR CLEAR [facility] Specific [place] Urine 1.009 1.001 - 1.030 [facility] pH UA 6.5 5.0 - 8.0 [facility] Protein UA NEGATIVE <20 mg/dL [facility] Glucose UA NEGATIVE NEGATIVE mg/dL [facility] Ketones NEGATIVE NEGATIVE mg/dL [facility] Bilirubin UA NEGATIVE NEGATIVE mg/dL [facility] Blood UA NEGATIVE NEGATIVE [facility] Nitrite UA NEGATIVE NEGATIVE [facility] Leukocyte Esterase NEGATIVE NEGATIVE [facility] Urobilinogen UA < 2.0 <2.0 mg/dL [facility] RBC Urine 1 0 - 8 /HPF [facility] WBC Urine < 1 0 - 2 /HPF [facility] Squamous Epithelial Cells UA < 1 0 - 1 /HPF [facility] 12/15/2012 12:0 7 PM CDT 12/15/2012 12:40 PM CDT Marito Kelly Corbett MD LAB - URINALYSIS OR DERABLES Performing Organization Address City/[facility]/ZIP Co de Phone Number [address] [phone] * CULTURE URINE (12/15/2012 12:07 PM CDT) Culture Urine NO GROWTH OF >100 CFU/ML AFTER 48 HOURS. [facility] Urine specimen (specimen) 12/15/2012 12:07 PM CDT 12/15/2012 12:40 PM CDT Marito Kelly Corbett MD LAB - MICROBIOLOGY ORDERABLES Performing Organization Address [facility]/ZIP Co de Phone Number [address] [phone] * (ABNORMAL) CBC W/O DIFFERENTIAL (12/15/2012 12:07 PM CDT) WBC 5.8 3.5 - 10.5 10^3/uL [facility] RBC 4.14(L) 4.30 - 5.70 10^6/uL [facility] Hemoglobin 13.2(L) 13.5 - 17.5 g/dL [facility] Hematocrit 37.9(L) 39.0 - 50.0 % [facility] MCV 91.5 81.0 - 97.0 FL [facility] MCH 31.9 28.0 - 34.0 PG [facility] MCHC 34.8 32.0 - 36.0 G/DL [facility] Platelet 183 150 - 400 10^3/uL [facility] RDW 12.6 11.2 - 14.8 % [facility] RDW-SD 42.3 36 - 50 FL [facility] MPV 11.5 9.3 - 12.8 FL [facility] 12/15/2012 12:0 7 PM CDT 12/15/2012 12:40 PM CDT Marito Kelly Corbett MD LAB - HEMATOLOGY OR DERABLES [facility] [address] [phone] Care Teams Blunger Loader Relationship Specialty Start Date End Date Russ Rojas MD [address] [facility] [address] [place] [address] PCP - General 10/16/12
--- OUTSIDE RECORDS SUMMARY | 2024-03-16 05:11 | XMS_ITS | Referral Summary ---
Author Organization [facility] Address [address] [facility] [place] [address] Care Team Providers Care Quality Auditor Name Role Phone Russ Rojas MD Primary Care Provider [phone] Source Comments [facility],non-owned Affiliates and Associated Physician Practices is amultiple site organization consisting of ambulatory clinics and hospital sitesin [place], [place], [place] and [place]. This disclosure is being madepursuant to the Care Everywhere program and may not contain all information available regarding this patient. Last updated 17.[facility] Better Weekdays Active Problems Problem Noted Date Diagnosed Date [...] Comments Blood Pressure 121/72 02/04/2016 12:41 PM WELL SERVICE PUMP EQUIPMENT OPERATOR Pulse 53 02/04/2016 12:41 PM WELL SERVICE PUMP EQUIPMENT OPERATOR Temperature 36 ??C (96.8 ??F) 01/29/2015 12:28 PM WELL SERVICE PUMP EQUIPMENT OPERATOR Respiratory Rate 20 07/09/2014 11:56 AM CDT Oxygen Saturation 95% 01/29/2015 12:28 PM WELL SERVICE PUMP EQUIPMENT OPERATOR Inhaled Oxygen Concentration - - Weight 88.5 kg (195 lb) 01/29/2015 12:28 PM WELL SERVICE PUMP EQUIPMENT OPERATOR Height 177.8 cm (5' 10) 01/29/2015 12:28 PM WELL SERVICE PUMP EQUIPMENT OPERATOR Body Mass Index 27.98 01/29/2015 12:28 PM WELL SERVICE PUMP EQUIPMENT OPERATOR Plan of Treatment Not on file Care Teams Quality Auditor Relationship Specialty Start Date End Date Russ Rojas MD [address] [facility] [address] [place] [address] PCP - General 10/16/12
--- OUTSIDE RECORDS SUMMARY | 2024-03-16 05:11 | XMS_ITS | Encounter Summary ---
Author Organization [facility] Address [address] [place] [address] Care Team Providers Care Inventory Control Supervisor Name Role Phone Russ Rojas MD Primary Care Provider [phone] Encounter Details Date Type Department Care Team (Late st Contact Info) Description 12/20/2012 Anesthesia Historic Visit [facility] [address] [place] [id number] Social History Tobacco Use Types Packs/Day Years Used Date Smoking Tobacco: Never Assessed Sex and Gender Information Value Date Recorded Sex Assigned at Not on file Gender Identity Not on file Sexual Orientation Not on file documented as of this encounter Plan of Treatment Not on file documented as of this encounter Visit Diagnoses Not on filedocumented in this encounter Care Teams Inventory Control Supervisor Relationship Specialty Start Date End Date Russ Rojas MD [address] [facility] [address] [place] [id number] PCP - General 10/16/12 documented as of this encounter
--- OUTSIDE RECORDS SUMMARY | 2024-03-16 05:11 | XMS_ITS | Encounter Summary ---
Author Organization [facility] Address [address] [place] [address] Care Team Providers Care Digital Production Operator Name Role Phone Russ Rojas MD Primary Care Provider [phone] Encounter Details Date Type Department Care Team (Late st Contact Info) Description 05/07/2020 Orders Only [facility] - COVID Vaccine [address] [place] [address] Michele Kunz MD [address] [place] [address] Need for vaccination Social History Tobacco Use Types Packs/Day Years [...] documented as of this encounter Visit Diagnoses Diagnosis Need for vaccination Need for prophylactic vaccination and inoculation against unspecified single disease documented in this encounter Care Teams Digital Production Operator Relationship Specialty Start Date End Date Russ Rojas MD [address] [facility] [address] [place] [address] PCP - General 10/16/12 documented as of this encounter
--- OUTSIDE RECORDS SUMMARY | 2024-03-16 05:11 | XMS_ITS | CONTINUITY OF CARE DOCUMENT ---
Author Name palsoledadpalsoledad Address Unknown Organization [facility] Address [address] [address] [place] [address] Phone [phone] Care Team Providers Care Surgical Asst Name Role Phone Rocio Elena MD Unavailable [phone] CHANTEL SERRANO MD Unavailable CHANTEL SERRANO MD Unavailable PROBLEMS Condition Status Date Provider Notes HTN essential active Rocio Elena MD Glaucoma active Rocio Elena MD Tricuspid regurgitation, moderate active Rocio Elena MD Shortness of breath active Rocio Rojo Unsteadiness active Rocio Elena MD Sinus Bradycardia active Myriam Nieto Fatigue active Myriam Nieto Anemia active Myriam Nieto Confusion completed - Rocio Elena MD Parathyroid tumor s/p resection active Tima Elena MD Hypotension completed - Rocio Elena MD Aortic regurgitation, moderate active Jose Elena MD Cardiology examination active Poli Vasquez Vitamin D deficiency active Rocio Elena MD Coronavirus infection (+ antibodies) active Tim Travis Hypothyroidism active Rocio Elena MD Parkinson's disease completed - Rocio Elena MD Migraine active Rocio Elena MD ENCOUNTERS Date Type Provider Location Encounter Diag nosis - In-person encounter Office Visit Rocio Elena MD [facility] Cardiology examination - In-person encounter Office Visit Rocio Elena MD [facility] - In-person encounter Office Visit Rocio Elena MD [facility] - In-person encounter Office Visit Rocio Elena MD [facility] - In-person encounter Office Visit Rocio Elena MD [facility] - In-person encounter Office Visit Rocio Elena MD [facility] - In-person encounter Office Visit Rocio Elena MD [facility] Aortic regurgitation, moderate - In-person encounter Office Visit Rocio Elena MD [facility] HypotensionVitamin D deficiency - In-person encounter Office Visit Rocio Elena MD [facility] Coronavirus infection (+ antibodies) - In-person encounter Office Visit Rocio Elena MD [facility] ConfusionHypothyroidism - In-person encounter Office Visit Rocio Elena MD [facility] Parkinson's disease - In-person encounter Office Visit Rocio Elena MD [facility] Parathyroid tumor s/p resection - In-person encounter Office Visit Rocio Elena MD [facility] - In-person encounter Office Visit Rocio Elena MD [facility] - In-person encounter Office Visit Rocio Elena MD [facility] Office - In-person encounter Office Visit Rocio Elena MD [facility] - In-person encounter Office Visit Rocio Elena MD [facility] Sinus BradycardiaFatigueAnemia - In-person encounter Office Visit Rocio Elena MD [facility] GlaucomaTricuspid regurgitation, moderateMigraineUnsteadiness - In-person encounter Office Visit Rocio Elena MD [facility] - In-person encounter Office Visit Rocio Elena MD [facility] Shortness of breath - In-person encounter Office Visit Rocio Elena MD [facility] HTN essentialGlaucomaTricuspid regurgitation, moderateMigraine VITAL SIGNS Date Observation Value Provider Body Mass Index (Ratio) 27.19 kg/m2 Poli Vasquez blood pressure, diastolic 68 mm[Hg] [facility] blood pressure, systolic 96 mm[Hg] [facility] blood pressure, diastolic 68 mm[Hg] Tanisha nilay [facility] blood pressure, systolic 96 mm[Hg] Maryann long [facility] oxygen saturation, oximetry 98 % [facility] pulse rate 58 /min [facility] weight E&M 195 [lb_av] [facility] height E&M 71 [in_i] [facility] Body Mass Index (Ratio) 26.08 kg/m2 Tima Elena MD blood pressure, diastolic -1 mm[Hg] Li nkLog blood pressure, systolic 107 mm[Hg] Yulisa og blood pressure, diastolic 73 mm[Hg] Ja rret er blood pressure, systolic 107 mm[Hg] Imani anthony pulse rate 57 /min George blood pressure, cuff size regular Ja coty respiratory rate E&M 14 /min George oxygen saturation, oximetry 97 % George weight E&M 187 [lb_av] George height E&M 71 [in_i] George y Body Mass Index (Ratio) 26.64 kg/m2 Tima Elena MD blood pressure, cuff size regular [facility] blood pressure, diastolic 70 mm[Hg] [facility] blood pressure, systolic 102 mm[Hg] [facility] oxygen saturation, oximetry 95 % [facility] respiratory rate E&M 16 /min Roxi Drea [facility] ohiocandice pulse rate 61 /min [facility] weight E&M 191 [lb_av] [facility] height E&M 71 [in_i] Tasha Guevara [facility] Body Mass Index (Ratio) 27.89 kg/m2 Tima Elena MD blood pressure, diastolic 61 mm[Hg] Li nkLogglen blood pressure, systolic 124 mm[Hg] Yulisa Parraogglen blood pressure, diastolic 61 mm[Hg] St chet Heller blood pressure, systolic 124 mm[Hg] Jeanne Heller oxygen saturation, oximetry 99 % Linnette Heller respiratory rate E&M 18 /min Linnette Rojo pollo pulse rate 63 /min Linnette Heller weight E&M 200 [lb_av] Linnette Heller height E&M 71 [in_i] Linnette Heller Body Mass Index (Ratio) 27.75 kg/m2 Tima Elena MD blood pressure, diastolic 78 mm[Hg] Li nkLogic blood pressure, systolic 124 mm[Hg] Yulisa kLogic blood pressure, diastolic 78 mm[Hg] Darya demetrio [place] blood pressure, systolic 124 mm[Hg] Morales helle [place] oxygen saturation, oximetry 100 % Sherry Jerome pulse rate 60 /min Sherry rojo weight E&M 199 [lb_av] Sherry rojo respiratory rate E&M 16 /min Vanessa paola [place] blood pressure, cuff size large Nv demetrio [place] height E&M 71 [in_i] Sherry rojo Body Mass Index (Ratio) 27.61 kg/m2 Tima Elena MD blood pressure, cuff size large Darya demetrio [place] blood pressure, diastolic 84 mm[Hg] Mi demetrio [place] blood pressure, systolic 126 mm[Hg] [facility] helle [place] oxygen saturation, oximetry 94 % Sherry Jerome respiratory rate E&M 16 /min Vanessa paola [place] pulse rate 60 /min Sherry rojo weight E&M 198 [lb_av] Sherry rojo height E&M 71 [in_i] Sherry rojo Body Mass Index (Ratio) 27.61 kg/m2 Tima Elena MD weight E&M 198 [lb_av] Rocio Elena MD blood pressure, cuff size large Darya demetrio [place] blood pressure, diastolic 60 mm[Hg] Mi demetrio [place] blood pressure, systolic 118 mm[Hg] Morales helle [place] oxygen saturation, oximetry 97 % Sherry Jerome respiratory rate E&M 16 /min Vanessa Jerome pulse rate 51 /min Rocio Elena MD height E&M 71 [in_i] Sherry rojo Body Mass Index (Ratio) 28.53 kg/m2 Murrayc paola Renee blood pressure, diastolic 60 mm[Hg] Jyoti nkLogic blood pressure, systolic 116 mm[Hg] Yulisa kLogic blood pressure, diastolic 60 mm[Hg] Naresh Fisher blood pressure, systolic 116 mm[Hg] Ethel Jones Fisher oxygen saturation, oximetry 97 % Tony Fisher respiratory rate E&M 16 /min Robles Fisher pulse rate 60 /min Tony austin weight E&M 204.6 [lb_av] Tony hugheson height E&M 71 [in_i] Tony austin Body Mass Index (Ratio) 28.31 kg/m2 Lewis Travis temperature E&M 98.4 [degF] Rocio kuhn MD weight E&M 203 [lb_av] Rocio Elena MD pulse rate 65 /min Rocio Elena MD blood pressure, diastolic 71 mm[Hg] Emerson Elena MD blood pressure, systolic 102 mm[Hg] Paulo Elena MD height E&M 71 [in_i] Rocio Elena MD blood pressure, diastolic 72 mm[Hg] Emerson Elena MD blood pressure, systolic 115 mm[Hg] Paulo Elena MD pulse rate 54 /min Rocio Elena MD height E&M 71 [in_i] Rocio Elena MD Body Mass Index (Ratio) 24.13 kg/m2 Tima Elena MD pulse rate 52 /min Jesika Thurman elder oxygen saturation, oximetry 97 % Jesika Staley respiratory rate E&M 16 /min Jesika Staley blood pressure, cuff size regular Cy stefania Satley blood pressure, diastolic 64 mm[Hg] Cy stefania Staley blood pressure, systolic 90 mm[Hg] Ama nanette Staley weight E&M 173 [lb_av] Jesika Thurman l height E&M 71 [in_i] Jesika Thurman l Body Mass Index (Ratio) 24.54 kg/m2 Tima Elena MD blood pressure, diastolic 60 mm[Hg] Ki llshane Ervin blood pressure, systolic 110 mm[Hg] Kil davy Ervin oxygen saturation, oximetry 98 % Misha Ervin respiratory rate E&M 16 /min Misha Ervin pulse rate 53 /min Haugen Ervin weight E&M 176 [lb_av] Haugen Ervin height E&M 71 [in_i] Misha Ervin Body Mass Index (Ratio) 24.13 kg/m2 Tima Elena MD blood pressure, diastolic 74 mm[Hg] Da alyson Christina blood pressure, systolic 122 mm[Hg] Dac ia Christina oxygen saturation, oximetry 98 % Cathy Christina respiratory rate E&M 16 /min Cathy V oss pulse rate 57 /min Cathy Christina weight E&M 173 [lb_av] Cathy Christina height E&M 71 [in_i] Cathy Christina Body Mass Index (Ratio) 23.29 kg/m2 Tima Elena MD blood pressure, cuff size regular Cy ntobinna Staley blood pressure, diastolic 94 mm[Hg] Jacob Staley blood pressure, systolic 170 mm[Hg] Ama Staley oxygen saturation, oximetry 98 % Jesika Staley respiratory rate E&M 18 /min Jesika Staley pulse rate 62 /min Jesika friedman weight E&M 167 [lb_av] Jesika Thurman l height E&M 71 [in_i] Jesika Lanierbel l Body Mass Index (Ratio) 24.82 kg/m2 Pawel faulkner Nieto blood pressure, diastolic 80 mm[Hg] Da alyson Christina blood pressure, systolic 136 mm[Hg] Dac ia Christina oxygen saturation, oximetry 98 % Cathy Christina respiratory rate E&M 16 /min Cathy V oss pulse rate 77 /min Cathy Christina weight E&M 178 [lb_av] Cathy Christina height E&M 71 [in_i] Cathy Christina Body Mass Index (Ratio) 25.38 kg/m2 Tima Elena MD blood pressure, diastolic 70 mm[Hg] Ki llshane Corning blood pressure, systolic 130 mm[Hg] Isha davy [place] oxygen saturation, oximetry 98 % [facility] 16 /min Misha Ervin pulse rate 54 /min Rhonda Delia HUERTAS weight E&M 182 [lb_av] Misha Ervin blood pressure, resting Yes Kill een Corning height E&M 71 [in_i] Haugen Ervin Body Mass Index (Ratio) 25.52 kg/m2 Tima Elena MD blood pressure, cuff size large Ke rri Gianni blood pressure, diastolic 80 mm[Hg] Ke rri Jadonuenenfelder blood pressure, systolic 160 mm[Hg] Ker ri Gruenenfelder oxygen saturation, oximetry 97 % Tasha Gruenenfelder respiratory rate E&M 18 /min Tasha G ruenenfelder pulse rate 53 /min Tasha Gruenenfe lder weight E&M 183 [lb_av] Tasha Gruenenfe lder height E&M 71 [in_i] Tasha Gruenenfe lder Body Mass Index (Ratio) 25.66 kg/m2 Tima Elena MD blood pressure, cuff size regular Ke rri Gruenenfelder blood pressure, diastolic 78 mm[Hg] Ke rri Gruenenfelder blood pressure, systolic 154 mm[Hg] Ker ri Gruenenfelder oxygen saturation, oximetry 98 % Tasha Gruenenfelder respiratory rate E&M 18 /min Tasha G kevinenenfelder pulse rate 48 /min Tasha Gruenenfe lder weight E&M 184 [lb_av] Tasha Gruenenfe lder height E&M 71 [in_i] Tasha Gruenenfe lder blood pressure, diastolic 60 mm[Hg] Ke rri Gruenenfelder blood pressure, systolic 100 mm[Hg] Ker ri Gruenenfelder pulse rate 49 /min Tasha Gruenenfe lder oxygen saturation, oximetry 98 % Tasha Gruenenfelder respiratory rate E&M 16 /min Tasha G kevinenenfelder Body Mass Index (Ratio) 27.05 kg/m2 Hayes i Gruenenfelder weight E&M 194 [lb_av] Tasha Gruenenfe lder blood pressure, diastolic 58 mm[Hg] Driss rri Pepequyen blood pressure, systolic 107 mm[Hg] Nataly ri Alexeydilia pulse rate 55 /min Tasha Guevara er oxygen saturation, oximetry 97 % Tasha Gianni respiratory rate E&M 16 /min Tasha G kevinenesorindilia Body Mass Index (Ratio) 27.61 kg/m2 Hayes i Alexeydilia weight E&M 198 [lb_av] Tasha Ismael er Body Mass Index (Ratio) 27.33 kg/m2 Anea mary ann [facility] blood pressure, diastolic 68 mm[Hg] An eatris [facility] blood pressure, systolic 103 mm[Hg] Ane atris [facility] pulse rate 51 /min Aneatris [facility] oxygen saturation, oximetry 17 % Aneatris [facility] weight E&M 196 [lb_av] Aneatris [facility] height E&M 71 [in_i] Aneatris Brown ALLERGIES No Known Drug Allergies RESULTS Date Observation Value Provider Reference Range Interpretation Location 3 pro brain natriuretic peptide 380 pg/mL LinkLog[facility] 0-376 High 3 ferritin, serum 282 ng/mL [facility] 30-400 3 magnesium, serum 2.2 mg/dL [facility] 1.6-2.3 3 iron saturation percent, serum 37 (?) [facility] 15-55 3 iron, serum 116 ug/dL [facility] 38-169 3 iron binding capacity, unsaturated 194 ug/dL [facility] 178-616 6970/02/2 3 iron binding capacity, total 310 (?) [facility] 340-681 9148/02/2 3 lipoprotein, beta, serum, point, quantitative, calculated 51 (?) [facility] 0-99 3 very low density lipoproteins 29 (?) [facility] 5-40 3 HDL cholesterol, serum 48 mg/dL [facility] >39 3 triglyceride, serum, random 145 mg/dL [facility] 0-149 3 cholesterol, serum 128 mg/dL [facility] 518-885 2353/02/2 3 alanine aminotransferase (SGPT), serum 19 1/L [facility] 0-44 3 aspartate aminotransferase (SGOT), serum 22 1/L [facility] 0-40 3 alkaline phosphatase, serum 95 1/L [facility] 39-117 3 bilirubin, serum, total 0.5 mg/dL [facility] 0.0-1.2 3 albumin/globulin ratio, serum 1.5 [facility] 1.2-2.2 3 globulin, serum 2.8 [facility] 1.5-4.5 3 albumin, serum 4.3 g/dL [facility] 3.5-4.8 3 protein, total, serum 7.1 g/dL [facility] 6.0-8.5 3 calcium, serum 10.5 mg/dL [facility] 8.6-10.2 High 3 carbon dioxide, venous blood 28 mmol/L [facility] 18-29 3 chloride, serum 99 mmol/L [facility] 96-106 3 potassium, serum 4.8 mmol/L [facility] 3.5-5.2 3 sodium, serum 141 mmol/L [facility] 168-003 3535/02/2 3 urea nitrogen/creatinine ratio, serum 16 [facility] 10-24 3 eGFR if not 81 (?) [facility] >59 3 creatinine, serum 0.93 mg/dL [facility] 0.76-1.27 3 urea nitrogen, blood 15 mg/dL [facility] 8-27 3 blood glucose, random 109 mg/dL [facility] 65-99 High 3 hemoglobin A1C, blood, as % of total hemoglobin 5.1 % [facility] 4.8-5.6 3 basophil count, absolute 0.0 x10E3/uL [facility] 0.0-0.2 3 Eosinophil Absolute Count 0.1 X10E3/UL [facility] 0.0-0.4 3 monocyte count, blood, automated 0.8 X10E3/UL [facility] 0.1-0.9 3 lymphocyte count, blood, automated 1.8 X10E3/UL [facility] 0.7-3.1 3 Absolute Neutrophils 5.8 X10E3/UL [facility] 1.4-7.0 3 basophils as percent of blood leukocytes 1 % [facility] Not Estab. 3 eosinophils as percent of blood leukocytes 1 % [facility] Not Estab. 3 monocytes as percent of blood leukocytes 10 % [facility] Not Estab. 3 lymphocytes as percent of blood leukocytes 21 % [facility] Not Estab. 3 neutrophils as percent of blood leukocytes 67 % [facility] Not Estab. 3 platelet count 230 X10E3/UL [facility] 103-991 8535/02/2 3 red blood cell distribution width 13.2 % [facility] 12.3-15.4 3 mean corpuscular hemoglobin concentration, RBC 33.0 G/DL [facility] 31.5-35.7 3 mean corpuscular hemoglobin, RBC 32.4 pg [facility] 26.6-33.0 3 mean corpuscular volume, RBC 98 fL [facility] 79-97 High 3 hematocrit, blood 40.6 % [facility] 37.5-51.0 3 hemoglobin, blood 13.4 g/dL [facility] 13.0-17.7 3 erythrocyte (RBC) count 4.14 X10E6/UL [facility] 4.14-5.80 3 leukocyte count, blood 8.5 X10E3/UL [facility] 3.4-10.8 HISTORY OF MEDICATION USE Medication Status Instructions Dates Provider Indications Com ments Crestor 20 mg tablet active 1 tablet once a day Tony Fisher FE TABS 325 (65 Fe) MG TBEC active 1 tablet once a day Tony Fisher Synthroid 100 mcg tablet active 1 tablet once a day Rocio Elena MD Prolia 60 mg/mL syringe completed Inject - George Miralax 17 gram/dose powder active Take as needed Jesika Staley donepezil 10 mg tablet active 1 tablet by mouth once a day [facility] melatonin 5 mg tablet active Take 1 tablet every night Jesika Staley MIRTAZAPINE 15 MG ORAL TABLET completed take daily at bedtime - Tony Fisher Seroquel 100 mg tablet active Take 1 tablet twice a day Rocio Elena MD Vitamin D3 10 mcg (400 unit) tablet active Take 1 tablet once a day Jesika Staley duloxetine 60 mg capsule,delayed release(DR/EC) active Take 1 tablet once a day Jesika Staley SYNTHROID 25 MCG ORAL TABLET completed one tab in the morning - Jesika Staley AMOXICILLIN 500 MG ORAL CAPSULE completed Take 2 capsules ( 1 Gm ) by mouth 1 hour prior to your dental procedure - Rocio Elena MD OYSTER CALCIUM TABLET active Take 1 three times a day Cathy Vasquez lorazepam 0.5 mg tablet active 1 tablet every morning Rocio Elena MD CARBIDOPA-LEVODO PA 25-100 MG ORAL TABLET completed take one three times daily - Jesika Staley ATENOLOL 25 MG ORAL TABLET completed take one tablet daily - Rocio Elena MD AMLOD/BENAZPaola CAP 5-10MG completed TAKE 1 CAPSULE DAILY AT NIGHT - Rocio Elena MD FERROUS SULFATE 325 (65 FE) MG ORAL TABLET completed ONE PER DAY - Jesika Staley VITAMIN D TABLET completed take one pill a day - Cathy Christina Vitamin B-12 1,000 mcg tablet active 1 tablet once a day Tasha Archer FLONASE 50 MCG/ACT NASAL SUSPENSION completed as directed - Rocio Elena MD TRAZODONE HCL 100 MG ORAL TABLET completed Take twice daily - Jesika Staley IPRATROPIUM BROMIDE SOLUTION completed 2 sprays each nostril twice daily - Tasha Archer ASPIRIN 81 MG ORAL TABLET completed 1 tablet once a day - George Louieerday MULTIVITAMINS ORAL CAPSULE completed ONE TAB. DAILY - Cathy Christina SUMATRIPTAN SUCCINATE 100 MG ORAL TABLET completed as needed for migraines - Cathy Christina timolol maleate 0.5% drops active 1 drop into both eyes once a day Sherry Jerome ATENOLOL 50 MG ORAL TABLET completed One half tablet daily - Rocio Elena MD PAROXETINE HCL 20 MG ORAL TABLET completed 1 tab daily - Jesika Staley SOCIAL HISTORY Date Observation Value Provider alcohol use no Rosalind Nalluri [employer] year patient quit cigar use 1992 Rosalind Nalluri [employer] cigar use, date started 1967 John corderoa Nalluri [employer] cigars, number smoke d per week 14 Rosalind Nalluri [employer] cigar use yes Rosalind Nalluri [employer] smoking status Former smoker Rosalind Jackie uri [employer] alcohol use no Rocio Elena MD year patient quit cigar use 1992 Rocio Elena MD cigar use, date started 1967 Tima Elena MD cigars, number smoke d per week 14 Rocio Elena MD cigar use yes Rocio Elena MD smoking status Former smoker Rocio kuhn MD alcohol use no Roxi Baum year patient quit cigar use 1992 [facility] cigar use, date started 1967 Jakegregoria Baum cigars, number smoke d per week 14 [facility] cigar use yes [facility] smoking status Former smoker [facility] social history reviewed E&M revi ewed - no changes required Rocio Elena MD social history E&M Ethnicity: Ca ucasian Smoking History: P isael is a former smoker. Rocio Elena MD year patient quit cigar use 1992 Linnette Heller cigar use, date started 1967 Abran Heller cigars, number smoke d per week 14 Linnette Heller cigar use yes Linnette Heller smoking status Former smoker Linnette Heller social history E&M Ethnicity: Ca ucasian Smoking History: P isael is a former smoker. Rocio Elena MD social history reviewed E&M revi ewed - no changes required Rocio Elena MD year patient quit cigar use 1992 Sherry Jerome cigar use, date started 1967 Reese Jerome cigars, number smoke d per week 14 Sherry Jerome cigar use yes Sherry rojo smoking status Former smoker Sherry [place] smoking status Former smoker Rocio kuhn MD social history reviewed E&M revi ewed - no changes required Rocio Elena MD social history E&M Ethnicity: Ca ucasian Smoking History: P isael is a former smoker. Rocio Elena MD year patient quit cigar use 1992 Sherry Jerome cigar use, date started 1967 Reese Jerome cigars, number smoke d per week 14 Sherry Jerome cigar use yes Sherry rojo social history E&M Ethnicity: Ca ucasian Smoking History: P atient is a former smoker. Rocio Elena MD social history reviewed E&M revi ewed - no changes required Rocio Elena MD year patient quit cigar use 1992 Sherry Jerome cigar use, date started 1967 Reese Jerome cigars, number smoke d per week 14 Sherry Jerome cigar use yes Sherry [place] darrel smoking status Former smoker Sherry [place] smoking status Former smoker Rocio kuhn MD social history reviewed E&M revi ewed - no changes required Rocio Elena MD year patient quit cigar use 1992 Tony Fisher cigar use, date started 1967 Samara Fisher cigars, number smoke d per week 14 Tony Fisher cigar use yes Toyn chatmanon social history E&M Ethnicity: Ca ucasian Smoking History: P atient is a former smoker. Tim Travis social history reviewed E&M revi ewed - no changes required Tim Travis smoking status Former smoker Tim Laloyves year patient quit cigar use 1992 Rocio Elena MD cigar use, date started 1967 Tima Elena MD cigars, number smoke d per week 14 Rocio Elena MD cigar use yes Rocio Elena MD smoking status Former smoker Rocio kuhn MD social history E&M Ethnicity: Ca ucasian Smoking History: P atient is a former smoker. Rocio Elena MD social history reviewed E&M revi ewed - no changes required Rocio Elena MD social history E&M Ethnicity: Ca ucasian Smoking History: P atient is a former smoker. Rocio Elena MD social history reviewed E&M revi ewed - no changes required Rocio Elena MD year patient quit cigar use 1992 Jesika Staley cigar use, date started 1967 Yessi yeboah Luís cigars, number smoke d per week 14 Jesika Staley cigar use yes Jesika friedman smoking status Former smoker Jesika king social history E&M Ethnicity: Ca ucasian Smoking History: P atmunira is a former smoker. Rocio Elena MD social history reviewed E&M revi ewed - no changes required Rocio Elena MD alcohol use no Misha Ervin year patient quit cigar use 1992 Haugen Ervin cigar use, date started 1967 Kill shane Ervin cigars, number smoke d per week 14 Haugen Ervin cigar use yes Haugen Ervin smoking status Former smoker Misha Ingr social history E&M Ethnicity: Ca ucasian Smoking History: P atient is a former smoker. Rocio Elena MD social history reviewed E&M revi ewed - no changes required Rocio Elena MD alcohol use no Cathy Christina year patient quit cigar use 1992 Cathy Christina cigar use, date started 1967 Daci a Christina cigars, number smoke d per week 14 Cathy Christina cigar use yes Cathy Christina smoking status Former smoker Cathy Christina social history E&M Ethnicity: Ca ucasian Smoking History: P atient is a former smoker. Rocio Elena MD social history reviewed E&M revi ewed - no changes required Rocio Elena MD alcohol use no Jesika Thurman elder year patient quit cigar use 1992 Jesika Staley cigar use, date started 1967 Yessi Staley cigars, number smoke d per week 14 Jesika Staley cigar use yes Jesika Thurman elder smoking status Former smoker Jesika king social history reviewed E&M revi ewed - no changes required Rocio Elena MD alcohol use no Cathy Christina year patient quit cigar use 1992 Cathy Christina cigar use, date started 1967 Daci a Christina cigars, number smoke d per week 14 Cathy Christina cigar use yes Cathy Christina smoking status Former smoker Cathy Christina social history reviewed E&M revi ewed - no changes required Rhonda Lin NP alcohol use no Haugen Ervin year patient quit cigar use 1992 Misha Ervin cigar use, date started 1967 Rut lynn Ervin cigars, number smoke d per week 14 Misha Ervin cigar use yes Misha Ervin smoking status Former smoker Misha Ingr am social history reviewed E&M revi ewed - no changes required Rocio Elena MD alcohol use no Tasha Grchestere lder year patient quit cigar use 1992 Tasha Gianni cigar use, date started 1967 Hayes i Gianni cigars, number smoke d per week 14 Tasha Grhelennenforlandoer cigar use yes Tasha Gruenenfe lder smoking status Former smoker Tasha Harinder pena number of grandchildren Rocio Elena MD social history reviewed E&M revi ewed - no changes required Rocio Elena MD alcohol use no Tasha Gruenerolan lder year patient quit cigar use 1992 Tasha Gianni cigar use, date started 1967 Freddy Archer cigars, number smoke d per week 14 Tasha Archer cigar use yes Tasha Guevara er smoking status [facility] Former smoker Rocio kuhn MD social history E&M Ethnicity: Ca ucasian Smoking History: Swapnil kirkland is a former smoker. Swapnil atmunira has been counseled to quit. Rocio Elena MD social history reviewed E&M revi ewed - no changes required Rocio Elena MD alcohol use no Tasha [facility] year patient quit cigar use 1992 Tasha Archer cigar use, date started 1967 Freddy Cantuer cigars, number smoke d per week 14 Tasha Archer cigar use yes Tasha [facility] social history E&M Ethnicity: [place] ucasian Smoking History: Swapnil kirkland is a former smoker. Rocio Elena MD social history reviewed E&M revi ewed - no changes required Rocio Elena MD alcohol use no Tasha [facility] smoking status Former smoker Tasha [facility] social history E&M Ethnicity: [place] ucasian Smoking History: Swapnil kirkland is a former smoker. P isael has been counseled to quit. Rocio Elena MD smoking/tobacco cess ation, patient education and counseling yes Rocio Elena MD social history reviewed E&M revi ewed - no changes required Rocio Elena MD year patient quit cigar use 1992 oJ Dooley cigar use, date started 1968 Jason Dooley cigars, number smoke d per week 14 Jo Dooley cigar use yes Jo Dooley smoking status Former smoker Aneatrna mary FAMILY HISTORY Family Member Condition Mother Negative FH of Coron sandro Artery Disease Father Family History of Stephanie ng Cancer: INSURANCE PROVIDERS Payer name Policy type / Coverage type Harmeet red democrat ID [employer] MEDICARE [place] PPO Medicare [id number] ADVANCE DIRECTIVES Name Date DISCUSSED - NO DECISION MADE TREATMENT PLAN Date Name Performer [id number],C,Resolved Tima Elena MD [id number],C,Stable Nohemy Elena MD [id number],C,BP control sa tisfactory Rocio Elena MD [id number],S,Unchanged [facility] dylan Elena MD [id number],C,Clinically re ellen unchanged. Rocio Elena MD [id number],C, O n echo 12/2019. EF 55%. Will obtain Echo next visit. Rocio Elena MD [id number],C, B P control is satisfactory. Rocio Elena MD [id number],C, C linically stable. Rocio Elena MD [id number],S, W il continue routine monitoring. SOB, effort tolerance are stable. Rocio Elena MD [id number],C,S table. Effort tolerance is good. Rocio Elena MD [id number],C,O n echo 12/2019. EF 55%. Will continue routine monitoring. Rocio Elena MD [id number],C,C linically stable. His HR today was 50 on EKG. No changes from previous EKG. Rocio Elena MD [id number],C,F clarissa radio recorder Dr. Tuttle. He continues on Synthroid. Rocio Elena MD [id number],S,B P control is satisfactory. Rocio Elena MD [id number],S, W il continue routine monitoring. SOB, effort tolerance are stable. Rocio Elena MD [id number],S, F clarissa radio recorder Dr. Tuttle. He continues on Synthroid. Rocio Elena MD [id number],S, B P control is satisfactory. Rocio Elena MD [id number],S, S table. Effort tolerance is good. Rocio Elena MD [id number],S, C linically stable. No changes in the EKG from the previous EKG. Rocio Elena MD [id number],B, I mproved since parathyroid resection. Rocio Elena MD [id number],S, O n echo 12/2019. EF 55%. Will continue routine monitoring. Rocio Elena MD [id number],C,C linically stable. No changes in the EKG from the previous EKG. Enid Renee [id number],C,I mproved. Able to ambulate unassisted at a steady pace and complete all routine daily activities. Enid Renee [id number],C,F clarissa radio recorder Dr. Tuttle. He continues on Synthroid. Enid Renee [id number],C,On echo 12/31 20. EF 55%. Enid Renee [id number],C,BP control is satisfactory. Enid Renee Cardiology: B P today: 96/68 P rior BP: 107/-1 (08/31/2023) Labs Reviewed: C reat: 0.93 (05/06/2017) C hol: 128 (05/06/2017) HDL: 48 (05/06/2017) LDL: 51 (?) (05/06/2017) T (05/06/2017) Rosalind Nalluri [employer] Cardiology:Denies SOB Rosalind Na lluri [employer] Cardiology:stable a symptomatic Rosalind Nalluri [employer] Cardiology:On synthroid Rosalind Nalluri [employer] Cardiology:On rx Rosalind Nalluri [employer] Cardiology: S table a symptomatic Rosalind Nalluri [employer] Cardiology: S table Rocio Elena MD Cardiology: S table Rocio Elena MD Cardiology: C linically stable. EKG 08-31-23 showed aortic bradychardia Rocio Elena MD Cardiology:Denies any SOB Nohemy Elena MD Cardiology: F clarissa radio recorder Dr. Tuttle. He continues on Synthroid. Rocio Elena MD Cardiology: O n replacement therapy. Follows endocrinology. Rocio Elena MD Cardiology:BP well c ontrolled B P today: 107/73 P rior BP: 102/70 (03/02/2023) Rocio Elena MD Cardiology:BP today: 102/70 P rior BP: 124/61 (09/01/2022) Rocio Elena MD Cardiology:Stable Rocio Elena MD Cardiology:Stable Rocio Elena MD Cardiology:Resolved Rocio kuhn MD Cardiology:Stable Rocio Elena MD Cardiology:BP control satisfacto ry Rocio Elena MD Cardiology:Unchanged Rocio guillermo MD Cardiology:Clinically remains un changed. Rocio Elena MD Cardiology: O n echo 12/2019. EF 55%. Will obtain Echo next visit. Rocio Elena MD Cardiology: B P control is satisfactory. Rocio Elena MD Cardiology: C linically stable. Rocio Elena MD Cardiology: W il continue routine monitoring. SOB, effort tolerance are stable. Rocio Elena MD Cardiology:Stable. E ffort tolerance is good. Rocio Elena MD Cardiology:On echo 1 . EF 55%. Will continue routine monitoring. Rocio Elena MD Cardiology:Clinicall y stable. His HR today was 50 on EKG. No changes from previous EKG. Rocio Elena MD Cardiology:Follows paola ndocrinologist Dr. Tuttle. He continues on Synthroid. Rocio Elena MD Cardiology:BP contro l is satisfactory. Rocio Elena MD Cardiology: W il continue routine monitoring. SOB, effort tolerance are stable. Rocio Elena MD Cardiology: F clarissa radio recorder Dr. Tuttle. He continues on Synthroid. Rocio Elena MD Cardiology: B P control is satisfactory. Rocio Elena MD Cardiology: S table. Effort tolerance is good. Rocio Elena MD Cardiology: C linically stable. No changes in the EKG from the previous EKG. Rocio Elena MD Cardiology: I mproved since parathyroid resection. Roico Elena MD Cardiology: O n echo 12/2019. EF 55%. Will continue routine monitoring. Rocio Elena MD Cardiology:Clinicall y stable. No changes in the EKG from the previous EKG. Enid Renee Cardiology:Improved. Able to ambulate unassisted at a steady pace and complete all routine daily activities. Enid Renee Cardiology:Follows paola sousaocrinologrohini Tuttle. He continues on Synthroid. Enid Renee Cardiology:On echo 12/2019. EF 5 5%. Enid Renee Cardiology:BP control is satisfa ctory. Enid Renee TeleHealth:Improved. Able to ambulate unassisted at a steady pace and complete all routine daily activities. Tim Travis TeleHealth:He would benefit from repeat labs. Tim TeleHealth:Patient h ad a cough but tested negative at that time. He later had antibodies which were positive. TeleHealth:On replac ement therapy. Follows endocrinology. Tim TeleHealth:Follows endocrinology . Tim TeleHealth:Resolved. Blood press ure stable. Tim TeleHealth:Blood pre ssure control is satisfactory. [facility] TeleHealth:Will cont inue to monitor with echocardiograms. [facility] TeleHealth:He would benefit from repeat labs. [facility] TeleHealth:On replac ement therapy. Follows endocrinology. [facility] TeleHealth:Follows endocrinology . [facility] TeleHealth:Blood pre ssure control is satisfactory. Patient reports blood pressures as low as 100 systolic. As he is asymptomatic, no changes have been made. Advised to discuss taking Seroquel at night with his psychiatrist as this may lower the blood pressure. Tim Travis Cardiology follow up :Reports a recent episode of hypotension the etiology of which is unclear from which he recovered. His blood pressure today in the office is 90/64. Advised pt to stop his amlod/ benaze and to monitor his blood pressures. Rocio Elena MD Cardiology follow up :Clinically stable. No changes in the EKG from the previous EKG. Rocio Elena MD Cardiology follow up :Continues to complain of constant fatigue. Pt and do report improvement after starting Donepezil and Duloxetine. Rocio Elena MD Cardiology follow up :Unchanged Rocio Elena MD Cardiology:On medications. Jagdeep del valle neurology. Rocio Elena MD Cardiology:Follows endocrinology . Rocio Elena MD Cardiology:Increased fatiguability. diagnosed with hypothyroidism and is now on replacement therapy which will hopefully improve his symptoms. Rocio Elena MD Cardiology:Remains unchanged. Emerson Elena MD Cardiology:Blood pressure contro l is satisfactory. Rocio Elena MD Cardiology follow up Rocio guillermo MD Cardiology follow up:Stable. Paulo Elena MD Cardiology follow up :He had a parathyroid adenoma and hypercalcemia. The parathyroid tumors have been removed. Symptoms have improved. He continues to be monitored and is now on Calcium replacement. He also has severe osteoporosis diagnosed on recent bone density scan and is planned to receive Prolia injections. Rocio Elena MD Cardiology follow up :Blood pressure control is satisfactory. Rocio Elena MD Cardiology follow up :Stable. Emerson Elena MD Cardiology follow up Rocio giullermo MD Cardiology follow up :Etiology of anxiety and confusion is unclear. He is scheduled for head MRI and neurology evaluation. Rocio Elena MD Cardiology follow up :Blood pressure remains persistently elevated. For present, he will take Amlodipine- Benazepril 5mg/10mg BID. The blood pressure will be monitored at home and will adjust antihypertensive medication as needed. He has been off beta blockers due to slow heart rate. Rocio Elena MD Cardiology follow up Rocio guillermo MD Cardiology follow up :Blood pressure control is satisfactory. Continues current regimen. Rocio Elena MD Cardiology follow up:Resolved. Drea Elena MD Cardiology Rhonda Kraft Cardiology:Blood pre ssure control is satisfactory. Continues current regimen. Rhonda Lin NP Cardiology:CBC/Iron studies norm al. Rhonda Lin NP Cardiology:Much impr jayna. Remains bradycardic, but no pauses noted. He is asymptomatic at this time. Rhonda Lin NP Cardiology Follow u p:Likely related to beta blockers and anemia. Rocio Elena MD Cardiology Follow u p Rocio jesus MD Cardiology Follow u p:On timolol eyedrops. Rocio Elena MD Cardiology Follow u p:He has been on oral iron supplements and remains fatigued. Will check iron studies to determine if he would benefit from iron infusion. Rocio Elena MD Cardiology Follow u p:Likely iatrogenic, related to the use of atenolol. The reduction in dosage did not make a significant difference to the heart rate. He also continues to be fatigued, though this is improved since reduction in atenolol dosage. I have given him a Zio monitor to wear. The atenolol and Lasix will be discontinued. He has been started on amlodipine/benazepril 5/10mg once daily. They will continue to monitor blood pressure. Rocio Elena MD Cardiology Follow up :Will check carotid doppler. Rocio Elena MD Cardiology Follow up :Clinically the murmur remains unchanged. Will get repeat echo soon. Rocio Elena MD Cardiology Follow up :Blood pressure control is satisfactory. Rocio Elena MD Cardiology Follow up Rocio guillermo MD Cardiology Follow u p:Continues to use Timolol drops. Rocio Elena MD Cardiology Follow u p:On Sumatri ptan. Rocio Elena MD Cardiology Follow u p Rocio jesus MD Cardiology Follow u p:Blood pressure control is satisfactory. Rocio Elena MD Cardiology Follow u p:Clinically the murmur remains unchanged. Rocio Elena MD Cardiology Follow up :Blood pressure control is satisfactory. Rocio Elena MD Cardiology Follow up :Clinically the murmur remains unchanged. The last echo had showed moderately severe TR. Rocio Elena MD Cardiology Follow up Rocio guillermo MD Cardiology Follow up Rocio guillermo MD Cardiology Follow up :He relates this to the inactivity but considering his family history of heart disease, we will arrange for him to have a stress test. Rocio Elena MD new patient visit: H is updated medication list for this problem includes: Aspirin 81 Mg Tabs (Aspirin) ..... One tab. daily Sumatriptan Succinate 100 Mg Tabs (Sumatriptan succinate) ..... As needed for migraines Atenolol 50 Mg Tabs (Atenolol) ..... 1 tab daily Rocio Elena MD new patient visit Rocio Elena MD new patient visit: O rders: E KG (CPT-54886) S TR - Routine (CPT-49608) Rocio Elena MD new patient visit: H is updated medication list for this problem includes: Aspirin 81 Mg Tabs (Aspirin) ..... One tab. daily Atenolol 50 Mg Tabs (Atenolol) ..... 1 tab daily Orders: E KG (CPT-80332) S TR - Routine (CPT-52064) Rocio Elena MD Date Name Complete Echo Complete Echo Complete Echo MAGNESIUM HEMOGLOBIN A1c COMPREHENSIVE METABO LIC PANEL, W/EGFR LIPID PANEL PROBNP, N TERMINAL IRON AND TOTAL IRON BINDING CAPACITY FERRITIN CBC (INCLUDES DIFF/P LT) ZIO Holter Carotid Duplex Bilat eral Complete Echo STR - Nuclear HISTORY OF PROCEDURES Procedure Date Procedure Name Provider Procedure Notes S tatus Complex e/m visit add on Rocio Elena MD completed EKG Rocio Elena MD complet ed EKG Rocio Elena MD complet ed EKG Rocio Elena MD complet ed EKG Rocio Elena MD complet ed EKG Rocio Elena MD complet ed EKG Roico Elena MD complet ed EKG Rocio Elena MD complet ed EKG Rocio Elena MD complet ed EKG Rocio Elena MD complet ed EKG Rocio Elena MD complet ed EKG Rocio Elena MD complet ed EKG Rocio Elena MD complet ed EKG Rocio Elena MD complet ed JAZIEL Elena MD completed ePrescribe - Check t his box if eRx is used Rocio Elena MD completed EKG Rocio Elena MD complet ed EKG Rocio Elena MD complet ed SNOMED-CT: 275440617 697293 Current Medications Documented Rocio Elena MD completed SNOMED-CT: 02630100 Physical Exam, Performed: Pulse Exam of Foot Rocio Elena MD completed EKG Rocio Elena MD complet ed SNOMED-CT: 811931855 630702 Current Medications Documented Rocio Elena MD completed Stress EKG Jane Cortez MD completed Cardiolite, 2 units Rocio Elena MD completed SPECT Images Jane Cortez MD complet ed SNOMED-CT: 296797377 Smoking Cessation Counseling Rocio Elena MD completed SNOMED-CT: 82493830 Physical Exam, Performed: Pulse Exam of Foot Rocio Elena MD completed SNOMED-CT: 449673315 220200 Current Medications Documented Rocio Elena MD completed KIMMY Elena MD complet ed KIMMY Elena MD complet ed
--- OUTSIDE RECORDS SUMMARY | 2024-03-16 05:11 | XMS_ITS | Encounter Summary ---
Author Organization [facility] Address [address] [facility] [place] [address] Care Team Providers Care Exhaust Tender Name Role Phone Russ Rojas MD Primary Care Provider +1- [phone] Encounter Details Date Type Department Care Team (Late st Contact Info) Description 04/04/2013 Hospital Outpatient Visit Historic [facility] [address] [place] [address] Marito Corbett MD [address] [place] [address] [place] [phone] Discharge Disposition: Home or Self Care Social [...] on filedocumented in this encounter Care Teams Exhaust Tender Relationship Specialty Start Date End Date Russ Rojas MD [address] [facility] [address] [place] [phone] PCP - General 10/16/12 documented as of this encounter
--- OUTSIDE RECORDS SUMMARY | 2024-03-16 05:11 | XMS_ITS | Encounter Summary ---
Author Organization [facility] Address [address] [facility] [place] [address] Care Team Providers Care Preparing Box Tender Name Role Phone Russ Rojas MD Primary Care Provider +1- [phone] Encounter Details Date Type Department Care Team (Late st Contact Info) Description 07/30/2013 Hospital Outpatient Visit Historic [facility] [address] [place] [phone] Marito Corbett MD [address] [place] [address] Discharge Disposition: Home or Self [...] Date/Time Associated Diagnosis Comments PSA SERIAL Routine 07/30/2013 11:52 AM CDT documented in this encounter Results * PSA SERIAL (07/30/2013 11:52 AM CDT) PSA Total <0.1 0.0 - 4.0 ng/mL [facility] Blood specimen (specimen) BLOOD SPECIMEN / Unknown 07/30/2013 11:52 AM CDT 07/30/2013 12:57 PM CDT Marito Corbett MD LAB - CHEMISTRY ORD ERABLES [facility] [address] [phone] documented in this encounter Visit Diagnoses Not on filedocumented in this encounter Care Teams Preparing Box Tender Relationship Specialty Start Date End Date Russ Rojas MD [address] [place] [address] [address] [place] [address] PCP - General 10/16/12 documented as of this encounter
--- OUTSIDE RECORDS SUMMARY | 2024-03-16 05:11 | XMS_ITS | Clinical Summary ---
Author Organization [facility] Address [address] [place] [address] Care Team Providers Care Social Media Strategist Name Role Phone Russ Rojas MD Primary Care Provider +1- [phone] Source Comments [facility],non-owned Affiliates and Associated Physician Practices is amultiple site organization consisting of ambulatory clinics and hospital sitesin [place], [place], [place]. This disclosure is being madepursuant to the Care Everywhere program and may not contain all information available regarding this patient. 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 Malignant neoplasm of prostate 12/22/2012 Family History Medical History Relation Name Comments Cancer - Skin, Non Melanoma Sister Cancer - Skin, Melanoma Neg Hx Relation Name Status Comments Sister Social History Tobacco Use Types Packs/Day Years [...] Comments Blood Pressure 121/72 02/04/2016 12:41 PM CASING FINISHER AND STUFFER Pulse 53 02/04/2016 12:41 PM [employer]ING [employer] STUFFER Temperature 36 ??C (96.8 ??F) 01/29/2015 12:28 PM [employer] STUFFER Respiratory Rate 20 07/09/2014 11:56 AM CDT Oxygen Saturation 95% 01/29/2015 12:28 PM [employer]ING FIN[employer] STUFFER Inhaled Oxygen Concentration - - Weight 88.5 kg (195 lb) 01/29/2015 12:28 PM [employer]ING FINISH[employer] STUFFER Height 177.8 cm (5' 10) 01/29/2015 12:28 PM [employer]ING FINISHER [employer] STUFFER Body Mass Index 27.98 01/29/2015 12:28 PM [employer]ING FINISHER [employer] STUFFER Plan of Treatment Health Maintenance Due Date Last Done Comments DTAP/TDAP/TD VACCINES (1 - Tdap) 1961 ZOSTER VACCINE (1 of 2) 1992 PNEUMOCOCCAL VACCINE 65+ (1 of 1 - PCV) 11/03/2007 Respiratory Syncytial Virus (RSV) Vaccine Pt: or over 60 yrs (1 - 1-dose 75+ series) 2017 DEPRESSION SCREENING 03/14/2023 MEDICARE AWV ? CALENDAR YEAR 2023 COVID-19 VACCINE ( - 2023- season) 2023 INFLUENZA VACCINE (#1) 2023 9, 12/26/2017, 12/23/2016, Additional history exists HEPATITIS B VACCINE Aged Out No longe r eligible based on patient's age to complete this topic HIB VACCINE Aged Out No longer eligi ble based on patient's age to complete this topic HPV VACCINE Aged Out No longer eligi ble based on patient's age to complete this topic MENINGOCOCCAL VACCINE Aged Out No jay aneudy eligible based on patient's age to complete this topic Care Teams Social Media Strategist Relationship Specialty Start Date End Date Rojas, MD Russ [address] [facility] [place] [address] PCP - General 10/16/12
--- OUTSIDE RECORDS SUMMARY | 2024-03-16 05:11 | XMS_ITS | Encounter Summary ---
Author Organization [facility] Address [address] [facility] [place] [address] Care Team Providers Care Faro Dealer Name Role Phone Russ Rojas MD Primary Care Provider +1- [phone] Encounter Details Date Type Department Care Team (Late st Contact Info) Description 12/19/2018 Lab Requisition [facility] Care [facility] [address] [facility] [place] [phone] Val Espinosa DO [address] [facility] [address] [place] [address] Social History Tobacco Use Types Packs/Day Years [...] Priority Date/Time Associated Diagnosis Comments DERMATOPATHOLOGY Routine 12/18/2018 12:0 0 AM CDT documented in this encounter Results * DERMATOPATHOLOGY (12/18/2018 12:00 AM CDT) Case Report Dermatopathology Report ? Case: [id number] ? Authorizing Provider: ??Val Espinosa, DO ?? Collected: ? 12/18/2018 12:00 AM ? Ordering Location: ? [facility] ?Received: ?12/19/2018 07:56 AM ? Pathologist: ? Sravani Ramirez MD ? Specimen: ?Skin, right upper back ? 12:23 PM T DERMATOPATHOLOGY LABORATORY Final Diagnosis Specimen A. SKIN, right upper back: BASAL CELL CARCINOMA, SUPERFICIAL MULTIFOCAL (C44.519) 12:23 PM [facility] DERMATOPATHOLOGY LABORATORY Clinical History R/O BCC. 12:23 PM [facility] DERMATOPATHOLOGY LABORATORY Gross Description Specimen A: Received is one formalin filled container labeled with the patient's name and designated right upper back. The specimen consists of a shave measuring [id number]. Jar 0. 12:23 PM [facility] DERMATOPATHOLOGY LABORATORY Microscopic Description Specimen A. SKIN, right upper back: Attached to the undersurface of the epidermis, there are small aggregates of basaloid cells with a high nuclear to cytoplasmic ratio and peripheral palisading. 12:23 PM [facility] DERMATOPATHOLOGY LABORATORY Disclaimer An external and internal positive and negative controls are appropriate for the histochemical, immunohistochemical and immunofluorescence stain(s) in this case (if any), except where stated explicitly. The performance characteristics of the stain(s) cited in this report were developed and its performance characteristic determined by the Dermatopathology Laboratory at [facility], directed by Dr. Madelin Graves. These tests need not be, and therefore are not, approved by the [place] Food and Drug Administration. The tests are used for clinical purposes. Billing Codes Specimen Charges Stain Charges 00390 1 9 12:23 PM CDT DERMATOPATHOLOGY LABORATORY Embedded Images 9 12:23 PM CDT DERMATOPATHOLOGY LABORATORY Pathology/Cytolog y TISSUE SPECIMEN FROM SKIN / Unknown 12/18/2018 12/19/2018 7:56 AM CDT Val Espinosa DO LAB - PATHOLOGY/C YTOLOGY ORDERABLES DERMATOPATHOLOGY LABORATORY [facility] - Department of Dermatology [address] [place] [address], 5th Floor Lab [address] [phone] documented in this encounter Visit Diagnoses Not on filedocumented in this encounter Care Teams Faro Dealer Relationship Specialty Start Date End Date Russ Rojas MD [address] [facility] [address] [place] [phone] PCP - General 10/16/12 documented as of this encounter
--- OUTSIDE RECORDS SUMMARY | 2024-03-16 05:11 | XMS_ITS | Encounter Summary ---
Author Organization [facility] Address [address] [facility] [place] [address] Care Team Providers Care Victorian Literature Professor Name Role Phone Russ Rojas MD Primary Care Provider +1- [phone] Encounter Details Date Type Department Care Team (Late st Contact Info) Description 01/31/2013 Hospital Outpatient Visit Historic [facility] [address] [place] [phone] Marito Corbett MD [address] [facility] [address]L DIV [place] [address] Discharge Disposition: Home or Self Care Social [...] on filedocumented in this encounter Care Teams Victorian Literature Professor Relationship Specialty Start Date End Date Russ Rojas MD [address] [facility] [address] [place] [address] PCP - General 10/16/12 documented as of this encounter
--- OUTSIDE RECORDS SUMMARY | 2024-03-16 05:11 | XMS_ITS | Encounter Summary ---
Author Organization [facility] Address [address] [place] [address] Care Team Providers Care Medical Writer Name Role Phone Russ Rojas MD Primary Care Provider +1- [phone] Encounter Details Date Type Department Care Team (Late st Contact Info) Description 01/22/2014 Hospital Outpatient Visit Historic [facility] [address] [place] [id number] Angela To Update Information Discharge Disposition: Home or Self Care Social [...] Date/Time Associated Diagnosis Comments PSA SERIAL Routine 01/22/2014 11:32 AM ROOFER documented in this encounter Results * PSA SERIAL (01/22/2014 11:32 AM ROOFER) PSA Total <0.1 0.0 - 4.0 ng/mL [facility] Blood specimen (specimen) BLOOD SPECIMEN / Unknown 01/22/2014 11:32 AM ROOFER 01/22/2014 11:55 AM ROOFER Angela To LAB - CHEMISTRY ESTEPHANIA Ma Organization Address City/State/ZIP Co de Phone Number [facility] [address] [place], [place] [address] [phone] documented in this encounter Visit Diagnoses Diagnosis Malignant neoplasm of prostate (HCC) Malignant neoplasm of prostate documented in this encounter Care Teams Medical Writer Relationship Specialty Start Date End Date Bob, MD Russ [address] [place] [address] [address] [place] [id number] PCP - General 10/16/12 documented as of this encounter
--- OUTSIDE RECORDS SUMMARY | 2024-03-16 05:11 | XMS_ITS | Encounter Summary ---
Author Organization [facility] Address [address] [place] [address] Care Team Providers Care Math Interventionist Name Role Phone Russ Rojas MD Primary Care Provider +1- [phone] Encounter Details Date Type Department Care Team (Late st Contact Info) Description 12/12/2023 Lab Requisition [facility] - DermPath Lab [address] [facility] [place] [address] Tova Stanton MD [address] [facility] [address] [place] [address] Social History Tobacco Use Types Packs/Day Years [...] Priority Date/Time Associated Diagnosis Comments DERMATOPATHOLOGY Routine 12/12/2023 1:51 PM CDT documented in this encounter Results * DERMATOPATHOLOGY (12/12/2023 1:51 PM CDT) Case Report Dermatopathology Report ? Case: [id number] ? Authorizing Provider: ??Tova Stanton MD ?Collected: ? 12/12/2023 01:51 PM ? [facility] ? [facility] ??Received: ?12/13/2023 12:00 PM ? DermPath Lab ? Pathologist: ? Sravani Ramirez MD ? Specimen: ?Skin, left chest ? 4 2:48 PM CDT DERMATOPATHOLOGY LABORATORY Final Diagnosis Specimen A. SKIN, left chest: DERMAL SCAR RESIDUAL SQUAMOUS CELL CARCINOMA NOT IDENTIFIED (L90.5) INTRADERMAL MELANOCYTIC NEVUS, INCIDENTAL (D22.5) NOT PRESENT AT MARGIN 4 2:48 PM CDT DERMATOPATHOLOGY LABORATORY Clinical History R/O SCC, biopsy proven 4 2:48 PM CDT DERMATOPATHOLOGY LABORATORY Gross Description Specimen A: Received is one formalin filled container labeled with the patient's name and designated left chest.The specimen consists of an ellipse measuring [id number] mm and is oriented with the suture/notch [...] characteristic determined by the Dermatopathology Laboratory at [facility], directed by Dr. Madelin Graves. These tests need not be, and therefore are not, approved by the [place] Food and Drug Administration. The tests are used for clinical purposes. Billing Codes Specimen Charges Stain Charges 40894 1 2:48 PM CDT DERMATOPATHOLOGY LABORATORY Embedded Images 2:48 PM CDT DERMATOPATHOLOGY LABORATORY Pathology/Cytolo gy TISSUE SPECIMEN FROM SKIN / Unknown 12/12/2023 1:51 PM CDT 12/13/2023 12:00 PM CDT Tova Stanton MD LAB - PATHOLOGY/CYTO LOGY ORDERABLES DERMATOPATHOLOGY LABORATORY [facility] - Department of Dermatology [facility] Medicine [address] [place] [address], [address] [phone] documented in this encounter Visit Diagnoses Not on filedocumented in this encounter Care Teams Math Interventionist Relationship Specialty Start Date End Date Russ Rojas MD [address] [place] [address] PCP - General 10/16/12 documented as of this encounter
--- OUTSIDE RECORDS SUMMARY | 2024-03-16 05:14 | XMS_ITS ---
Author Organization [facility] [employer] Address [address] [place] [address] Care Team Providers Care International Recruiter Name Role Phone Maciel Leonardo Unavailable [phone] Allergies No Known Allergies REASON FOR VISIT depression Medications Medication SIG (Take, Route, Frequency, Duration) Notes Start Date End Date Status Prolia 60 MG/ML Subcutaneous *Pick strength-form from [employer] for eRX* 04/15/2023 Active Vitamin B-12 1000 MCG Oral 04/15/2023 Active Timolol Maleate 0.5 % Ophthalmic 04/15/2023 Active QUEtiapine Fumarate 100 MG Oral 04/15/2023 Active Vitamin D3 Adult Gummies 25 MCG (1000 UT) Oral 04/15/2023 Active Nyamyc 687710 UNIT/GM External 04/15/2023 Active DULoxetine HCl 60 MG Oral 04/15/2023 Active Ergocalciferol 1.25 MG (72422 UT) Oral 04/15/2023 Active Loratadine 10 MG Oral 04/15/2023 Ac tive Aspirin Adult Low Strength 81 MG Oral 04/15/2023 Active Meloxicam 7.5 MG Oral 04/15/2023 Ac tive LORazepam 0.5 MG Oral 04/15/2023 Ac tive CALCIUM 600 + D(3) 600 MG-10 MCG (400 UNIT) TABLET *Reorder from [employer] for eRx and Interaction Alerts* 04/15/2023 Active Triamcinolone Acetonide 0.1% External 04/15/2023 Active Rosuvastatin Calcium 20 MG Oral 04/15/2023 Active Donepezil HCl 10 MG Oral 04/15/2023 Active Levothyroxine Sodium 100 MCG Oral 04/15/2023 Active Social History Sex Assigned At : Social History Observation Description Sex Assigned At Male Problems Problem Type SNOMED Code ICD Code Onset Dates Problem Status W/U Status Risk Notes Problem Generalized anxiety disorder (61086761) Generalized anxiety disorder (F41.1) Active confirmed Problem Mild recurrent major depression (92194354) Major depressive disorder, recurrent, mild (F33.0) Active confirmed Problem Insomnia disorder related to another mental disorder (90245068) Insomnia due to other mental disorder (F51.05) Active confirmed Problem Alzheimer's disease with late onset (257727790) Alzheimer's disease with late onset (G30.1) Active confirmed Vital Signs Blood pressure systolic 101 mm Hg 08/15/19 24 Blood pressure diastolic 68 mm Hg 024 Heart Rate 59 /min 08/15/2023 Height 70.00 in 08/15/2023 Weight 189 lbs 08/15/2023 BMI 27.12 kg/m2 08/15/2023 Height-cm 177.80 cm 08/15/2023 Weight-kg 85.73 kg 08/15/2023 Encounters Encounter Location Date Provider Diagnosis [facility] [employer] [address] [address] 08/15/2023 Maciel Leonardo Generalized anxiety disorder F41.1 ; Major depressive disorder, recurrent, mild F33.0 ; Insomnia due to other mental disorder F51.05 and Alzheimer's disease with late onset G30.1 Assessments Encounter Date Diagnosis (ICD Code) Assessment Notes Treatment Notes Treatment Clinical Notes Section Notes 08/15/2023 Generalized anxiety disorder (ICD-10 - F41.1) CONT LORAZEPAM 0.5MG q a.m. 08/15/2023 Major depressive disorder, recurrent, mild (ICD-10 - F33.0) CONT DULOXETINE 60MG DAILY CONT QUETIAPINE 100MG - 0.5 tablet twice daily HX PSYCHOSIS 08/15/2023 Insomnia due to other mental disorder (ICD-10 - F51.05) 08/15/2023 Alzheimer's disease with late onset (ICD-10 - G30.1) CONT DONEPEZIL 10MG HS Plan Of Treatment Treatment Notes Assessment Notes Generalized anxiety disorder CONT LORAZE SERGIO 0.5MG q a.m. Major depressive disorder, recurrent, mi ld CONT DULOXETINE 60MG DAILY CONT QUETIAPINE 100MG - 0.5 tablet twice daily HX PSYCHOSIS Next Appt Details Follow Up: 3 Months, Reason: Provider Name:Maciel pemberton, 05/14/2024 01:30:00 PM, [address], [facility] [address], [place], [address], Progress Notes * CEE SARAVIADOB:1940 ([age] yo M)Acc No.[id number]:08/15/2023 Progress Notes Patient:?CEE SARAVIA Provider:?CRISS COSTAHNP :1940???Age:82 Y???Sex:Male Anand e:08/15/2023 Address:[address] [place], [place] [id number] Subjective: * Chief Complaints: * ???1. Depression. * HPI: ???Depression:?The history was obtained from the?patient, spouse.?he states he is doing good. No depression symptoms. States everything has really been good. States he has been watching tv, going to restoration. Has been getting out of the house. Appetite is good. Got irritated with phone company, got loud. no hallucinations. ???Generalized anxiety disorder:? he states anxiety is the same. not causing any problems. ???Dementia:?Dementia was first noted?years ago, short term memory impairment, difficulty learning new information.?Risk factors include?history of prolonged medical illness.?stable, he lives with his , has good family support. * ROS:?Psychiatric:?Anxiety?denies.?Auditory / visual hallucinations?denies.? * Medical History:?Problems: A norexia symptom, Dementia with behavioral disturbance, Depressive disorder, Generalized anxiety disorder, Mild recurrent major depression, Moderate recurrent major depression, Persistent insomnia, Primary degenerative dementia of the Alzheimer type, senile onset, Recurrent major depression in full remission, ,. * Surgical History:?Cataract s urgery (36042) . * Social History:?Migrated Social History:?Migrated Social History: Alcohol Intake: None 06/11/2020,Tobacco Years: Never smoker 12/12/2017,Smoking Status: 0 04/15/2023. * Medications:?Taking Rosuvast atin Calcium 20 MG Tablet Oral , Taking Levothyroxine Sodium 100 MCG Tablet Oral , Taking Donepezil HCl 10 MG Tablet Oral , Taking LORazepam 0.5 MG Tablet Oral , Taking Meloxicam 7.5 MG Tablet Oral , Taking Triamcinolone Acetonide 0.1% Cream External , Taking CALCIUM 600 + D(3) 600 MG- 10 MCG (400 UNIT) TABLET , Notes to Pharmacist: *Reorder from [employer] for eRx and Interaction Alerts*, Taking Aspirin Adult Low Strength 81 MG Tablet Delayed Release Oral , Taking Loratadine 10 MG Tablet Oral , Taking DULoxetine HCl 60 MG Capsule Delayed Release Particles Oral , Taking Nyamyc 656080 UNIT/GM Powder External , Taking Ergocalciferol 1.25 MG (27181 UT) Capsule Oral , Taking QUEtiapine Fumarate 100 MG Tablet Oral , Taking Vitamin B-12 1000 MCG Tablet Oral , Taking Prolia 60 MG/ML Solution Subcutaneous , Notes to Pharmacist: *Pick strength-form from [employer] for eRX*, Taking Timolol Maleate 0.5 % Gel Forming Solution Ophthalmic , Taking Vitamin D3 Adult Gummies 25 MCG (1000 UT) Tablet Chewable Oral , Discontinued Melatonin 5 MG Tablet Oral , Medication List reviewed and reconciled with the patient * Allergies:?N.K.D.A. Objective: * Vitals:?BP: 101/68 mm Hg, HR : 59 /min, Wt: 189 lbs, Wt-k.73 kg, Ht: 70.00 in, Ht-cm: 177.80 cm, BMI: 27.12 Index, Body Surface Area: 2.06. * Examination: ???Psychiatry: ?Separation from caregiver during interview process:?with .?Appearance:?well-groomed, well-nourished, appears stated age.?Abnormal body movements:?tics or twitches.?Affect / mood:?appropriate.?Attention:?good.?Attitude:?cooperative.?Suicidal ideation:?none.?Memory status:?able to recall recent events in detail.? Assessment: * Assessment: 1.?Generalized anxiety disor juan - F41.1 (Primary)?2.?Major depressive disorder, recurrent, mild - F33.0?3.?Insomnia due to other mental disorder - F51.05?4.?Alzheimer's disease with late onset - G30.1? Plan: * Treatment: 2.?Major depressive disorder , recurrent, mild? Notes: CONT DULOXETINE 60MG DAILY CONT QUETIAPINE 100MG - 0.5 tablet twice daily HX PSYCHOSIS?? 3.?Alzheimer's disease with late onset? Clinical Notes: CONT DONEPEZIL 10MG HS?? * Follow Up:?3 Months * Billing Information: * Visit Code:? * Procedure Codes:? * Sign off status: Completed true * Provider:?ARLINE COSTA Date:?05/2023 Generated for Lv pascal/Brown/eTransmitting on:?03/16/2024 05:13 AM INDUSTRIAL STAFF NURSE History and Physical Notes * HPI (History of Present Illness) Category Sub-Category Detail Notes Category Not es Generalized anxiety disorder he states anxiety is the same. not causing any problems. Dementia Risk factors include history of prolonged medical illness stable, he lives with his , has good family support Dementia was first noted years ago, shor t term memory impairment, difficulty learning new information Depression The history was obta ined from the patient, spouse he states he is doing good. No depression symptoms. States everything has really been good. States he has been watching tv, going to restoration. Has been getting out of the house. Appetite is good. Got irritated with phone company, got loud. no hallucinations. Examination Category Sub-Category Detail Notes Category Not es Psychiatry Appearance: well-groomed, we ll-nourished, appears stated age Attitude: cooperative Abnormal body movements: tics or twitche s Attention: good Affect / mood: appropriate Suicidal ideation: none Separation from caregiver du lon interview process: with Memory status: able to recall recen t events in detail
--- OUTSIDE RECORDS SUMMARY | 2024-03-16 05:14 | XMS_ITS | Patient Health Record ---
Author Organization [facility] Address [address] [place] [address] Support Name Relationship Address Phone CEE SARAVIA Guarantor Unknown [phone] REASON FOR REFERRAL No Information MEDICATIONS Medication SIG (Take, Route, Frequency, Duration) Notes Start Date End Date Status Vitamin D (Ergocalciferol) 1.25 MG (92948 UT) Take 1 capsule by mouth once a week for 91 Active SOCIAL HISTORY Sex Assigned At : Social History Observation Description Sex Assigned At Male PROBLEMS Problem Type ICD Code Onset Dates Problem Status W/U Status Risk SNOMED Code Notes Problem Anemia, unspecified (D64.9) Active confirmed Anemia (026049919) Problem Hypothyroidism, unspecified (E03.9) Active confirmed Hypothyroidism (71771941) Problem Secondary hyperparathyroid ism, not elsewhere classified (E21.1) Active confirmed Secondary hyperparathyroidism (94683440) Problem Essential (primary) hypertension (I10) Active confirmed Essential hypertension (65528592) Problem Renal osteodystrophy (N25.0) Active confirmed Renal osteodyst rophy (07838579) Problem Chronic kidney disease, stage 3a (N18.31) Active confirmed Chronic kidney disease stage 3A (disorder) (710161483) PLAN OF TREATMENT No Information
--- OUTSIDE RECORDS SUMMARY | 2024-03-16 05:14 | XMS_ITS | Continuity of Care Document ---
Author Organization [facility] Address [address] [place] [address] Dr [address] [place] [address] Phone Care Team Providers Care Hearing Impaired Teacher Name Role Phone Messi Thorpe Unavailable Unavailable Procedures Procedure Date Office/outpatient Visit, Est Optic Nerve Head Eval IPO Reduced 15% Office/outpatient Visit, Est Optic Nerve Head Eval IPO Reduced 15% Visual Field Examination(s) Office/outpatient Visit, Est Optic Nerve Head Eval IPO Reduced 15% Script Printed/Phoned Pt Requ Or Pharm N ot Availab Office/outpatient Visit, Est Optic Nerve Head Eval IPO Reduced 15% Script Printed/Phoned Pt Requ Or Pharm N ot Availab Fundus Photography W/ Report Visual Field Examination(s) Office/outpatient Visit, Est Optic Nerve Head Eval IPO Reduced 15% Eye Exam & Treatment Refraction Office/outpatient Visit, Est Office/outpatient Visit, Est Visual Field Examination(s) Office/outpatient Visit, Est Office/outpatient Visit, Est Office/outpatient Visit, Est Fundus Photography W/ Report Advance Directives Directive Yes / No Effective Date File Name No Information Encounters Encounter Description Practice Location Reason(s) For Visit Diagnoses Date Provider Providers Copied on Encounter Office/outpat ient Visit, [facility], [address] [place] [address] [address], [place], [place], [id number], tel:[phone] [facility] No Information 1-201 0 Doisy Edward. [address] [place] [address] Dr, [address], [place], [place], [facility], . tel:[phone] Office/outpat ient Visit, [facility], [address] [place] [address] [address], [place], [place], [id number], [place] tel:[phone] [facility] No Information -201 0 Krishnasamy Ramos. [address] [place] [address] [address], [place], [place], [facility], . tel:[phone] [facility], [address] [place] [address] [address], [place], [place], [id number], [place] tel:[phone] [facility] No Information 201 0 Krishnasamy Ramos. [address] [place] [address] [address], [place], [place], [facility], [place]. tel:[phone] Referring Provider: Ramos laguna, [address] [place] [address] [address], [place], [place], [facility]. tel:[phone] Office/outpat ient Visit, [facility], [address] [place] [address] [address], [place], [place], [address], [place] tel:[phone] [facility] No Information 2-200 9 Krishnasamy Ramos. [address] [place] [address] [address], [place], [place], [facility], [place]. tel:[phone] Office/outpat ient Visit, [facility], [address] [place] [address] [address], [place], [place], [id number], [place] tel:[phone] [facility] No Information 9-200 9 Krishnasamy Ramos. [address] [place], [place] [address]ate [address], [facility], [place]. tel:[phone] Referring Provider: Ramos laguna, [address] [place], [place] [address]ate [place] [address], [place], [place], [facility]. tel:[phone] [facility], [address] [place] [address] [address], [place], [place], [id number], [place] tel:[phone] [facility] No Information 7-200 9 Krishnasamy Ramos. [address] [place], [place] [address]ate [address], [facility], [place]. tel:[phone] Referring Provider: Ramos laguna, [address] [place], [place] [address]ate [address], [facility]. tel:[phone] [facility], [address] [place] [address] [address], [place], [place], [id number], [place] tel:[phone] [facility] [place] No Information Mar-0 5-200 9 Krishnasamy Ramos. [address] [place], [place] [address]ate [address], [facility], [place]. tel:[phone] [facility], [address] [place] [address] [address], [place], [place], [address], [place] tel:[phone] [facility] [place] No Information Sep-0 9-200 8 Krishnasamy Ramos. [address] [place], [place] [address]ate [address], [facility], [place]. tel:[phone] Office[facility]outpat ient Visit, [facility], [address] [place] [address] [address], [place], [place], [address], [place] tel:[phone] [facility] [place] No Information 3-200 8 Jolene Beasley. [facility] [address], [place], [facility], [place]. tel:[phone] [facility]pat ient [facility], [facility], [address] [place] [address] [address], [place], [place], [address], [place] tel:[phone] [facility] [place] No Information 200 8 Maurilio Swenson. [address] [place], [place] [address]ate Center , [address], [place], [place], [facility], [place]. tel:[phone] [facility], [address] [place] [address] [address], [place], [place], [address], [place] tel:[phone] [facility] [place] No Information 0-200 7 Maurilio Swenson. [address] [place], [place] [address]ate Center , [address], [place], [facility], [place]. tel:[phone] Referring Provider: Messi Mendoza, [address] [place], [place] [address]ate Center [address], [place], [place], [facility]. tel:[phone] Office/outpat ient Visit, [facility], [address] [place] [address] [address], [place], [place], [address], [place] tel:[phone] [facility] [place] No Information 8-200 7 Nunes OD Glenn. [facility] , [address], [place], [facility], [place]. tel:[phone] Office/outpat ient Visit, [facility], [address] [place] [address] [address], [place], [place], [address], [place] tel:[phone] [facility] [place] No Information 4-200 7 Maurilio Swenson. [address] [place], [place] [address]ate Center , [address], [place], [facility], [place]. tel:[phone] Office/outpat ient Visit, [facility], [address] [place], [place], [place], [address], [place] tel:[phone] [facility] No Information 8200 7 Maurilio Swenson. [facility] , [address], [place], [address], [place]. tel:[phone] Referring Provider: Messi Mendoza, [address] [place] [address] [address], [place], [address]. tel:[phone] Family History Family Member Type Diagnosis Age At Onset No Information Payers Payer name Insurance type Covered alliance party ID Authoriza tion(s) Medicare [facility] [id number] Social History Type Description Quantity Date Captured Comments Sex Male Smoking Status No Information Chief Complaint And Reason For Visit No Information Reason For Referral Reason For Referral No Information History Of Present Illness Encounter Date Complaint History Of Prese nt Illness No Information Functional Status Date Functional Assessmen t No Information Instructions Date Instruction Additional Infor mation No Information Assessments Type Assessment Date No Information Patient Care Teams Name Effective Dates (start - stop) Status Members No Information
--- OUTSIDE RECORDS SUMMARY | 2024-03-16 05:14 | XMS_ITS ---
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 Role Phone Maciel Leonardo Unavailable [phone] Medications Medication SIG (Take, Route, Frequency, Duration) Notes Start Date End Date Status Timolol Maleate 0.5 % Ophthalmic 04/15/2023 Active Vitamin D3 Adult Gummies 25 MCG (1000 UT) Oral 04/15/2023 Active Donepezil HCl 10 MG 1 tablet Oral Once a day for 90 days Active QUEtiapine Fumarate 100 MG 0.5 tablet Oral twice a day for 90 days 04/15/2023 Active DULoxetine HCl 60 MG 1 capsule Oral Once a day for 90 days 04/15/2023 Active Ergocalciferol 1.25 MG (85805 UT) Oral 04/15/2023 Active Vitamin B-12 1000 MCG Oral 04/15/2023 Active Prolia 60 MG/ML Subcutaneous *Pick strength-form from [employer] for eRX* 04/15/2023 Active LORazepam 0.5 MG 1 tablet Oral Once a day for 30 days 10/14/2023 Active Nyamyc 294622 UNIT/GM External 04/15/2023 Active Meloxicam 7.5 MG Oral 04/15/2023 Ac tive Triamcinolone Acetonide 0.1% External 04/15/2023 Active CALCIUM 600 + D(3) 600 MG-10 MCG (400 UNIT) TABLET *Reorder from [employer] for eRx and Interaction Alerts* 04/15/2023 Active Aspirin Adult Low Strength 81 MG Oral 04/15/2023 Active Loratadine 10 MG Oral 04/15/2023 Ac tive Rosuvastatin Calcium 20 MG Oral 04/15/2023 Active Levothyroxine Sodium 100 MCG Oral 04/15/2023 Active Social History Sex Assigned At : Social History Observation Description Sex Assigned At Male Encounters Encounter Location Date Provider Diagnosis [facility] [address] [place] [address] 11/15/2023 Maciel Leonardo Generalized anxiety disorder F41.1 ; Major depressive disorder, recurrent, 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 1. Depression: - Patient reports no current depressive symptoms and is doing well. Plan: - Continue duloxetine 60 mg daily. 2. Anxiety: - Patient reports anxiety is manageable and not feeling overly nervous or worried. Plan: - Continue lorazepam 0.5 mg every morning. 3. Sleep: - Patient reports good sleep quality. Plan: - Continue quetiapine 100 mg, half a tablet twice a day. 4. Alzheimer's/Dem entia: - Patient is on donepezil for memory issues. Plan: - Continue donepezil 10 mg at bedtime. 5. Follow-up: - Schedule a follow-up appointment in three months to reassess patient's overall health and medication management. 11/15/2023 Major depressive disorder, recurrent, mild (ICD-10 - F33.0) CONT DULOXETINE 60MG DAILY CONT QUETIAPINE 100MG - 0.5 tablet twice daily HX PSYCHOSIS 1. Depression: - Patient reports no current depressive symptoms and is doing well. Plan: - Continue duloxetine 60 mg daily. 2. Anxiety: - Patient reports anxiety is manageable and not feeling overly nervous or worried. Plan: - Continue lorazepam 0.5 mg every morning. 3. Sleep: - Patient reports good sleep quality. Plan: - Continue quetiapine 100 mg, half a tablet twice a day. 4. Alzheimer's/Dem entia: - Patient is on donepezil for memory issues. Plan: - Continue donepezil 10 mg at bedtime. 5. Follow-up: - Schedule a follow-up appointment in three months to reassess patient's overall health and medication management. 11/15/2023 Insomnia due to other mental disorder (ICD-10 - F51.05) stable 1. Depression: - Patient reports no current depressive symptoms and is doing well. Plan: - Continue duloxetine 60 mg daily. 2. Anxiety: - Patient reports anxiety is manageable and not feeling overly nervous or worried. Plan: - Continue lorazepam 0.5 mg every morning. 3. Sleep: - Patient reports good sleep quality. Plan: - Continue quetiapine 100 mg, half a tablet twice a day. 4. Alzheimer's/Dem entia: - Patient is on donepezil for memory issues. Plan: - Continue donepezil 10 mg at bedtime. 5. Follow-up: - Schedule a follow-up appointment in three months to reassess patient's overall health and medication management. 11/15/2023 Alzheimer's disease with late onset (ICD-10 - G30.1) CONT DONEPEZIL 10MG HS 1. Depression: - Patient reports no current depressive symptoms and is doing well. Plan: - Continue duloxetine 60 mg daily. 2. Anxiety: - Patient reports anxiety is manageable and not feeling overly nervous or worried. Plan: - Continue lorazepam 0.5 mg every morning. 3. Sleep: - Patient reports good sleep quality. Plan: - Continue quetiapine 100 mg, half a tablet twice a day. 4. Alzheimer's/Dem entia: - Patient is on donepezil for memory issues. Plan: - Continue donepezil 10 mg at bedtime. 5. Follow-up: - Schedule a follow-up appointment in three months to reassess patient's overall health and medication management. Plan Of Treatment Medication Medication Name Sig Start Date Stop Date Notes Donepezil HCl 10 MG 1 tablet Oral Once a day for 90 days QUEtiapine Fumarate 100 MG 0.5 tablet Or al twice a day for 90 days 04/15/2023 DULoxetine HCl 60 MG 1 capsule Oral Once a day for 90 days 04/15/2023 LORazepam 0.5 MG 1 tablet Oral Once a day for 30 days 10/14/2023 Treatment Notes Assessment Notes Generalized anxiety disorder CONT LORAZE SERGIO 0.5MG q a.m. Major depressive disorder, recurrent, mi ld CONT DULOXETINE 60MG DAILY CONT QUETIAPINE 100MG - 0.5 tablet twice daily HX PSYCHOSIS Insomnia due to other mental disorder st able Next Appt Details Follow Up: 3 Months, Reason: f/u depression, anxiety Provider Name:Maciel pemberton, 05/14/2024 01:30:00 PM, [address], [facility] [address], [place], [address], Progress Notes * RANI, CEEDOB:1940 ([age] yo M)Acc No.[id number]:11/15/2023 Patient:?CEE SARAVIA Provider:?ARLINE COSTA :1940???Age:83 Y???Sex:Male Anand e:11/15/2023 Address:[address] [place], [place] [id number] Subjective: * Chief Complaints: * ??? * HPI: ???Dementia:? Chief complaint - Patient reports feeling good, no concerns. the note is transcribed using speech recognition software. It is a reflection of a visit with the patient. It might have some inaccuracy, including medication names and transcribing errors, though efforts have been made to correct them. The patient denies experiencing any depression and states that his anxiety is manageable without excessive nervousness or worry. He reports having good sleep and a great appetite. The patient denies any problems with his current medication regimen, which includes lorazepam 0.5 mg daily for anxiety, duloxetine 60 mg daily for depression, quetiapine 100 mg half a tablet twice a day, and donepezil 10 mg at bedtime for Alzheimer's dementia. No recent medical changes are reported, aside from having some skin cancers removed and an upcoming appointment to remove a lesion. The patient recently celebrated his birthday and enjoys spending time with his great-grandchild, who is now two years old. ?Dementia was first noted?years ago, short term memory impairment, difficulty learning new information.?Risk factors include?history of prolonged medical illness.?stable, he lives with his , has good family support. ???History of Presenting Problem:?Memory?Quality:?short term memory loss;?forgetting names or everyday words;?difficulty communicating;?disoriented time, self, or place;?inability to reason;?difficulty with coordination;?Expressive Aphasia Severity:?moderate Duration:?months Onset/Timing:?insidious Context:?difficulty planning or organizing;?sleep disturbance;?personality changes Associated Symptoms:?depression;?paranoia;?anxiety;?irritability or agitation;?weight loss;?anorexia.? * Medical History:? * Surgical History:? * Hospitalization/Major Diagno stic Procedure:? * Medications:?TakingRosuvasta tin Calcium 20 MG Tablet Oral Levothyroxine Sodium 100 MCG Tablet Oral Meloxicam 7.5 MG Tablet Oral Triamcinolone Acetonide 0.1% Cream External CALCIUM 600 + D(3) 600 MG-10 MCG (400 UNIT) TABLET , Notes to Pharmacist: *Reorder from [employer] for eRx and Interaction Alerts*Aspirin Adult Low Strength 81 MG Tablet Delayed Release Oral Loratadine 10 MG Tablet Oral DULoxetine HCl 60 MG Capsule Delayed Release Particles Oral Nyamyc [id number] UNIT/GM Powder External Ergocalciferol 1.25 MG (74779 UT) Capsule Oral QUEtiapine Fumarate 100 MG Tablet Oral Vitamin B-12 1000 MCG Tablet Oral Prolia 60 MG/ML Solution Subcutaneous , Notes to Pharmacist: *[facility] from [facility]*Timolol Maleate 0.5 % Gel Forming Solution Ophthalmic Vitamin D3 Adult Gummies 25 MCG (1000 UT) Tablet Chewable Oral Donepezil HCl 10 MG Tablet TAKE 1 TABLET BY MOUTH EVERY DAY LORazepam 0.5 MG Tablet 1 tablet Oral Once a day Taking Rosuvastatin Calcium 20 MG Tablet Oral Taking Levothyroxine Sodium 100 MCG Tablet Oral Taking Meloxicam 7.5 MG Tablet Oral Taking Triamcinolone Acetonide 0.1% Cream External Taking CALCIUM 600 + D(3) 600 MG-10 MCG (400 UNIT) TABLET , Notes to Pharmacist: *Reorder from [facility] for eRx and Interaction Alerts*Taking Aspirin Adult Low Strength 81 MG Tablet Delayed Release Oral Taking Loratadine 10 MG Tablet Oral Taking DULoxetine HCl 60 MG Capsule Delayed Release Particles Oral Taking Nyamyc [id number] UNIT/GM Powder External Taking Ergocalciferol 1.25 MG (11491 UT) Capsule Oral Taking QUEtiapine Fumarate 100 MG Tablet Oral Taking Vitamin B-12 1000 MCG Tablet Oral Taking Prolia 60 MG/ML Solution Subcutaneous , Notes to Pharmacist: *Pick strength-form from [employer] for eRX*Taking Timolol Maleate 0.5 % Gel Forming Solution Ophthalmic Taking Vitamin D3 Adult Gummies 25 MCG (1000 UT) Tablet Chewable Oral Taking Donepezil HCl 10 MG Tablet TAKE 1 TABLET BY MOUTH EVERY DAY Taking LORazepam 0.5 MG Tablet 1 tablet Oral Once a day Objective: * Vitals:? * Examination: ???Psychiatry: ?Separation from caregiver during interview process:? present.?Abnormal body movements:?slow shuffling gait.?Orientation:?awake, alert and oriented x 3.?Speech / language:?proper grammar used, normal rate, volume, and articulation (RVR).?General Examination: ???- Mental Status Examination: - Patient denies experiencing depression. - Reports no issues with anxiety; feels okay. - Sleep quality described as good, real good. - Appetite reported as great. 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 Assessment: * Assessment: 1.?Generalized anxiety disor juan - F41.1 (Primary)???2.?Major depressive disorder, recurrent, mild - F33.0???3.?Insomnia due to other mental disorder - F51.05???4.?Alzheimer's disease with late onset - G30.1??? 1. Depression:- Patient repo rts no current depressive symptoms and is doing well.Plan:- Continue duloxetine 60 mg daily.2. Anxiety:- Patient reports anxiety is manageable and not feeling overly nervous or worried.Plan:- Continue lorazepam 0.5 mg every morning.3. Sleep:- Patient reports good sleep quality.Plan:- Continue quetiapine 100 mg, half a tablet twice a day.4. Alzheimer's/Dementia:- Patient is on donepezil for memory issues.Plan:- Continue donepezil 10 mg at bedtime.5. Follow-up:- Schedule a follow-up appointment in three months to reassess patient's overall health and medication management. Plan: * Treatment: 2.?Major depressive disorder , recurrent, mild? Refill QUEtiapine Fumarate Tablet, 100 MG, 0.5 tablet, Oral, twice a day, 90 days, 90 Tablet, Refills 1;?Refill DULoxetine HCl Capsule Delayed Release Particles, 60 MG, 1 capsule, Oral, Once a day, 90 days, 90 Capsule, Refills 1.?? Notes: CONT DULOXETINE 60MG DAILY CONT QUETIAPINE 100MG - 0.5 tablet twice daily HX PSYCHOSIS?? 3.?Insomnia due to other men anu disorder? Notes: stable?? 4.?Alzheimer's disease with late onset? Refill Donepezil HCl Tablet, 10 MG, 1 tablet, Oral, Once a day, 90 days, 90 Tablet, Refills 1.?? Clinical Notes: CONT DONEPEZIL 10MG HS?? * Procedure Codes:?G2211 VISIT COMPLEXITY INHERENT TO ONGOING CARE RELATED TO A PATIENT'S SINGLE, SERIOUS CONDITION OR A COMPLEX CONDITION * Follow Up:?3 Months (Reason: f/u depression, anxiety) * Billing Information: * Visit Code:? 12096 OFFICE OUTPATIENT VISIT 25 MINUTES DETAILED HISTORY AND EXAM/MODERATE MEDICAL DECISION MAKING. * Procedure Codes:? G2211 VISIT COMPLEXITY INHERENT TO ONGOING CARE RELATED TO A PATIENT'S SINGLE, SERIOUS CONDITION OR A COMPLEX CONDITION. 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 History and Physical Notes * HPI (History of Present Illness) Category Sub-Category Detail Notes Category Not es Dementia Risk factors include history of prolonged medical illness stable, he lives with his , has good family support Dementia was first noted years ago, shor t term memory impairment, difficulty learning new information History of Presenting Problem Memory Qu ality: short term memory loss; forgetting names or everyday words; difficulty communicating; disoriented time, self, or place; inability to reason; difficulty with coordination; Expressive Aphasia Severity: moderate Duration: months Onset/Timing: insidious Context: difficulty planning or organizing; sleep disturbance; personality changes Associated Symptoms: depression; paranoia; anxiety; irritability or agitation; weight loss; anorexia Examination Category Sub-Category Detail Notes Category Not es Psychiatry Abnormal body movements: slow shuffling g ait Orientation: awake, alert and adelfo ented x 3 Speech / language: proper grammar used, normal rate, volume, and articulation (RVR) Separation from caregiver du lon interview process: present General Examination - Mental Status Examination: - Patient denies experiencing depression. - Reports no issues with anxiety; feels okay. - Sleep quality described as good, real good. - Appetite reported as great. 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
--- OUTSIDE RECORDS SUMMARY | 2024-03-16 05:14 | XMS_ITS | Clinical Summary ---
Author Organization Unknown Care Team Providers Care Floor Care Technician Name Role Phone ZACH INTERSTATE, MURTUZA Unavailable Unavailable ELIZA PT, KEESHA Unavailable Unavailable KAREN MENTAL HEALTH CONSULTANT, PHILIPPE Unavailable Unavailable SASKIA PEREZ OT Unavailable Jacquelyn crawford [facility], SHAN Unavailable Unavailable ELYSE PENNY, SHAUNNA Unavailable Unavailabl e Payers Payer Name Policy Type Policy Number Effective Date Expira [facility]ion Date [id number] Problems Condition Name Condition Details Condition Category Status Onset Date Resolution Date Last Treatment Date Treating Clinician Comments NONDISP INTERTROCH FX L FEMUR, SUBS FOR CLOS FX W ROUTN HEAL Active 11-10 00:00: 00 PARKINSON'S DISEASE Active 11-13 00:00: 00 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 11-13 00:00: 00 DEM IN OTHER DIS CLASSD ELSWHR, MILD, W/O BEH/PSYCH/MO OD/ANX Active 11-13 00:00: 00 ESSENTIAL (PRIMARY) HYPERTENSION Active 11-13 00:00: 00 DEPRESSION, UNSPECIFIED Active 11-13 00:00: 00 ANXIETY DISORDER, UNSPECIFIED Active 11-13 00:00: 00 HYPOTHYROIDI SM, UNSPECIFIED Active 11-13 00:00: 00 HYPERLIPIDEM IA, UNSPECIFIED Active 11-13 00:00: 00 UNSPECIFIED GLAUCOMA Active 11-13 00:00: 00 COCHLEAR IMPLANT STATUS Active 11-13 00:00: 00 PRESENCE OF OTHER BONE AND TENDON IMPLANTS Active 11-13 00:00: 00 HISTORY OF FALLING Active 11-13 00:00: 00 Allergies, Adverse Reactions, Alerts Allergy Name Allergy Type Status Severity Reaction(s) Onset Date Inactive Date Treating Clinician Comments NO KNOWN ALLERGIES Propensity to adverse reactions Active 11-13 11:24: 53 Medications Ordered Medication Name Filled Medication Name Start Date Stop Date Current Medication? Ordering Clinician Indication Dosage Frequency Signature (SIG) Comments Components timolol maleate 0.5 % eye gel forming solution 11-03 00:00: 00 Yes [id number] GLAUCOMA Per instruc tions DAILY Per instructio ns DAILY (route: ophthalmic (eye)) Med Classific ation: Ophthalmi c Agents atorvastati n 40 mg tablet 11-02 00:00: 00 Yes [id number] HYPERCHOLES TEREMIA 1 tablet DAILY 1 tablet DAILY (route: oral) Med Classific ation: Cardiovas cular Therapy Agents meloxicam 7.5 mg tablet 11-02 00:00: 00 Yes [id number] ANTI-INFLAM MATORY 1 tablet DAILY 1 tablet DAILY (route: oral) Med Classific ation: Analgesic , Anti-infl ammatory or Antipyret ic levothyroxi ne 100 mcg tablet 10-22 00:00: 00 Yes [id number] HYPOTHYROID ISM 1 tablet ONCE DAILY 1 tablet ONCE DAILY (route: oral) Med Classific ation: Endocrine loratadine 10 mg tablet 10-19 00:00: 00 11-13 00:00 :00 No [id number] Per instruc tions EVERY DAY NEEDED FOR 90 DAYS Per instructio ns EVERY DAY NEEDED FOR 90 DAYS (route: oral) Med Classific ation: Respirato ry Therapy Agents donepezil 10 mg tablet 10-21 00:00: 00 Yes [id number] MEMORY 1 tablet DAILY 1 tablet DAILY (route: oral) Med Classific ation: Cognitive Disorder Therapy duloxetine 60 mg capsule,del ayed release 10-21 00:00: 00 Yes [id number] DEPRESSION 1 capsule DAILY 1 capsule DAILY (route: oral) Med Classific ation: Central Nervous System Agents ergocalcife rol (vitamin D2) 1,250 mcg (50,000 unit) capsule 10-21 00:00: 00 Yes [id number] SUPPLEMENT 1 capsule WEEKLY 1 capsule WEEKLY (route: oral) Med Classific ation: Electroly te Balance-N utritiona l Products famotidine 20 mg tablet 10-21 00:00: 00 Yes [id number] ACID REFLUX 1 tablet 2 TIMES DAILY 1 tablet 2 TIMES DAILY (route: oral) Med Classific ation: Gastroint estinal Therapy Agents hydrocodone 7.5 mg-acetamin ophen 325 mg tablet 10-21 00:00: 00 Yes [id number] NEEDED FOR PAIN 1 tablet EVERY 6 HOURS 1 tablet EVERY 6 HOURS (route: oral) Med Classific ation: Analgesic , Anti-infl ammatory or Antipyret ic lorazepam 0.5 mg tablet 10-27 00:00: 00 Yes [id number] ANXIETY 1 tablet DAILY 1 tablet DAILY (route: oral) Med Classific ation: Central Nervous System Agents melatonin 5 mg capsule 10-21 00:00: 00 Yes [id number] SLEEP AID 1 capsule BEDTIME 1 capsule BEDTIME (route: oral) Med Classific ation: Central Nervous System Agents Miralax 17 gram oral powder packet 11-12 00:00: 00 Yes [id number] CONSTIPATIO N 1 packet DAILY 1 packet DAILY (route: oral) Med Classific ation: Gastroint estinal Therapy Agents nystatin 100,000 unit/gram topical powder 10-27 00:00: 00 Yes [id number] NEEDED FOR RASH ON BACK Per instruc tions 3 TIMES DAILY Per instructio ns 3 TIMES DAILY (route: topical) Med Classific ation: Dermatolo gical quetiapine 50 mg tablet 10-21 00:00: 00 Yes [id number] SLEEP AID 1 tablet 2 TIMES DAILY 1 tablet 2 TIMES DAILY (route: oral) Med Classific ation: Central Nervous System Agents Vital Signs Vital Name Observation Time Observation Value Commen ts Temperature 2022-11-25 10:36:00.000 97.7 [degF] Temperature 2022-11-24 14:47:00.000 98.6 [degF] Temperature 2022-11-23 10:54:00.000 97.7 [degF] Temperature 2022-11-19 15:04:00.000 98.4 [degF] Temperature 2022-11-18 15:37:00.000 97.7 [degF] Temperature 2022-11-13 11:34:00.000 97.8 [degF] BMI (%) 2022-11-13 11:34:00.000 28 kg/m2 Height 2022-11-13 11:34:00.000 69 [in_us] Pulse 2022-11-25 10:36:00.000 60 /min Pulse 2022-11-24 14:47:00.000 60 /min Pulse 2022-11-23 10:54:00.000 61 /min Pulse 2022-11-19 15:04:00.000 60 /min Pulse 2022-11-18 15:37:00.000 60 /min Pulse 2022-11-13 11:34:00.000 60 /min O2 Saturation (%) 2022-11-25 10:36:00.000 96 % O2 Saturation (%) 2022-11-24 14:47:00.000 97 % O2 Saturation (%) 2022-11-23 10:54:00.000 93 % O2 Saturation (%) 2022-11-19 15:04:00.000 98 % O2 Saturation (%) 2022-11-13 11:34:00.000 99 % Respirations 2022-11-25 10:36:00.000 19 /min Respirations 2022-11-24 14:47:00.000 18 /min Respirations 2022-11-23 10:54:00.000 17 /min Respirations 2022-11-19 15:04:00.000 18 /min Respirations 2022-11-18 15:37:00.000 18 /min Respirations 2022-11-13 11:34:00.000 16 /min Weight (lbs) 2022-11-13 11:34:00.000 190 [lb_av] Systolic Blood Pressure 2022-11-25 10:36:00.000 106 mm [Hg] Systolic Blood Pressure 2022-11-24 14:47:00.000 118 mm [Hg] Systolic Blood Pressure 2022-11-23 10:54:00.000 102 mm [Hg] Systolic Blood Pressure 2022-11-19 15:04:00.000 120 mm [Hg] Systolic Blood Pressure 2022-11-18 15:37:00.000 110 mm [Hg] Systolic Blood Pressure 2022-11-13 11:34:00.000 118 mm [Hg] Diastolic Blood Pressure 2022-11-25 10:36:00.000 62 mm [Hg] Diastolic Blood Pressure 2022-11-24 14:47:00.000 56 mm [Hg] Diastolic Blood Pressure 2022-11-23 10:54:00.000 64 mm [Hg] Diastolic Blood Pressure 2022-11-19 15:04:00.000 60 mm [Hg] Diastolic Blood Pressure 2022-11-18 15:37:00.000 70 mm [Hg] Diastolic Blood Pressure 2022-11-13 11:34:00.000 62 mm [Hg] Plan of Treatment Planned Activity Planned Date Details Comments Future Scheduled Test AGENCY MAY PERFORM A RESUMPTION OF CARE VISIT FOLLOWING ANY HOSPITAL ADMISSION. PHYSICAL THERAPY TO EVALUATE, ASSESS AND MONITOR, PROVIDE SKILLED THERAPEUTIC INTERVENTION, ACTIVITY, EDUCATION, AND TRAINING TO ADDRESS: [code = AGENCY MAY PERFORM A RESUMPTION OF CARE VISIT FOLLOWING ANY HOSPITAL ADMISSION. PHYSICAL THERAPY TO EVALUATE, ASSESS AND MONITOR, PROVIDE SKILLED THERAPEUTIC INTERVENTION, ACTIVITY, EDUCATION, AND TRAINING TO ADDRESS:] Future Scheduled Test BED MOBILI TY TRAINING (PT); [code = BED MOBILITY TRAINING (PT);] Future Scheduled Test TRANSFER T RAINING (PT) [code = TRANSFER TRAINING (PT)] Future Scheduled Test GAIT TRAIN ING (PT) [code = GAIT TRAINING (PT)] Future Scheduled Test STAIR BRINDA CIERRA (PT) [code = STAIR TRAINING (PT)] Future Scheduled Test NEUROMUSCU LAR RE-EDUCATION / BALANCE RETRAINING (PT) [code = NEUROMUSCULAR RE-EDUCATION / BALANCE RETRAINING (PT)] Future Scheduled Test THERAPEUTI C EXERCISES (PT) [code = THERAPEUTIC EXERCISES (PT)] Future Scheduled Test ORTHOPEDIC SURGICAL AFTERCARE (PT) MAY TEACH PATIENT APPLICATION OF CRYOTHERAPY FOR PAIN AND/OR SWELLING UP TO 20 MIN AT A TIME OVER INCISION/JOINT [code = ORTHOPEDIC SURGICAL AFTERCARE (PT) MAY TEACH PATIENT APPLICATION OF CRYOTHERAPY FOR PAIN AND/OR SWELLING UP TO 20 MIN AT A TIME OVER INCISION/JOINT] Future Scheduled Test FEMUR FRAC TURE/ORIF SELF-MANAGEMENT (PT) [code = FEMUR FRACTURE/ORIF SELF-MANAGEMENT (PT)] Future Scheduled Test HYPERTENSI ON SELF-MANAGEMENT (PT) [code = HYPERTENSION SELF-MANAGEMENT (PT)] Future Scheduled Test IDENTIFY F ALL RISK FACTORS AND ESTABLISH HOME EXERCISE PROGRAM TO MINIMIZE FALL RISK. MAY TEACH THE PATIENT FLOOR RECOVERY WHEN CLINICALLY APPROPRIATE (PT) [code = IDENTIFY FALL RISK FACTORS AND ESTABLISH HOME EXERCISE PROGRAM TO MINIMIZE FALL RISK. MAY TEACH THE PATIENT FLOOR RECOVERY WHEN CLINICALLY APPROPRIATE (PT)] Future Scheduled Test OXYGEN SAT URATION (PT). NOTIFY MD IF 02SATS BELOW 90% AFTER 10 MIN OF REST. [code = OXYGEN SATURATION (PT). NOTIFY MD IF 02SATS BELOW 90% AFTER 10 MIN OF REST.] Future Scheduled Test DEPRESSION ? MONITOR (PT) [code = DEPRESSION ? MONITOR (PT)] Future Scheduled Test PAIN MANAG EMENT (PT) [code = PAIN MANAGEMENT (PT)] Future Scheduled Test PHYSICAL T HERAPY TO OBSERVE INCISIONS ON LEFT HIP AND REPORT EARLY SIGNS AND SYMPTOMS OF WOUND DETERIORATION, COMPLICATIONS, OR INFECTION TO RN CLINICAL COAL CUTTING MACHINE OPERATOR AND/OR PHYSICIAN. [code = PHYSICAL THERAPY TO OBSERVE INCISIONS ON LEFT HIP AND REPORT EARLY SIGNS AND SYMPTOMS OF WOUND DETERIORATION, COMPLICATIONS, OR INFECTION TO RN CLINICAL COAL CUTTING MACHINE OPERATOR AND/OR PHYSICIAN.] Future Scheduled Test PHYSICAL T HERAPY TO INSTRUCT PATIENT/CAREGIVER ON RISK FOR HOSPITALIZATION/EMERGENCY ROOM VISITS, TEACH SIGNS AND SYMPTOMS THAT PUT PATIENT AT RISK, WHEN TO NOTIFY NURSE/PHYSICIAN OF COMPLICATIONS/DECLINE, AND WHEN TO CALL 911. [code = PHYSICAL THERAPY TO INSTRUCT PATIENT/CAREGIVER ON RISK FOR HOSPITALIZATION/EMERGENCY ROOM VISITS, TEACH SIGNS AND SYMPTOMS THAT PUT PATIENT AT RISK, WHEN TO NOTIFY NURSE/PHYSICIAN OF COMPLICATIONS/DECLINE, AND WHEN TO CALL 911.] Future Scheduled Test HOME HEALT H AGENCY MAY ACCEPT ORDERS FROM THE FOLLOWING PHYSICIANS: DR. DAVID WILSON [code = HOME HEALTH AGENCY MAY ACCEPT ORDERS FROM THE FOLLOWING PHYSICIANS: DR. DAVID WILSON] Goal 2022-11-25 Patient Goal - T O BE INDEP AND ABLE TO WALK AGAIN Goal Provider Goal - Goal Provider Goal - PT STG: PATIENT WILL DEMONSTRATE IMPROVED BED MOBILITY FROM SBA TO INDEP WITHIN 2 WEEKS TO DECREASE FALL RISK GETTING IN AND OUT OF BED. Goal Provider Goal - PT LTG: PATIENT WILL DEMONSTRATE IMPROVED TRANSFERS FROM CGA SIT TO/FROM STAND WITH TTWB LEFT LE AND FWW, TO INDEP WITH UE PUSH OFF WHILE MAINTAINING PROPER WEIGHT BEARING STATUS TO IMPROVE SAFETY STANDING UP FROM WHEELCHAIR, BED, AND COUCH WITHIN 9 WEEKS. Goal Provider Goal - PT LTG: PATIENT WILL DEMONSTRATE IMPROVED AMBULATION FROM 5 FT WITH TTWB LEFT LE AND FWW, TO AMB INDEP X 150 FT WITH PROPER WBING AND RECIPROCAL PATTERN ABLE WITH FWW WITHIN 9 WEEKS TO IMPROVE SAFETY WALKING BETWEEN FAMILY ROOM BEDROOM AND KITCHEN. PT LTG: PATIENT WILL DEMONSTRATE IMPROVED AMBULATION UP AND DOWN RAMP FROM UNABLE AT EVAL, TO SUPERVISION WITH FWW TO DECREASE FALL RISK LEAVING HOME FOR MEDICAL APPOINTMENTS WITHIN 9 WEEKS. Goal Provider Goal - PT LTG: PATIENT WILL DEMONSTRATE IMPROVED ABILITY TO SAFELY NEGOTIATE STAIRS FROM UNABLE AT EVAL, TO SUPERVISION WITH HANDRAILING AND STEP TO PATTERN WBING UPGRADES ALLOW WITHIN 9 WEEKS. Goal Provider Goal - PT LTG: PATIENT WILL DEMONSTRATE REDUCED FALL RISK EVIDENCED BY TINETTI SCORE IMPROVING FROM 0/28 TO 21/28 WITHIN 9 WEEKS TO DECREASE FALL RISK WHILE WALKING THROUGHOUT THE HOME. Goal Provider Goal - PT STG: PATIENT WILL DEMONSTRATE LE STRENGTHENING HEP WITH SBA USING HANDOUT PROVIDED TO PROMOTE STRENGTHENING BETWEEN SESSIONS WITHIN 2 WEEKS. PT LTG: PATIENT WILL DEMONSTRATE INCREASED STRENGTH OF LEFT HIP FROM 3+/5 TO 4+/5 WITHIN 9 WEEKS IN ORDER TO IMPROVE GAIT AND ABILITY TO NEGOTIATE STAIRS ONCE WEIGHTBEARING STATUS ALLOWS. PT LTG: PATIENT WILL DEMONSTRATE INCREASED STRENGTH OF LEFT KNEE FROM 4-/5 TO 5/5 WITHIN 9 WEEKS IN ORDER TO IMPROVE ABILITY TO WALK AND NEGOTIATE STAIRS WB STATUS ALLOWS. Goal Provider Goal - PATIENT WILL DEMONSTRATE NORMAL HEALING FOLLOWING SURGERY WITH NO COMPLICATIONS BY END OF EPISODE. Goal Provider Goal - PT GOAL: PATIENT WILL DEMONSTRATE OPTIMAL OUTCOMES INCLUDING INCREASED STRENGTH AND MOBILITY WITH NO COMPLICATIONS FOLLOWING FEMUR FRACTURE/ORIF BY END OF EPISODE. Goal Provider Goal - PT GOAL: PATIENT/CAREGIVER WILL BE ABLE TO IDENTIFY SIGNS OF EXACERBATION OF HYPERTENSION AND WILL VERBALIZE/DEMONSTRATE AN ABILITY TO ADHERE TO HYPERTENSION SELF-MANAGEMENT AND LIFE-STYLE CHANGES AT DISCHARGE. Goal Provider Goal - PATIENT/CAREGIVER WILL DEMONSTRATE ADHERENCE TO FALL REDUCTION SELF MANAGEMENT TO MINIMIZE FALL BY END OF EPISODE. Goal Provider Goal - PATIENT WILL MAINTAIN OXYGEN SATURATION WITHIN PHYSICIAN ORDERED PARAMETERS THROUGHOUT EPISODE OF CARE Goal Provider Goal - EARLY IDENTIFICATION OF WORSENING DEPRESSION WITH TIMELY SN AND/OR PHYSICIAN NOTIFICATION Goal Provider Goal - PT GOAL: PATIENT/CAREGIVER WILL VERBALIZE UNDERSTANDING OF PAIN MANAGEMENT BY END OF EPISODE. Goal Provider Goal - THE PATIENT WILL NOT DEMONSTRATE ANY WOUND COMPLICATIONS DURING THE EPISODE OF CARE. Goal Provider Goal - PATIENT/CAREGIVER WILL VERBALIZE UNDERSTANDING OF SIGNS AND SYMPTOMS THAT PUT THE PATIENT AT RISK FOR HOSPITALIZATION /EMERGENCY ROOM VISITS, WHEN TO NOTIFY NURSE/PHYSICIAN OF COMPLICATIONS/DECLINE AND WHEN TO CALL 911. Goal Provider Goal - ADDITIONAL ORDERS WILL BE RECEIVED FROM ALTERNATE PHYSICIAN IN A TIMELY MANNER. Reason for Visit INDEPENDENT WITH USE OF ASSISTIVE DEVICE Encounters Start Date/Time End Date/Time Encounter Type Admission Type Attending [facility] Care Department Encounter ID Discharge Date Discharge Status Discharge Condition Discharge Reason Percent Goals Met 2022-11-13 00:00:00 2022-11-25 00:00:00 Outpatient NEW ADMISSION KEESHA KAY [facility] [id number] 2022-11-25 00:00:00 DISCHARGE TO HOME OR SELF CARE INDEPENDEN T WITH USE OF ASSISTIVE DEVICE HH ONLY - OUT PATIENT 57.14
--- OUTSIDE RECORDS SUMMARY | 2024-03-16 05:14 | XMS_ITS ---
Author Organization [facility] [employer] Address [address] [place] [address] Care Team Providers Care Inspector Set Up And Lay Out Name Role Phone Maciel Leonardo Unavailable [phone] Allergies No Known Allergies REASON FOR VISIT follow up visit, medication evaluation Medications Medication SIG (Take, Route, Frequency, Duration) Notes Start Date End Date Status Vitamin B-12 1000 MCG Oral 04/15/2023 Active Prolia 60 MG/ML Subcutaneous *Pick strength-form from [employer] for eRX* 04/15/2023 Active Timolol Maleate 0.5 % Ophthalmic 04/15/2023 Active Vitamin D3 Adult Gummies 25 MCG (1000 UT) Oral 04/15/2023 Active LORazepam 0.5 MG TAKE 1 TABLET BY MOUTH EVERY DAY FOR 30 DAYS for 30 01/24/2024 Active Ergocalciferol 1.25 MG (75713 UT) Oral 04/15/2023 Active CALCIUM 600 + D(3) 600 MG-10 MCG (400 UNIT) TABLET *Reorder from [employer] for eRx and Interaction Alerts* 04/15/2023 Active Aspirin Adult Low Strength 81 MG Oral 04/15/2023 Active Loratadine 10 MG Oral 04/15/2023 Ac tive Nyamyc 124780 UNIT/GM External 04/15/2023 Active DULoxetine HCl 60 MG 1 capsule Oral Once a day for 90 days Active Rosuvastatin Calcium 20 MG Oral 04/15/2023 Active Levothyroxine Sodium 100 MCG Oral 04/15/2023 Active Meloxicam 7.5 MG Oral 04/15/2023 Ac tive Triamcinolone Acetonide 0.1% External 04/15/2023 Active QUEtiapine Fumarate 100 MG 0.5 tablet Oral twice a day for 90 days Active LORazepam 0.5 MG 1 tablet Oral Once a day for 30 days 02/14/2024 Active Donepezil HCl 10 MG 1 tablet Oral Once a day for 90 days Active Social History Sex Assigned At : Social History Observation Description Sex Assigned At Male Vital Signs Blood pressure systolic 93 mm Hg 02/14/20 24 Blood pressure diastolic 57 mm Hg 024 Heart Rate 56 /min 02/14/2024 Height 70.00 in 02/14/2024 Weight 190.0 lbs 02/14/2024 BMI 27.26 kg/m2 02/14/2024 Height-cm 177.80 cm 02/14/2024 Weight-kg 86.18 kg 02/14/2024 Encounters Encounter Location Date Provider Diagnosis [facility] [employer] [facility] [address] [place] [address] 02/14/2024 Maciel Leonardo Generalized anxiety disorder F41.1 ; Major depressive disorder, recurrent, 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 1. Anxiety: - Patient reports feeling well and anxiety is well managed. - Continue current medication: Lorazepam 0.5 mg once daily. Plan: - Maintain current medication regimen. 2. Depression: - Patient denies experiencing any depression at this time. - Continue current medications: a. Quetiapine 100 mg, half a tablet in the morning, half a tablet in the evening. b. Duloxetine 60 mg daily. Plan: - Maintain current medication regimen. 3. Alzheimer's/Javed ntia symptoms: - Patient reports no memory problems or concerns. - Continue current medication: Donepezil 10 mg once daily. Plan: - Maintain current medication regimen. 4. Vitamin B12 deficiency: - Patient confirms receiving treatment for vitamin B12 deficiency. Plan: - Continue monitoring and treatment as needed. 5. Medication management: - Patient reports no problems or concerns with current medications. Plan: - Continue refills at [facility] in [place]. Follow-up: - Schedule a follow-up appointment in 3 months to monitor patient's progress and medication management. - Encourage patient to contact the clinic if any concerns or changes in symptoms arise before the next scheduled appointment. 02/14/2024 Major depressive disorder, recurrent, mild (ICD-10 - F33.0) CONT DULOXETINE 60MG DAILY CONT QUETIAPINE 100MG - 0.5 tablet twice daily HX PSYCHOSIS 1. Anxiety: - Patient reports feeling well and anxiety is well managed. - Continue current medication: Lorazepam 0.5 mg once daily. Plan: - Maintain current medication regimen. 2. Depression: - Patient denies experiencing any depression at this time. - Continue current medications: a. Quetiapine 100 mg, half a tablet in the morning, half a tablet in the evening. b. Duloxetine 60 mg daily. Plan: - Maintain current medication regimen. 3. Alzheimer's/Javed ntia symptoms: - Patient reports no memory problems or concerns. - Continue current medication: Donepezil 10 mg once daily. Plan: - Maintain current medication regimen. 4. Vitamin B12 deficiency: - Patient confirms receiving treatment for vitamin B12 deficiency. Plan: - Continue monitoring and treatment as needed. 5. Medication management: - Patient reports no problems or concerns with current medications. Plan: - Continue refills at [facility] in [place]. Follow-up: - Schedule a follow-up appointment in 3 months to monitor patient's progress and medication management. - Encourage patient to contact the clinic if any concerns or changes in symptoms arise before the next scheduled appointment. 02/14/2024 Insomnia due to other mental disorder (ICD-10 - F51.05) stable 1. Anxiety: - Patient reports feeling well and anxiety is well managed. - Continue current medication: Lorazepam 0.5 mg once daily. Plan: - Maintain current medication regimen. 2. Depression: - Patient denies experiencing any depression at this time. - Continue current medications: a. Quetiapine 100 mg, half a tablet in the morning, half a tablet in the evening. b. Duloxetine 60 mg daily. Plan: - Maintain current medication regimen. 3. Alzheimer's/Javed ntia symptoms: - Patient reports no memory problems or concerns. - Continue current medication: Donepezil 10 mg once daily. Plan: - Maintain current medication regimen. 4. Vitamin B12 deficiency: - Patient confirms receiving treatment for vitamin B12 deficiency. Plan: - Continue monitoring and treatment as needed. 5. Medication management: - Patient reports no problems or concerns with current medications. Plan: - Continue refills at [facility] in [place]. Follow-up: - Schedule a follow-up appointment in 3 months to monitor patient's progress and medication management. - Encourage patient to contact the clinic if any concerns or changes in symptoms arise before the next scheduled appointment. 02/14/2024 Alzheimer's disease with late onset (ICD-10 - G30.1) CONT DONEPEZIL 10MG HS 1. Anxiety: - Patient reports feeling well and anxiety is well managed. - Continue current medication: Lorazepam 0.5 mg once daily. Plan: - Maintain current medication regimen. 2. Depression: - Patient denies experiencing any depression at this time. - Continue current medications: a. Quetiapine 100 mg, half a tablet in the morning, half a tablet in the evening. b. Duloxetine 60 mg daily. Plan: - Maintain current medication regimen. 3. Alzheimer's/Javed ntia symptoms: - Patient reports no memory problems or concerns. - Continue current medication: Donepezil 10 mg once daily. Plan: - Maintain current medication regimen. 4. Vitamin B12 deficiency: - Patient confirms receiving treatment for vitamin B12 deficiency. Plan: - Continue monitoring and treatment as needed. 5. Medication management: - Patient reports no problems or concerns with current medications. Plan: - Continue refills at [facility] in [place]. Follow-up: - Schedule a follow-up appointment in 3 months to monitor patient's progress and medication management. - Encourage patient to contact the clinic if any concerns or changes in symptoms arise before the next scheduled appointment. Plan Of Treatment Medication Medication Name Sig Start Date Stop Date Notes DULoxetine HCl 60 MG 1 capsule Oral Once a day for 90 days QUEtiapine Fumarate 100 MG 0.5 tablet Or al twice a day for 90 days LORazepam 0.5 MG 1 tablet Oral Once a day for 30 days 02/14/2024 Donepezil HCl 10 MG 1 tablet Oral Once a day for 90 days Treatment Notes Assessment Notes Generalized anxiety disorder CONT LORAZE SERGIO 0.5MG q a.m. Major depressive disorder, recurrent, mi ld CONT DULOXETINE 60MG DAILY CONT QUETIAPINE 100MG - 0.5 tablet twice daily HX PSYCHOSIS Insomnia due to other mental disorder st able Next Appt Details Follow Up: 3 Months, Reason: f/u depression, anxiety Provider Name:Maciel pemberton, 05/14/2024 01:30:00 PM, [address], [facility] [address], [place], [address], Progress Notes * CEE SARAVIADOB:1940 ([age] yo M)Acc No.[id number]:02/14/2024 Patient:?CEE SARAVIA Provider:?CRISS COSTAHNP :1940???Age:83 Y???Sex:Male Anand e:02/14/2024 Address:[address] [place], [place] [id number] Subjective: * Chief Complaints: * ???Follow up visit, medicati on evaluation * HPI: ???Depression Screening:? the note is transcribed using speech recognition software. It is a reflection of a visit with the patient. It might have some inaccuracy, including medication names and transcribing errors, though efforts have been made to correct them. Chief complaint- Follow-up, medication management. The patient reports feeling excellent and well. He states that he has been eating well, sleeping well, and staying in and out of the cold. He denies any current concerns with anxiety and feels it is well managed. The patient also denies experiencing any depression at this time. He reports being able to get around well and complete necessary tasks. The patient is currently taking quetiapine 100 mg (half a tablet in the morning and half a tablet in the evening) for depression, duloxetine 60 mg for anxiety, lorazepam 0.5 mg once a day for anxiety, and donepezil 10 mg once a day for Alzheimer's or dementia-like symptoms. He reports no problems with memory and no concerns with his medications. The patient verifies having a vitamin B12 deficiency and confirms that he has been prescribed medication for it. ?RY-7 (2018 Edition)?Feeling nervous, anxious, or on edge?Not at all,?Not being able to stop or control worrying?Not at all,?Worrying too much about different things?Not at all,?Trouble relaxing?Not at all,?Being so restless that it is hard to sit still?Not at all,?Becoming easily annoyed or irritable?Not at all,?Feeling afraid as if something awful might happen?Not at all,?Total RY-7 Score?0,?If you checked any problems, how difficult have they made it for you to do your work, take care of things at home, or get along with other people??Not difficult at all,?Interpretation of Total?(0 to 4) No Anxiety.?Depression screening:?PHQ-9?Little interest or pleasure in doing things?Not at all,?Feeling down, depressed, or hopeless?Not at all,?Trouble falling or staying asleep, or sleeping too much?Not at all,?Feeling tired or having little energy?Not at all,?Poor appetite or overeating?Not at all,?Feeling bad about yourself or that you are a failure, or have let yourself or your family down?Not at all,?Trouble concentrating on things, such as reading the newspaper or watching television?Not at all,?Moving or speaking so slowly that other people could have noticed; or the opposite, being so fidgety or restless that you have been moving around a lot more than usual?Not at all,?Thoughts that you would be better off or of hurting yourself in some way?Not at all,?Total Score?0.?Intervention?Depression Screening Findings?Negative,?Suicide Risk Assessment Performed?02/14/2024 .?Dementia:? Chief complaint - Patient reports feeling good, [...] TABLET , Notes to Pharmacist: *Reorder from [employer] for eRx and Interaction Alerts*Aspirin Adult Low Strength 81 MG Tablet Delayed Release Oral Loratadine 10 MG Tablet Oral Nyamyc 079754 UNIT/GM Powder External Ergocalciferol 1.25 MG (44595 UT) Capsule Oral Vitamin B-12 1000 MCG Tablet Oral Prolia 60 MG/ML Solution Subcutaneous , Notes to Pharmacist: *Pick strength-form from [employer] for eRX*Timolol Maleate 0.5 % Gel Forming Solution Ophthalmic Vitamin D3 Adult Gummies 25 MCG (1000 UT) Tablet Chewable Oral Donepezil HCl 10 MG Tablet 1 tablet Oral Once a day QUEtiapine Fumarate 100 MG Tablet 0.5 tablet Oral twice a day DULoxetine HCl 60 MG Capsule Delayed Release Particles 1 capsule Oral Once a day LORazepam 0.5 MG Tablet TAKE 1 TABLET BY MOUTH EVERY DAY FOR 30 DAYS Medication List reviewed and reconciled with the patientTaking Rosuvastatin Calcium 20 MG Tablet Oral Taking Levothyroxine Sodium 100 MCG Tablet Oral Taking Meloxicam 7.5 MG Tablet Oral Taking Triamcinolone Acetonide 0.1% Cream External Taking CALCIUM 600 + D(3) 600 MG-10 MCG (400 UNIT) TABLET , Notes to Pharmacist: *Reorder from [facility] for eRx and Interaction Alerts*Taking Aspirin Adult Low Strength 81 MG Tablet Delayed Release Oral Taking Loratadine 10 MG Tablet Oral Taking Nyamyc 461350 UNIT/GM Powder External Taking Ergocalciferol 1.25 MG (10073 UT) Capsule Oral Taking Vitamin B-12 1000 MCG Tablet Oral Taking Prolia 60 MG/ML Solution Subcutaneous , Notes to Pharmacist: *Pick strength-form from [facility] for eRX*Taking Timolol Maleate 0.5 % Gel Forming Solution Ophthalmic Taking Vitamin D3 Adult Gummies 25 MCG (1000 UT) Tablet Chewable Oral Taking Donepezil HCl 10 MG Tablet 1 tablet Oral Once a day Taking QUEtiapine Fumarate 100 MG Tablet 0.5 tablet Oral twice a day Taking DULoxetine HCl 60 MG Capsule Delayed Release Particles 1 capsule Oral Once a day Taking LORazepam 0.5 MG Tablet TAKE 1 TABLET BY MOUTH EVERY DAY FOR 30 DAYS Medication List reviewed and reconciled with the patient * Allergies:?N.K.D.A.no[Allerg ies Verified] Objective: * Vitals:?BP:93/57mm Hg, HR:56 /min, Wt:190.0lbs, Wt-k.18 kg, Ht: 70.00 in, Ht-cm: 177.80 cm, BMI:27.26Index, Body Surface Area: 2.06. * Examination: ???Neurology: ?Cognition Assessment Tools Used?.?General Examination: ???- Mental Status Examination: - Patient expressed feeling excellent and well-managed regarding anxiety. - Denied experiencing depression. - Reported good memory function with no concerns in cognitive areas. - Physical Examination: - General: Patient reports overall good health, eating and sleeping well. - Neurological: No reported issues with memory or cognitive function. - Psychiatric: No signs of depression or unmanaged anxiety observed during the visit. - Diagnostic Test Results and Labs: - Vitamin B12 deficiency noted, patient confirmed receiving medication for this condition. Assessment: * Assessment: 1.?Generalized anxiety disor juan - F41.1 (Primary)???2.?Major depressive disorder, recurrent, mild - F33.0???3.?Insomnia due to other mental disorder - F51.05???4.?Alzheimer's disease with late onset - G30.1??? 1. Anxiety:- Patient reports feeling well and anxiety is well managed.- Continue current medication: Lorazepam 0.5 mg once daily.Plan:- Maintain current medication regimen.2. Depression:- Patient denies experiencing any depression at this time.- Continue current medications:a. Quetiapine 100 mg, half a tablet in the morning, half a tablet in the evening.b. Duloxetine 60 mg daily.Plan:- Maintain current medication regimen.3. Alzheimer's/Dementia symptoms:- Patient reports no memory problems or concerns.- Continue current medication: Donepezil 10 mg once daily.Plan:- Maintain current medication regimen.4. Vitamin B12 deficiency:- Patient confirms receiving treatment for vitamin B12 deficiency.Plan:- Continue monitoring and treatment as needed.5. Medication management:- Patient reports no problems or concerns with current medications.Plan:- Continue refills at [facility] in [place].Follow-up:- Schedule a follow-up appointment in 3 months to monitor patient's progress and medication management.- Encourage patient to contact the clinic if any concerns or changes in symptoms arise before the next scheduled appointment. Plan: * Treatment: 2.?Major depressive disorder , [...] Notes: CONT DONEPEZIL 10MG HS?? * Procedure Codes:?28888 BEHAV ASSMT W/SCORE & DOCD/STAND INSTRUMENT * Follow Up:?3 Months (Reason: f/u depression, anxiety) * Billing Information: * Visit Code:? 55523 OFFICE OUTPATIENT VISIT 25 MINUTES DETAILED HISTORY AND EXAM/MODERATE MEDICAL DECISION MAKING. * Procedure Codes:? 44715 BEHAV ASSMT W/SCORE & DOCD/STAND INSTRUMENT. * SLAKER Sign off status: Completed true * Provider:?ARLINE COSTA Date:?05/2023 Generated for Lv pascal/Brown/Dione on:?03/16/2024 05:13 AM LIME SLAKER History and Physical Notes * HPI (History [...] anxiety; irritability or agitation; weight loss; anorexia Depression screening PHQ-9 Little inte rest or pleasure in doing things: Not at all Feeling down, depressed, or hopeless: No t at all Trouble falling or staying asleep, or sl eeping too much: Not at all Feeling tired or having little energy: N ot at all Poor appetite or overeating: Not at all Feeling bad about yourself o r that you are a failure, or have let yourself or your family down: Not at all Trouble concentrating on thi ngs, such as reading the newspaper or watching television: Not at all Moving or speaking so slowly that other people could have noticed; or the opposite, being so fidgety or restless that you have been moving around a lot more than usual: Not at all Thoughts that you would be b shefali off or of hurting yourself in some way: Not at all Total Score: 0 Intervention Depression Screening Findings: N egative Suicide Risk Assessment Performed: 02/13 Depression Screening RY-7 (2018 Edition) Feelin g nervous, anxious, or on edge: Not at all Not being able to stop or control worryi ng: Not at all Worrying too much about different things : Not at all Trouble relaxing: Not at all Being so restless that it is hard to sit still: Not at all Becoming easily annoyed or irritable: No t at all Feeling afraid as if something awful jef ht happen: Not at all Total RY-7 Score: 0 If you checked any problems, how difficult have they made it for you to do your work, take care of things at home, or get along with other people?: Not difficult at all Interpretation of Total: (0 to 4) No Anx iety Examination Category Sub-Category Detail Notes Category Not es Neurology Cognition Assessment Tools Used Total score SLUMS: 16 General Examination - Mental Status Examination: - Patient expressed feeling excellent and well-managed regarding anxiety. - Denied experiencing depression. - Reported good memory function with no concerns in cognitive areas. - Physical Examination: - General: Patient reports overall good health, eating and sleeping well. - Neurological: No reported issues with memory or cognitive function. - Psychiatric: No signs of depression or unmanaged anxiety observed during the visit. - Diagnostic Test Results and Labs: - Vitamin B12 deficiency noted, patient confirmed receiving medication for this condition.
--- OUTSIDE RECORDS SUMMARY | 2024-03-16 05:15 | XMS_ITS | Continuity of Care Document ---
Author Organization [place] - [facility], [facility] Internal Med [address] [place] [address] Care Team Providers Care Yard Supervisor Name Role Phone CARLOS MORRIS Primary Care Provider CARLOS MORRIS Referring Provider REZA MONTIEL Mid Level Business Analyst AYANNA MARVIN Hand Method Lasting Machine Operator Assessment Encounter Date Assessment Date Assessment LastModified by Organization Details LastModified Time 02/16/2024 02/16/2024 01/18/2022: B12/Folate/ T D/TSH/CMP/LIP IDS: WNL CBC: H/H 12.5/37.0, MCV 97.1H 02/22/2022: COVID 19 neg 06/14/2022: B12/Folate/ T D/TSH/LIPIDS: WNL BUN 20<-more fluids as needed H/H 12.5/37.3, MCV 97.1 04/12/2023: BUN 21 H/H 12.5/36.5, MCV 97.3 (B12/Folate/T SH/FT4:WNL) 08/12/2023: PSA <0.064 BUN 23H H/H 12.2/35.9 11/24/2023: H/H 12.3/36.5, MCV 98.9 BUN 23<- advised to hydrate 02/15/2024: BUN 20 H/H 12.6/37.3 [email or web address] Not available 02/16/2024 15:02:53 Plan of Treatment Reminders Order Date Submit Date Provider Last Modified By Organization Details Last Modified Time Details Appointments Any 15 2024 01:30P M Carlos long MD Not available Not available Not available Lab vitamin D, 25-hydrox y, total, serum [address] (Lab), [address] [place], [address], 02/16/2024 15:07:07 lipid panel, serum [address] (Lab), [address] [place], [address], 02/16/2024 15:07:06 CMP, serum or plasma 2023 024 [facility] (Lab), [address] [place], [address], 03/09/2024 00:08:48 CBC w/ auto diff 2023 024 [facility] (Lab), [address] [place], [address], 03/09/2024 00:08:48 T4, free, serum [address] (Lab), [address] [place], [address], 02/16/2024 15:07:06 TSH, serum or plasma [address] (Lab), [address] [place], [address], 02/16/2024 15:07:07 vitamin B12 + folate, serum or blood [address] (Lab), [address] [place], [address], 02/16/2024 15:07:07 Referral endocrino logy referral - Please call patient to schedule. 2023 [email or web address] [place], [address], [place], [address], 02/20/2024 09:45:52 nephrolog ist referral 2023 024 [email or web address] Rbuens Cortez MD (Nephrology, [address], [address], [place], [address], 02/20/2024 09:45:51 Procedures None recorded. Surgeries None recorded. Imaging None recorded. Medication Orders None recorded. Patient TargetsNo targets recorded. Patient InstructionsNo instructions recorded. Reason for Referral Manager Chinese Referral for Ch ronic kidney disease Referring Physician: Carlos Morris, Internal Medicine, Encounter Date: 02/16/2024 Endocrinology Referral for O steoporosis Please call patient to schedule. Referring Physician: Carlos Morris, Internal Medicine, Encounter Date: 02/16/2024 Results Created Date Observation Date Name Description Value Unit Range Abnormal Flag Note LastModifiedBy Organization Detail LastModifiedTime 03/08/20 24 03/08/2024 imagi ng/di collinos tic resul t No observ ation record ed. [facility] [address], [place], [address], 03/08/2024 21:14:31 Result Notes None recorded. 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 3 14:49:13 Chronic kidney disease 527280891 Active 2022 Not Available [facility] 3 14:49:13 Chronic recurrent major depressive disorder 1554730 Active 2022 Not Available [facility] 3 14:49:13 Glaucoma 49668110 Active 2022 Not Available [facility] 3 14:49:13 Dementia 69440001 Active 2022 Not Available [facility] 3 14:49:13 Benign paroxysmal positional vertigo 013591531 Active 2022 Not Available [facility] 3 14:49:13 Environmental allergy 665243729 Active 2022 Not Available [facility] 3 14:49:13 Hammer toe 039663249 Active 2018 Not Available [facility] 3 14:49:13 Injury of shoulder region 656456806 Active Not Available [facility] 3 14:49:13 Closed fracture of medial malleolus 61869450 Active Not Available [facility] 3 14:49:13 Acute sinusitis 58743965 Active 2021 Not Available [facility] 3 14:49:13 Dry skin 32467707 Active 2018 Not Available [facility] 3 14:49:13 Anemia 230689399 Active 2021 Not Available [facility] 3 14:49:13 Upper chest pain 311688671 Active 2016 Not Available [facility] 3 14:49:13 Depressive disorder 28954439 Active Not Available [facility] 3 14:49:13 Ingrowing toenail 472561498 Active 2018 Not Available [facility] 3 14:49:13 Foot pain 79714454 Active 2018 Not Available [facility] 3 14:49:13 Upper respiratory infection 71013977 Active 12/12/ 2022 Not Available 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 Procedures Surgical History Date Name Laterality Status Provider Name and Address Organization Details Recorded Time 08/18/19 24 Medicare Wellness CPT Code, subsequent completed Carlos Morgan LPN [facility] 08/12/2023 10:34:39 06/23/19 23 Medicare Wellness CPT Code, subsequent completed Delicia Venegas RN [facility] [employer] [facility] 06/22/2022 14:21:05 02/01/20 18 Thyroid Surgery completed Not Available [facility] 03/2022 02:51:44 09/16/19 16 Excisions - Specify completed Not Available [facility] 05/12/2022 02:51:44 Hernia Repair completed Not Available [facility] 05/12/2022 02:51:44 other completed Not Available [facility] 03/2022 02:51:44 Prostatectomy completed Not Available [facility] 05/12/2022 02:51:44 Biopsy completed Not Available [facility] 03/2022 02:51:44 excisional biopsy of basal cell carcinoma completed Not Available [facility] 05/12/2022 02:51:44 Hip surgery completed ROXANNA Hernandez [facility] 04/19/2023 13:59:36 Imaging Results None recorded. Procedure Notes None recorded. Medical Equipment None Reported. Allergies No known drug allergies Medications Name Sig Start Date Stop Date Status Note LastModified by Organization Details LastModified Time Miralax 17 gram oral powder packet Take 1 packet every day by oral route at bedtime. 2018 active Not Available Not Available Not Avai lable amoxicill in 500 mg capsule TAKE 4 CAPSULES BY MOUTH 1 HOUR PRIOR TO EACH DENTAL APPOINTM ENT 09/03 completed Not Available Not Available Not Available prednison e 10 mg tablet take [id number], [id number], [id number] active Not Available Not Available No t Available paroxetin e 10 mg tablet active Not Available Not Available Not Available donepezil 5 mg tablet Take 1 tablet every day by oral route. 04/07 completed Not Available Not Available Not Available ammonium lactate 12 % lotion Apply to both feet daily as needed 04/07 completed Not Available Not Available Not Available trazodone 50 mg tablet TAKE 1 TABLET BY MOUTH DAILY IN THE EVENING 10/02 completed Not Available Not Available Not Available azithromy dwain 250 mg tablet TAKE 2 TABLETS BY MOUTH TODAY, THEN TAKE 1 TABLET DAILY FOR 4 DAYS 03/02 completed Not Available Not Available Not Available sumatript an 100 mg tablet 11/28 completed Not Available Not Available Not Available hydrocodo ne 5 mg-acetam inophen 325 mg tablet 03/02 completed Not Available Not Available Not Available donepezil 10 mg tablet TAKE 1 TABLET BY MOUTH EVERY DAY active Not Available Not Available No t Available sertralin e 100 mg tablet 01/02 completed Not Available Not Available Not Available Seroquel 25 mg tablet Take 1 tablet twice a day by oral route. 11/27 completed Not Available Not Available Not Available meclizine 12.5 mg tablet TAKE 1 TABLET BY MOUTH THREE TIMES A DAY NEEDED FOR DIZZINES S 11/28 completed Not Available Not Available Not Available sulfameth oxazole 800 mg-trimet hoprim 160 mg tablet active Not Available Not Available Not Available quetiapin e 100 mg tablet TAKE 1/2 TABLET BY MOUTH TWICE A DAY active Not Available Not Available No t Available triamcino lone acetonide 0.1 % topical cream APPLY TO LEGS TWICE A DAY active Not Available Not Available No t Available clobetaso l 0.05 % topical gel active Not Available Not Available Not Available levothyro xine 100 mcg tablet TAKE 1 TABLET BY MOUTH ONCE DAILY IN THE MORNING active Not Available Not Available No t Available alprazola m 0.25 mg tablet take 2 tablets 1/2 hour prior to MRI active called to pharm Not Available Not Available Not Available lorazepam 0.5 mg tablet TAKE 1 TABLET BY MOUTH EVERY DAY active Not Available Not Available No t Available amlodipin e 5 mg-benaze pril 10 mg capsule TAKE ONE CAPSULE DAILY AT BEDTIME 07/22 completed Not Available Not Available Not Available trazodone 100 mg tablet Take 1 tablet twice a day by oral route. 11/14 completed cut down to 50mg Not Available Not Available Not Available Synthroid 25 mcg tablet Take 1 tablet every day by oral route in the morning. 04/07 completed Not Available Not Available Not Available bisacodyl 10 mg rectal supposito ry Insert 1 supposit ory every day by rectal route. 02/14 completed Not Available Not Available Not Available cephalexi n 500 mg capsule 03/02 completed Not Available Not Available Not Available paroxetin e 20 mg tablet Take 1 tablet every day by oral route. 10/02 completed Not Available Not Available Not Available neomycin- polymyxin -dexameth 3.5 mg/mL-10, 000 unit/mL-0 .1% eye drops active Not Available Not Available Not Available triamcino lone acetonide 0.1 % topical ointment APPLY TO SCALY PATCH OF LEG TWICE DAILY 09/16 completed Not Available Not Available Not Available Synthroid 75 mcg tablet TAKE 1 TABLET BY MOUTH ONCE DAILY IN THE MORNING FOR 30 DAYS active Not Available Not Available No t Available Synthroid 50 mcg tablet TAKE 1 TABLET BY MOUTH ONCE DAILY IN THE MORNING FOR 30 DAYS active Not Available Not Available No t Available sertralin e 25 mg tablet TAKE 2 TABLETS DAILY X 1 WEEK THEN 1 TABLET DAILY X 1 WEEK THEN STOP 01/02 completed Not Available Not Available Not Available monteluka st 10 mg tablet Take 1 tablet every day by oral route. active Not Available Not Available No t Available hydrocodo ne 5 mg-acetam inophen 500 mg tablet active Not Available Not Available Not Available cyanocoba nevin (vit B-12) 1,000 mcg sublingua l tablet Place 1 tablet every day by sublingu al route in the morning for 90 days. 06/22 completed Not Available Not Available Not Available mupirocin 2 % topical ointment APPLY 1 APPLICAT ION ONTO THE CHEST TWICE DAILY 11/28 completed Not Available Not Available Not Available furosemid e 20 mg tablet Take 1 tablet every day by oral route. 08/26 completed Not Available Not Available Not Available mirtazapi ne 15 mg tablet Take 1 tablet every day by oral route at bedtime. 07/22 completed Not Available Not Available Not Available ergocalci ferol (vitamin D2) 1,250 mcg (50,000 unit) capsule TAKE 1 CAPSULE BY MOUTH ONCE A WEEK active Not Available Not Available No t Available Aspir-81 mg tablet,de layed release Take 1 tablet every day by oral route for 90 days. 09/03 completed Not Available Not Available Not Available Viagra 100 mg tablet active Not Available Not Available Not Available methylpre dnisolone 4 mg tablets in a dose pack TAKE 6 TABLETS ON DAY 1 DIRECTED ON PACKAGE AND DECREASE BY 1 TAB EACH DAY FOR A TOTAL OF 6 DAYS 03/02 completed Not Available Not Available Not Available timolol maleate 0.5 % eye drops active Not Available Not Available Not Available ipratropi um bromide 42 mcg (0.06 %) nasal spray active Not Available Not Available Not Available timolol maleate 0.5 % eye gel forming solution INSTILL 1 DROP INTO EACH EYE IN THE MORNING active Not Available Not Available No t Available carbidopa 25 mg-levodo pa 100 mg tablet TAKE ONE TABLET 3 TIMES DAILY 11/14 completed Not Available Not Available Not Available oxybutyni n chloride 5 mg tablet active Not Available Not Available Not Available fluticaso ne propionat e 50 mcg/actua tion nasal spray,connor pension USE 2 SPRAYS IN EACH NOSTRIL ONCE DAILY active Not Available Not Available No t Available sertralin e 50 mg tablet 11/14 completed Not Available Not Available Not Available doxycycli ne hyclate 100 mg tablet active Not Available Not Available Not Available atenolol 50 mg tablet 1/2 tablet daily 08/26 completed Not Available Not Available Not Available calcitrio l 0.25 mcg capsule 03/02 completed Not Available Not Available Not Available loratadin e 10 mg tablet TAKE 1 TABLET BY MOUTH EVERY DAY NEEDED active Not Available Not Available No t Available azithromy dwain 500 mg tablet Take 4 tablets prior to dental procedur e active Not Available Not Available No t Available Vitamin D3 25 mcg (1,000 unit) capsule Take by oral route. 11/28 completed Not Available Not Available Not Available iron 325 mg (65 mg iron) tablet Take 1 tablet every other day by oral route. 2019 active Not Available Not Available Not Avai lable Vigamox 0.5 % eye drops active Not Available Not Available Not Available rosuvasta tin 20 mg tablet TAKE 1 TABLET BY MOUTH EVERY DAY IN THE EVENING 11/28 completed Not Available Not Available Not Available bupropion HCl XL 150 mg 24 hr tablet, extended release TAKE 1 TABLET BY MOUTH EVERY DAY IN THE MORNING 09/03 completed Not Available Not Available Not Available nitrofura ntoin monohydra te/macroc rystals 100 mg capsule Take 1 capsule every 12 hours by oral route for 5 days. 11/14 completed Not Available Not Available Not Available duloxetin e 30 mg capsule,d elayed release TAKE 1 CAPSULE DAILY FOR 14 DAYS 01/02 completed Not Available Not Available Not Available duloxetin e 60 mg capsule,d elayed release TAKE 1 CAPSULE BY MOUTH EVERY DAY FOR 90 DAYS active Not Available Not Available No t Available carbidopa 25 mg-levodo pa 100 mg disintegr ating tablet Place 2 tablets 4 times a day by translin gual route. 07/06 completed Not Available Not Available Not Available Vitamin B-12 12/06 completed Not Available Not Available Not Available Refresh Tears 11/14 completed Not Available Not Available Not Available iron 11/28 completed Not Available Not Available Not Available calcitrio l 08/15 completed Not Available Not Available Not Available timolol 03/02 completed Not Available Not Available Not Available multivita min 1 daily 11/28 completed Not Available Not Available Not Available Oyster Shell Calcium 500 11/14 completed Not Available Not Available Not Available Calcium 600 + D(3) take 2 daily 11/28 completed Not Available Not Available Not Available aripipraz ole 2 mg tablet 11/14 completed Not Available Not Available Not Available quetiapin e 50 mg tablet 01/02 completed Not Available Not Available Not Available melatonin 5 mg tablet Take 1 tablet every day by oral route at bedtime. 2019 active Not Available Not Available Not Avai lable cholecalc iferol (vitamin D3) 50 mcg (2,000 unit) tablet Take 1 tablet every day by oral route in the morning for 90 days. 11/28 completed Not Available Not Available Not Available Durezol 0.05 % eye drops active Not Available Not Available No t Available B12 active Not Available Not Availa ble Not Available Prolia 60 mg/mL subcutane ous syringe Inject 60 mg as needed by subcutan eous route as directed for 1 day. 11/28 completed Not Available Not Available Not Available Suprep Bowel Prep Kit 17.5 gram-3.13 gram-1.6 gram oral solution active Not Available Not Available Not Available Nancy Allergy 180 mg tablet Take 1 tablet every day by oral route for 6 days. active Not Available Not Available No t Available Ilevro 0.3 % eye drops,connor pension active Not Available Not Available Not Available Vitamin B12 qd 09/03 completed duplicat e Not Available Not Available Not Available One-A-Day Men's 50 Plus(vit K) 11/28 completed Not Available Not Available Not Available Fluad 2018- 65yr up(PF)45 mcg(15 mcgx3)/0. 5 mL intramusc ular syringe active Not Available Not Available Not Available Vitals Date Recorded Body height Body mass index (BMI) Body weight Body temperature Heart rate Systolic blood pressure Diastolic blood pressure Provider Name and Address Organization Details Last Updated DateTime 4 170.18 cm 30.9 kg/m2 03978.7 g 97.7 [degF] 60 /min 116 mm[Hg] 60 mm[Hg] ROXANNA Hernandez [place] [facility] [place] [facility] 14:24:09 Social History Question Answer Notes LastModified by Organization Details LastModified Time Tobacco Smoking Status Former Smoker Not Available [facility] 05/12/2022 02:45:46 Do You Have An Advance Directive? Yes [id number] Information not available 05/12/2022 What Is Your Level Of Alcohol Consumption? None [email or web address].030 [id number] Information not available 05/12/2022 Do You Wear A Helmet When Biking? No Does Not Bike [email or web address] Information not available 08/18/2023 Are You Blind Or Do You Have Difficulty Seeing? No MIGRATION.[id number] [id number] Information not available 05/12/2022 What Is Your Level Of Caffeine Consumption? Occasional Coffee MIGRATION.030 [id number] Information not available 05/12/2022 How Much Tobacco Do You Chew? None MIGRATION.030 [id number] Information not available 05/12/2022 In The 14 Days Before Symptom Onset, Have You Had Close Contact With A Laboratory-confi rmed COVID-19 While That Case Was Ill? No MIGRATION.[id number] [id number] Information not available 05/12/2022 In The 14 Days Before Symptom Onset, Have You Had Close Contact With A Person Who Is Under Investigation For COVID-19 While That Person Was Ill? No MIGRATION.[id number] [id number] Information not available 05/12/2022 Are You Currently Employed? No [email or web address] Information not available 08/18/2023 Are You Deaf Or Do You Have Serious Difficulty Hearing? Yes Choclear Implant [email or web address] Information not available 08/18/2023 What Type Of Diet Are You Following? REGULAR MIGRATION.030 [id number] Information not available 05/12/2022 Which Illicit Or Recreational Drugs Have You Used? None MIGRATION.030 [id number] Information not available 05/12/2022 What Is The Highest Grade Or Level Of School You Have Completed Or The Highest Degree You Have Received? [id number] Information not available 08/18/2023 What Is Your Occupation? Retired MIGRATION.030 [id number] Information not available 05/12/2022 Have There Been Any Changes To Your Family Or Social Situation? No MIGRATION.030 [id number] Information not available 05/12/2022 What Is The Fluoride Status Of Your Home? Unknown MIGRATION.0301 [id number] Information not available 05/12/2022 When Did You Quit Smoking? 16+yearssincelast cigarette MIGRATION.030 [id number] Information not available 05/12/2022 Are There Any Guns Present In Your Home? Yes MIGRATION.0301 [id number] Information not available 05/12/2022 Do You Use Insect Repellent Routinely? No MIGRATION.0301 [id number] Information not available 05/12/2022 Where Do You Live? [facility] MIGRATION.0301 [id number] Information not available 05/12/2022 Presence Of Domestic Violence No [email or web address] Information not available 08/18/2023 Guns Present In The Home? Yes [email or web address] Information not available 06/22/2022 Are You Able To Care For Yourself? Yes [email or web address] Information not available 06/22/2022 Are You Blind Or Do Yo Have Difficulty Seeing? No [email or web address] Information not available 06/22/2022 Are You Deaf Or Do You Have Serious Difficulty Hearing? Yes Has Cochlear Implant [email or web address] Information not available 06/22/2022 General Stress Level? Low [email or web address] Information not available 08/18/2023 Live Alone Of With Others? With Others [email or web address] Information not available 06/22/2022 Do You Have A Medical Power Of Nurse Orthopedic? Yes [id number].[id number] [id number] Information not available 05/12/2022 What Was The Date Of Your Most Recent Tobacco Screening? 02/16/2024 Information not available 02/16/2024 What Is Your Current Pack Years? 10-19packyears MIGRATION.0301 [id number] Information not available 05/12/2022 Do You Have Any Pets? No MIGRATION.0301 [id number] Information not available 05/12/2022 What Is Your Relationship Status? MIGRATION.0301 [id number] Information not available 05/12/2022 Do You Use Your Seat Belt Or Car Seat Routinely? Yes MIGRATION.0301 [id number] Information not available 05/12/2022 Do You Have Smoke And Carbon Monoxide Detectors In Your Home? Yes MIGRATION.0301 [id number] Information not available 05/12/2022 At What Age Did You Start Smoking Tobacco? 40 MIGRATION.0301 025501 Information not available 05/12/2022 Are You Passively Exposed To Smoke? No MIGRATION.0301 [id number] Information not available 05/12/2022 Are There Any Smokers In Your House? No MIGRATION.0301 [id number] Information not available 05/12/2022 What Types Of Sporting Activities Do You Participate In? None MIGRATION.0301 [id number] Information not available 05/12/2022 Do You Feel Stressed (tense, Restless, Nervous, Or Anxious, Or Unable To Sleep At Night)? [id number] MIGRATION.0301 [id number] Information not available 05/12/2022 Do You Use Any Illicit Or Recreational Drugs? No Information not available 06/22/2022 Do You Use Sunscreen Routinely? Yes MIGRATION.0301 [id number] Information not available 05/12/2022 Has Tobacco Cessation Counseling Been Provided? No MIGRATION.0301 [id number] Information not available 05/12/2022 How Many Years Have You Smoked Tobacco? 10 MIGRATION.0301 [id number] Information not available 05/12/2022 Have You Recently Traveled Abroad? No MIGRATION.0301 [id number] Information not available 05/12/2022 Do You Have Any Dietary Restrictions? No MIGRATION.0301 [id number] Information not available 05/12/2022 Do You Or Have You Ever Used Any Other Forms Of Tobacco Or Nicotine? No MIGRATION.0301 [id number] Information not available 05/12/2022 Sex: Male Functional Status Question Answer Note LastModified by Organizat ion Details LastModified Time Do you have difficulty walking or climbing stairs? No MIGRATION.[id number] [id number] Information not available 05/12/2022 Do you have transportation difficulties? No MIGRATION.[id number] 026 Information not available 05/12/2022 Are you able to walk? YESWOREST MIGRATION.[id number] 026 Information not available 05/12/2022 Do you have difficulty doing errands alone? No MIGRATION.[id number] 026 Information not available 05/12/2022 Are you able to care for yourself? Yes MIGRATION.[id number] 026 Information not available 05/12/2022 Do you have difficulty dressing or bathing? No MIGRATION.[id number] 026 Information not available 05/12/2022 What is your exercise level? None MIGRATION.[id number] 026 Information not available 05/12/2022 Mental Status Question Answer Note LastModified by Organizat ion Details LastModified Time Do you have difficulty concentrating, remembering or making decisions? Yes [id number] Information not available 05/12/2022 Family History Relationship Description Onset Age of this Age Resolved Age Notes LastModified by Organization Details LastModified Time Father Malignant tumor of lung [id number] Not available 05/12/2022 02:51:47 Mother Alzheimer's disease [id number] Not available 05/12/2022 02:51:47 Medical History Condition Response NERVE DISEASE N BLINDNESS N RHEUMATIC FEVER N KIDNEY STONES N BLADDER PROBLEMS N MRSA N OTHER # 1 N POLIO N LUNG DISEASE/DISORDER N COPD N RADIATION / CHEMOTHERAPY N Other # 2 N BLOOD DISEASES N SURGERY N EAR OR HEARING PROBLEMS N MUMPS N DEPRESSION (INCLUDING POST ) Y BOWEL PROBLEMS N STROKE/TIA N THYROID DISEASE Y ULCERS N BENIGN PROSTATIC HYPERPLASIA N MEASLES N MYOCARDIAL INFARCTION N OBESITY N EXCESSIVE PERSPIRATION N GERD/NAUSEA N ANEURYSM N URINARY/BLADDER/KIDNEY PROBLEMS N CORONARY ARTERY DISEASE (CAD) N ADDICTION CONCERNS N Impotence N ENDOMETRIOSIS N USE OF BLOOD THINNERS N SKIN PROBLEMS Y PARATHYROID DISEASE Y PERIPHERAL VASCULAR DISEASE N MUSCLE,JOINT OR BONE PROBLEMS N BLOOD CLOTS N ASTHMA N CATARACTS N ERECTILE DYSFUNCTION N VARICOSITIES N GI PROBLEMS N Low Testosterone N INFERTILITY N AIDS/HIV N LIVER DISEASE N MALE HYPOGONADISM N HYPERTENSION Y Deficiency Y ANXIETY DISORDER N BLOOD TRANSFUSION N ANEMIA/BLOOD DISORDER Y CHRONIC EAR INFECTIONS N BRONCHITIS N TUBERCULOSIS N GLAUCOMA Y FOOT PROBLEM N DIVERTICULITIS N SLEEP APNEA N CHICKENPOX N INFECTIOUS DISEASE N PROSTATE Y HEART ARRHYTHMIA N INSOMNIA N HIGH CHOLESTEROL / HYPERLIPIDEMIA Y EYE PROBLEMS Y HYPERTHYROIDISM Y NEUROLOGICAL PROBLEMS Y EDEMA N CHRONIC PAIN SYNDROME N HYPOTHYROIDISM Y CAROTID BLOCKAGE N CONSTIPATION Y BACK / NECK PROBLEMS N ATHEROSCLEROSIS N BREAST PROBLEMS N DIALYSIS N ECZEMA N OSTEOPOROSIS Y ARTHRITIS N APPENDICITIS N DIABETES, TYPE N BAD TEETH N ENT N HEARTBURN / REFLUX N AUTISM SPECTRUM DISORDER (ASD) N HEPATITIS / LIVER DISEASE N GOUT N SLEEP DISORDER N ALZHEIMER'S DISEASE N Brain Problems N DEMENTIA Y HERPES N RETINOPATHY N SEIZURES/EPILEPSY N HEADACHES/MIGRAINES N VASCULAR DISEASE N PACEMAKER N Blood Disorder N DIZZINESS N HEART DISEASE/HEART PROBLEMS N KIDNEY DISEASE Y MULTIPLE SCLEROSIS N CANCER: SPECIFY Y CARDIAC ARRHYTHMIA Y ATRIAL FIBRILLATION N Gall Stones N PULMONARY EMBOLISM N AUTOIMMUNE DISEASE Y Immunizations Vaccine Type Date Status Note Provider Nam e and Address Organization Details Recorded Time Influenza, split virus, trivalent, preservative 4 completed Not Available [facility] 07/17/2022 14:49:13 Influenza, split virus, trivalent, preservative 3 completed Not Available [facility] 07/17/2022 14:49:13 Influenza, high-dose, trivalent, PF 9 completed Not Available [facility] 07/17/2022 14:49:13 Influenza, high-dose, quadrivalent, PF 2 completed Not Available [facility] 07/17/2022 14:49:13 Influenza, high-dose, quadrivalent, PF 1 completed Not Available [facility] 07/17/2022 14:49:13 Influenza, high-dose, quadrivalent, PF 0 completed Not Available [facility] 07/17/2022 14:49:13 Pneumococcal conjugate PCV 13 0 completed Not Available [facility] 07/17/2022 14:49:13 Influenza, high-dose, trivalent, PF 8 completed Not Available [facility] 07/17/2022 14:49:13 Influenza, split virus, quadrivalent, PF 5 completed Not Available [facility] 07/17/2022 14:49:13 Influenza, high-dose, trivalent, PF 6 completed Not Available [facility] 07/17/2022 14:49:13 Influenza, high-dose, trivalent, PF 7 completed Not Available [facility] 07/17/2022 14:49:13 Influenza, high-dose, quadrivalent, PF 4 completed Carlos Morris MD [address], [address], [place], [address], [facility] 04/20/2023 09:33:18 Influenza, high-dose, trivalent, PF 4 completed Carlos Morris MD [address], [address], [place], [address], [facility] 03/04/2024 20:22:24 Past Encounters Encounter ID Performer Location Encounter Start Date Encounter Closed Date Diagnosis/Indication Diagnosis SNOMED-CT Code Diagnosis ICD10 Code [id number] Carlos pemberton MD [facility] [address] [place] [address] 02/16/2024 13:59:52 02/16/2024 15:15:41 Hypothyroidism 21280519 E03.9 Screening - NAD 45501939 3 Z13.9 Hyperlipidemia 61326092 E78.5 Osteoporosis 47778447 M8 1.0 Essential hypertension 90546292 I10 Chronic ki dney disease 395079743 N18.9 Dementia 56191708 F03.90 Anemia 832411163 D64.9 Chronic re current major depressive disorder 8433813 F33.9 Glaucoma 90699775 H40.9 Benign par oxysmal positional vertigo 878505672 H81.13 Environmental allergy 42 4675667 T78.49XA Vitamin D deficiency 347 08075 E55.9 Serum dorita min B12 below reference range 275362933 R79.89 Administra tion of influenza vaccine 89036907 Z23 Health Concerns Section Related Observation LastModified by Organization Detai ls LastModified Time None Recorded Concern Status LastModified by Organization Details LastModified Time None Recorded Payers Encounter Date Sequence Insurance Name Policy Number Policy Callahan Covered Member ID Callahan Member ID Guarantor Name 02/16/2024 1 [employer] (MEDICARE REPLACEMENT PPO) [id number] Abdi Abrams [id number] Abdi Abrams Notes Date Note Type Note Provider Name and Address Organization Details Recorded Time 02/16/2024 text/html Here to yessica Gallagher Hx:HTNDepressionHead achesReviewed surgical family and surgical historyHe is here with his wifeShe states that he has been more confused latelyAs per the he walks around talking to himself and 'prays to God'He is also not able to finish his sentencesHe is also very shaky and nervousOngoing since a monthHe was put on paxil, and then Karina the COUNTERPERSON put him on xanax and trazodoneHe denies any fevers or chills, N/V or diarrheaNo headachesNo abd pain, or LBPNo rash OV 09/17/18:Here with his wifeRecently released from the rehab facilityIs now on lorazepam, quetiapine, paroxitine and trazodoneIs doing well at this time and the medications are really helping himOV 03/02/18:Here wth his wifeHe states that he is doing well at this timeHis last labs are 01/10/18 OV 07/06/18:Here with his wifeHe states that he is doing wellHe did do the labs on 06/28/18 OV 10/02/18:S/p ER visit, noted to have some 'thyroid issues', was seen by Dr Abdul per his and daughter today in the room he has again got the anxiety and is not eating well and is losing some weightNo other complaints at this time OV 01/02/19:Here for his routine aptHe is here with his wifeHe did do the labsHe did also have R hip pain and did have xrays on 12/27/18He has seen Dr Tuttle alsoOV 05/01/2019:Here for his routine aptHere with his wifeHe did do the labsHe is to see Dr Tuttle, Talat Sosa states that that he is doing very well and has gained a lot of weightOV :Tele health and is agreeable to do this timeHe is doing wellHe did do the labsOV 02/26/2020:Here for his tele visit, he is agreeable to do this visitHe is doing wellHe did do the labs OV 06/24/2020:Here for tele visitHe is agreeable to do the visitHe did do the labsOV 11/11/2020:Here for his routine aptHe feels wellHe did do the labs on 10/30/2020He recently was seen by psychiatry and is now doing betterOV 04/07/2021:Here for his routine aptHe is doing wellHe did the labs on 04/01/2021He is here for his MWV alsoOV 09/03/2021:Here for his routine aptHere with his wifeHe is doing wellHe did do the labsOV 03/02/2022:Here for his f/u apt, he is doing well, does have a slight cough, non productive, no fevers or chills, no chest pain or SOB noted, he did do the labs, is here with his OV 06/22/2022:Here for his f/u apt, he is doing well OV 04/19/2023: Here for his f/u apt, he is doing well today, he is here with his and daughter OV 08/18/2023: Here for his f/u apt, he does well today, here with his and he is here for his MWV OV 11/29/2023: Here for his f/u apt, he feels well today, here with his , he did do the labs OV 02/16/2024: Here for his f/u apt, here with his , is doing well today Carlos Morris MD [address] [place] [address], [place] [address], [place], [address], [facility] 03/04/2024 20:22:57
--- OUTSIDE RECORDS SUMMARY | 2024-03-16 05:15 | XMS_ITS | Data Portability ---
Author Organization [place] [facility] [email or web address], Main Office Address [address] [place] [address] Care Team Providers Care Locks Tender Name Role Phone CARLOS MORRIS Primary Care Provider CARLOS MORRIS Referring Provider REZA MONTIEL Bicycle Rental Clerk AYANNA MARVIN Edge Inker Heels Assessment Encounter Date Assessment Date Assessment LastModified by Organization Details LastModified Time 04/19/2023 04/19/2023 01/18/2022: B12/Folate/ T D/TSH/CMP/LIP IDS: WNL CBC: H/H 12.5/37.0, MCV 97.1H 02/22/2022: COVID 19 neg 06/14/2022: B12/Folate/ T D/TSH/LIPIDS: WNL BUN 20<-more fluids as needed H/H 12.5/37.3, MCV 97.1 04/12/2023: BUN 21 H/H 12.5/36.5, MCV 97.3 (B12/Folate/T SH/FT4:WNL) [email or web address] Not available 04/17/2023 17:40:11 08/18/2023 08/18/2023 01/18/2022: B12/Folate/ T D/TSH/CMP/LIP IDS: WNL CBC: H/H 12.5/37.0, MCV 97.1H 02/22/2022: COVID 19 neg 06/14/2022: B12/Folate/ T D/TSH/LIPIDS: WNL BUN 20<-more fluids as needed H/H 12.5/37.3, MCV 97.1 04/12/2023: BUN 21 H/H 12.5/36.5, MCV 97.3 (B12/Folate/T SH/FT4:WNL) 08/12/2023: PSA <0.064 BUN 23H H/H 12.2/35.9 [email or web address] Not [facility] 08/18/2023 14:41:30 11/29/2023 11/29/2023 01/18/2022: B12/Folate/ T D/TSH/CMP/LIP IDS: WNL CBC: H/H 12.5/37.0, MCV 97.1H 02/22/2022: COVID 19 neg 06/14/2022: B12/Folate/ T D/TSH/LIPIDS: WNL BUN 20<-more fluids as needed H/H 12.5/37.3, MCV 97.1 04/12/2023: BUN 21 H/H 12.5/36.5, MCV 97.3 (B12/Folate/T SH/FT4:WNL) 08/12/2023: PSA <0.064 BUN 23H H/H 12.2/35.9 11/24/2023: H/H 12.3/36.5, MCV 98.9 BUN 23<- advised to hydrate [email or web address] [email or web address] Not available 11/29/2023 16:16:00 02/16/2024 02/16/2024 01/18/2022: B12/Folate/ T D/TSH/CMP/LIP IDS: WNL CBC: H/H 12.5/37.0, MCV 97.1H 02/22/2022: COVID 19 neg 06/14/2022: B12/Folate/ T D/TSH/LIPIDS: WNL BUN 20<-more fluids as needed H/H 12.5/37.3, MCV 97.1 04/12/2023: BUN 21 H/H 12.5/36.5, MCV 97.3 (B12/Folate/T SH/FT4:WNL) 08/12/2023: PSA <0.064 BUN 23H H/H 12.2/35.9 11/24/2023: H/H 12.3/36.5, MCV 98.9 BUN 23<- advised to hydrate 02/15/2024: BUN 20 H/H 12.6/37.3 [email or web address] Not available 02/16/2024 15:02:53 Plan of Treatment Reminders Order Date Submit Date Provider Last Modified By Organization Details Last Modified Time Details Appointments Any 15 2024 01:30P M Carlos long MD Not available Not available Not available Lab PSA, total, serum or plasma 2023 024 [facility] (Lab), [address] [place], [address], 08/12/2023 12:23:57 lipid panel, serum 2023 024 [facility] (Lab), [address] [place], [address], 08/12/2023 12:00:16 CMP, serum or plasma 2023 024 [facility] (Lab), [address] [place], [address], 08/12/2023 12:00:36 CBC w/ auto diff 2023 024 [facility] (Lab), [address] [place], [address], 08/12/2023 11:50:22 T4, free, serum 2023 024 [facility] (Lab), [address] [place], [address], 08/12/2023 12:27:15 TSH, serum or plasma 2023 024 [facility] (Lab), [address] [place], [address], 08/12/2023 12:23:51 vitamin D, 25-hydrox y, total, serum [address] [facility] (Lab), [address] [place], [address], 02/14/2024 08:22:39 lipid panel, serum 2023 024 [facility] (Lab), [address] [place], [address], 11/24/2023 11:22:17 CMP, serum or plasma 2023 024 [facility] (Lab), [address] [place], [address], 11/24/2023 11:22:27 CBC w/ auto diff 2023 024 [facility] (Lab), [address] [place], [address], 11/24/2023 11:42:16 T4, free, serum 2023 024 [facility] (Lab), [address] [place], [address], 11/24/2023 12:45:46 TSH, serum or plasma 2023 024 [facility] (Lab), [address] [place], [address], 11/24/2023 12:47:17 vitamin B12 + folate, serum or blood [address] (Lab), [address] [place], [address], 02/14/2024 08:22:40 vitamin D, 25-hydrox y, total, serum 2023 024 [facility] (Lab), [address] [place], [address], 11/29/2023 17:37:51 lipid panel, serum 2023 024 [facility] (Lab), [address] [place], [address], 02/15/2024 12:01:08 CMP, serum or plasma 2023 024 [facility] (Lab), [address] [place], [address], 02/15/2024 12:01:15 CBC w/ auto diff 2023 024 [facility] (Lab), [address] [place], [address], 02/15/2024 11:13:46 T4, free, serum 2023 024 [facility] (Lab), [address] [place], [address], 02/15/2024 12:04:06 TSH, serum or plasma 2023 024 [facility] (Lab), [address] [place], [address], 02/15/2024 12:49:33 vitamin B12 + folate, serum or blood 2023 024 [facility] (Lab), [address] [place], [address], 11/29/2023 17:37:51 vitamin D, 25-hydrox y, total, serum [address] (Lab), [address] [place], [address], 02/16/2024 15:07:07 lipid panel, serum [address] (Lab), [address] [place], [address], 02/16/2024 15:07:06 CMP, serum or plasma 2023 024 [facility] (Lab), [address] [place], [address], 03/09/2024 00:08:48 CBC w/ auto diff 2023 024 [facility] (Lab), [address] [place], [address], 03/09/2024 00:08:48 T4, free, serum [address] (Lab), [address] [place], [address], 02/16/2024 15:07:06 TSH, serum or plasma [address] (Lab), [address] [place], [address], 02/16/2024 15:07:07 vitamin B12 + folate, serum or blood [address] (Lab), [address] [place], [address], 02/16/2024 15:07:07 Referral nephrolog ist referral 2023 024 petra Cortez MD (Nephrology, [address], [address], [place], [address], 11/16/2023 08:55:41 nephrolog ist referral 2023 024 petra Cortez MD (Nephrology, [address], [address], [place], [address], 02/14/2024 08:19:12 endocrino logy referral - Please call patient to schedule. 2023 024 [email or web address] [place], [address] , [place], [address], 01/02/2024 16:43:06 nephrolog ist referral 2023 024 Rubens Cortez MD (Nephrology, [address], [address], [place], [address], 11/29/2023 16:31:31 endocrino logy referral - Please call patient to schedule. 2023 024 [email or web address] [place], [address] , [place], [address], 02/20/2024 09:45:52 nephrolog ist referral 2023 024 [email or web address] Rubens Cortez MD (Nephrology, [address], [address], [place], [address], 02/20/2024 09:45:51 Procedures None recorded. Surgeries None recorded. Imaging None recorded. Medication Orders Prolia 60 mg/mL subcutane ous syringe 2022 023 [facility]/Pharmacy #[id number], [address] [facility], [place], [address], 11/29/2023 15:15:33 Synthroid 100 mcg tablet 2022 023 [id number], [address] [facility], [place], [address], 10/22/2022 16:43:38 Patient TargetsNo targets recorded. Patient Instructions Encounter Date Encounter Id Patient Instructions Last Modified By Organization Details Last Modified Time 08/18/2023 [id number] dementia rating scale-2* Not available 08/18/2023 15:04:59 alcohol misuse* [email or web address] Not available 08/18/2023 15:05:12 depression screening* [email or web address] Not available 08/18/2023 15:05:29 Timed Up and Go test (TUG)* [email or web address] Not available 08/18/2023 15:05:50 multi-dimensiona l health assessment questionnaire* [email or web address] Not available 08/18/2023 15:07:36 Personalized a [facility] Plan and Screening Recommendations Advance Directives - Do you have one? Yes Advance Directives - Do we have your advance directive on file in your health record? Primary Prevention/Interven tion (prevents or decreases the chance of common diseases from occurring) Smoking Risk: Non Smoker Alcohol Misuse Screening: Negative Weight: Appropriate Overwei ght continue your current weight loss efforts try to lose 5% of your body weight try to lose 10% of your body weight Physical activity: Nutrition: Good Average Refer to attached handout Heart-Healthy Diet: After Your Visit Refer to attached handout DASH Diet: After Your Visit Fall Risk (screened today): Refer to attached handout Preventing Falls: After your Visit Vaccines Pneumococcal: Ordered Recommended today Influenza: Chronic Disease Risks Stroke: Low Risk Intermediate Risk I have no recommendations Heart Attack: Low risk Intermediate Risk I have no recommendations Clogging of the Arteries: I have no recommendations Act tomasa diagnosis, Continue current treatment plan Diabetes: Low Risk I have no recommendations Secondary Prevention/Interven tion (detects treatable diseases before they may cause symptoms, disability, or ) Prostate Cancer Screening: Colon Cancer Screening: Eye Disease Screening: Ordered Recommended today Dementia Risk: Low Intermediate I have no recommendations Depression Screening: Negative Positive [email or web address] Not available 08/18/2023 15:09:14 Reason for Referral Music Engineer 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 Referring Physician: Roxane Chamberlain Medicine, Encounter Date: 11/29/2023 Music Engineer Referral for Ch ronic kidney disease Referring Physician: Carlos Morris, Internal Medicine, Encounter Date: 02/16/2024 Endocrinology Referral for O steoporosis Please call patient to schedule. Referring Physician: Carlos Morris, Internal Medicine, Encounter Date: 02/16/2024 Results Created Date Observation Date Name Description Value Unit Range Abnormal Flag Note LastModifiedBy Organization Detail LastModifiedTime 04/12/19 24 04/12/2023 CBC/C OMPLE TE BLD COUNT W/DIF F white blood cells 5.8 x10'3 /uL 4.2-10 .8 Not Available [facility] (Lab) [address] [place], [address], 04/12/2023 11:16:56 04/12/19 24 04/12/2023 CBC/C OMPLE TE BLD COUNT W/DIF F red blood cells 3.75 x10'6 /uL 4.10-5 .80 low Not Available [facility] (Lab) [address] [place], [address], 04/12/2023 11:16:56 04/12/19 24 04/12/2023 CBC/C OMPLE TE BLD COUNT W/DIF F hemoglobin 12.5 g/dL 13.2-1 7.0 low Not Available [facility] (Lab) [address] [place], [address], 04/12/2023 11:16:56 04/12/19 24 04/12/2023 CBC/C OMPLE TE BLD COUNT W/DIF F hematocrit 36.5 % 39.3-5 0.0 low Not Available [facility] (Lab) [address] [place], [address], 04/12/2023 11:16:56 04/12/19 24 04/12/2023 CBC/C OMPLE TE BLD COUNT W/DIF F mean red cell volume 97.3 fL 80.0-9 7.0 high Not Available [facility] (Lab) [address] [place], [address], 04/12/2023 11:16:56 04/12/19 24 04/12/2023 CBC/C OMPLE TE BLD COUNT W/DIF F mean red cell hemoglobin 33.3 pg 27.0-3 3.0 high Not Available [facility] (Lab) [address] [place], [address], 04/12/2023 11:16:56 04/12/19 24 04/12/2023 CBC/C OMPLE TE BLD COUNT W/DIF F mean RBC HGB concentratio n 34.2 g/dL 31.0-3 6.0 Not Available [facility] (Lab) [address] [place], [address], 04/12/2023 11:16:56 04/12/19 24 04/12/2023 CBC/C OMPLE TE BLD COUNT W/DIF F red cell distribution width 13.0 % 11.8-1 5.5 Not Available [facility] (Lab) [address] [place], [address], 04/12/2023 11:16:56 04/12/19 24 04/12/2023 CBC/C OMPLE TE BLD COUNT W/DIF F platelets 175 x10'3 /uL 150-40 0 Not Available [facility] (Lab) [address] [place], [address], 04/12/2023 11:16:56 04/12/19 24 04/12/2023 CBC/C OMPLE TE BLD COUNT W/DIF F mean platelet volume 11.9 fL 9.0-12 .4 Not Available [facility] (Lab) [address] [place], [address], 04/12/2023 11:16:56 04/12/19 24 04/12/2023 CBC/C OMPLE TE BLD COUNT W/DIF F neutrophils 52.9 % 39.0-7 2.0 Not Available [facility] (Lab) [address] [place], [address], 04/12/2023 11:16:56 04/12/19 24 04/12/2023 CBC/C OMPLE TE BLD COUNT W/DIF F lymphocytes 30.3 % 16.0-4 7.0 Not Available [facility] (Lab) [address] [place], [address], 04/12/2023 11:16:56 04/12/19 24 04/12/2023 CBC/C OMPLE TE BLD COUNT W/DIF F monocytes 10.3 % 5.0-12 .0 Not Available [facility] (Lab) [address] [place], [address], 04/12/2023 11:16:56 04/12/19 24 04/12/2023 CBC/C OMPLE TE BLD COUNT W/DIF F eosinophils 5.3 % 1.0-7. 0 Not Available [facility] (Lab) [address] [place], [address], 04/12/2023 11:16:56 04/12/19 24 04/12/2023 CBC/C OMPLE TE BLD COUNT W/DIF F basophils 1.0 % 0.0-2. 0 Not Available [facility] (Lab) [address] [place], [address], 04/12/2023 11:16:56 04/12/19 24 04/12/2023 CBC/C OMPLE TE BLD COUNT W/DIF F immature granulocytes 0.2 % 0.00-0 .50 Not Available [facility] (Lab) [address] [place], [address], 04/12/2023 11:16:56 04/12/19 24 04/12/2023 CBC/C OMPLE TE BLD COUNT W/DIF F neutrophils, absolute count 3.09 x10'3 /uL 1.5-8. 0 Not Available [facility] (Lab) [address] [place], [address], 04/12/2023 11:16:56 04/12/19 24 04/12/2023 CBC/C OMPLE TE BLD COUNT W/DIF F lymphocytes, absolute count 1.77 x10'3 /uL 1.07-3 .43 Not Available [facility] (Lab) [address] [place], [address], 04/12/2023 11:16:56 04/12/19 24 04/12/2023 CBC/C OMPLE TE BLD COUNT W/DIF F monocytes, absolute count 0.60 x10'3 /uL 0.29-0 .99 Not Available [facility] (Lab) [address] [place], [address], 04/12/2023 11:16:56 04/12/19 24 04/12/2023 CBC/C OMPLE TE BLD COUNT W/DIF F eosinophils, absolute count 0.31 x10'3 /uL 0.02-0 .53 Not Available [facility] (Lab) [address] [place], [address], 04/12/2023 11:16:56 04/12/19 24 04/12/2023 CBC/C OMPLE TE BLD COUNT W/DIF F basophils, absolute count 0.06 x10'3 /uL 0.01-0 .08 Not Available [facility] (Lab) [address] [place], [address], 04/12/2023 11:16:56 04/12/19 24 04/12/2023 CBC/C OMPLE TE BLD COUNT W/DIF F immature granulocytes ,absolute 0.01 x10'3 /uL 0.00-0 .05 Not Available [facility] (Lab) [address] [place], [address], 04/12/2023 11:16:56 01/30/20 24 04/12/2023 CBC/C OMPLE TE BLD COUNT W/DIF F nucleated red blood cells 0.0 % -0 Not Available [facility] (Lab) [address] [place], [address], 04/12/2023 11:16:56 04/12/19 24 04/12/2023 CBC/C OMPLE TE BLD COUNT W/DIF F NRBC# 0.00 x10'3 /uL Not Available [facility] (Lab) [address] [place], [address], 04/12/2023 11:16:56 04/12/19 24 04/12/2023 COMPR EHENS TOMASA METAB OLIC PANEL sodium 137 mmol/ L 137-14 5 Not Available [facility] (Lab) [address] [place], [address], 04/12/2023 12:30:04 04/12/19 24 04/12/2023 COMPR EHENS TOMASA METAB OLIC PANEL potassium 4.2 mmol/ L 3.5-5. 1 Not Available [facility] (Lab) [address] [place], [address], 04/12/2023 12:30:04 04/12/19 24 04/12/2023 COMPR EHENS TOMASA METAB OLIC PANEL chloride 103 mmol/ L 98-107 Not Available [facility] (Lab) [address] [place], [address], 04/12/2023 12:30:04 04/12/19 24 04/12/2023 COMPR EHENS TOMASA METAB OLIC PANEL carbon dioxide 30 mmol/ L 22-30 Not Available [facility] (Lab) [address] [place], [address], 04/12/2023 12:30:04 04/12/19 24 04/12/2023 COMPR EHENS TOMASA METAB OLIC PANEL anion gap 8.2 mmol/ L 14-22 low Not Available [facility] (Lab) [address] [place], [address], 04/12/2023 12:30:04 04/12/19 24 04/12/2023 COMPR EHENS TOMASA METAB OLIC PANEL glucose 85 mg/dL 70-99 Not Available [facility] (Lab) [address] [place], [address], 04/12/2023 12:30:04 04/12/19 24 04/12/2023 COMPR EHENS TOMASA METAB OLIC PANEL BUN 21 mg/dL 8-19 high Not Available [facility] (Lab) [address] [place], [address], 04/12/2023 12:30:04 04/12/19 24 04/12/2023 COMPR EHENS TOMASA METAB OLIC PANEL creatinine 0.95 mg/dL 0.66-1 .25 Not Available [facility] (Lab) [address] [place], [address], 04/12/2023 12:30:04 04/12/19 24 04/12/2023 COMPR EHENS TOMASA METAB OLIC PANEL GFR >60 Refer ence Range : [place] ge GFR Healt hy Adult : >60 mL/mi n/1.7 3 m2 Chron ic Kidne y Disea se: 15-60 mL/mi n/1.7 3 m2 Kidne y Failu re: <15/m L/min /1.73 m2 www.n iddk. nih.g ov The MDRD study equat ion has not been valid ated in child silvia <18 years of age; pregn ant women ; the elder ly >85 years of age; or in some racia l or ethni c subgr oups, such as Hispa nics. Outsi de the valid ated phillip eters , estim ated GFR is less accur ate, requi ring clini tania judgm ent on a case- by-ca se basis . Clini tania inter preta tion for other races and ages must be made by the clini sammy. The MDRD study equat ion has not been valid ated for the evalu ation of serum creat inine relat ed to nutri cristiana l statu s or medic ation usage . For perso ns <18 years of age, a pedia tric GFR calcu lator is avail able on the F websi te: https ://renita w.kike rosey.o rg/pr ofess ional s/kdo qi/gf r_cal culat or Not Available [facility] (Lab) [address] [place], [address], 04/12/2023 12:30:04 04/12/19 24 04/12/2023 COMPR EHENS TOMASA METAB OLIC PANEL alkaline phosphatase 98 U/L 38-126 Not Available [facility] (Lab) [address] [place], [address], 04/12/2023 12:30:04 04/12/19 24 04/12/2023 COMPR EHENS TOMASA METAB OLIC PANEL alanine aminotransfe rase 15 U/L 0-50 Not Available [facility] (Lab) [address] [place], [address], 04/12/2023 12:30:04 04/12/19 24 04/12/2023 COMPR EHENS TOMASA METAB OLIC PANEL aspartate aminotransfe rase 28 U/L 15-46 Not Available [facility] (Lab) [address] [place], [address], 04/12/2023 12:30:04 04/12/19 24 04/12/2023 COMPR EHENS TOMASA METAB OLIC PANEL bilirubin, total 0.40 mg/dL 0.20-1 .30 Not Available [facility] (Lab) [address] [place], [address], 04/12/2023 12:30:04 04/12/19 24 04/12/2023 COMPR EHENS TOMASA METAB OLIC PANEL calcium 9.1 mg/dL 8.4-10 .2 Not Available [facility] (Lab) [address] [place], [address], 04/12/2023 12:30:04 04/12/19 24 04/12/2023 COMPR EHENS TOMASA METAB OLIC PANEL total protein 7.0 g/dL 6.3-8. 2 Not Available [facility] (Lab) [address] [place], [address], 04/12/2023 12:30:04 04/12/19 24 04/12/2023 COMPR EHENS TOMASA METAB OLIC PANEL albumin 3.7 g/dL 3.0-4. 4 Not Available [facility] (Lab) [address] [facility] [place], [address], 04/12/2023 12:30:04 04/12/19 24 04/12/2023 COMPR EHENS TOMASA METAB OLIC PANEL globulin 3.3 g/dL 2.6-4. 2 Not Available [facility] (Lab) [address] [place], [address], 04/12/2023 12:30:04 04/12/19 24 04/12/2023 COMPR EHENS TOMASA METAB OLIC PANEL A/G ratio 1.1 ratio 1.0-2. 0 Not Available [facility] (Lab) [address] [place], [address], 04/12/2023 12:30:04 04/12/19 24 04/12/2023 T4 FREE free T4 1.06 NG/dL 0.78-2 .19 Not Available [facility] (Lab) [address] [place], [address], 04/12/2023 14:16:07 04/12/19 24 04/12/2023 TSH thyroid-stim ulating hormone 2.630 uIU/m L 0.465- 4.680 Not Available [facility] (Lab) [address] [place], [address], 04/12/2023 14:17:09 04/12/19 24 04/12/2023 VITAM IN B12 (BERYL ADENIKE ) vb12 693 pg/mL 239-93 1 Not Available [facility] (Lab) [address] [place], [address], 04/12/2023 15:00:35 04/12/19 24 04/12/2023 FOLAT E, SERUM /PLAS MA folate 12.6 NG/mL 2.76-2 0.0 Not Available [facility] (Lab) [address] [place], [address], 04/12/2023 15:00:39 08/12/19 24 08/12/2023 CBC/C OMPLE TE BLD COUNT W/DIF F white blood cells 5.5 x10'3 /uL 4.2-10 .8 Not Available [facility] (Lab) [address] [place], [address], 08/12/2023 11:50:22 08/12/19 24 08/12/2023 CBC/C OMPLE TE BLD COUNT W/DIF F red blood cells 3.71 x10'6 /uL 4.10-5 .80 low Not Available [facility] (Lab) [address] [place], [address], 08/12/2023 11:50:22 08/12/19 24 08/12/2023 CBC/C OMPLE TE BLD COUNT W/DIF F hemoglobin 12.2 g/dL 13.2-1 7.0 low Not Available [facility] (Lab) [address] [place], [address], 08/12/2023 11:50:22 08/12/19 24 08/12/2023 CBC/C OMPLE TE BLD COUNT W/DIF F hematocrit 35.9 % 39.3-5 0.0 low Not Available [facility] (Lab) [address] [place], [address], 08/12/2023 11:50:22 08/12/19 24 08/12/2023 CBC/C OMPLE TE BLD COUNT W/DIF F mean red cell volume 96.8 fL 80.0-9 7.0 Not Available [facility] (Lab) [address] [place], [address], 08/12/2023 11:50:22 08/12/19 24 08/12/2023 CBC/C OMPLE TE BLD COUNT W/DIF F mean red cell hemoglobin 32.9 pg 27.0-3 3.0 Not Available [facility] (Lab) [address] [place], [address], 08/12/2023 11:50:22 08/12/19 24 08/12/2023 CBC/C OMPLE TE BLD COUNT W/DIF F mean RBC HGB concentratio n 34.0 g/dL 31.0-3 6.0 Not Available [facility] (Lab) [address] [place], [address], 08/12/2023 11:50:22 08/12/19 24 08/12/2023 CBC/C OMPLE TE BLD COUNT W/DIF F red cell distribution width 12.6 % 11.8-1 5.5 Not Available [facility] (Lab) [address] [place], [address], 08/12/2023 11:50:22 08/12/19 24 08/12/2023 CBC/C OMPLE TE BLD COUNT W/DIF F platelets 212 x10'3 /uL 150-40 0 Not Available [facility] (Lab) [address] [place], [address], 08/12/2023 11:50:22 08/12/19 24 08/12/2023 CBC/C OMPLE TE BLD COUNT W/DIF F mean platelet volume 11.3 fL 9.0-12 .4 Not Available [facility] (Lab) [address] [place], [address], 08/12/2023 11:50:22 08/12/19 24 08/12/2023 CBC/C OMPLE TE BLD COUNT W/DIF F neutrophils 50.8 % 39.0-7 2.0 Not Available [facility] (Lab) [address] [place], [address], 08/12/2023 11:50:22 08/12/19 24 08/12/2023 CBC/C OMPLE TE BLD COUNT W/DIF F lymphocytes 31.7 % 16.0-4 7.0 Not Available [facility] (Lab) [address] [place], [address], 08/12/2023 11:50:22 08/12/19 24 08/12/2023 CBC/C OMPLE TE BLD COUNT W/DIF F monocytes 10.9 % 5.0-12 .0 Not Available [facility] (Lab) [address] [place], [address], 08/12/2023 11:50:22 08/12/19 24 08/12/2023 CBC/C OMPLE TE BLD COUNT W/DIF F eosinophils 4.6 % 1.0-7. 0 Not Available [facility] (Lab) [address] [place], [address], 08/12/2023 11:50:22 08/12/19 24 08/12/2023 CBC/C OMPLE TE BLD COUNT W/DIF F basophils 1.5 % 0.0-2. 0 Not Available [facility] (Lab) [address] [place], [address], 08/12/2023 11:50:22 08/12/19 24 08/12/2023 CBC/C OMPLE TE BLD COUNT W/DIF F immature granulocytes 0.5 % 0.00-0 .50 Not Available [facility] (Lab) [address] [place], [address], 08/12/2023 11:50:22 08/12/19 24 08/12/2023 CBC/C OMPLE TE BLD COUNT W/DIF F neutrophils, absolute count 2.79 x10'3 /uL 1.5-8. 0 Not Available [facility] (Lab) [address] [place], [address], 08/12/2023 11:50:22 08/12/19 24 08/12/2023 CBC/C OMPLE TE BLD COUNT W/DIF F lymphocytes, absolute count 1.74 x10'3 /uL 1.07-3 .43 Not Available [facility] (Lab) [address] [place], [address], 08/12/2023 11:50:22 08/12/19 24 08/12/2023 CBC/C OMPLE TE BLD COUNT W/DIF F monocytes, absolute count 0.60 x10'3 /uL 0.29-0 .99 Not Available [facility] (Lab) [address] [place], [address], 08/12/2023 11:50:22 08/12/19 24 08/12/2023 CBC/C OMPLE TE BLD COUNT W/DIF F eosinophils, absolute count 0.25 x10'3 /uL 0.02-0 .53 Not Available [facility] (Lab) [address] [place], [address], 08/12/2023 11:50:22 08/12/19 24 08/12/2023 CBC/C OMPLE TE BLD COUNT W/DIF F basophils, absolute count 0.08 x10'3 /uL 0.01-0 .08 Not Available [facility] (Lab) [address] [place], [address], 08/12/2023 11:50:22 08/12/19 24 08/12/2023 CBC/C OMPLE TE BLD COUNT W/DIF F immature granulocytes ,absolute 0.03 x10'3 /uL 0.00-0 .05 Not Available [facility] (Lab) [address] [place], [address], 08/12/2023 11:50:22 08/12/19 24 08/12/2023 CBC/C OMPLE TE BLD COUNT W/DIF F nucleated red blood cells 0.0 % -0 Not Available [facility] (Lab) [address] [place], [address], 08/12/2023 11:50:22 08/12/19 24 08/12/2023 CBC/C OMPLE TE BLD COUNT W/DIF F NRBC# 0.00 x10'3 /uL Not Available [facility] (Lab) [address] [place], [address], 08/12/2023 11:50:22 08/12/19 24 08/12/2023 LIPID PANEL cholesterol 145 mg/dL 140-19 9 NIH ZULEYMA NSUS RECOM MENDA TION FOR ALBA STERO L: ADULT CHILD LOW RISK: <200 <170 BORDE RLINE : <200- 239 ----- HIGH RISK: >240 >200 Not Available [facility] (Lab) [address] [place], [address], 08/12/2023 12:00:16 08/12/19 24 08/12/2023 LIPID PANEL triglyceride s 102 mg/dL 0-150 NIH ZULEYMA NSUS REPOR T RECOM MENDA TION FOR TRIGL YCERI LANNY: ADULT CHILD LOW RISK: <150 ----- BODER LINE: 150-1 99 ----- HIGH RISK: >200 ----- Not Available [facility] (Lab) [address] [place], [address], 08/12/2023 12:00:16 08/12/19 24 08/12/2023 LIPID PANEL HDL cholesterol 43 mg/dL 40- Not Available [facility] (Lab) [address] [place], [address], 08/12/2023 12:00:16 08/12/19 24 08/12/2023 LIPID PANEL LDL cholesterol, calculated 82 mg/dL 0-130 NIH ZULEYMA NSUS REPOR T RECOM MENDA TIONS FOR LDL: ADULT CHILD LOW RISK <130 <110 (OPTI MAL LDL) <100 ----- BORDE RLINE : 130-1 59 ----- HIGH RISK: >160 >130 A TRIGL YCERI DE RESUL T >400 INVAL IDATE S THE CALCU LATIO N FOR LDL FRACT IONAT ION - THE LDL RESUL T WILL NOT BE REPOR NATHEN. Not Available [facility] (Lab) [address] [place], [address], 08/12/2023 12:00:16 08/12/19 24 08/12/2023 COMPR EHENS TOMASA METAB OLIC PANEL sodium 137 mmol/ L 137-14 5 Not Available [facility] (Lab) [address] [place], [address], 08/12/2023 12:00:36 08/12/19 24 08/12/2023 COMPR EHENS TOMASA METAB OLIC PANEL potassium 4.4 mmol/ L 3.5-5. 1 Not Available [facility] (Lab) [address] [place], [address], 08/12/2023 12:00:36 08/12/19 24 08/12/2023 COMPR EHENS TOMASA METAB OLIC PANEL chloride 106 mmol/ L 98-107 Not Available [facility] (Lab) [address] [place], [address], 08/12/2023 12:00:36 08/12/19 24 08/12/2023 COMPR EHENS TOMASA METAB OLIC PANEL carbon dioxide 26 mmol/ L 22-30 Not Available [facility] (Lab) [address] [place], [address], 08/12/2023 12:00:36 08/12/19 24 08/12/2023 COMPR EHENS TOMASA METAB OLIC PANEL anion gap 9.4 mmol/ L 14-22 low Not Available [facility] (Lab) [address] [place], [address], 08/12/2023 12:00:36 08/12/19 24 08/12/2023 COMPR EHENS TOMASA METAB OLIC PANEL glucose 88 mg/dL 70-99 Not Available [facility] (Lab) [address] [place], [address], 08/12/2023 12:00:36 08/12/19 24 08/12/2023 COMPR EHENS TOMASA METAB OLIC PANEL BUN 23 mg/dL 8-19 high Not Available [facility] (Lab) [address] [place], [address], 08/12/2023 12:00:36 08/12/19 24 08/12/2023 COMPR EHENS TOMASA METAB OLIC PANEL creatinine 1.09 mg/dL 0.66-1 .25 Not Available [facility] (Lab) [address] [place], [address], 08/12/2023 12:00:36 08/12/19 24 08/12/2023 COMPR EHENS TOMASA METAB OLIC PANEL GFR >60 Refer ence Range : [place] ge GFR Healt hy Adult : >60 mL/mi n/1.7 3 m2 Chron ic Kidne y Disea se: 15-60 mL/mi n/1.7 3 m2 Kidne y Failu re: <15/m L/min /1.73 m2 www.n iddk. nih.g ov The MDRD study equat ion has not been valid ated in child silvia <18 years of age; pregn ant women ; the elder ly >85 years of age; or in some racia l or ethni c subgr oups, such as Hispa nics. Outsi de the valid ated phillip eters , estim ated GFR is less accur ate, requi ring clini tania judgm ent on a case- by-ca se basis . Clini tania inter preta tion for other races and ages must be made by the clini sammy. The MDRD study equat ion has not been valid ated for the evalu ation of serum creat inine relat ed to nutri cristiana l statu s or medic ation usage . For perso ns <18 years of age, a pedia tric GFR calcu lator is avail able on the [facility] websi te: https ://ww w.kid rosey.o rg/pr ofess ional s/kdo qi/gf r_cal culat or Not Available [facility] (Lab) [address] [place], [address], 08/12/2023 12:00:36 08/12/19 24 08/12/2023 COMPR EHENS TOMASA METAB OLIC PANEL alkaline phosphatase 98 U/L 38-126 Not Available [facility] (Lab) [address] [place], [address], 08/12/2023 12:00:36 08/12/19 24 08/12/2023 COMPR EHENS TOMASA METAB OLIC PANEL alanine aminotransfe rase 16 U/L 0-50 Not Available [facility] (Lab) [address] [place], [address], 08/12/2023 12:00:36 08/12/19 24 08/12/2023 COMPR EHENS TOMASA METAB OLIC PANEL aspartate aminotransfe rase 29 U/L 15-46 Not Available [facility] (Lab) [address] [place], [address], 08/12/2023 12:00:36 08/12/19 24 08/12/2023 COMPR EHENS TOMASA METAB OLIC PANEL bilirubin, total 0.80 mg/dL 0.20-1 .30 Not Available [facility] (Lab) [address] [place], [address], 08/12/2023 12:00:36 08/12/19 24 08/12/2023 COMPR EHENS TOMASA METAB OLIC PANEL calcium 8.8 mg/dL 8.4-10 .2 Not Available [facility] (Lab) [address] [place], [address], 08/12/2023 12:00:36 08/12/19 24 08/12/2023 COMPR EHENS TOMASA METAB OLIC PANEL total protein 6.9 g/dL 6.3-8. 2 Not Available [facility] (Lab) [address] [place], [address], 08/12/2023 12:00:36 08/12/19 24 08/12/2023 COMPR EHENS TOMASA METAB OLIC PANEL albumin 3.8 g/dL 3.0-4. 4 Not Available [facility] (Lab) [address] [place], [address], 08/12/2023 12:00:36 08/12/19 24 08/12/2023 COMPR EHENS TOMASA METAB OLIC PANEL globulin 3.1 g/dL 2.6-4. 2 Not Available [facility] (Lab) [address] [place], [address], 08/12/2023 12:00:36 08/12/19 24 08/12/2023 COMPR EHENS TOMASA METAB OLIC PANEL A/G ratio 1.2 ratio 1.0-2. 0 Not Available [facility] (Lab) [address] [place], [address], 08/12/2023 12:00:36 08/12/19 24 08/12/2023 TSH thyroid-stim ulating hormone 2.170 uIU/m L 0.465- 4.680 Not Available [facility] (Lab) [address] [place], [address], 08/12/2023 12:23:51 08/12/19 24 08/12/2023 PSA SCREE N PSA medicare screen <0.064 NG/mL 0.00-4 .00 Not Available [facility] (Lab) [address] [place], [address], 08/12/2023 12:23:57 08/12/19 24 08/12/2023 T4 FREE free T4 1.05 NG/dL 0.78-2 .19 Not Available [facility] (Lab) [address] [place], [address], 08/12/2023 12:27:15 11/24/19 24 11/24/2023 LIPID PANEL cholesterol 157 mg/dL 140-19 9 NIH ZULEYMA NSUS RECOM MENDA TION FOR ALBA STERO L: ADULT CHILD LOW RISK: <200 <170 BORDE RLINE : <200- 239 ----- HIGH RISK: >240 >200 Not Available [facility] (Lab) [address] [place], [address], 11/24/2023 11:22:16 11/24/19 24 11/24/2023 LIPID PANEL triglyceride s 118 mg/dL 0-150 NIH ZULEYMA NSUS REPOR T RECOM MENDA TION FOR TRIGL YCERI LANNY: ADULT CHILD LOW RISK: <150 ----- BODER LINE: 150-1 99 ----- HIGH RISK: >200 ----- Not Available [facility] (Lab) [address] [place], [address], 11/24/2023 11:22:16 11/24/19 24 11/24/2023 LIPID PANEL HDL cholesterol 47 mg/dL 40- Not Available [facility] (Lab) [address] [place], [address], 11/24/2023 11:22:16 11/24/19 24 11/24/2023 LIPID PANEL LDL cholesterol, calculated 86 mg/dL 0-130 NIH ZULEYMA NSUS REPOR T RECOM MENDA TIONS FOR LDL: ADULT CHILD LOW RISK <130 <110 (OPTI MAL LDL) <100 ----- BORDE RLINE : 130-1 59 ----- HIGH RISK: >160 >130 A TRIGL YCERI DE RESUL T >400 INVAL IDATE S THE CALCU LATIO N FOR LDL FRACT IONAT ION - THE LDL RESUL T WILL NOT BE REPOR NATHEN. Not Available [facility] (Lab) [address] [place], [address], 11/24/2023 11:22:16 11/24/19 24 11/24/2023 COMPR EHENS TOMASA METAB OLIC PANEL sodium 137 mmol/ L 137-14 5 Not Available [facility] (Lab) [address] [place], [address], 11/24/2023 11:22:26 11/24/19 24 11/24/2023 COMPR EHENS TOMASA METAB OLIC PANEL potassium 4.2 mmol/ L 3.5-5. 1 Not Available [facility] (Lab) [address] [place], [address], 11/24/2023 11:22:26 11/24/19 24 11/24/2023 COMPR EHENS TOMASA METAB OLIC PANEL chloride 103 mmol/ L 98-107 Not Available [facility] (Lab) [address] [place], [address], 11/24/2023 11:22:26 11/24/19 24 11/24/2023 COMPR EHENS TOMASA METAB OLIC PANEL carbon dioxide 29 mmol/ L 22-30 Not Available [facility] (Lab) [address] [place], [address], 11/24/2023 11:22:26 11/24/19 24 11/24/2023 COMPR EHENS TOMASA METAB OLIC PANEL anion gap 9.2 mmol/ L 14-22 low Not Available [facility] (Lab) [address] [place], [address], 11/24/2023 11:22:26 11/24/19 24 11/24/2023 COMPR EHENS TOMASA METAB OLIC PANEL glucose 89 mg/dL 70-99 Not Available [facility] (Lab) [address] [place], [address], 11/24/2023 11:22:26 11/24/19 24 11/24/2023 COMPR EHENS TOMASA METAB OLIC PANEL BUN 23 mg/dL 8-19 high Not Available [facility] (Lab) [address] [place], [address], 11/24/2023 11:22:26 11/24/19 24 11/24/2023 COMPR EHENS TOMASA METAB OLIC PANEL creatinine 1.13 mg/dL 0.66-1 .25 Not Available [facility] (Lab) [address] [place], [address], 11/24/2023 11:22:26 11/24/19 24 11/24/2023 COMPR EHENS TOMASA METAB OLIC PANEL GFR >60 Refer ence Range : [place] GFR Healt hy Adult : >60 mL/mi n/1.7 3 m2 Chron ic Kidne y Disea se: 15-60 mL/mi n/1.7 3 m2 Kidne y Failu re: <15/m L/min /1.73 m2 www.n iddk. nih.g ov The MDRD study equat ion has not been valid ated in child silvia <18 years of age; pregn ant women ; the elder ly >85 years of age; or in some racia l or ethni c subgr oups, such as Hisia nics. Outsi de the valid ated phillip eters , estim ated GFR is less accur ate, requi ring clini tania judgm ent on a case- by-ca se basis . Clini tania inter preta tion for other races and ages must be made by the clini sammy. The MDRD study equat ion has not been valid ated for the evalu ation of serum creat inine relat ed to nutri cristiana l statu s or medic ation usage . For perso ns <18 years of age, a pedia tric GFR calcu lator is avail able on the [facility] websi te: https ://renita irwin.kike currie.o diego/pr seraess zeeshanal s/kdo qi/gf r_cal culat or Not Available [facility] (Lab) [address] [place], [address], 11/24/2023 11:22:26 11/24/19 24 11/24/2023 COMPR EHENS TOMASA METAB OLIC PANEL alkaline phosphatase 110 U/L 38-126 Not Available [facility] (Lab) [address] [place], [address], 11/24/2023 11:22:26 11/24/19 24 11/24/2023 COMPR EHENS TOMASA METAB OLIC PANEL alanine aminotransfe rase 16 U/L 0-50 Not Available [facility] (Lab) [address] [place], [address], 11/24/2023 11:22:26 11/24/19 24 11/24/2023 COMPR EHENS TOMASA METAB OLIC PANEL aspartate aminotransfe rase 29 U/L 15-46 Not Available [facility] (Lab) [address] [place], [address], 11/24/2023 11:22:26 11/24/19 24 11/24/2023 COMPR EHENS TOMASA METAB OLIC PANEL bilirubin, total 0.60 mg/dL 0.20-1 .30 Not Available [facility] (Lab) [address] [place], [address], 11/24/2023 11:22:26 11/24/19 24 11/24/2023 COMPR EHENS TOMASA METAB OLIC PANEL calcium 9.2 mg/dL 8.4-10 .2 Not Available [facility] (Lab) [address] [place], [address], 11/24/2023 11:22:26 11/24/19 24 11/24/2023 COMPR EHENS TOMASA METAB OLIC PANEL total protein 6.9 g/dL 6.3-8. 2 Not Available [facility] (Lab) [address] [place], [address], 11/24/2023 11:22:26 11/24/19 24 11/24/2023 COMPR EHENS TOMASA METAB OLIC PANEL albumin 3.9 g/dL 3.0-4. 4 Not Available [facility] (Lab) [address] [place], [address], 11/24/2023 11:22:26 11/24/19 24 11/24/2023 COMPR EHENS TOMASA METAB OLIC PANEL globulin 3.0 g/dL 2.6-4. 2 Not Available [facility] (Lab) [address] [place], [address], 11/24/2023 11:22:26 11/24/19 24 11/24/2023 COMPR EHENS TOMASA METAB OLIC PANEL A/G ratio 1.3 ratio 1.0-2. 0 Not Available [facility] (Lab) [address] [place], [address], 11/24/2023 11:22:26 11/24/19 24 11/24/2023 CBC/C OMPLE TE BLD COUNT W/DIF F white blood cells 5.9 x10'3 /uL 4.2-10 .8 Not Available [facility] (Lab) [address] [place], [address], 11/24/2023 11:42:16 11/24/19 24 11/24/2023 CBC/C OMPLE TE BLD COUNT W/DIF F red blood cells 3.69 x10'6 /uL 4.10-5 .80 low Not Available [facility] (Lab) [address] [place], [address], 11/24/2023 11:42:16 11/24/19 24 11/24/2023 CBC/C OMPLE TE BLD COUNT W/DIF F hemoglobin 12.3 g/dL 13.2-1 7.0 low Not Available [facility] (Lab) [address] [place], [address], 11/24/2023 11:42:16 11/24/19 24 11/24/2023 CBC/C OMPLE TE BLD COUNT W/DIF F hematocrit 36.5 % 39.3-5 0.0 low Not Available [facility] (Lab) [address] [place], [address], 11/24/2023 11:42:16 11/24/1911/24/2023 CBC/C OMPLE TE BLD COUNT W/DIF F mean red cell volume 98.9 fL 80.0-9 7.0 high Not Available [facility] (Lab) [address] [place], [address], 11/24/2023 11:42:16 11/24/19 24 11/24/2023 CBC/C OMPLE TE BLD COUNT W/DIF F mean red cell hemoglobin 33.3 pg 27.0-3 3.0 high Not Available [facility] (Lab) [address] [place], [address], 11/24/2023 11:42:16 11/24/1911/24/2023 CBC/C OMPLE TE BLD COUNT W/DIF F mean RBC HGB concentratio n 33.7 g/dL 31.0-3 6.0 Not Available [facility] (Lab) [address] [place], [address], 11/24/2023 11:42:16 11/24/1911/24/2023 CBC/C OMPLE TE BLD COUNT W/DIF F red cell distribution width 12.6 % 11.8-1 5.5 Not Available [facility] (Lab) [address] [place], [address], 11/24/2023 11:42:16 11/24/19 24 11/24/2023 CBC/C OMPLE TE BLD COUNT W/DIF F platelets 206 x10'3 /uL 150-40 0 Not Available [facility] (Lab) [address] [place], [address], 11/24/2023 11:42:16 11/24/19 24 11/24/2023 CBC/C OMPLE TE BLD COUNT W/DIF F mean platelet volume 11.3 fL 9.0-12 .4 Not Available [facility] (Lab) [address] [place], [address], 11/24/2023 11:42:16 11/24/19 24 11/24/2023 CBC/C OMPLE TE BLD COUNT W/DIF F neutrophils 52.0 % 39.0-7 2.0 Not Available [facility] (Lab) [address] [place], [address], 11/24/2023 11:42:16 11/24/19 24 11/24/2023 CBC/C OMPLE TE BLD COUNT W/DIF F lymphocytes 31.3 % 16.0-4 7.0 Not Available [facility] (Lab) [address] [place], [address], 11/24/2023 11:42:16 11/24/19 24 11/24/2023 CBC/C OMPLE TE BLD COUNT W/DIF F monocytes 10.3 % 5.0-12 .0 Not Available [facility] (Lab) [address] [place], [address], 11/24/2023 11:42:16 11/24/19 24 11/24/2023 CBC/C OMPLE TE BLD COUNT W/DIF F eosinophils 5.1 % 1.0-7. 0 Not Available [facility] (Lab) [address] [place], [address], 11/24/2023 11:42:16 09/12/20 24 11/24/2023 CBC/C OMPLE TE BLD COUNT W/DIF F basophils 1.0 % 0.0-2. 0 Not Available [facility] (Lab) [address] [place], [address], 11/24/2023 11:42:16 11/24/19 24 11/24/2023 CBC/C OMPLE TE BLD COUNT W/DIF F immature granulocytes 0.3 % 0.00-0 .50 Not Available [facility] (Lab) [address] [place], [address], 11/24/2023 11:42:16 11/24/1911/24/2023 CBC/C OMPLE TE BLD COUNT W/DIF F neutrophils, absolute count 3.07 x10'3 /uL 1.5-8. 0 Not Available [facility] (Lab) [address] [place], [address], 11/24/2023 11:42:16 11/24/19 24 11/24/2023 CBC/C OMPLE TE BLD COUNT W/DIF F lymphocytes, absolute count 1.85 x10'3 /uL 1.07-3 .43 Not Available [facility] (Lab) [address] [place], [address], 11/24/2023 11:42:16 11/24/1911/24/2023 CBC/C OMPLE TE BLD COUNT W/DIF F monocytes, absolute count 0.61 x10'3 /uL 0.29-0 .99 Not Available [facility] (Lab) [address] [place], [address], 11/24/2023 11:42:16 11/24/19 24 11/24/2023 CBC/C OMPLE TE BLD COUNT W/DIF F eosinophils, absolute count 0.30 x10'3 /uL 0.02-0 .53 Not Available [facility] (Lab) [address] [place], [address], 11/24/2023 11:42:16 11/24/19 24 11/24/2023 CBC/C OMPLE TE BLD COUNT W/DIF F basophils, absolute count 0.06 x10'3 /uL 0.01-0 .08 Not Available [facility] (Lab) [address] [place], [address], 11/24/2023 11:42:16 11/24/19 24 11/24/2023 CBC/C OMPLE TE BLD COUNT W/DIF F immature granulocytes ,absolute 0.02 x10'3 /uL 0.00-0 .05 Not Available [facility] (Lab) [address] [place], [address], 11/24/2023 11:42:16 11/24/1911/24/2023 CBC/C OMPLE TE BLD COUNT W/DIF F nucleated red blood cells 0.0 % -0 Not Available [facility] (Lab) [address] [place], [address], 11/24/2023 11:42:16 11/24/1911/24/2023 CBC/C OMPLE TE BLD COUNT W/DIF F NRBC# 0.00 x10'3 /uL Not Available [facility] (Lab) [address] [place], [address], 11/24/2023 11:42:16 11/24/1911/24/2023 VITAM IN D 25-HY DROXY vd25oh 55.1 NG/mL 30-100 Vitam in D Statu s: Defic ient: <20 ng/mL Insuf ficie nt: 20-29 ng/mL Suffi cient : 30-10 0 ng/mL Not Available [facility] (Lab) [address] [place], [address], 11/24/2023 12:45:42 11/24/1911/24/2023 T4 FREE free T4 0.98 NG/dL 0.78-2 .19 Not Available [facility] (Lab) [address] [place], [address], 11/24/2023 12:45:46 11/24/19 24 11/24/2023 TSH thyroid-stim ulating hormone 3.360 uIU/m L 0.465- 4.680 Not Available [facility] (Lab) [address] [place], [address], 11/24/2023 12:47:17 11/24/19 24 11/24/2023 VITAM IN B12 (BERYL ADENIKE ) vb12 809 pg/mL 239-93 1 Not Available [facility] (Lab) [address] [place], [address], 11/24/2023 12:47:58 11/24/19 24 11/24/2023 FOLAT E, SERUM /PLAS MA folate 11.4 NG/mL 2.76-2 0.0 Not Available [facility] (Lab) [address] [place], [address], 11/24/2023 12:48:03 10/16/19 23 10/15/2022 XR, hip, unila teral , 2 or 3 view No observ ation record ed. [address], [address], 11/24/2022 11:05:04 10/16/19 23 10/15/2022 XR, chest No observ ation record ed. [address], [address], 11/24/2022 11:05:05 10/16/19 23 10/15/2022 CT, brain , w/o contr ast No observ ation record ed. [address], [address], 11/24/2022 11:05:05 10/17/19 23 10/16/2022 XR, hip, unila teral , 1 view No observ ation record ed. [email or web address] [facility] [address], [place], [address], 11/24/2022 11:05:06 10/18/19 23 10/16/2022 stres s echoc ardio gram with doppl er color flow (PROC ) No observ ation record ed. [email or web address] [facility] [address], [place], [address], 12/14/2022 08:27:47 03/08/20 24 03/08/2024 imagi ng/di agnos tic resul t No observ ation record ed. [facility] [address], [place], [address], 03/08/2024 21:14:31 Result Notes None recorded. 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 Not Available [facility] 3 14:49:13 Vitamin D deficiency 27312274 Active 2022 Not Available [facility] 3 14:49:13 Hyperlipidemi a 86995665 Active 2022 Not Available [facility] 3 14:49:13 Osteoporosis 49767580 Active 2022 Not Available [facility] 3 14:49:13 Chronic kidney disease 472044437 Active 2022 Not Available [facility] 3 14:49:13 Chronic recurrent major depressive disorder 0908808 Active 2022 Not Available [facility] 3 14:49:13 Glaucoma 53493083 Active 2022 Not Available [facility] 3 14:49:13 Dementia 51597183 Active 2022 [facility] Available [facility] 3 14:49:13 Benign paroxysmal positional vertigo 672901310 Active 2022 Not Available [facility] 3 14:49:13 Environmental allergy 298533402 Active 2022 Not Available [facility] 3 14:49:13 Hammer toe 281878991 Active 2018 Not Available [facility] 3 14:49:13 Injury of shoulder region 090377776 Active Not Available [facility] 3 14:49:13 Closed fracture of medial malleolus 90441924 Active Not Available [facility] 3 14:49:13 Acute sinusitis 58995941 Active 2021 Not Available [facility] 3 14:49:13 Dry skin 72866172 Active 2018 Not Available [facility] 3 14:49:13 Anemia 402577190 Active 2021 Not Available [facility] 3 14:49:13 Upper chest pain 973609251 Active 2016 Not Available [facility] 3 14:49:13 Depressive disorder 04802403 Active Not Available [facility] 3 14:49:13 Ingrowing toenail 153720550 Active 2018 Not Available [facility] 3 14:49:13 Foot pain 46699999 Active 2018 Not Available [facility] 3 14:49:13 Upper respiratory infection 45502188 Active 2021 Not Available [facility] 3 14:49:13 Essential hypertension 89367878 Active Not Available [facility] 3 14:49:13 Rhinitis 10471438 Active 2016 Not Available [facility] 3 14:49:13 Heart murmur 05523364 Active Not Available [facility] 3 14:49:13 Primary malignant neoplasm of prostate 69905788 Active Not Available [facility] 3 14:49:13 Primary hyperparathyr oidism 03569677 Active 2022 Anyi Tuttle MD [address], [address], [place], [address] , [facility] 3 15:30:26 Serum vitamin B12 below reference range 568163348 Active 2023 Carlos pemberton MD [address], [address], [place], [address] , [facility] 4 14:42:58 Problem Notes None recorded. Procedures Surgical History Date Name Laterality Status Provider Name and Address Organization Details Recorded Time 08/18/19 24 Medicare Wellness CPT Code, subsequent completed Carlos Morgan LPN [place] [facility] 08/12/2023 10:34:39 06/23/19 23 Medicare Wellness CPT Code, subsequent completed Delicia Venegas RN [facility] [employer] Information 06/22/2022 14:21:05 02/01/20 18 Thyroid Surgery completed Not Available [facility] 03/2022 02:51:44 09/16/19 16 Excisions - Specify completed Not Available [facility] 05/12/2022 02:51:44 Hernia Repair completed Not Available [facility] 05/12/2022 02:51:44 other completed Not Available [facility] 03/2022 02:51:44 Prostatectomy completed Not Available [facility] 05/12/2022 02:51:44 Biopsy completed Not Available [facility] Health 03/2022 02:51:44 excisional biopsy of basal cell carcinoma completed Not Available [facility] 05/12/2022 02:51:44 Hip surgery completed ROXANNA Hernandez [place] [employer] [facility] 04/19/2023 13:59:36 Imaging Results Imaging Date Name Status LastModified by Organization Details LastModified Time 10/15/2022 XR, hip, unilateral, 2 or 3 view completed [address], [address], 11/24/2022 11:05:04 10/15/2022 XR, chest completed [address], [address], 11/24/2022 11:05:05 10/15/2022 CT, brain, w/o contrast completed [address], [place], [address], 11/24/2022 11:05:05 10/16/2022 XR, hip, unilateral, 1 view completed [address], [place], [address], 11/24/2022 11:05:06 10/16/2022 stress echocardiogram with doppler color flow (PROC) completed [address] [address], [place], [address], 12/14/2022 08:27:47 03/08/2024 imaging/diagnostic result active [address] [address], [place], [address], 03/08/2024 21:14:31 Procedure Notes None recorded. Medical Equipment None [...] Available prednison e 10 mg tablet take 1z5pkcy, 8h1wark, 3z6lehg active Not Available Not Available No t [...] Not Available Not Available Not Available cyanocoba adenike (vit B-12) 1,000 mcg sublingua l tablet [...] and Address Organization Details Last Updated DateTime 3 170.18 cm 32.4 kg/m2 92804.1 8 g 97.6 [degF] 53 /min 95 mm[Hg] 57 mm[Hg] Alyce Gloria Kelly [facility] 3 15:14:16 Date Recorded Body height Body mass index (BMI) Body weight Body temperature Heart rate Systolic blood pressure Diastolic blood pressure Provider Name and Address Organization Details Last Updated DateTime 4 170.18 cm 29.6 kg/m2 32174.9 6 g 97 [degF] 54 /min 122 mm[Hg] 64 mm[Hg] Misti Royal Kelly [facility] 4 14:01:09 Date Recorded Body height Body mass index (BMI) Body weight Body temperature Heart rate Systolic blood pressure Diastolic blood pressure Provider Name and Address Organization Details Last Updated DateTime 4 170.18 cm 29.3 kg/m2 05199.7 7 g 97.4 [degF] 60 /min 118 mm[Hg] 64 mm[Hg] Misti Royal Kelly [facility] 4 14:25:49 Date Recorded Body height Body mass index (BMI) Body weight Body temperature Heart rate Respiratory rate Oxygen saturation Oxygen saturation in Arterial blood by Pulse oximetry Systolic blood pressure Diastolic blood pressure Provider Name and Address Organization Details Last Updated DateTime 4 170.18 cm 29.4 kg/m2 97961.3 7 g 98 [degF] 55 /min 18 /min 96 % 96 % 110 mm[Hg] 60 mm[Hg] Carlos Morgan LPN [facility] 4 15:13:30 Date Recorded Body height Body mass index (BMI) Body weight Body temperature Heart rate Systolic blood pressure Diastolic blood pressure Provider Name and Address Organization Details Last Updated DateTime 4 170.18 cm 30.9 kg/m2 49576.7 g 97.7 [degF] 60 /min 116 mm[Hg] 60 mm[Hg] MistiROXANNA Mohan [facility] 4 14:24:09 Social History Question Answer Notes LastModified by Organization Details LastModified Time Tobacco Smoking Status Former Smoker Not Available [facility] 05/12/2022 02:45:46 Do You Have An Advance Directive? Yes MIGRATION.0301 [id number] Information not available 05/12/2022 What Is Your Level Of Alcohol Consumption? None MIGRATION.0301 [id number] Information not available 05/12/2022 Do You Wear A Helmet When Biking? No Does Not Bike Information not available 08/18/2023 Are You Blind Or Do You Have Difficulty Seeing? No MIGRATION.0301 547308 Information not available 05/12/2022 What Is Your Level Of Caffeine Consumption? Occasional Coffee MIGRATION.0301 249888 Information not available 05/12/2022 How Much Tobacco Do You Chew? None MIGRATION.0301 842741 Information not available 05/12/2022 In The 14 Days Before Symptom Onset, Have You Had Close Contact With A Laboratory-confi rmed COVID-19 While That Case Was Ill? No MIGRATION.0301 434346 Information not available 05/12/2022 In The 14 Days Before Symptom Onset, Have You Had Close Contact With A Person Who Is Under Investigation For COVID-19 While That Person Was Ill? No MIGRATION.0301 [id number] Information not available 05/12/2022 Are You Currently Employed? No [email or web address] Information not available 08/18/2023 Are You Deaf Or Do You Have Serious Difficulty Hearing? Yes Choclear Implant Information not available 08/18/2023 What Type Of Diet Are You Following? REGULAR MIGRATION.0301 869329 Information not available 05/12/2022 Which Illicit Or Recreational Drugs Have You Used? None MIGRATION.0301 522457 Information not available 05/12/2022 What Is The Highest Grade Or Level Of School You Have Completed Or The Highest Degree You Have Received? [id number] [email or web address] Information not available 08/18/2023 What Is Your Occupation? Retired MIGRATION.0301 067642 Information not available 05/12/2022 Have There Been Any Changes To Your Family Or Social Situation? No MIGRATION.0301 921130 Information not available 05/12/2022 What Is The Fluoride Status Of Your Home? Unknown MIGRATION.0301 069018 Information not available 05/12/2022 When Did You Quit Smoking? 16+yearssincelast cigarette MIGRATION.0301 661587 Information not available 05/12/2022 Are There Any Guns Present In Your Home? Yes MIGRATION.0301 871447 Information not available 05/12/2022 Do You Use Insect Repellent Routinely? No MIGRATION.0301 113261 Information not available 05/12/2022 Where Do You Live? [facility] MIGRATION.0301 298407 Information not available 05/12/2022 Presence Of Domestic Violence No [email or web address] Information not available 08/18/2023 Guns Present In The Home? Yes [email or web address] Information not available 06/22/2022 Are You Able To Care For Yourself? Yes [email or web address] Information not available 06/22/2022 Are You Blind Or Do Yo Have Difficulty Seeing? No [email or web address] Information not available 06/22/2022 Are You Deaf Or Do You Have Serious Difficulty Hearing? Yes Has Cochlear Implant [email or web address] Information not available 06/22/2022 General Stress Level? Low [email or web address] Information not available 08/18/2023 Live Alone Of With Others? With Others [email or web address] Information not available 06/22/2022 Do You Have A Medical Power Of Supervisor Cell Operation? Yes MIGRATION.0301 655218 Information not available 05/12/2022 What Was The Date Of Your Most Recent Tobacco Screening? 02/16/2024 Information not available 02/16/2024 What Is Your Current Pack Years? 10-19packyears MIGRATION.0301 798622 Information not available 05/12/2022 Do You Have Any Pets? No MIGRATION.0301 852392 Information not available 05/12/2022 What Is Your Relationship Status? MIGRATION.0301 214975 Information not available 05/12/2022 Do You Use Your Seat Belt Or Car Seat Routinely? Yes MIGRATION.0301 510876 Information not available 05/12/2022 Do You Have Smoke And Carbon Monoxide Detectors In Your Home? Yes MIGRATION.0301 565019 Information not available 05/12/2022 At What Age Did You Start Smoking Tobacco? 40 MIGRATION.0301 973610 Information not available 05/12/2022 Are You Passively Exposed To Smoke? No MIGRATION.0301 986121 Information not available 05/12/2022 Are There Any Smokers In Your House? No MIGRATION.0301 554681 Information not available 05/12/2022 What Types Of Sporting Activities Do You Participate In? None MIGRATION.0301 947860 Information not available 05/12/2022 Do You Feel Stressed (tense, Restless, Nervous, Or Anxious, Or Unable To Sleep At Night)? [id number] MIGRATION.0301 714343 Information not available 05/12/2022 Do You Use Any Illicit Or Recreational Drugs? No Information not available 06/22/2022 Do You Use Sunscreen Routinely? Yes MIGRATION.0301 515658 Information not available 05/12/2022 Has Tobacco Cessation Counseling Been Provided? No MIGRATION.0301 359070 Information not available 05/12/2022 How Many Years Have You Smoked Tobacco? 10 MIGRATION.0301 573345 Information not available 05/12/2022 Have You Recently Traveled Abroad? No MIGRATION.0301 964774 Information not available 05/12/2022 Do You Have Any Dietary Restrictions? No MIGRATION.0301 463220 Information not available 05/12/2022 Do You Or Have You Ever Used Any Other Forms Of Tobacco Or Nicotine? No MIGRATION.0301 281206 Information not available 05/12/2022 Sex: Male Functional Status Question Answer Note LastModified by Organizat ion Details LastModified Time Do you have difficulty walking or climbing stairs? No MIGRATION.7563350 026 Information not available 05/12/2022 Do you have transportation difficulties? No MIGRATION.6211022 026 Information not available 05/12/2022 Are you able to walk? YESWOREST MIGRATION.1489651 026 Information not available 05/12/2022 Do you have difficulty doing errands alone? No MIGRATION.6473814 026 Information not available 05/12/2022 Are you able to care for yourself? Yes MIGRATION.9574653 026 Information not available 05/12/2022 Do you have difficulty dressing or bathing? No MIGRATION.0276577 026 Information not available 05/12/2022 What is your exercise level? None MIGRATION.1425730 026 Information not available 05/12/2022 Mental Status Question Answer Note LastModified by Organizat ion Details LastModified Time Do you have difficulty concentrating, remembering or making decisions? Yes MIGRATION.[id number] 6 Information not available 05/12/2022 Family History Relationship Description Onset Age of this Age Resolved Age Notes LastModified by Organization Details LastModified Time Father Malignant tumor of lung MIGRATION.381 [id number] Not available 05/12/2022 02:51:47 Mother Alzheimer's disease MIGRATION.342 [id number] Not available 05/12/2022 02:51:47 Medical History Condition [...] MEASLES N MYOCARDIAL INFARCTION N OBESITY N GERD/NAUSEA N EXCESSIVE PERSPIRATION N ANEURYSM N URINARY/BLADDER/KIDNEY PROBLEMS N CORONARY [...] virus, trivalent, preservative 4 completed Not Available [facility] 07/17/2022 14:49:13 Influenza, split virus, trivalent, preservative 3 completed Not Available [facility] 07/17/2022 14:49:13 Influenza, high-dose, trivalent, PF 9 completed Not Available [facility] 07/17/2022 14:49:13 Influenza, high-dose, quadrivalent, PF 2 completed Not Available [facility] 07/17/2022 14:49:13 Influenza, high-dose, quadrivalent, PF 1 completed Not Available [facility] 07/17/2022 14:49:13 Influenza, high-dose, quadrivalent, PF 0 completed Not Available [facility] 07/17/2022 14:49:13 Pneumococcal conjugate PCV 13 0 completed Not Available [facility] 07/17/2022 14:49:13 Influenza, high-dose, trivalent, PF 8 completed Not Available [facility] 07/17/2022 14:49:13 Influenza, split virus, quadrivalent, PF 5 completed Not Available [facility] 07/17/2022 14:49:13 Influenza, high-dose, trivalent, PF 6 completed Not Available [facility] 07/17/2022 14:49:13 Influenza, high-dose, trivalent, PF 7 completed Not Available [facility] 07/17/2022 14:49:13 Influenza, high-dose, quadrivalent, PF 4 completed Carlos Morris MD [address] [facility], [facility] [address], [place], [address], [employer] [facility] [email or web address] [facility] 04/20/2023 09:33:18 Influenza, high-dose, trivalent, PF 4 completed Carlos Morris MD [address] [facility], [facility] [address], [place], [address], [facility] 03/04/2024 20:22:24 Past Encounters Encounter ID Performer Location Encounter Start Date Encounter Closed Date Diagnosis/Indication Diagnosis SNOMED-CT Code Diagnosis ICD10 Code Diagnosis Note [id number] _ATHENA_M IGRATION_ DEFAULT_1 _1 , 06/05/2020 00:00:00 06/05/2020 12:34:07 [id number] [facility] Internal Med [facility] [address] [place] [address] [place], [address] [address] 06/24/2020 00:00:00 07/02/2020 15:40:08 [id number] _ATHENA_M IGRATION_ DEFAULT_1 _1 , 07/11/2020 00:00:00 07/11/2020 16:32:56 [id number] _ATHENA_M IGRATION_ DEFAULT_1 _1 , 08/28/2020 00:00:00 08/28/2020 18:38:43 [id number] _ATHENA_M IGRATION_ DEFAULT_1 _1 , 09/11/2020 00:00:00 09/11/2020 21:30:14 [id number] _ATHENA_M IGRATION_ DEFAULT_1 _1 , 11/07/2020 00:00:00 11/10/2020 23:33:16 [id number] [facility] Internal Med [facility] [address] [place] [address] 11/11/2020 00:00:00 12/10/2020 13:34:28 [id number] _ATHENA_M IGRATION_ DEFAULT_1 _1 , 02/20/2021 00:00:00 03/01/2021 13:03:34 [id number] [facility] Internal Med [facility] [address] [facility] [address] [address] 04/07/2021 00:00:00 05/05/2021 09:19:27 [id number] _ATHENA_M IGRATION_ DEFAULT_1 _1 , 04/09/2021 00:00:00 04/09/2021 12:50:29 [id number] _ATHENA_M IGRATION_ DEFAULT_1 _1 , 05/22/2021 00:00:00 05/26/2021 14:16:17 [id number] _ATHENA_M IGRATION_ DEFAULT_1 _1 , 06/18/2021 00:00:00 06/18/2021 15:47:27 [id number] [facility] Internal Med [facility] [address] [facility] [address] [address] 09/03/2021 00:00:00 09/18/2021 15:21:21 [id number] _ATHENA_M IGRATION_ DEFAULT_1 _1 , 10/02/2021 00:00:00 10/05/2021 08:47:55 [id number] _ATHENA_M IGRATION_ DEFAULT_1 _1 , 01/29/2022 00:00:00 02/01/2022 11:43:52 [id number] [facility] Internal Med [facility] [address] [facility] [address] 03/02/2022 00:00:00 03/02/2022 14:38:37 [id number] [facility] [address] [place] [address] 03/18/2022 00:00:00 03/18/2022 15:23:57 [id number] Carlos pemberton MD [facility] Internal Med [facility] [address] [facility] [address] [address] 06/22/2022 14:03:21 06/22/2022 14:39:25 Screening - NAD 873963853 Z13.9 C-scope: Dr Gamez 07/23/13De clines any new testingNo new symptoms noted DEXA: 03/22/2022 : Osteopenia , can do calcium and vit d UTD yearly flu shotGet Tdap if not doneDo PCV #13 05/01/2019 UTD shingles 5 years ago at [facility] as per hxUTD COVID 19 vaccine 09/30/17:P SA <0.064 RTC in 4 monthsDo labsER if worseHe and his did verbalize their understand ing of the above Hypothyroidism 61515004 E03.[address] Tuttle next 09/20/2022 On synthroid 100mcg daily Hyperlipidemia 85520494 E78.5 On rosuvastat in 20mg daily Get labs Osteoporosis 90431160 M8 1.[address] Tuttle On calciumOn vit D weekly Essential hypertension 47404068 I10 On ASANot on any medsDoes well Chronic ki dney disease 149171654 N18.[address] Cortez, on vit d Dementia 22922355 F03.90 On donezepilD oes well Anemia 265358209 D64.9 On ironOn Vit B12 Take vit C alsoGet labs Chronic re current major depressive disorder 3651959 F33.9 Off bupropion XL 150mg daily On donezepil 5mg dailyOn duloxetine 60mg dailyOn lorazepam 0.5mg dailyOn quetiapine 100mg bidSees Talat Cheemaoza Glaucoma 94837504 H40.[address] Calzada timolol Screening for malignant neoplasm of prostate 312387696 Z12.5 Benign par oxysmal positional vertigo 841884409 H81.13 On meclizine PRN Environmental allergy 42 0858322 T78.49XA On loratidine Adult heal th examination 315063785 Z00.00 Screening for disorder 874357857 Z13.9 [id number] Anyi Tuttle MD [facility] Sabrina [facility] [address] [place] [address] 09/20/2022 14:24:12 09/20/2022 15:36:23 Hypothyroidism 90400115 E03.9 TSH in ideal range- continue on synthroid 100 mcg daily. He was reminded to take his synthroid on empty stomach with glass of water and wait one hour to eat or have his coffee in morning and up to 4 hours if ever taking any heartburn or reflux medication s to help optimize absorption . Discussed paleo like diet with restrictio n of GMOs to help with energy and to optimize absorption of vitamins and minerals and reduce inflammati on. Primary hyperparathyroidism 37985254 E21.0 S/P parathyroi dectomy from 2017 and patient bone density much improved as noted from bone density done in 2020. Patient calcium and parathyroi d in ideal range. Osteoporosis 94227582 M8 1.0 Send for repeat prolia injection as he does have severe osteopenia of his hips bilaterall y; LS in normal range- has had significan t improvemen t since parathyroi dectomy but continue treatment for precaution and fracture prevention . Spent up to 25 minutes preparing to see the patient (eg, review of tests), obtaining and/or reviewing separately obtained history, performing a medically appropriat e examinatio n and evaluation , counseling and educating the patient, ordering medication s, tests, along with documentin g clinical informatio n in the electronic health record, independen tly interpreti ng results and communicat ing results to the patient. Patient can follow PCP for management of thyroid and bone health- he has been stable for over 4 years now. RTC as needed. [id number] Carlos pemberton MD [facility] Internal Med [facility] [address] [facility], [place] [address] [place] [address] 04/19/2023 13:47:19 04/19/2023 14:50:51 Screening - NAD 144535031 Z13.9 C-scope: Dr Gamez 10/03/12De clines any new testingNo new symptoms noted DEXA: 03/22/2022 : Osteopenia , can do calcium and vit d UTD yearly flu shotGet Tdap if not doneDo PCV #13 05/01/2019 UTD shingles 5 years ago at [facility] as per hxUTD COVID 19 vaccineGet RSV vaccine 09/30/17:P SA <0.064 RTC in 4 monthsDo labsER if worseHe and his did verbalize their understand ing of the above Hypothyroidism 46822696 E03.[address] Bryant synthroid 100mcg daily Hyperlipidemia 32167016 E78.5 On rosuvastat in 20mg dailyGet labs Osteoporosis 60279066 M8 1.[address] Tuttle On calciumOn vit D weekly Essential hypertension 02698680 I10 On ASANot on any medsDoes well Chronic ki dney disease 124166974 N18.[address] Cortez, on vit d Dementia 61829028 F03.90 On donezepilD oes well Anemia 026137621 D64.9 On ironOn Vit B12 Take vit C alsoGet labs Chronic re current major depressive disorder 3597349 F33.9 Off bupropion XL 150mg daily On donezepil 5mg dailyOn duloxetine 60mg dailyOn lorazepam 0.5mg dailyOn quetiapine 100mg bidSees Talat Leonardo Glaucoma 45596559 H40.[address] Calzada timolol Screening for malignant neoplasm of prostate 241087856 Z12.5 Benign par oxysmal positional vertigo 429052296 H81.13 On meclizine PRN Environmental allergy 42 0057951 T78.49XA On loratidine Administra tion of influenza vaccine 84894634 Z23 [id number] Carlos pemberton MD [facility] Internal Med [place] [address] [facility] [place] [address] [place] [address] 08/18/2023 13:57:02 08/18/2023 14:57:05 Adult health examination 633891217 Z00.00 Screening for disorder 079680516 Z13.9 Screening - NAD 00789003 3 Z13.9 C-scope: Dr Gamez 10/03/12De clines any new testing 08/18/2023 No new symptoms noted DEXA: 03/22/2022 : Osteopenia , can do calcium and vit d UTD yearly flu shotGet Tdap if not doneDo PCV #13 05/01/2019 UTD shingles 5 years ago at [facility] as per hxUTD COVID 19 vaccineGet RSV vaccine 09/30/17:P SA <0.064 RTC in 4 monthsDo labsER if worseHe and his did verbalize their understand ing of the above Hypothyroidism 12104134 E03.[address] Bryant synthroid 100mcg daily Hyperlipidemia 31197539 E78.5 On rosuvastat in 20mg dailyGet labs Osteoporosis 92908310 M8 1.[address] Tuttle On calciumOn vit D weekly Essential hypertension 48739652 I10 On ASANot on any medsDoes well Chronic ki dney disease 818858835 N18.[address] Cortez, on vit d Dementia 85543486 F03.90 On donezepil Does well Anemia 521149932 D64.9 On ironOn Vit B12 Take vit C alsoGet labs Chronic re current major depressive disorder 1381559 F33.9 Off bupropion XL 150mg daily On donezepil 5mg dailyOn duloxetine 60mg dailyOn lorazepam 0.5mg dailyOn quetiapine 100mg bidSees Talat Leonardo Glaucoma 68904950 H40.[address] Calzada timolol Benign par oxysmal positional vertigo 329219009 H81.13 On meclizine PRN Environmental allergy 42 7766319 T78.49XA On loratidine Vitamin D deficiency 347 78129 E55.9 Serum dorita min B12 below reference range 717359053 R79.89 [id number] Carlos pemberton MD [facility] Internal Med [facility] [address] [facility] [place] [address] [place] [address] 11/29/2023 14:40:00 11/29/2023 16:02:59 Hypothyroidism 27867367 E03.[address] Bryant synthroid 100mcg daily Screening - NAD 54860742 3 Z13.9 C-scope: Dr Gamez 10/03/12De clines any new testing 08/18/2023 No new symptoms noted DEXA: 03/22/2022 : Osteopenia , can do calcium and vit d UTD yearly flu shotGet Tdap if not doneDo PCV #13 05/01/2019 UTD shingles 5 years ago at [facility] as per hxUTD COVID 19 vaccineGet RSV vaccine 09/30/17:P SA <0.064 RTC in 4 monthsDo labsER if worseHe and his did verbalize their understand ing of the above Hyperlipidemia 14095997 E78.5 Not taking rosuvastat in 20mg dailyLDL 86 11/24/2023 Get labs Osteoporosis 74641319 M8 1.[address] Tuttle On calciumOn vit D weekly Essential hypertension 92830446 I10 On ASANot on any medsDoes well Chronic ki dney disease 670585434 N18.[address] Cortez, on vit d Dementia 24509912 F03.90 On donezepil Does well Anemia 700407587 D64.9 On ironOn Vit B12 Take vit C alsoGet labs Chronic re current major depressive disorder 4965730 F33.9 Off bupropion XL 150mg daily On donezepil 5mg dailyOn duloxetine 60mg dailyOn lorazepam 0.5mg dailyOn quetiapine 100mg bidSees Talat Leonardo Glaucoma 30110007 H40.[address] Calzada timolol Benign par oxysmal positional vertigo 619440462 H81.13 On meclizine PRN Environmental allergy 42 8577391 T78.49XA On loratidine Vitamin D deficiency 347 15500 E55.9 Serum dorita min B12 below reference range 805933436 R79.89 [id number] Carlos pemberton MD [facility] Internal Med [facility] [address] [facility], [facility] [address] [place] [address] 02/16/2024 13:59:52 02/16/2024 15:15:41 Hypothyroidism 95107817 E03.[address] Bryant synthroid 100mcg daily Screening - NAD 02725205 3 Z13.9 C-scope: Dr Gamez 10/03/12De clines any new testing 08/18/2023 No new symptoms noted DEXA: 03/22/2022 : Osteopenia , can do calcium and vit d UTD yearly flu shotGet Tdap if not doneDo PCV #13 05/01/2019 UTD shingles 5 years ago at [facility] as per hxUTD COVID 19 vaccineGet RSV vaccine 09/30/17:P SA <0.064 RTC in 4 monthsDo labsER if worseHe and his did verbalize their understand ing of the above Hyperlipidemia 41144387 E78.5 Not taking rosuvastat in 20mg dailyLDL 86 11/24/2023 Get labs Osteoporosis 68308687 M8 1.[address] Tuttle On calciumOn vit D weekly Essential hypertension 85010336 I10 On ASANot on any medsDoes well Chronic ki dney disease 831583263 N18.[address] Cortez, on vit d Dementia 31799743 F03.90 On donezepil Does well Anemia 647330267 D64.9 On ironOn Vit B12 Take vit C alsoGet labs Chronic re current major depressive disorder 3758497 F33.9 Off bupropion XL 150mg daily On donezepil 5mg dailyOn duloxetine 60mg dailyOn lorazepam 0.5mg dailyOn quetiapine 100mg bidSees Talat Leonardo Glaucoma 11597208 H40.[address] Calzada timolol Benign par oxysmal positional vertigo 173912413 H81.13 On meclizine PRN Environmental allergy 42 5050929 T78.49XA On loratidine Vitamin D deficiency 347 86442 E55.9 Serum dorita min B12 below reference range 628660424 R79.89 Administra tion of influenza vaccine 48210170 Z23 Health Concerns Section Related Observation LastModified by Organization Detai ls LastModified Time None Recorded Concern Status LastModified by Organization Details LastModified Time None Recorded Advance Directives Directive Y: Payers Encounter Date Sequence Insurance Name Policy Number Policy Callahan Covered Member ID Callahan Member ID Guarantor Name 09/20/2022 1 [employer] (MEDICARE REPLACEMENT PPO) [id number] Abdi Abrams [id number] Abdi Abrams 04/19/2023 1 [employer] (MEDICARE REPLACEMENT PPO) [id number] Abdi Abrams [id number] Abdi Abrams 08/18/2023 1 [employer] (MEDICARE REPLACEMENT PPO) [id number] Abdi Abrams [id number] Abdi Abrams 11/29/2023 1 [employer] (MEDICARE REPLACEMENT PPO) [id number] Abdi Abrams [id number] Abdi Abrams 02/16/2024 1 [employer] (MEDICARE REPLACEMENT PPO) [id number] Abdi Abrams [id number] Abdi Abrams Notes Date Note Type Note Provider Name and Address Organization Details Recorded Time 3 text/html 81 yo male comes in for follow up in management of hypothyroidism, primary hyperparathyroidism s/p parathyroidectomy and severe osteopenia. last seen in March at that time we continued synthroid 100 mcg daily S/P parathyroidectomy from 2018 and patient bone density much improved as noted from bone density done in 2020. Repeat bone density this spring to assess stability of bone strength. PTH and calcium in range and patient remains in remission 4 years since surgery. He has no falls or fractures since last visit. He still has better mentation and better focus since his last visit. Sent for bone density scanbone density scan from 04/05:IMPRESSION:1. The patient's lumbar spine T-score is consistent with a normal bonedensity. (increase of 18.3% since 2018 scan)2. The patient's bilateral hip T-score is consistent with severe osteopenia. (increase of 8.1% since 2018 scan) labs from 06/14/22:TSH of 1.570 uIU/mlB12 of 726 pg/MLvit D 55.2 ng/mLCr 1.13 mg/dLcalcium 9.2 mg/dLglucose 93 mg/dL101/122/44/33 Anyi Tuttle MD [address] [facility] [address], [place], [address], [facility] [employer] Information 09/20/2022 21:52:48 4 text/html Here to establish carePast Hx:HTNDepressionHeadache sReviewed surgical family and surgical historyHe is here with his wifeShe states that he has been more confused latelyAs per the he walks around talking to himself and 'prays to God'He is also not able to finish his sentencesHe is also very shaky and nervousOngoing since a monthHe was put on paxil, and then Karina the [employer]PERVIS[employer] put him on xanax and trazodoneHe denies any fevers or chills, N/V or diarrheaNo headachesNo abd pain, or LBPNo rash OV 11/28/17:Here with his wifeRecently released from the rehab [...] the labsHe is to see Dr Tuttle, Talatfreddy MonahanShelbyvasyl states that that he is doing very [...] he is here with his and daughter Carlos Morris MD [address] [facility], [place], [address], [facility] 04/20/2023 09:33:53 4 text/html Here to establish carePast Hx:HTNDepressionHeadache sReviewed surgical family and surgical historyHe is here with his wifeShe states that he has been more confused latelyAs per the he walks around talking to himself and 'prays to God'He is also not able to finish his sentencesHe is also very shaky and nervousOngoing since a monthHe was put on paxil, and then Karina the [employer] SUPERVIS[employer] put him on xanax and trazodoneHe denies any fevers or chills, N/V or diarrheaNo headachesNo abd pain, or LBPNo rash OV 11/28/17:Here with his wifeRecently released from the rehab [...] did do the labsHe is to see Talat Osuna states that that he is doing very [...] and he is here for his MWV Carlos Morris MD [address] [facility], [place], [address], [place] [facility] [employer] 08/29/2023 19:09:09 4 text/html Here to establish carePast Hx:HTNDepressionHeadache sReviewed surgical family and surgical historyHe is here with his wifeShe states that he has been more confused latelyAs per the he walks around talking to himself and 'prays to God'He is also not able to finish his sentencesHe is also very shaky and nervousOngoing since a monthHe was put on paxil, and then Karina the [employer] SUPER[employer] put him on xanax and trazodoneHe denies any fevers or chills, N/V or diarrheaNo headachesNo abd pain, or LBPNo rash OV 11/28/17:Here with his wifeRecently released from the rehab [...] did do the labsHe is to see Talat Osuna states that that he is doing very [...] his , he did do the labs Carlos Morris MD [address], [place], [address], [place] [facility] 11/29/2023 18:11:35 4 text/html Here to establish carePast Hx:HTNDepressionHeadache sReviewed surgical family and surgical historyHe is here with his wifeShe states that he has been more confused latelyAs per the he walks around talking to himself and 'prays to God'He is also not able to finish his sentencesHe is also very shaky and nervousOngoing since a monthHe was put on paxil, and then Karina the [employer] SUPER[employer] put him on xanax and trazodoneHe denies any fevers or chills, N/V or diarrheaNo headachesNo abd pain, or LBPNo rash OV 11/28/17:Here with his wifeRecently released from the rehab [...] is doing well today Carlos Morris MD [address], [address], [place], [address], [place] [facility] 03/04/2024 20:22:57
--- OUTSIDE RECORDS SUMMARY | 2024-03-16 05:15 | XMS_ITS | Clinical Summary ---
Author Organization Unknown Care Team Providers Care Hearing Therapy Teacher Name Role Phone ZACH INTERSTATE, MURTUZA Unavailable Unavailable ELIZA PT, KEESHA Unavailable Unavailable KAREN HOUSE DIRECTOR, PHILIPPE Unavailable Unavailable SASKIA PEREZ OT Unavailable Jacquelyn crawford [facility], SHAN Unavailable Unavailable ELYSE PENNY, SHAUNNA Unavailable Unavailabl e Payers Payer Name Policy Type Policy Number Effective Date Expira tion Date [facility] [id number] Problems Condition Name Condition Details Condition Category [...] gel forming solution 11-03 00:00: 00 Yes [id number] GLAUCOMA Per instruc tions DAILY Per instructio ns DAILY (route: ophthalmic (eye)) Med Classific ation: Ophthalmi c Agents atorvastati n 40 mg tablet 11-02 00:00: 00 Yes [id number] HYPERCHOLES TEREMIA 1 tablet DAILY 1 tablet DAILY (route: oral) Med Classific ation: Cardiovas cular Therapy Agents meloxicam 7.5 mg tablet 11-02 00:00: 00 Yes [id number] ANTI-INFLAM MATORY 1 tablet DAILY 1 tablet DAILY (route: oral) Med Classific ation: Analgesic , Anti-infl ammatory or Antipyret ic levothyroxi ne 100 mcg tablet 10-22 00:00: 00 Yes [id number] HYPOTHYROID ISM 1 tablet ONCE DAILY 1 tablet ONCE DAILY (route: oral) Med Classific ation: Endocrine loratadine 10 mg tablet 10-19 00:00: 00 11-13 00:00 :00 No [id number] Per instruc tions EVERY DAY NEEDED FOR 90 DAYS Per instructio ns EVERY DAY NEEDED FOR 90 DAYS (route: oral) Med Classific ation: Respirato ry Therapy Agents donepezil 10 mg tablet 10-21 00:00: 00 Yes [id number] MEMORY 1 tablet DAILY 1 tablet DAILY (route: oral) Med Classific ation: Cognitive Disorder Therapy duloxetine 60 mg capsule,del ayed release 10-21 00:00: 00 Yes [id number] DEPRESSION 1 capsule DAILY 1 capsule DAILY (route: oral) Med Classific ation: Central Nervous System Agents ergocalcife rol (vitamin D2) 1,250 mcg (50,000 unit) capsule 10-21 00:00: 00 Yes [id number] SUPPLEMENT 1 capsule WEEKLY 1 capsule WEEKLY (route: oral) Med Classific ation: Electroly te Balance-N utritiona l Products famotidine 20 mg tablet 10-21 00:00: 00 Yes [id number] ACID REFLUX 1 tablet 2 TIMES DAILY 1 tablet 2 TIMES DAILY (route: oral) Med Classific ation: Gastroint estinal Therapy Agents hydrocodone 7.5 mg-acetamin ophen 325 mg tablet 10-21 00:00: 00 Yes [id number] NEEDED FOR PAIN 1 tablet EVERY 6 HOURS 1 tablet EVERY 6 HOURS (route: oral) Med Classific ation: Analgesic , Anti-infl ammatory or Antipyret ic lorazepam 0.5 mg tablet 10-27 00:00: 00 Yes [id number] ANXIETY 1 tablet DAILY 1 tablet DAILY (route: oral) Med Classific ation: Central Nervous System Agents melatonin 5 mg capsule 10-21 00:00: 00 Yes [id number] SLEEP AID 1 capsule BEDTIME 1 capsule BEDTIME (route: oral) Med Classific ation: Central Nervous System Agents Miralax 17 gram oral powder packet 11-12 00:00: 00 Yes [id number] CONSTIPATIO N 1 packet DAILY 1 packet DAILY (route: oral) Med Classific ation: Gastroint estinal Therapy Agents nystatin 100,000 unit/gram topical powder 10-27 00:00: 00 Yes [id number] NEEDED FOR RASH ON BACK Per instruc tions 3 TIMES DAILY Per instructio ns 3 TIMES DAILY (route: topical) Med Classific ation: Dermatolo gical quetiapine 50 mg tablet 10-21 00:00: 00 Yes [id number] SLEEP AID 1 tablet 2 TIMES DAILY [...] DETERIORATION, COMPLICATIONS, OR INFECTION TO RN CLINICAL ASSEMBLING MACHINE OPERATOR AND/OR PHYSICIAN. [code = PHYSICAL THERAPY TO OBSERVE INCISIONS ON LEFT HIP AND REPORT EARLY SIGNS AND SYMPTOMS OF WOUND DETERIORATION, COMPLICATIONS, OR INFECTION TO RN CLINICAL ASSEMBLING MACHINE OPERATOR AND/OR PHYSICIAN.] Future Scheduled Test [...] End Date/Time Encounter Type Admission Type Attending [facility] Care Department Encounter ID Discharge Date Discharge Status Discharge Condition Discharge Reason Percent Goals Met 2022-11-13 00:00:00 2022-11-25 00:00:00 Outpatient NEW ADMISSION KEESHA [facility] [id number] 2022-11-25 00:00:00 DISCHARGE TO HOME OR SELF CARE INDEPENDEN T WITH USE OF ASSISTIVE DEVICE HH ONLY - OUT PATIENT 57.14
== END 2024-03-11 14:32 | disposition home or self-care (01) | DRG 179 ==
LOC: ANHED 03-09 03:17 → ANH2MED 03-09 03:52
PROVIDERS: Physician Assistant; Admitting Provider Internal Medicine; Emergency Provider Emergency Medicine; PCP Internal Medicine; Visit Provider Nurse Practitioner Acute Care
DX: U07.1 COVID-19 (principal); E78.5 Hyperlipidemia, unspecified; H40.9 Unspecified glaucoma; E03.9 Hypothyroidism, unspecified; F32.A Depression, unspecified; F41.9 Anxiety disorder, unspecified; I10 Essential (primary) hypertension; G20.A1 Parkinson's disease without dyskinesia, without mention of fluctuations; G31.83 Neurocognitive disorder with Lewy bodies; F02.80 Dementia in other diseases classified elsewhere, unspecified severity, without behavioral disturbance, psychotic disturbance, mood disturbance, and anxiety
CPT/HCPCS: 36415; 71046; 80053; 82248; 83735; 84443; 85025; 85055; 85610; 87637; 93005; 94618; 94640; 97165; 99285; A9270; G0378; J0248; J1100; J1650